=== PATIENT | female | born 1955 | race Caucasian/White ===

== ENCOUNTER 2017-01-23 14:35 | Emergency (ER) | payer OTHER, MEDICAID ==
[~2017-01-23] VITALS: Ht 170.2 cm; Wt 68.0 kg
[~2017-01-23 14:35] MED LIST: ALBU18 IN; CLON1TAB3 PO; INSUINJ37 SUBCUT; LURA80TA PO; METF500T PO; MOTRIN; QUET400T3 PO; SERT-160 PO; SIMV10TA84 PO; ZOLP10TA6 PO
[2017-01-23 14:41] VITALS: BP 139/80
[2017-01-23] MEDS ORDERED: SODIUM CHLORIDE 0.9% 1,000 ML IV ONE (14:55)
[2017-01-23] MEDS ORDERED: LORazepam 2MG/ML-1ML VIAL IV ONE (15:00)
[2017-01-23] MEDS ORDERED: MORPHINE SULFATE 4 MG/ML SYRG IV ONE (15:00)
[2017-01-23] MEDS ORDERED: ONDANSETRON HCL 4 MG/2 ML VIAL IV ONE (15:00)
[2017-01-23 15:52] LABS: Basophils # (auto) 0 uL; Basophils % (auto) 0.4 % (0.0-2.0); CONDITION Y; Eosinophils # (auto) 0 uL; Hemoglobin 14.5 g/dL (12.2-16.2); Lymphocytes # (auto) 1.1 uL; Lymphocytes % (auto) 11.7 % (10.0-50.0); Mean Corpuscular Hemoglobin 30.5 pg (28.0-32.0); Mean Corpuscular Hgb Conc. 34.5 g/dL (32.0-36.0); Mean Corpuscular Volume 88.6 fL (80.0-100.0); Mean Platelet Volume 7.6 fL (7.4-10.4); Monocytes # (auto) 0.4 uL; Monocytes % (auto) 4.7 % (0.0-12.0); Neutrophils # (auto) 7.6 uL; Neutrophils % (auto) 83.2 % (37.0-80.0); Platelet Count (auto) 338 10^3/uL (140-450); Red Cell Distribution Width 15.3 % (11.6-16.0); White Blood Cell 9.1 10^3/uL (4.4-10.8)
[2017-01-23 16:08] LABS: Albumin 4.2 g/dL (3.4-5.0); BUN/Creatinine Ratio 13.3; Calcium 8.9 mg/dL (8.5-10.1); Magnesium 1.8 mg/dL (1.6-2.6); Potassium 3.2 mmol/L (3.5-5.1)
[2017-01-23 16:11] LABS: Bilirubin, Total 0.4 mg/dL (0.2-1.0); Total Protein 8.4 g/dL (6.4-8.2)
== END 2017-01-23 22:46 | disposition left against medical advice (07) ==
LOC: EDBD 14:35 → ER 14:41
DX: R10.9 Unspecified abdominal pain (principal); G89.29 Other chronic pain; M54.5 Low back pain; M19.90 Unspecified osteoarthritis, unspecified site; J45.909 Unspecified asthma, uncomplicated; E11.22 Type 2 diabetes mellitus with diabetic chronic kidney disease; N18.9 Chronic kidney disease, unspecified; I25.2 Old myocardial infarction; E78.5 Hyperlipidemia, unspecified; E07.89 Other specified disorders of thyroid; Z90.49 Acquired absence of other specified parts of digestive tract; Z90.710 Acquired absence of both cervix and uterus; Z79.899 Other long term (current) drug therapy; Z88.1 Allergy status to other antibiotic agents; Z88.6 Allergy status to analgesic agent
CPT/HCPCS: 36415; 74176; 80053; 82010; 83735; 85025; 93005; 94761

== ENCOUNTER 2017-11-24 18:03 | Emergency (ER) | payer OTHER, MEDICAID ==
[~2017-11-24] VITALS: Ht 165.1 cm; Wt 76.2 kg
[2017-11-24 19:35] LABS: Basophils # (auto) 0 uL; Basophils % (auto) 0.5 % (0.0-2.0); Eosinophils # (auto) 0.2 uL; Eosinophils % (auto) 2.8 % (0.0-7.0); Hematocrit 34.4 % (36.0-46.0); Hemoglobin 11.7 g/dL (12.2-16.2); Lymphocytes # (auto) 1.4 uL; Lymphocytes % (auto) 25.9 % (10.0-50.0); Mean Corpuscular Hemoglobin 30.9 pg (28.0-32.0); Monocytes # (auto) 0.3 uL; Neutrophils # (auto) 3.6 uL; Neutrophils % (auto) 64.8 % (37.0-80.0); Nucleated Red Blood Cells % 0.1 %; Platelet Count (auto) 233 10^3/uL (140-450); Red Blood Cells 3.78 10^6/uL (4.0-5.20); Red Cell Distribution Width 14.3 % (11.8-14.3); White Blood Cell 5.5 10^3/uL (4.4-10.8)
[2017-11-24 20:19] LABS: Alanine Aminotransferase 17 U/L (13-56); Alkaline Phosphatase 137 U/L (45-117); Anion Gap 10 (5-15); Aspartate Aminotransferase 16 U/L (15-37); BUN/Creatinine Ratio 6.3; Bilirubin, Total 0.3 mg/dL (0.2-1.0); Blood Urea Nitrogen 4 mg/dL (7-18); Calcium 8.9 mg/dL (8.5-10.1); Carbon Dioxide 24 mmol/L (21-32); Chloride 106 mmol/L (98-107); GFR African American 123 mL/min; GFR Non-African American 102 mL/min; Glucose 124 mg/dL (74-106); Magnesium 2.4 mg/dL (1.6-2.6); Potassium 3.1 mmol/L (3.5-5.1); Sodium 140 mmol/L (136-145); Total Protein 7.9 g/dL (6.4-8.2)
[2017-11-24] MEDS ORDERED: HYDROcodone-ACET 10/325MG TAB PO ONE (20:45)
[2017-11-24 23:53] VITALS: BP 141/88
[2017-11-25] MEDS ORDERED: POTASSIUM CHL 20 Meq TABLET PO ONE ×2
== END 2017-11-25 00:17 | disposition home or self-care (01) ==
LOC: ER 18:05
DX: S20.219A Contusion of unspecified front wall of thorax, initial encounter (principal); E11.9 Type 2 diabetes mellitus without complications; J44.9 Chronic obstructive pulmonary disease, unspecified; M19.90 Unspecified osteoarthritis, unspecified site; E78.5 Hyperlipidemia, unspecified; Z90.49 Acquired absence of other specified parts of digestive tract; Z90.710 Acquired absence of both cervix and uterus; Z79.4 Long term (current) use of insulin; Z87.891 Personal history of nicotine dependence; Z88.1 Allergy status to other antibiotic agents; X58.XXXA Exposure to other specified factors, initial encounter; Y93.89 Activity, other specified; Y92.89 Other specified places as the place of occurrence of the external cause; Y99.8 Other external cause status
CPT/HCPCS: 36415; 71250; 80053; 83735; 84484; 85025; 93005; 94761

== ENCOUNTER 2021-09-25 23:34 | Inpatient (IN) | payer OTHER, MEDICAID ==
[~2021-09-25] VITALS: Ht 165.1 cm; Wt 66.0 kg
[~2021-09-25 23:34] MED LIST changes: +CLON-853 PO; -CLON1TAB3 PO; -QUET400T3 PO; +QUET400T4 PO
[2021-09-26] MEDS ORDERED: SODIUM CHLORIDE 0.9% 1,000 ML IV ONE
[2021-09-26] MEDS ORDERED: HYDROmorphone HCL 2 MG/ML VL IV ONE ×3 (00:45→08:30)
[2021-09-26] MEDS ORDERED: LORazepam 2MG/ML-1ML VIAL IV ONE (00:45)
[2021-09-26 01:22] LABS: Basophils # (auto) 0 10 ^3/uL (0-0.2); Basophils % (auto) 0.2 % (0.0-2.0); Eosinophils # (auto) 0 10 ^3/uL (0-0.8); Eosinophils % (auto) 0.3 % (0.0-7.0); Hemoglobin 11.5 g/dL (12.2-16.2); Lymphocytes # (auto) 0.6 10 ^3/uL (0.4-5.4); Lymphocytes % (auto) 13.8 % (10.0-50.0); Mean Corpuscular Hemoglobin 33.9 pg (28.0-32.0); Mean Corpuscular Hgb Conc. 34.9 g/dL (32.0-36.0); Mean Corpuscular Volume 97.1 fL (80.0-100.0); Monocytes # (auto) 0.2 10 ^3/uL (0-1.3); Monocytes % (auto) 4.1 % (0.0-12.0); Neutrophils # (auto) 3.8 10 ^3/uL (1.6-8.6); Neutrophils % (auto) 81.6 % (37.0-80.0); Nucleated Red Blood Cells % 0.1 %; Red Cell Distribution Width 14.3 % (11.8-14.3); White Blood Cell 4.6 10^3/uL (4.4-10.8)
[2021-09-26 01:31] LABS: Albumin 3.8 g/dL (3.4-5.0); BUN/Creatinine Ratio 14.1; Calcium 9.4 mg/dL (8.5-10.1); Potassium 3.5 mmol/L (3.5-5.1)
[2021-09-26 01:34] LABS: Bilirubin, Total 0.4 mg/dL (0.2-1.0); Total Protein 7.6 g/dL (6.4-8.2)
[2021-09-26 03:24] LABS: Urine Bacteria NONE SEEN /hpf (None Seen); Urine Blood Negative /uL (Negative); Urine Specific Gravity 1.005 (1.001-1.035); Urine WBC 1 /hpf (0 - 5)
[2021-09-26] MEDS ORDERED: IOHEXOL 300 MG/ML 100ML BOTTLE IJ ONE (04:23)
[2021-09-26] MEDS ORDERED: METOCLOPRAMIDE HCL 5MG/ml INJ 2ml VIAL IV ONE (08:30)
[2021-09-26 09:38] LABS: INR 1.07 (0.9-1.15); Partial Thromboplastin Time 29.3 sec (23.6-33.0)
[2021-09-26] MEDS ORDERED: NITROGLYCERIN 0.4 MG SL TAB SL PRN (10:15)
[2021-09-26] MEDS ORDERED: MORPHINE SULFATE 4 MG/ML SYR/VIAL IV PRN (10:15)
[2021-09-26] MEDS ORDERED: MORPHINE SULFATE INJECTION 2 MG/ML SYRG IV PRN (10:15)
[2021-09-26 12:00] VITALS: BP 113/61
[2021-09-26 14:00] VITALS: BP 113/61
[2021-09-26] MEDS: SODIUM CHLORIDE 0.9% 1,000 ML IV SCH ×2 (14:54→18:35)
[2021-09-26 16:00] VITALS: BP 121/64
[2021-09-26] MEDS ORDERED: HYDROmorphone HCL 2 MG/ML VL IV PRN (18:00)
[2021-09-26] MEDS: HYDROmorphone HCL 2 MG/ML VL IV PRN ×2 (19:16→23:26)
[2021-09-26] MEDS: FAMOTIDINE (10MG/ML) 2ML VL IV SCH (22:00)
[2021-09-26 22:03] VITALS: BP 136/66
[2021-09-27] MEDS: HYDROmorphone HCL 2 MG/ML VL IV PRN ×5 (04:27→20:34)
[2021-09-27 05:14] VITALS: BP 138/75
[2021-09-27 06:38] LABS: Basophils # (auto) 0 10 ^3/uL (0-0.2); Basophils % (auto) 0.6 % (0.0-2.0); Eosinophils # (auto) 0.1 10 ^3/uL (0-0.8); Eosinophils % (auto) 4.1 % (0.0-7.0); Hematocrit 29.5 % (36.0-46.0); Hemoglobin 10.3 g/dL (12.2-16.2); Lymphocytes # (auto) 1.4 10 ^3/uL (0.4-5.4); Lymphocytes % (auto) 40.3 % (10.0-50.0); Mean Corpuscular Hemoglobin 33.8 pg (28.0-32.0); Mean Corpuscular Hgb Conc. 34.9 g/dL (32.0-36.0); Monocytes # (auto) 0.3 10 ^3/uL (0-1.3); Monocytes % (auto) 9.2 % (0.0-12.0); Neutrophils # (auto) 1.5 10 ^3/uL (1.6-8.6); Neutrophils % (auto) 45.8 % (37.0-80.0); Nucleated Red Blood Cells % 0.1 %; Red Blood Cells 3.04 10^6/uL (4.0-5.20); Red Cell Distribution Width 14.6 % (11.8-14.3); White Blood Cell 3.4 10^3/uL (4.4-10.8)
[2021-09-27 06:55] LABS: Albumin 3.3 g/dL (3.4-5.0); BUN/Creatinine Ratio 14.3; Calcium 8.4 mg/dL (8.5-10.1); Potassium 3.4 mmol/L (3.5-5.1)
[2021-09-27 06:58] LABS: Bilirubin, Total 0.5 mg/dL (0.2-1.0); Total Protein 6.6 g/dL (6.4-8.2)
[2021-09-27] MEDS: ONDANSETRON HCL 4 MG/2 ML VIAL IV PRN ×3 (08:22→20:35)
[2021-09-27 09:00] VITALS: BP 141/76
[2021-09-27] MEDS: FAMOTIDINE (10MG/ML) 2ML VL IV SCH ×2 (10:06→21:26)
[2021-09-27] MEDS: ENOXAPARIN SOD 40 MG/0.4 ML SYRINGE SC SCH (10:06)
[2021-09-27] MEDS: SODIUM CHLORIDE 0.9% 1,000 ML IV SCH ×2 (11:22)
[2021-09-27 13:00] VITALS: BP 151/70
[2021-09-27] MEDS ORDERED: GASTROGRAFIN 120 ML SOL ONE (13:51)
[2021-09-27 17:00] VITALS: BP 120/68
[2021-09-27 20:00] VITALS: BP 142/72
[2021-09-27 22:55] VITALS: BP 145/22
[2021-09-28] MEDS: ONDANSETRON HCL 4 MG/2 ML VIAL IV PRN ×5 (00:35→21:51)
[2021-09-28] MEDS: HYDROmorphone HCL 2 MG/ML VL IV PRN ×6 (00:35→21:51)
[2021-09-28 05:00] VITALS: BP 105/66
[2021-09-28] MEDS: SODIUM CHLORIDE 0.9% 1,000 ML IV SCH ×2 (05:11→11:52)
[2021-09-28 09:00] VITALS: BP 126/66
[2021-09-28] MEDS: FAMOTIDINE (10MG/ML) 2ML VL IV SCH ×2 (10:45→21:50)
[2021-09-28] MEDS: ENOXAPARIN SOD 40 MG/0.4 ML SYRINGE SC SCH (10:46)
[2021-09-28 13:00] VITALS: BP 133/71
[2021-09-28 16:18] LABS: BUN/Creatinine Ratio 10.7; Calcium 9.2 mg/dL (8.5-10.1); Potassium 3.2 mmol/L (3.5-5.1)
[2021-09-28 17:00] VITALS: BP 117/75
[2021-09-28] MEDS ORDERED: POTASSIUM EFFERVESENT TAB 25 MEQ PO ONE (18:15)
[2021-09-28 22:00] VITALS: BP 130/76
[2021-09-29] MEDS: SODIUM CHLORIDE 0.9% 1,000 ML IV SCH ×2 (01:20→21:35)
[2021-09-29] MEDS: ONDANSETRON HCL 4 MG/2 ML VIAL IV PRN ×4 (01:36→20:17)
[2021-09-29] MEDS: HYDROmorphone HCL 2 MG/ML VL IV PRN ×6 (01:37→23:45)
[2021-09-29 05:00] VITALS: BP 132/63
[2021-09-29 09:00] VITALS: BP 127/62
[2021-09-29] MEDS: FAMOTIDINE (10MG/ML) 2ML VL IV SCH ×2 (11:52→22:35)
[2021-09-29] MEDS: ENOXAPARIN SOD 40 MG/0.4 ML SYRINGE SC SCH (11:52)
[2021-09-29 13:00] VITALS: BP 144/62
[2021-09-29] MEDS: POTASSIUM CHL 10MEQ/50ML 50 ML IV SCH ×4 (13:08→16:48)
[2021-09-29 17:00] VITALS: BP 110/71
[2021-09-29] MEDS ORDERED: QUET300T74 PO (21:16)
[2021-09-29] MEDS ORDERED: MID10T GT (21:16)
[2021-09-29] MEDS ORDERED: ROPI1TAB4 PO (21:16)
[2021-09-29] MEDS ORDERED: DULO60CA PO (21:16)
[2021-09-29] MEDS ORDERED: LEVO50CA3 PO (21:16)
[2021-09-29] MEDS ORDERED: FAMO40TA7 PO (21:16)
[2021-09-29] MEDS ORDERED: POTA-180 PO (21:16)
[2021-09-29] MEDS ORDERED: DOCU100T15 PO (21:16)
[2021-09-29] MEDS ORDERED: APIX5TAB PO (21:16)
[2021-09-29] MEDS ORDERED: MAGN250T8 PO (21:16)
[2021-09-29] MEDS ORDERED: FURO1TAB33 PO (21:16)
[2021-09-29 22:09] VITALS: BP 193/69
[2021-09-30] MEDS: SODIUM CHLORIDE 0.9% 1,000 ML IV SCH ×3 (01:03→22:22)
[2021-09-30] MEDS: ONDANSETRON HCL 4 MG/2 ML VIAL IV PRN ×3 (03:27→22:23)
[2021-09-30] MEDS: HYDROmorphone HCL 2 MG/ML VL IV PRN ×6 (03:32→22:23)
[2021-09-30 05:00] VITALS: BP 137/67
[2021-09-30 08:53] VITALS: BP 141/72
[2021-09-30 12:26] VITALS: BP 143/70
[2021-09-30] MEDS: ENOXAPARIN SOD 40 MG/0.4 ML SYRINGE SC SCH (12:31)
[2021-09-30] MEDS: FAMOTIDINE (10MG/ML) 2ML VL IV SCH ×2 (12:32→22:22)
[2021-09-30 16:42] VITALS: BP 147/66
[2021-09-30 22:00] VITALS: BP 141/72
[2021-09-30] MEDS ORDERED: QUEtiapine FUMARATE 100 MG TAB PO SCH (22:00)
[2021-10-01] MEDS: HYDROmorphone HCL 2 MG/ML VL IV PRN ×2 (04:42→10:16)
[2021-10-01] MEDS: ONDANSETRON HCL 4 MG/2 ML VIAL IV PRN ×2 (04:42→10:17)
[2021-10-01 05:00] VITALS: BP 121/65
[2021-10-01] MEDS: SODIUM CHLORIDE 0.9% 1,000 ML IV SCH (05:25)
[2021-10-01 09:00] VITALS: BP 123/67
[2021-10-01] MEDS: FAMOTIDINE (10MG/ML) 2ML VL IV SCH (10:05)
[2021-10-01] MEDS: ENOXAPARIN SOD 40 MG/0.4 ML SYRINGE SC SCH (10:06)
[2021-10-01 11:44] VITALS: BP 123/67
== END 2021-10-01 12:30 | disposition home health service (06) | DRG 389 ==
LOC: ER 23:34 → EDBD 23:34 → TELE 09-26 10:01 → TELE-WESTW 09-26 12:23
PROVIDERS: ADMIT Internal Medicine; ATTEND Internal Medicine
DX: K56.7 Ileus, unspecified (principal); M48.56XA Collapsed vertebra, not elsewhere classified, lumbar region, initial encounter for fracture; C50.911 Malignant neoplasm of unspecified site of right female breast; R91.1 Solitary pulmonary nodule; F20.9 Schizophrenia, unspecified; G89.4 Chronic pain syndrome; D64.9 Anemia, unspecified; E87.6 Hypokalemia; E11.22 Type 2 diabetes mellitus with diabetic chronic kidney disease; N18.9 Chronic kidney disease, unspecified; M19.90 Unspecified osteoarthritis, unspecified site; Z20.822 Contact with and (suspected) exposure to COVID-19; G89.3 Neoplasm related pain (acute) (chronic); Z80.0 Family history of malignant neoplasm of digestive organs; Z81.8 Family history of other mental and behavioral disorders; Z82.49 Family history of ischemic heart disease and other diseases of the circulatory system; Z90.12 Acquired absence of left breast and nipple; Z79.4 Long term (current) use of insulin; Z90.710 Acquired absence of both cervix and uterus; Z83.3 Family history of diabetes mellitus; Z85.038 Personal history of other malignant neoplasm of large intestine; Z85.3 Personal history of malignant neoplasm of breast; Z92.21 Personal history of antineoplastic chemotherapy; Z79.899 Other long term (current) drug therapy; I25.2 Old myocardial infarction; Z88.5 Allergy status to narcotic agent; Z90.49 Acquired absence of other specified parts of digestive tract; E11.9 Type 2 diabetes mellitus without complications; Z79.84 Long term (current) use of oral hypoglycemic drugs
CPT/HCPCS: 36415; 71045; 74176; 74250; 80048; 80053; 81001; 83690; 83735; 85025; 85610; 85730; 93005; 96361; 96374; 96375; 96376; G0378; J1642; J2405; J3490

== ENCOUNTER 2021-11-01 22:35 | Inpatient (IN) | payer OTHER, MEDICAID ==
[~2021-11-01] VITALS: Ht 165.1 cm; Wt 66.6 kg
[~2021-11-01 22:35] MED LIST changes: +APIX5TAB PO; +DOCU100T15 PO; +DULO60CA PO; +FAMO40TA7 PO; +FURO1TAB33 PO; +LEVO50CA3 PO; +MAGN250T8 PO; +MID10T GT; +POTA-180 PO; +QUET300T74 PO; +ROPI1TAB4 PO
[2021-11-01 23:53] LABS: Basophils # (auto) 0 10 ^3/uL (0-0.2); Basophils % (auto) 0.3 % (0.0-2.0); Eosinophils # (auto) 0 10 ^3/uL (0-0.8); Eosinophils % (auto) 0.8 % (0.0-7.0); Hematocrit 33.9 % (36.0-46.0); Hemoglobin 12.1 g/dL (12.2-16.2); Lymphocytes # (auto) 0.9 10 ^3/uL (0.4-5.4); Lymphocytes % (auto) 15.6 % (10.0-50.0); Mean Corpuscular Hemoglobin 33.3 pg (28.0-32.0); Mean Corpuscular Hgb Conc. 35.6 g/dL (32.0-36.0); Mean Corpuscular Volume 93.5 fL (80.0-100.0); Monocytes # (auto) 0.3 10 ^3/uL (0-1.3); Monocytes % (auto) 5.2 % (0.0-12.0); Neutrophils # (auto) 4.3 10 ^3/uL (1.6-8.6); Neutrophils % (auto) 78.1 % (37.0-80.0); Nucleated Red Blood Cells % 0.1 %; Red Blood Cells 3.62 10^6/uL (4.0-5.20); Red Cell Distribution Width 13.8 % (11.8-14.3); White Blood Cell 5.6 10^3/uL (4.4-10.8)
[2021-11-02 00:02] LABS: BUN/Creatinine Ratio 15.9; Calcium 9.3 mg/dL (8.5-10.1); Potassium 3.9 mmol/L (3.5-5.1)
[2021-11-02 00:05] LABS: Bilirubin, Total 0.4 mg/dL (0.2-1.0)
[2021-11-02] MEDS ORDERED: ONDANSETRON HCL 4 MG/2 ML VIAL IV ONE (00:15)
[2021-11-02] MEDS ORDERED: MORPHINE SULFATE 4 MG/ML SYR/VIAL IV ONE (00:15)
[2021-11-02] MEDS ORDERED: SODIUM CHLORIDE 0.9% 1,000 ML IV SCH (04:00)
[2021-11-02] MEDS ORDERED: DEXTROSE (50%) 50ML SYRG IV PRN (04:00)
[2021-11-02] MEDS: ONDANSETRON HCL 4 MG/2 ML VIAL IV PRN ×3 (04:43→21:52)
[2021-11-02] MEDS: MORPHINE SULFATE 4 MG/ML SYR/VIAL IV PRN ×3 (04:44→21:52)
[2021-11-02 04:49] LABS: INR 1.08 (0.9-1.15); Partial Thromboplastin Time 32.3 sec (23.6-33.0)
[2021-11-02] MEDS: ACCU-CHEK COMFORT CURVE STRIP VI SCH ×3 (05:30→17:23)
[2021-11-02] MEDS: InsuLIN REG 1unit/0.01ml Soln (100units/ml) SC SCH ×3 (05:31→17:23)
[2021-11-02] MEDS ORDERED: GASTROGRAFIN 120 ML SOL ONE (08:20)
[2021-11-02 08:24] LABS: Urine Bacteria NONE SEEN /hpf (None Seen); Urine Blood Negative /uL (Negative); Urine Specific Gravity 1.007 (1.001-1.035); Urine WBC <1 /hpf (0 - 5)
[2021-11-02] MEDS ORDERED: QUET300T14 PO (09:27)
[2021-11-02] MEDS ORDERED: MID10T PO (09:27)
[2021-11-02] MEDS: PANTOPRAZOLE 40 MG/10 ML VIAL INJ IV SCH (10:00)
[2021-11-02 12:00] VITALS: BP 84/47
[2021-11-02] MEDS: SODIUM CHLORIDE 0.9% 1,000 ML IV SCH (13:30)
[2021-11-02 16:00] VITALS: BP 122/67
[2021-11-02] MEDS ORDERED: HYDROmorphone HCL 2 MG/ML VL IM ONE (17:30)
[2021-11-02 20:00] VITALS: BP 113/67
[2021-11-02 22:00] VITALS: BP 113/67
[2021-11-02] MEDS ORDERED: QUEtiapine FUMARATE 100 MG TAB PO SCH (22:00)
[2021-11-02] MEDS ORDERED: QUEtiapine FUMARATE 25 MG TAB PO SCH (22:00)
[2021-11-03] VITALS (7 sets, daily range): BP systolic 115–130; BP diastolic 65–74
[2021-11-03] MEDS: SODIUM CHLORIDE 0.9% 1,000 ML IV SCH
[2021-11-03] MEDS: ACCU-CHEK COMFORT CURVE STRIP VI SCH ×3 (00:20→12:28)
[2021-11-03] MEDS: MORPHINE SULFATE 4 MG/ML SYR/VIAL IV PRN ×4 (04:53→18:23)
[2021-11-03] MEDS: ONDANSETRON HCL 4 MG/2 ML VIAL IV PRN ×4 (04:53→18:23)
[2021-11-03] MEDS: InsuLIN REG 1unit/0.01ml Soln (100units/ml) SC SCH ×3 (05:37→12:00)
[2021-11-03 06:11] LABS: Basophils # (auto) 0 10 ^3/uL (0-0.2); Basophils % (auto) 0.5 % (0.0-2.0); Eosinophils # (auto) 0.1 10 ^3/uL (0-0.8); Eosinophils % (auto) 3.9 % (0.0-7.0); Hematocrit 31.5 % (36.0-46.0); Hemoglobin 11.1 g/dL (12.2-16.2); Lymphocytes # (auto) 1.4 10 ^3/uL (0.4-5.4); Lymphocytes % (auto) 53.4 % (10.0-50.0); Mean Corpuscular Hemoglobin 33.7 pg (28.0-32.0); Mean Corpuscular Hgb Conc. 35.3 g/dL (32.0-36.0); Mean Corpuscular Volume 95.5 fL (80.0-100.0); Monocytes # (auto) 0.2 10 ^3/uL (0-1.3); Monocytes % (auto) 8.9 % (0.0-12.0); Neutrophils # (auto) 0.8 10 ^3/uL (1.6-8.6); Neutrophils % (auto) 33.3 % (37.0-80.0); Nucleated Red Blood Cells % 0.1 %; White Blood Cell 2.5 10^3/uL (4.4-10.8)
[2021-11-03 06:22] LABS: Potassium 3.7 mmol/L (3.5-5.1)
[2021-11-03 06:27] LABS: Albumin 3.4 g/dL (3.4-5.0); BUN/Creatinine Ratio 11.9; Bilirubin, Total 0.5 mg/dL (0.2-1.0); Calcium 8.7 mg/dL (8.5-10.1); Total Protein 6.7 g/dL (6.4-8.2)
[2021-11-03] MEDS ORDERED: HYDROcodone-ACET 7.5/325MG TAB PO PRN (09:15)
[2021-11-03] MEDS: PANTOPRAZOLE 40 MG/10 ML VIAL INJ IV SCH (09:20)
== END 2021-11-03 18:30 | disposition home or self-care (01) | DRG 389 ==
LOC: EDBD 22:35 → ER 22:40 → OVERFLOW 11-02 03:57 → CENTRAL 11-02 08:35
PROVIDERS: ADMIT Nurse Practitioner; ATTEND Family Medicine
DX: K56.50 Intestinal adhesions [bands], unspecified as to partial versus complete obstruction (principal); E87.1 Hypo-osmolality and hyponatremia; F20.9 Schizophrenia, unspecified; E03.9 Hypothyroidism, unspecified; E11.22 Type 2 diabetes mellitus with diabetic chronic kidney disease; J44.9 Chronic obstructive pulmonary disease, unspecified; N18.9 Chronic kidney disease, unspecified; M19.90 Unspecified osteoarthritis, unspecified site; E86.0 Dehydration; Z20.822 Contact with and (suspected) exposure to COVID-19; G89.4 Chronic pain syndrome; Z81.8 Family history of other mental and behavioral disorders; Z82.49 Family history of ischemic heart disease and other diseases of the circulatory system; Z83.3 Family history of diabetes mellitus; Z85.3 Personal history of malignant neoplasm of breast; Z90.12 Acquired absence of left breast and nipple; Z90.710 Acquired absence of both cervix and uterus; Z88.5 Allergy status to narcotic agent; Z90.49 Acquired absence of other specified parts of digestive tract; Z79.84 Long term (current) use of oral hypoglycemic drugs
CPT/HCPCS: 36415; 74176; 74250; 80053; 81001; 82270; 82962; 83690; 85025; 85610; 85730; 93005; 96361; 96374; 96375; C9113; G0378; J1815; J2405

== ENCOUNTER 2021-11-06 19:10 | Inpatient (IN) | payer OTHER, MEDICAID ==
[~2021-11-06] VITALS: Ht 165.1 cm; Wt 66.3 kg
[~2021-11-06 19:10] MED LIST changes: -ALBU18 IN; -CLON-853 PO; -INSUINJ37 SUBCUT; -LURA80TA PO; -METF500T PO; -MID10T GT; +MID10T PO; -MOTRIN; +QUET300T14 PO; -QUET300T74 PO; -QUET400T4 PO; -SERT-160 PO; -SIMV10TA84 PO; -ZOLP10TA6 PO
[2021-11-06] MEDS ORDERED: FAMOTIDINE (10MG/ML) 2ML VL IV ONE (19:45)
[2021-11-06] MEDS ORDERED: ALUM & MAG HYDROX-SIMETH LIQ(MAALOX) 30 ML PO ONE (19:45)
[2021-11-06] MEDS ORDERED: ONDANSETRON HCL 4 MG/2 ML VIAL IV ONE (19:45)
[2021-11-06] MEDS ORDERED: LIDOCAINE VISCOUS 2% 15ML UD PO ONE (19:45)
[2021-11-06 20:32] LABS: Basophils # (auto) 0 10 ^3/uL (0-0.2); Eosinophils # (auto) 0.1 10 ^3/uL (0-0.8); Eosinophils % (auto) 1.6 % (0.0-7.0); Hemoglobin 13.8 g/dL (12.2-16.2); Lymphocytes % (auto) 22.2 % (10.0-50.0); Mean Corpuscular Hemoglobin 33.3 pg (28.0-32.0); Mean Corpuscular Hgb Conc. 35.3 g/dL (32.0-36.0); Mean Corpuscular Volume 94.2 fL (80.0-100.0); Monocytes # (auto) 0.2 10 ^3/uL (0-1.3); Monocytes % (auto) 4.8 % (0.0-12.0); Neutrophils # (auto) 3.2 10 ^3/uL (1.6-8.6); Neutrophils % (auto) 70.4 % (37.0-80.0); Nucleated Red Blood Cells % 0.3 %; Red Blood Cells 4.14 10^6/uL (4.0-5.20); White Blood Cell 4.5 10^3/uL (4.4-10.8)
[2021-11-06 20:42] LABS: Lactic Acid w/Reflex 3.1 mmol/L (0.4-2.0)
[2021-11-06 21:08] LABS: Albumin 4.4 g/dL (3.4-5.0); BUN/Creatinine Ratio 5.1; Calcium 9.8 mg/dL (8.5-10.1); Magnesium 1.9 mg/dL (1.6-2.6)
[2021-11-06 21:11] LABS: Bilirubin, Total 0.6 mg/dL (0.2-1.0); Total Protein 8.3 g/dL (6.4-8.2)
[2021-11-06] MEDS ORDERED: HYDROmorphone HCL 2 MG/ML VL IV ONE (23:30)
[2021-11-07 02:28] LABS: Urine Bacteria FEW /hpf (None Seen); Urine Blood Negative /uL (Negative); Urine Specific Gravity 1.007 (1.001-1.035); Urine WBC 2 /hpf (0 - 5)
[2021-11-07 03:13] LABS: Lactic Acid w/Reflex 3.2 mmol/L (0.4-2.0)
[2021-11-07] MEDS ORDERED: LACTATED RINGER'S 1,000 ML IV ONE ×2 (04:30→05:45)
[2021-11-07] MEDS ORDERED: ALBUTEROL SULF 2.5 MG/0.5ML(0.5%) NEB SOLN NEB PRN (06:30)
[2021-11-07] MEDS ORDERED: IPRATROPIUM BROM 0.5 MG/2.5ML INH SOL NEB PRN (06:30)
[2021-11-07] MEDS ORDERED: NITROGLYCERIN 0.4 MG SL TAB SL PRN (06:30)
[2021-11-07] MEDS ORDERED: MORPHINE SULFATE INJECTION 2 MG/ML SYRG IV PRN (06:30)
[2021-11-07] MEDS: HYDROmorphone HCL 2 MG/ML VL IV PRN ×4 (07:47→23:15)
[2021-11-07] MEDS: ONDANSETRON HCL 4 MG/2 ML VIAL IV PRN ×4 (07:47→23:15)
[2021-11-07 09:09] VITALS: BP 132/74
[2021-11-07] MEDS: D5W/SOD CHLO 0.9% 1,000 ML IV SCH ×2 (10:04→16:30)
[2021-11-07] MEDS: PANTOPRAZOLE 40 MG/10 ML VIAL INJ IV SCH (10:04)
[2021-11-07] MEDS ORDERED: EXEM25TA4 PO (15:22)
[2021-11-07 17:00] VITALS: BP 141/103
[2021-11-07 22:00] VITALS: BP 158/83
[2021-11-07] MEDS ORDERED: QUEtiapine FUMARATE 100 MG TAB PO ONE (22:45)
[2021-11-08] MEDS: D5W/SOD CHLO 0.9% 1,000 ML IV SCH ×3 (00:44→23:06)
[2021-11-08 05:00] VITALS: BP 90/50
[2021-11-08 05:31] LABS: Basophils # (auto) 0 10 ^3/uL (0-0.2); Basophils % (auto) 0.6 % (0.0-2.0); Eosinophils # (auto) 0.2 10 ^3/uL (0-0.8); Eosinophils % (auto) 4.8 % (0.0-7.0); Hematocrit 29.7 % (36.0-46.0); Hemoglobin 10.7 g/dL (12.2-16.2); Lymphocytes # (auto) 1.4 10 ^3/uL (0.4-5.4); Lymphocytes % (auto) 39.6 % (10.0-50.0); Mean Corpuscular Volume 94.6 fL (80.0-100.0); Monocytes # (auto) 0.3 10 ^3/uL (0-1.3); Monocytes % (auto) 9.5 % (0.0-12.0); Neutrophils # (auto) 1.6 10 ^3/uL (1.6-8.6); Neutrophils % (auto) 45.5 % (37.0-80.0); Nucleated Red Blood Cells % 0.1 %; Red Blood Cells 3.14 10^6/uL (4.0-5.20); Red Cell Distribution Width 13.9 % (11.8-14.3); White Blood Cell 3.4 10^3/uL (4.4-10.8)
[2021-11-08 05:44] LABS: Albumin 3.3 g/dL (3.4-5.0); BUN/Creatinine Ratio 5.9; Calcium 8.4 mg/dL (8.5-10.1); Magnesium 1.8 mg/dL (1.6-2.6); Potassium 3.5 mmol/L (3.5-5.1)
[2021-11-08 05:45] LABS: INR 1.13 (0.9-1.15); Partial Thromboplastin Time 32.2 sec (23.6-33.0)
[2021-11-08 05:47] LABS: Bilirubin, Total 0.4 mg/dL (0.2-1.0); Total Protein 6.6 g/dL (6.4-8.2)
[2021-11-08 09:00] VITALS: BP 159/99
[2021-11-08] MEDS: ONDANSETRON HCL 4 MG/2 ML VIAL IV PRN ×3 (09:54→22:03)
[2021-11-08] MEDS: HYDROmorphone HCL 2 MG/ML VL IV PRN ×4 (09:55→23:05)
[2021-11-08] MEDS: PANTOPRAZOLE 40 MG/10 ML VIAL INJ IV SCH (09:55)
[2021-11-08 12:00] VITALS: BP 115/66
[2021-11-08 16:00] VITALS: BP 136/67
[2021-11-08 18:59] VITALS: BP 154/78
[2021-11-08] MEDS: QUEtiapine FUMARATE 100 MG TAB PO SCH (21:53)
[2021-11-08 22:00] VITALS: BP 141/81
[2021-11-09] MEDS: HYDROmorphone HCL 2 MG/ML VL IV PRN ×4 (04:40→20:27)
[2021-11-09] MEDS: ONDANSETRON HCL 4 MG/2 ML VIAL IV PRN ×3 (04:41→20:27)
[2021-11-09 04:59] LABS: Basophils # (auto) 0 10 ^3/uL (0-0.2); Basophils % (auto) 0.4 % (0.0-2.0); Eosinophils # (auto) 0.1 10 ^3/uL (0-0.8); Eosinophils % (auto) 4.4 % (0.0-7.0); Hematocrit 28.3 % (36.0-46.0); Hemoglobin 10.1 g/dL (12.2-16.2); Lymphocytes # (auto) 1.2 10 ^3/uL (0.4-5.4); Lymphocytes % (auto) 39.8 % (10.0-50.0); Mean Corpuscular Hgb Conc. 35.7 g/dL (32.0-36.0); Mean Corpuscular Volume 95.1 fL (80.0-100.0); Monocytes # (auto) 0.3 10 ^3/uL (0-1.3); Monocytes % (auto) 9.7 % (0.0-12.0); Neutrophils # (auto) 1.4 10 ^3/uL (1.6-8.6); Neutrophils % (auto) 45.7 % (37.0-80.0); Nucleated Red Blood Cells % 0.1 %; Red Blood Cells 2.98 10^6/uL (4.0-5.20); Red Cell Distribution Width 13.9 % (11.8-14.3); White Blood Cell 3.1 10^3/uL (4.4-10.8)
[2021-11-09 05:00] VITALS: BP 111/63
[2021-11-09 05:20] LABS: BUN/Creatinine Ratio 7.3; Calcium 8.5 mg/dL (8.5-10.1)
[2021-11-09] MEDS: D5W/SOD CHLO 0.9% 1,000 ML IV SCH (07:46)
[2021-11-09 09:00] VITALS: BP_SYST 109; BP_SYST 168; BP_DIAS 65; BP_DIAS 68
[2021-11-09] MEDS: PANTOPRAZOLE 40 MG/10 ML VIAL INJ IV SCH (10:18)
[2021-11-09] MEDS ORDERED: POTASSIUM CHL 20 Meq TABLET PO ONE (12:30)
[2021-11-09] MEDS ORDERED: POTASSIUM CHL 20MEQ/100ML 100 ML IV ONE (12:30)
[2021-11-09 13:00] VITALS: BP 124/70
[2021-11-09 17:00] VITALS: BP 127/99
[2021-11-09] MEDS: QUEtiapine FUMARATE 100 MG TAB PO SCH (21:42)
[2021-11-09 22:00] VITALS: BP 115/73
[2021-11-10] MEDS: HYDROmorphone HCL 2 MG/ML VL IV PRN ×5 (00:58→21:28)
[2021-11-10 05:00] VITALS: BP 117/68
[2021-11-10] MEDS: ONDANSETRON HCL 4 MG/2 ML VIAL IV PRN ×3 (05:42→19:24)
[2021-11-10 06:45] VITALS: BP 117/68
[2021-11-10 09:00] VITALS: BP 119/64
[2021-11-10 10:21] LABS: Basophils # (auto) 0 10 ^3/uL (0-0.2); Basophils % (auto) 0.4 % (0.0-2.0); Eosinophils # (auto) 0.1 10 ^3/uL (0-0.8); Eosinophils % (auto) 4.7 % (0.0-7.0); Hematocrit 27.6 % (36.0-46.0); Hemoglobin 9.8 g/dL (12.2-16.2); Lymphocytes # (auto) 1.3 10 ^3/uL (0.4-5.4); Lymphocytes % (auto) 49.9 % (10.0-50.0); Mean Corpuscular Hemoglobin 33.5 pg (28.0-32.0); Mean Corpuscular Hgb Conc. 35.5 g/dL (32.0-36.0); Mean Corpuscular Volume 94.4 fL (80.0-100.0); Monocytes # (auto) 0.2 10 ^3/uL (0-1.3); Monocytes % (auto) 9.2 % (0.0-12.0); Neutrophils # (auto) 0.9 10 ^3/uL (1.6-8.6); Neutrophils % (auto) 35.8 % (37.0-80.0); Red Blood Cells 2.92 10^6/uL (4.0-5.20); Red Cell Distribution Width 13.7 % (11.8-14.3); White Blood Cell 2.6 10^3/uL (4.4-10.8)
[2021-11-10 10:38] LABS: Calcium 8.6 mg/dL (8.5-10.1); Magnesium 1.9 mg/dL (1.6-2.6); Potassium 3.4 mmol/L (3.5-5.1)
[2021-11-10 10:40] LABS: BUN/Creatinine Ratio 3.2
[2021-11-10] MEDS: PANTOPRAZOLE 40 MG/10 ML VIAL INJ IV SCH (11:29)
[2021-11-10 13:00] VITALS: BP 115/67
[2021-11-10 17:00] VITALS: BP 127/83
[2021-11-10] MEDS ORDERED: POTASSIUM PHOSPHATE 22 MEQ in SODIUM CHL 0.9% 100 ML IV ONE (17:45)
[2021-11-10] MEDS: MAGNESIUM SULFATE 1GM/100ML 100 ML IV SCH ×2 (19:24→21:43)
[2021-11-10] MEDS: QUEtiapine FUMARATE 100 MG TAB PO SCH (21:29)
[2021-11-10 22:00] VITALS: BP 152/79
[2021-11-11] MEDS: HYDROmorphone HCL 2 MG/ML VL IV PRN ×5 (03:39→22:29)
[2021-11-11 05:00] VITALS: BP 114/63
[2021-11-11 06:28] LABS: Basophils # (auto) 0 10 ^3/uL (0-0.2); Basophils % (auto) 0.5 % (0.0-2.0); Eosinophils # (auto) 0.1 10 ^3/uL (0-0.8); Hemoglobin 9.9 g/dL (12.2-16.2); Lymphocytes # (auto) 1.4 10 ^3/uL (0.4-5.4); Monocytes # (auto) 0.3 10 ^3/uL (0-1.3); Neutrophils # (auto) 0.8 10 ^3/uL (1.6-8.6); Nucleated Red Blood Cells % 0.2 %; White Blood Cell 2.6 10^3/uL (4.4-10.8)
[2021-11-11 06:32] LABS: Eosinophils % (auto) 5.3 % (0.0-7.0); Lymphocytes % (auto) 52.5 % (10.0-50.0); Monocytes % (auto) 9.7 % (0.0-12.0); Red Cell Distribution Width 13.6 % (11.8-14.3)
[2021-11-11 06:35] LABS: Potassium 3.2 mmol/L (3.5-5.1)
[2021-11-11 06:44] LABS: BUN/Creatinine Ratio 5.8; Calcium 8.4 mg/dL (8.5-10.1); Magnesium 2.2 mg/dL (1.6-2.6); Phosphorus 5.3 mg/dL (2.5-4.90)
[2021-11-11 06:49] LABS: Red Blood Cells 2.89 10^6/uL (4.0-5.20)
[2021-11-11 06:50] LABS: Hematocrit 27.2 % (36.0-46.0); Mean Corpuscular Hemoglobin 34.1 pg (28.0-32.0); Mean Corpuscular Volume 94.3 fL (80.0-100.0)
[2021-11-11] MEDS: PANTOPRAZOLE 40 MG/10 ML VIAL INJ IV SCH (09:18)
[2021-11-11] MEDS: ONDANSETRON HCL 4 MG/2 ML VIAL IV PRN (09:37)
[2021-11-11] MEDS: POTASSIUM CHL 20MEQ/100ML 100 ML IV SCH ×3 (12:48→17:58)
[2021-11-11 12:55] VITALS: BP 112/74
[2021-11-11 17:00] VITALS: BP 139/70
[2021-11-11 22:06] VITALS: BP 144/76
[2021-11-11] MEDS: QUEtiapine FUMARATE 100 MG TAB PO SCH (22:30)
[2021-11-12] MEDS: ONDANSETRON HCL 4 MG/2 ML VIAL IV PRN (04:59)
[2021-11-12] MEDS: HYDROmorphone HCL 2 MG/ML VL IV PRN ×3 (05:00→14:38)
[2021-11-12 05:30] VITALS: BP 143/76
[2021-11-12 06:11] LABS: White Blood Cell 2.2 10^3/uL (4.4-10.8)
[2021-11-12 06:15] LABS: Hematocrit 28.6 % (36.0-46.0); Hemoglobin 10.2 g/dL (12.2-16.2); Mean Corpuscular Hemoglobin 34.4 pg (28.0-32.0); Mean Corpuscular Hgb Conc. 35.8 g/dL (32.0-36.0); Mean Corpuscular Volume 96.2 fL (80.0-100.0); Red Blood Cells 2.98 10^6/uL (4.0-5.20); Red Cell Distribution Width 13.5 % (11.8-14.3)
[2021-11-12 06:21] LABS: Potassium 3.5 mmol/L (3.5-5.1)
[2021-11-12 06:24] LABS: Band Neutrophils % (manual) 0; Basophils % (manual) 0 (0.0-2.0); Blast Cells 0; Metamyelocytes % 0; Myelocytes % 0; Promyelocytes % 0; Reactive Lymphocytes 0
[2021-11-12 06:35] LABS: BUN/Creatinine Ratio 4.8; Calcium 9.1 mg/dL (8.5-10.1)
[2021-11-12 07:23] LABS: Eosinophils % (manual) 3 (0-7); Lymphocytes % (manual) 66 (10.0-50.0); Monocytes % (manual) 3 (0-12)
[2021-11-12 09:00] VITALS: BP 102/59
[2021-11-12] MEDS: PANTOPRAZOLE 40 MG/10 ML VIAL INJ IV SCH (09:03)
[2021-11-12 13:00] VITALS: BP 116/80
[2021-11-12 15:16] VITALS: BP 123/65
[2021-11-12 17:00] VITALS: BP 121/69
== END 2021-11-12 17:57 | disposition home or self-care (01) | DRG 389 ==
LOC: EDBD 19:10 → ER 19:10 → OVERFLOW 11-07 06:29 → WEST WING 11-07 14:12
PROVIDERS: ADMIT Nurse Practitioner Acute Care; ATTEND Internal Medicine
PROC: 0D9670Z Drainage of Stomach with Drainage Device, Via Natural or Artificial Opening (ICD-10-PCS; principal; 2021-11-07)
DX: K56.600 Partial intestinal obstruction, unspecified as to cause (principal); E87.0 Hyperosmolality and hypernatremia; J44.9 Chronic obstructive pulmonary disease, unspecified; R91.1 Solitary pulmonary nodule; F20.9 Schizophrenia, unspecified; E86.0 Dehydration; Z20.822 Contact with and (suspected) exposure to COVID-19; E78.5 Hyperlipidemia, unspecified; D64.9 Anemia, unspecified; E11.9 Type 2 diabetes mellitus without complications; E03.9 Hypothyroidism, unspecified; Z79.01 Long term (current) use of anticoagulants; Z79.890 Hormone replacement therapy; Z92.21 Personal history of antineoplastic chemotherapy; Z79.899 Other long term (current) drug therapy; Z80.0 Family history of malignant neoplasm of digestive organs; Z81.8 Family history of other mental and behavioral disorders; Z82.49 Family history of ischemic heart disease and other diseases of the circulatory system; Z83.3 Family history of diabetes mellitus; Z85.3 Personal history of malignant neoplasm of breast; Z90.12 Acquired absence of left breast and nipple; Z90.710 Acquired absence of both cervix and uterus; Z88.8 Allergy status to other drugs, medicaments and biological substances; Z90.49 Acquired absence of other specified parts of digestive tract; I25.2 Old myocardial infarction; Z86.711 Personal history of pulmonary embolism
CPT/HCPCS: 36415; 71045; 74018; 74177; 74250; 80048; 80053; 81001; 83036; 83605; 83615; 83690; 83735; 84100; 84443; 84484; 85007; 85025; 85027; 85610; 85730; 93005; 96361; 96374; 96375; 96376; C9113; G0378; J1642; J2405; J3480; J3490; J7042

== ENCOUNTER 2022-01-09 02:50 | Inpatient (IN) | payer OTHER, MEDICAID ==
[~2022-01-09] VITALS: Ht 162.6 cm; Wt 59.4 kg
[~2022-01-09 02:50] MED LIST changes: +EXEM25TA4 PO
[2022-01-09] MEDS ORDERED: ONDANSETRON HCL 4 MG/2 ML VIAL IV ONE ×2 (04:30→17:15)
[2022-01-09] MEDS ORDERED: MORPHINE SULFATE 4 MG/ML SYR/VIAL IV ONE (04:30)
[2022-01-09 04:34] LABS: Basophils # (auto) 0 10 ^3/uL (0-0.2); Basophils % (auto) 0.2 % (0.0-2.0); Eosinophils # (auto) 0 10 ^3/uL (0-0.8); Eosinophils % (auto) 0.5 % (0.0-7.0); Hematocrit 34.8 % (36.0-46.0); Hemoglobin 12.4 g/dL (12.2-16.2); Lymphocytes # (auto) 0.6 10 ^3/uL (0.4-5.4); Mean Corpuscular Hemoglobin 33.2 pg (28.0-32.0); Mean Corpuscular Hgb Conc. 35.6 g/dL (32.0-36.0); Mean Corpuscular Volume 93.1 fL (80.0-100.0); Monocytes # (auto) 0.2 10 ^3/uL (0-1.3); Neutrophils # (auto) 3.9 10 ^3/uL (1.6-8.6); Neutrophils % (auto) 83.3 % (37.0-80.0); Red Blood Cells 3.74 10^6/uL (4.0-5.20); Red Cell Distribution Width 14.9 % (11.8-14.3); White Blood Cell 4.7 10^3/uL (4.4-10.8)
[2022-01-09 04:55] LABS: Calcium 9.2 mg/dL (8.5-10.1); Potassium 3.5 mmol/L (3.5-5.1)
[2022-01-09 04:58] LABS: Albumin 3.8 g/dL (3.4-5.0); BUN/Creatinine Ratio 8.1
[2022-01-09 05:01] LABS: Bilirubin, Total 0.6 mg/dL (0.2-1.0); Total Protein 7.3 g/dL (6.4-8.2)
[2022-01-09] MEDS ORDERED: HYDROmorphone HCL 2 MG/ML VL/or syr IV ONE ×2 (07:30→17:15)
[2022-01-09] MEDS ORDERED: PROCHLORPERAZINE EDISYLATE 5 MG/ML 2ML VIAL IV ONE (07:30)
[2022-01-09] MEDS ORDERED: cefTRIAXone 1GM/50ML D5W 50 ML IV ONE ×3 (08:30→21:30)
[2022-01-09] MEDS ORDERED: metroNIDAZOLE 500MG/100ML 100 ML IV ONE ×3 (08:30→21:30)
[2022-01-09 11:40] LABS: INR 1.06 (0.9-1.15)
[2022-01-09] MEDS ORDERED: HYDROmorphone HCL 2 MG/ML VL/or syr ONE ×2 (18:39→21:08)
[2022-01-09] MEDS ORDERED: MIDAZOLAM HCL 2MG/2ML 2ml VIAL (1mg/ml) ONE ×2 (18:39→21:11)
[2022-01-09] MEDS ORDERED: fentaNYL CITRATE 100 MCG/2 ML VL ONE ×2 (18:39→20:16)
[2022-01-09] MEDS ORDERED: PHENYLEPHRINE HCL 10 MG/ML VL IV ONE (18:40)
[2022-01-09] MEDS ORDERED: DexAMETHasone SOD PHOS 10MG/1ML VIAL INJ ONE (18:40)
[2022-01-09] MEDS ORDERED: PROPOFOL 10 MG/ML 20 ML IV ONE (18:40)
[2022-01-09] MEDS ORDERED: ROCURONIUM 10MG/ML 10ML VIAL IV ONE (18:41)
[2022-01-09] MEDS ORDERED: SUCCINYLCHOLINE CHLORIDE 20 MG/ML 10ML VIAL IV ONE (18:54)
[2022-01-09] MEDS ORDERED: POVIDONE IODINE 10 % TOPICAL OINT 30GM TOP ONE (21:09)
[2022-01-09] MEDS ORDERED: NITROGLYCERIN 0.4 MG SL TAB SL PRN (21:15)
[2022-01-09] MEDS ORDERED: MORPHINE SULFATE INJ 2 MG/ml SYRG IV PRN (21:15)
[2022-01-09] MEDS ORDERED: POTASSIUM CHLORIDE 20 MEQ in D5W/LACTATED RINGERS 1,000 ML IV SCH (21:30)
[2022-01-09] MEDS ORDERED: MORPHINE SULFATE INJ 2 MG/ml SYRG IV ONE (21:30)
[2022-01-09 21:34] VITALS: BP 129/69
[2022-01-09 21:51] VITALS: BP 129/69
[2022-01-09] MEDS: MIDAZOLAM DRIP 50 mg/50mL 50 ML IV SCH (22:13)
[2022-01-09] MEDS ORDERED: LABETALOL HCL 5 MG/ML 4ML SYRINGE IV PRN (22:15)
[2022-01-09] MEDS ORDERED: ePHEDrine SULFATE 50 MG/ML AMP IV PRN (22:15)
[2022-01-09] MEDS ORDERED: MIDAZOLAM HCL 2MG/2ML 2ml VIAL (1mg/ml) IV PRN (22:15)
[2022-01-09] MEDS ORDERED: ONDANSETRON HCL 4 MG/2 ML VIAL IV PRN (22:15)
[2022-01-09] MEDS ORDERED: HYDROmorphone HCL 2 MG/ML VL/or syr IV PRN (22:15)
[2022-01-09] MEDS ORDERED: MORPHINE SULFATE 4 MG/ML SYR/VIAL IV PRN (22:15)
[2022-01-09] MEDS: fentaNYL Drip 2500mCg/250mlNS 250 ML IV SCH (23:00)
[2022-01-09 23:34] VITALS: BP 143/92
[2022-01-09 23:45] VITALS: BP 115/75
[2022-01-09] MEDS ORDERED: D5W/ SOD CHL 0.9%/KCL 20MEQ 1,000 ML IV ONE (23:55)
[2022-01-10] VITALS (100 sets, daily range): BP systolic 82–143; BP diastolic 48–92
[2022-01-10] MEDS: MIDAZOLAM DRIP 50 mg/50mL 50 ML IV SCH ×7 (00:31→23:38)
[2022-01-10] MEDS ORDERED: PROPOFOL 100 ML IV ONE ×2 (02:11→11:48)
[2022-01-10] MEDS: NOREPINEPHRINE 8 MG/250ML KIT 250 ML IV SCH (03:38)
[2022-01-10 04:19] LABS: Basophils # (auto) 0 10 ^3/uL (0-0.2); Basophils % (auto) 0.1 % (0.0-2.0); Eosinophils # (auto) 0 10 ^3/uL (0-0.8); Hematocrit 31.4 % (36.0-46.0); Hemoglobin 10.8 g/dL (12.2-16.2); Lymphocytes # (auto) 0.4 10 ^3/uL (0.4-5.4); Lymphocytes % (auto) 5.3 % (10.0-50.0); Mean Corpuscular Hemoglobin 32.9 pg (28.0-32.0); Mean Corpuscular Hgb Conc. 34.6 g/dL (32.0-36.0); Mean Corpuscular Volume 95.3 fL (80.0-100.0); Monocytes # (auto) 0.4 10 ^3/uL (0-1.3); Monocytes % (auto) 5.4 % (0.0-12.0); Neutrophils # (auto) 6.2 10 ^3/uL (1.6-8.6); Neutrophils % (auto) 89.2 % (37.0-80.0); Red Blood Cells 3.29 10^6/uL (4.0-5.20); Red Cell Distribution Width 15.2 % (11.8-14.3)
[2022-01-10 04:27] LABS: Albumin 2.3 g/dL (3.4-5.0); Calcium 7.6 mg/dL (8.5-10.1); Potassium 3.8 mmol/L (3.5-5.1)
[2022-01-10 04:30] LABS: BUN/Creatinine Ratio 11.7; Bilirubin, Total 0.4 mg/dL (0.2-1.0)
[2022-01-10] MEDS: PIPERACILLIN-TAZOB 3.375GM 100 ML IV SCH ×5 (05:32→23:37)
[2022-01-10] MEDS ORDERED: ROCURONIUM 10MG/ML 10ML VIAL IV ONE (09:36)
[2022-01-10] MEDS ORDERED: D5W/SOD CHL 0.45%/KCL 20MEQ 1,000 ML IV ONE (10:00)
[2022-01-10] MEDS: ALBUTEROL SULF 2.5 MG/0.5ML(0.5%) NEB SOLN NEB SCH ×4 (10:37→22:20)
[2022-01-10] MEDS: BUDESONIDE (INHALATION) 0.5 MG/2 ML NEB NEB SCH ×2 (10:37→22:20)
[2022-01-10] MEDS: IPRATROPIUM BROM 0.5 MG/2.5ML INH SOL NEB SCH ×4 (10:38→22:20)
[2022-01-10] MEDS: PROPOFOL 100 ML IV SCH (12:24)
[2022-01-10] MEDS: fentaNYL Drip 2500mCg/250mlNS 250 ML IV SCH (14:30)
[2022-01-10] MEDS: D5W/SOD CHL 0.45%/KCL 20MEQ 1,000 ML IV SCH (19:41)
[2022-01-11] VITALS (97 sets, daily range): BP systolic 90–147; BP diastolic 43–69
[2022-01-11] MEDS: fentaNYL Drip 2500mCg/250mlNS 250 ML IV SCH ×2 (01:30→16:05)
[2022-01-11] MEDS: IPRATROPIUM BROM 0.5 MG/2.5ML INH SOL NEB SCH ×6 (02:00→21:36)
[2022-01-11] MEDS: ALBUTEROL SULF 2.5 MG/0.5ML(0.5%) NEB SOLN NEB SCH ×6 (02:00→21:36)
[2022-01-11] MEDS: PROPOFOL 100 ML IV SCH (03:01)
[2022-01-11 04:07] LABS: Basophils # (auto) 0 10 ^3/uL (0-0.2); Basophils % (auto) 0.1 % (0.0-2.0); Eosinophils # (auto) 0.2 10 ^3/uL (0-0.8); Eosinophils % (auto) 2.4 % (0.0-7.0); Hematocrit 25.5 % (36.0-46.0); Lymphocytes # (auto) 0.7 10 ^3/uL (0.4-5.4); Lymphocytes % (auto) 10.6 % (10.0-50.0); Mean Corpuscular Hemoglobin 33.9 pg (28.0-32.0); Mean Corpuscular Hgb Conc. 35.5 g/dL (32.0-36.0); Mean Corpuscular Volume 95.7 fL (80.0-100.0); Monocytes # (auto) 0.4 10 ^3/uL (0-1.3); Monocytes % (auto) 6.4 % (0.0-12.0); Neutrophils # (auto) 5.1 10 ^3/uL (1.6-8.6); Neutrophils % (auto) 80.5 % (37.0-80.0); Red Blood Cells 2.66 10^6/uL (4.0-5.20); Red Cell Distribution Width 15.6 % (11.8-14.3); White Blood Cell 6.3 10^3/uL (4.4-10.8)
[2022-01-11 04:22] LABS: Potassium 3.8 mmol/L (3.5-5.1)
[2022-01-11 04:28] LABS: BUN/Creatinine Ratio 14.9; Calcium 7.5 mg/dL (8.5-10.1); Magnesium 1.7 mg/dL (1.6-2.6); Phosphorus 2.3 mg/dL (2.5-4.90)
[2022-01-11] MEDS: PIPERACILLIN-TAZOB 3.375GM 100 ML IV SCH ×4 (05:35→23:57)
[2022-01-11] MEDS: D5W/SOD CHL 0.45%/KCL 20MEQ 1,000 ML IV SCH ×2 (05:41→16:00)
[2022-01-11] MEDS: MIDAZOLAM DRIP 50 mg/50mL 50 ML IV SCH ×2 (06:11→22:46)
[2022-01-11] MEDS: BUDESONIDE (INHALATION) 0.5 MG/2 ML NEB NEB SCH ×2 (11:07→18:04)
[2022-01-11] MEDS ORDERED: DEXTROSE (50%) 50ML SYRG IV PRN (12:30)
[2022-01-11] MEDS: NOREPINEPHRINE 8 MG/250ML KIT 250 ML IV SCH (12:49)
[2022-01-11] MEDS: HEPARIN SODIUM (PORCINE) 5000 UNITS/ML 1ML VIAL SC SCH ×2 (14:00→22:00)
[2022-01-11] MEDS: ACCU-CHEK COMFORT CURVE STRIP VI SCH ×2 (17:40→23:55)
[2022-01-11] MEDS: InsuLIN REG 1unit/0.01ml Soln (100units/ml) SC SCH ×2 (18:26→23:55)
[2022-01-12] VITALS (96 sets, daily range): BP systolic 86–154; BP diastolic 40–113
[2022-01-12] MEDS: ALBUTEROL SULF 2.5 MG/0.5ML(0.5%) NEB SOLN NEB SCH ×6 (01:49→22:19)
[2022-01-12] MEDS: IPRATROPIUM BROM 0.5 MG/2.5ML INH SOL NEB SCH ×6 (01:49→22:19)
[2022-01-12] MEDS: NOREPINEPHRINE 8 MG/250ML KIT 250 ML IV SCH (02:30)
[2022-01-12 04:07] LABS: Basophils # (auto) 0 10 ^3/uL (0-0.2); Basophils % (auto) 0.1 % (0.0-2.0); Eosinophils # (auto) 0.3 10 ^3/uL (0-0.8); Eosinophils % (auto) 4.2 % (0.0-7.0); Hematocrit 23.6 % (36.0-46.0); Hemoglobin 8.5 g/dL (12.2-16.2); Lymphocytes # (auto) 0.7 10 ^3/uL (0.4-5.4); Lymphocytes % (auto) 11.4 % (10.0-50.0); Mean Corpuscular Hemoglobin 33.8 pg (28.0-32.0); Mean Corpuscular Hgb Conc. 36.2 g/dL (32.0-36.0); Mean Corpuscular Volume 93.3 fL (80.0-100.0); Monocytes # (auto) 0.3 10 ^3/uL (0-1.3); Monocytes % (auto) 4.9 % (0.0-12.0); Neutrophils # (auto) 5.1 10 ^3/uL (1.6-8.6); Neutrophils % (auto) 79.4 % (37.0-80.0); Red Blood Cells 2.52 10^6/uL (4.0-5.20); Red Cell Distribution Width 15.1 % (11.8-14.3); White Blood Cell 6.4 10^3/uL (4.4-10.8)
[2022-01-12] MEDS: D5W/SOD CHL 0.45%/KCL 20MEQ 1,000 ML IV SCH ×3 (04:12→21:40)
[2022-01-12 04:26] LABS: Calcium 7.2 mg/dL (8.5-10.1); Potassium 3.3 mmol/L (3.5-5.1)
[2022-01-12] MEDS: HEPARIN SODIUM (PORCINE) 5000 UNITS/ML 1ML VIAL SC SCH ×3 (05:32→22:00)
[2022-01-12] MEDS: ACCU-CHEK COMFORT CURVE STRIP VI SCH ×3 (05:42→17:11)
[2022-01-12] MEDS: InsuLIN REG 1unit/0.01ml Soln (100units/ml) SC SCH ×3 (05:44→17:11)
[2022-01-12] MEDS: PIPERACILLIN-TAZOB 3.375GM 100 ML IV SCH ×3 (05:48→16:52)
[2022-01-12] MEDS: PROPOFOL 100 ML IV SCH (07:24)
[2022-01-12] MEDS: fentaNYL Drip 2500mCg/250mlNS 250 ML IV SCH (07:31)
[2022-01-12] MEDS: PANTOPRAZOLE 40 MG/10 ML VIAL INJ IV SCH (07:54)
[2022-01-12] MEDS: BUDESONIDE (INHALATION) 0.5 MG/2 ML NEB NEB SCH ×2 (10:59→22:19)
[2022-01-12] MEDS: MIDAZOLAM DRIP 50 mg/50mL 50 ML IV SCH (20:25)
[2022-01-13] VITALS (70 sets, daily range): BP systolic 85–266; BP diastolic 40–243
[2022-01-13] MEDS: ACCU-CHEK COMFORT CURVE STRIP VI SCH ×5 (00:06→23:47)
[2022-01-13] MEDS: PIPERACILLIN-TAZOB 3.375GM 100 ML IV SCH ×5 (00:06→23:30)
[2022-01-13] MEDS: InsuLIN REG 1unit/0.01ml Soln (100units/ml) SC SCH ×5 (00:14→23:47)
[2022-01-13] MEDS: fentaNYL Drip 2500mCg/250mlNS 250 ML IV SCH (00:18)
[2022-01-13] MEDS: NOREPINEPHRINE 8 MG/250ML KIT 250 ML IV SCH (02:30)
[2022-01-13 04:36] LABS: Potassium 3.2 mmol/L (3.5-5.1)
[2022-01-13 04:38] LABS: BUN/Creatinine Ratio 8.6; Calcium 7.4 mg/dL (8.5-10.1)
[2022-01-13 04:53] LABS: Basophils # (auto) 0 10 ^3/uL (0-0.2); Basophils % (auto) 0.4 % (0.0-2.0); Eosinophils # (auto) 0.3 10 ^3/uL (0-0.8); Hematocrit 23.1 % (36.0-46.0); Hemoglobin 8.2 g/dL (12.2-16.2); Lymphocytes # (auto) 0.6 10 ^3/uL (0.4-5.4); Monocytes # (auto) 0.4 10 ^3/uL (0-1.3); Neutrophils # (auto) 4.1 10 ^3/uL (1.6-8.6); Neutrophils % (auto) 75.3 % (37.0-80.0); Red Blood Cells 2.47 10^6/uL (4.0-5.20); Red Cell Distribution Width 14.6 % (11.8-14.3); White Blood Cell 5.5 10^3/uL (4.4-10.8)
[2022-01-13 04:55] LABS: Eosinophils % (auto) 4.9 % (0.0-7.0); Lymphocytes % (auto) 11.5 % (10.0-50.0); Mean Corpuscular Hemoglobin 33.2 pg (28.0-32.0); Mean Corpuscular Hgb Conc. 35.5 g/dL (32.0-36.0); Mean Corpuscular Volume 93.6 fL (80.0-100.0); Monocytes % (auto) 7.9 % (0.0-12.0)
[2022-01-13] MEDS: HEPARIN SODIUM (PORCINE) 5000 UNITS/ML 1ML VIAL SC SCH ×3 (05:34→22:06)
[2022-01-13] MEDS: IPRATROPIUM BROM 0.5 MG/2.5ML INH SOL NEB SCH ×6 (06:28→22:24)
[2022-01-13] MEDS: ALBUTEROL SULF 2.5 MG/0.5ML(0.5%) NEB SOLN NEB SCH ×6 (06:28→22:24)
[2022-01-13] MEDS: D5W/SOD CHL 0.45%/KCL 20MEQ 1,000 ML IV SCH ×2 (07:29→18:18)
[2022-01-13] MEDS: PANTOPRAZOLE 40 MG/10 ML VIAL INJ IV SCH (10:15)
[2022-01-13] MEDS: BUDESONIDE (INHALATION) 0.5 MG/2 ML NEB NEB SCH ×2 (10:20→22:24)
[2022-01-13] MEDS: PROPOFOL 100 ML IV SCH (11:30)
[2022-01-13] MEDS ORDERED: EPINEPHrine HCL 0.5 ML NEB NEB PRN (12:00)
[2022-01-13] MEDS ORDERED: TPN PER PHARMACY 0 ML IV SCH (12:30)
[2022-01-13 13:16] LABS: Albumin 1.4 g/dL (3.4-5.0); Bilirubin, Direct 0.1 mg/dL (0-0.2); Magnesium 1.6 mg/dL (1.6-2.6)
[2022-01-13 13:19] LABS: Bilirubin, Total 0.3 mg/dL (0.2-1.0); Phosphorus 2.6 mg/dL (2.5-4.90); Total Protein 4.2 g/dL (6.4-8.2)
[2022-01-13] MEDS ORDERED: MORPHINE SULFATE INJ 2 MG/ml SYRG IV PRN (14:15)
[2022-01-13] MEDS: POTASSIUM CHL 20MEQ/100ML 100 ML IV SCH ×2 (15:10→18:18)
[2022-01-13] MEDS ORDERED: MAGNESIUM SULFATE 1GM/100ML 100 ML IV ONE (15:15)
[2022-01-13] MEDS: HYDROmorphone HCL 2 MG/ML VL/or syr IV PRN ×3 (15:33→22:07)
[2022-01-13] MEDS: ONDANSETRON HCL 4 MG/2 ML VIAL IV PRN (16:29)
[2022-01-13] MEDS ORDERED: ACETAMINOPHEN 650 mg PER 20.3 mL UD PO PRN (17:15)
[2022-01-13] MEDS ORDERED: AMINO ACID INFUSION IN D10W 1,000 ML IV NR (20:00)
[2022-01-13] MEDS: MIDAZOLAM DRIP 50 mg/50mL 50 ML IV SCH (21:45)
[2022-01-14] VITALS (15 sets, daily range): BP systolic 86–135; BP diastolic 50–88
[2022-01-14] MEDS: ONDANSETRON HCL 4 MG/2 ML VIAL IV PRN ×4 (01:27→13:52)
[2022-01-14] MEDS: HYDROmorphone HCL 2 MG/ML VL/or syr IV PRN ×5 (01:28→23:28)
[2022-01-14] MEDS: ALBUTEROL SULF 2.5 MG/0.5ML(0.5%) NEB SOLN NEB SCH ×6 (02:18→22:00)
[2022-01-14] MEDS: IPRATROPIUM BROM 0.5 MG/2.5ML INH SOL NEB SCH ×6 (02:18→22:00)
[2022-01-14] MEDS: NOREPINEPHRINE 8 MG/250ML KIT 250 ML IV SCH (02:30)
[2022-01-14] MEDS: D5W/SOD CHL 0.45%/KCL 20MEQ 1,000 ML IV SCH ×2 (03:23→13:46)
[2022-01-14 04:58] LABS: Albumin 1.4 g/dL (3.4-5.0); BUN/Creatinine Ratio 6.8; Bilirubin, Total 0.5 mg/dL (0.2-1.0); Calcium 7.2 mg/dL (8.5-10.1); Magnesium 1.8 mg/dL (1.6-2.6); Phosphorus 2.6 mg/dL (2.5-4.90); Total Protein 4.2 g/dL (6.4-8.2)
[2022-01-14] MEDS: HEPARIN SODIUM (PORCINE) 5000 UNITS/ML 1ML VIAL SC SCH ×3 (05:27→21:24)
[2022-01-14] MEDS: PIPERACILLIN-TAZOB 3.375GM 100 ML IV SCH ×3 (05:27→19:43)
[2022-01-14] MEDS: InsuLIN REG 1unit/0.01ml Soln (100units/ml) SC SCH ×2 (05:44→12:00)
[2022-01-14] MEDS: ACCU-CHEK COMFORT CURVE STRIP VI SCH ×2 (05:44→13:45)
[2022-01-14] MEDS: BUDESONIDE (INHALATION) 0.5 MG/2 ML NEB NEB SCH ×2 (06:29→18:51)
[2022-01-14] MEDS: PROPOFOL 100 ML IV SCH (10:39)
[2022-01-14] MEDS: PANTOPRAZOLE 40 MG/10 ML VIAL INJ IV SCH (10:39)
[2022-01-14] MEDS: POTASSIUM CHL 20MEQ/100ML 100 ML IV SCH ×2 (10:41→13:45)
[2022-01-14] MEDS ORDERED: KETOROLAC TROMETH 30 MG/ML 1ML VIAL IV ONE (13:00)
[2022-01-14] MEDS ORDERED: POTASSIUM PHOSP 22MEQ(15MMOLE) in NS 100 ML IV ONE (13:30)
[2022-01-14] MEDS: PROMETHAZINE HCL 25 MG/ML 1ML IV PRN ×3 (14:13→23:29)
[2022-01-14] MEDS ORDERED: TPN PER PHARMACY IV NR ×9 (20:00)
[2022-01-15] MEDS: PIPERACILLIN-TAZOB 3.375GM 100 ML IV SCH ×4 (00:20→18:49)
[2022-01-15] MEDS: ACCU-CHEK COMFORT CURVE STRIP VI SCH ×4 (00:22→18:00)
[2022-01-15] MEDS: InsuLIN REG 1unit/0.01ml Soln (100units/ml) SC SCH ×5 (00:22→19:11)
[2022-01-15] MEDS: ALBUTEROL SULF 2.5 MG/0.5ML(0.5%) NEB SOLN NEB SCH ×6 (02:00→22:00)
[2022-01-15] MEDS: IPRATROPIUM BROM 0.5 MG/2.5ML INH SOL NEB SCH ×7 (02:00→22:00)
[2022-01-15] MEDS: D5W/SOD CHL 0.45%/KCL 20MEQ 1,000 ML IV SCH ×3 (03:07→20:42)
[2022-01-15] MEDS: HYDROmorphone HCL 2 MG/ML VL/or syr IV PRN ×5 (04:15→22:54)
[2022-01-15] MEDS: PROMETHAZINE HCL 25 MG/ML 1ML IV PRN ×5 (04:16→22:55)
[2022-01-15 05:00] VITALS: BP 131/72
[2022-01-15] MEDS: HEPARIN SODIUM (PORCINE) 5000 UNITS/ML 1ML VIAL SC SCH ×3 (06:00→22:00)
[2022-01-15 06:20] LABS: Albumin 2.1 g/dL (3.4-5.0); BUN/Creatinine Ratio 6.5; Calcium 7.7 mg/dL (8.5-10.1); Magnesium 1.7 mg/dL (1.6-2.6)
[2022-01-15 06:23] LABS: Bilirubin, Total 0.6 mg/dL (0.2-1.0); Phosphorus 2.8 mg/dL (2.5-4.90); Total Protein 5.7 g/dL (6.4-8.2)
[2022-01-15 06:25] LABS: Potassium 2.7 mmol/L (3.5-5.1)
[2022-01-15 08:21] VITALS: BP 139/73
[2022-01-15] MEDS: BUDESONIDE (INHALATION) 0.5 MG/2 ML NEB NEB SCH ×2 (09:33→19:14)
[2022-01-15] MEDS: POTASSIUM CHL 20MEQ/100ML 100 ML IV SCH ×5 (09:47→14:17)
[2022-01-15] MEDS: PANTOPRAZOLE 40 MG/10 ML VIAL INJ IV SCH (12:15)
[2022-01-15 13:00] VITALS: BP 140/57
[2022-01-15 17:16] VITALS: BP 145/74
[2022-01-15] MEDS ORDERED: POTASSIUM CHL 20MEQ/100ML 100 ML IV SCH (18:30)
[2022-01-15] MEDS ORDERED: POTASSIUM CHL 20MEQ/100ML 100 ML IV ONE (18:30)
[2022-01-15] MEDS ORDERED: TPN PER PHARMACY IV NR ×10 (20:00)
[2022-01-15 22:00] VITALS: BP 118/87
[2022-01-16] MEDS: InsuLIN REG 1unit/0.01ml Soln (100units/ml) SC SCH ×4 (01:31→18:00)
[2022-01-16] MEDS: PIPERACILLIN-TAZOB 3.375GM 100 ML IV SCH ×4 (01:31→18:00)
[2022-01-16] MEDS: IPRATROPIUM BROM 0.5 MG/2.5ML INH SOL NEB SCH ×6 (02:00→22:00)
[2022-01-16] MEDS: ALBUTEROL SULF 2.5 MG/0.5ML(0.5%) NEB SOLN NEB SCH ×6 (02:00→22:00)
[2022-01-16 05:00] VITALS: BP 126/73
[2022-01-16] MEDS: HYDROmorphone HCL 2 MG/ML VL/or syr IV PRN ×4 (05:17→22:43)
[2022-01-16] MEDS: PROMETHAZINE HCL 25 MG/ML 1ML IV PRN ×2 (05:18→22:44)
[2022-01-16] MEDS: HEPARIN SODIUM (PORCINE) 5000 UNITS/ML 1ML VIAL SC SCH ×3 (05:51→22:42)
[2022-01-16] MEDS: ACCU-CHEK COMFORT CURVE STRIP VI SCH ×4 (05:53→18:00)
[2022-01-16 06:09] LABS: BUN/Creatinine Ratio 10.8; Calcium 8.1 mg/dL (8.5-10.1); Magnesium 2.1 mg/dL (1.6-2.6); Potassium 3.5 mmol/L (3.5-5.1)
[2022-01-16 06:11] LABS: Bilirubin, Total 0.4 mg/dL (0.2-1.0); Phosphorus 3.1 mg/dL (2.5-4.90); Total Protein 5.9 g/dL (6.4-8.2)
[2022-01-16] MEDS: D5W/SOD CHL 0.45%/KCL 20MEQ 1,000 ML IV SCH ×2 (06:59→20:02)
[2022-01-16 09:00] VITALS: BP 147/77
[2022-01-16] MEDS: BUDESONIDE (INHALATION) 0.5 MG/2 ML NEB NEB SCH ×2 (09:31→22:00)
[2022-01-16] MEDS: PANTOPRAZOLE 40 MG/10 ML VIAL INJ IV SCH (10:43)
[2022-01-16 12:48] LABS: Basophils # (auto) 0 10 ^3/uL (0-0.2); Basophils % (auto) 0.5 % (0.0-2.0); Eosinophils # (auto) 0.3 10 ^3/uL (0-0.8); Eosinophils % (auto) 7.4 % (0.0-7.0); Hematocrit 25.1 % (36.0-46.0); Hemoglobin 8.6 g/dL (12.2-16.2); Lymphocytes # (auto) 0.2 10 ^3/uL (0.4-5.4); Lymphocytes % (auto) 5.3 % (10.0-50.0); Mean Corpuscular Hemoglobin 32.2 pg (28.0-32.0); Mean Corpuscular Hgb Conc. 34.3 g/dL (32.0-36.0); Mean Corpuscular Volume 93.9 fL (80.0-100.0); Monocytes # (auto) 0.1 10 ^3/uL (0-1.3); Monocytes % (auto) 2.8 % (0.0-12.0); Neutrophils # (auto) 3.9 10 ^3/uL (1.6-8.6); Nucleated Red Blood Cells % 0.1 %; Red Blood Cells 2.67 10^6/uL (4.0-5.20); Red Cell Distribution Width 14.5 % (11.8-14.3); White Blood Cell 4.6 10^3/uL (4.4-10.8)
[2022-01-16 13:00] VITALS: BP 107/60
[2022-01-16 17:00] VITALS: BP 115/69
[2022-01-16] MEDS ORDERED: TPN PER PHARMACY IV NR ×9 (20:00)
[2022-01-16 22:00] VITALS: BP 119/65
[2022-01-17] MEDS: PIPERACILLIN-TAZOB 3.375GM 100 ML IV SCH ×4 (00:13→17:46)
[2022-01-17] MEDS: InsuLIN REG 1unit/0.01ml Soln (100units/ml) SC SCH ×4 (00:13→18:20)
[2022-01-17] MEDS: ACCU-CHEK COMFORT CURVE STRIP VI SCH ×4 (00:14→17:48)
[2022-01-17] MEDS: IPRATROPIUM BROM 0.5 MG/2.5ML INH SOL NEB SCH ×4 (02:00→15:40)
[2022-01-17] MEDS: ALBUTEROL SULF 2.5 MG/0.5ML(0.5%) NEB SOLN NEB SCH ×4 (02:00→15:40)
[2022-01-17] MEDS: HYDROmorphone HCL 2 MG/ML VL/or syr IV PRN ×4 (03:19→20:02)
[2022-01-17] MEDS: PROMETHAZINE HCL 25 MG/ML 1ML IV PRN ×4 (03:19→20:03)
[2022-01-17 05:00] VITALS: BP 112/54
[2022-01-17 05:15] LABS: Basophils # (auto) 0 10 ^3/uL (0-0.2); Basophils % (auto) 0.4 % (0.0-2.0); Eosinophils # (auto) 0.6 10 ^3/uL (0-0.8); Eosinophils % (auto) 13.2 % (0.0-7.0); Hematocrit 24.2 % (36.0-46.0); Hemoglobin 8.3 g/dL (12.2-16.2); Lymphocytes # (auto) 1.1 10 ^3/uL (0.4-5.4); Lymphocytes % (auto) 24.1 % (10.0-50.0); Mean Corpuscular Hemoglobin 32.7 pg (28.0-32.0); Mean Corpuscular Hgb Conc. 34.1 g/dL (32.0-36.0); Mean Corpuscular Volume 95.9 fL (80.0-100.0); Monocytes # (auto) 0.5 10 ^3/uL (0-1.3); Monocytes % (auto) 10.5 % (0.0-12.0); Neutrophils # (auto) 2.4 10 ^3/uL (1.6-8.6); Neutrophils % (auto) 51.8 % (37.0-80.0); Nucleated Red Blood Cells % 0.1 %; Red Blood Cells 2.52 10^6/uL (4.0-5.20); Red Cell Distribution Width 14.3 % (11.8-14.3); White Blood Cell 4.7 10^3/uL (4.4-10.8)
[2022-01-17 05:21] LABS: Albumin 1.9 g/dL (3.4-5.0); Calcium 7.7 mg/dL (8.5-10.1); Magnesium 2.1 mg/dL (1.6-2.6); Potassium 3.9 mmol/L (3.5-5.1)
[2022-01-17 05:24] LABS: BUN/Creatinine Ratio 17.5; Bilirubin, Total 0.3 mg/dL (0.2-1.0); Phosphorus 3.3 mg/dL (2.5-4.90); Total Protein 5.8 g/dL (6.4-8.2)
[2022-01-17] MEDS: HEPARIN SODIUM (PORCINE) 5000 UNITS/ML 1ML VIAL SC SCH ×3 (06:07→22:05)
[2022-01-17] MEDS: D5W/SOD CHL 0.45%/KCL 20MEQ 1,000 ML IV SCH ×3 (06:09→20:01)
[2022-01-17 08:00] VITALS: BP 116/66
[2022-01-17] MEDS: PANTOPRAZOLE 40 MG/10 ML VIAL INJ IV SCH ×2 (10:31→22:01)
[2022-01-17] MEDS: BUDESONIDE (INHALATION) 0.5 MG/2 ML NEB NEB SCH ×2 (10:40→19:23)
[2022-01-17 12:00] VITALS: BP 103/63
[2022-01-17 17:04] VITALS: BP 113/65
[2022-01-17] MEDS ORDERED: TPN PER PHARMACY IV NR ×19 (20:00)
[2022-01-17 21:57] VITALS: BP 121/78
[2022-01-18] MEDS: PROMETHAZINE HCL 25 MG/ML 1ML IV PRN ×5 (01:05→20:42)
[2022-01-18] MEDS: PIPERACILLIN-TAZOB 3.375GM 100 ML IV SCH ×4 (01:05→17:03)
[2022-01-18] MEDS: HYDROmorphone HCL 2 MG/ML VL/or syr IV PRN ×5 (01:07→20:42)
[2022-01-18] MEDS: InsuLIN REG 1unit/0.01ml Soln (100units/ml) SC SCH ×4 (01:34→17:16)
[2022-01-18 01:36] VITALS: BP 129/64
[2022-01-18 04:54] VITALS: BP 115/67
[2022-01-18] MEDS: D5W/SOD CHL 0.45%/KCL 20MEQ 1,000 ML IV SCH ×3 (05:59→18:46)
[2022-01-18] MEDS: ACCU-CHEK COMFORT CURVE STRIP VI SCH ×4 (06:00→17:17)
[2022-01-18] MEDS: HEPARIN SODIUM (PORCINE) 5000 UNITS/ML 1ML VIAL SC SCH (06:01)
[2022-01-18 08:34] LABS: Basophils # (auto) 0 10 ^3/uL (0-0.2); Basophils % (auto) 0.6 % (0.0-2.0); Eosinophils # (auto) 0.5 10 ^3/uL (0-0.8); Eosinophils % (auto) 9.5 % (0.0-7.0); Hematocrit 26.5 % (36.0-46.0); Hemoglobin 9.2 g/dL (12.2-16.2); Lymphocytes # (auto) 1.3 10 ^3/uL (0.4-5.4); Lymphocytes % (auto) 24.7 % (10.0-50.0); Mean Corpuscular Hemoglobin 33.1 pg (28.0-32.0); Mean Corpuscular Hgb Conc. 34.8 g/dL (32.0-36.0); Monocytes # (auto) 0.5 10 ^3/uL (0-1.3); Monocytes % (auto) 9.2 % (0.0-12.0); Nucleated Red Blood Cells % 0.1 %; Red Blood Cells 2.79 10^6/uL (4.0-5.20); Red Cell Distribution Width 13.8 % (11.8-14.3); White Blood Cell 5.4 10^3/uL (4.4-10.8)
[2022-01-18 08:49] LABS: Albumin 2.1 g/dL (3.4-5.0); Calcium 8.2 mg/dL (8.5-10.1); Magnesium 2.2 mg/dL (1.6-2.6)
[2022-01-18 08:52] LABS: BUN/Creatinine Ratio 21.2; Bilirubin, Total 0.3 mg/dL (0.2-1.0); Phosphorus 3.2 mg/dL (2.5-4.90); Total Protein 6.3 g/dL (6.4-8.2)
[2022-01-18 09:00] VITALS: BP 110/64
[2022-01-18] MEDS: BUDESONIDE (INHALATION) 0.5 MG/2 ML NEB NEB SCH ×4 (10:00→19:01)
[2022-01-18] MEDS: PANTOPRAZOLE 40 MG/10 ML VIAL INJ IV SCH ×2 (10:34→22:48)
[2022-01-18] MEDS: IPRATROPIUM BROM 0.5 MG/2.5ML INH SOL NEB PRN ×2 (10:34→18:56)
[2022-01-18] MEDS: ALBUTEROL SULF 2.5 MG/0.5ML(0.5%) NEB SOLN NEB PRN ×2 (10:35→18:56)
[2022-01-18 13:00] VITALS: BP 105/70
[2022-01-18] MEDS: ROPINIROLE HCL 1 MG PO SCH ×2 (14:00→22:00)
[2022-01-18] MEDS: MIDODRINE HCL 10 MG TAB PO SCH ×2 (16:07→22:48)
[2022-01-18 17:00] VITALS: BP 91/55
[2022-01-18] MEDS ORDERED: TPN PER PHARMACY IV NR ×10 (20:00)
[2022-01-18 22:00] VITALS: BP 99/66
[2022-01-18] MEDS ORDERED: QUETIAPINE 300 MG PO SCH (22:00)
[2022-01-18] MEDS: APIXABAN 5 MG TAB PO SCH (22:48)
[2022-01-19] MEDS: PIPERACILLIN-TAZOB 3.375GM 100 ML IV SCH ×3 (00:26→11:45)
[2022-01-19] MEDS: ACCU-CHEK COMFORT CURVE STRIP VI SCH ×5 (00:26→23:13)
[2022-01-19] MEDS: InsuLIN REG 1unit/0.01ml Soln (100units/ml) SC SCH ×5 (00:27→23:49)
[2022-01-19] MEDS: PROMETHAZINE HCL 25 MG/ML 1ML IV PRN ×5 (00:42→21:30)
[2022-01-19] MEDS: HYDROmorphone HCL 2 MG/ML VL/or syr IV PRN ×3 (00:43→13:37)
[2022-01-19 05:00] VITALS: BP 92/52
[2022-01-19] MEDS: D5W/SOD CHL 0.45%/KCL 20MEQ 1,000 ML IV SCH ×2 (05:04→23:18)
[2022-01-19] MEDS: ACETAMINOPHEN/CODEINE#3 (300/30mg) TAB PO PRN ×4 (05:05→19:49)
[2022-01-19] MEDS: ROPINIROLE HCL 1 MG PO SCH (05:56)
[2022-01-19] MEDS: MIDODRINE HCL 10 MG TAB PO SCH ×3 (05:57→21:35)
[2022-01-19] MEDS: LEVOTHYROXINE SODIUM 50 MCG TAB PO SCH (05:58)
[2022-01-19 06:07] LABS: Albumin 2.1 g/dL (3.4-5.0); Calcium 8.2 mg/dL (8.5-10.1); Magnesium 2.1 mg/dL (1.6-2.6)
[2022-01-19 06:09] LABS: BUN/Creatinine Ratio 20.8; Bilirubin, Total 0.3 mg/dL (0.2-1.0); Phosphorus 3.3 mg/dL (2.5-4.90); Total Protein 6.1 g/dL (6.4-8.2)
[2022-01-19 09:00] VITALS: BP 115/61
[2022-01-19] MEDS: APIXABAN 5 MG TAB PO SCH ×2 (09:28→21:39)
[2022-01-19] MEDS: BUDESONIDE (INHALATION) 0.5 MG/2 ML NEB NEB SCH (09:51)
[2022-01-19] MEDS ORDERED: FAMOTIDINE 20 MG TAB PO SCH (10:00)
[2022-01-19] MEDS ORDERED: DOCUSATE SOD 100 MG CAP PO SCH (10:00)
[2022-01-19] MEDS: Exemestane 25 MG PO SCH (10:00)
[2022-01-19] MEDS: PANTOPRAZOLE 40 MG/10 ML VIAL INJ IV SCH ×2 (10:00→21:34)
[2022-01-19 13:00] VITALS: BP 110/34
[2022-01-19] MEDS: DULoxetine HCL 30 MG CAP PO SCH (15:00)
[2022-01-19 17:00] VITALS: BP 128/47
[2022-01-19] MEDS: KETOROLAC TROMETH 30 MG/ML 1ML VIAL IV PRN ×2 (17:02→23:09)
[2022-01-19] MEDS ORDERED: TPN PER PHARMACY IV NR ×10 (20:00)
[2022-01-19] MEDS: ROPINIROLE HYDROCHLORIDE 1 MG PO SCH (21:35)
[2022-01-19] MEDS: SEROQUEL 300 MG PO SCH (21:35)
[2022-01-19 22:00] VITALS: BP 113/69
[2022-01-19] MEDS ORDERED: QUETIAPINE FUMARATE 300 MG PO SCH (22:00)
[2022-01-19] MEDS: TEMAZEPAM 15 MG CAP PO PRN (23:09)
[2022-01-20] MEDS: ACETAMINOPHEN/CODEINE#3 (300/30mg) TAB PO PRN (00:01)
[2022-01-20] MEDS: PROMETHAZINE HCL 25 MG/ML 1ML IV PRN ×3 (00:21→10:28)
[2022-01-20 05:00] VITALS: BP 135/53
[2022-01-20] MEDS: KETOROLAC TROMETH 30 MG/ML 1ML VIAL IV PRN ×4 (05:05→23:27)
[2022-01-20] MEDS: ACCU-CHEK COMFORT CURVE STRIP VI SCH ×4 (05:40→23:38)
[2022-01-20] MEDS: MIDODRINE HCL 10 MG TAB PO SCH ×3 (05:41→22:31)
[2022-01-20] MEDS: InsuLIN REG 1unit/0.01ml Soln (100units/ml) SC SCH ×3 (05:42→18:13)
[2022-01-20] MEDS: LEVOTHYROXINE SODIUM 50 MCG TAB PO SCH ×2 (06:44→06:53)
[2022-01-20 07:09] LABS: Albumin 2.1 g/dL (3.4-5.0); Calcium 8.3 mg/dL (8.5-10.1); Magnesium 2.3 mg/dL (1.6-2.6); Potassium 4.2 mmol/L (3.5-5.1)
[2022-01-20 07:13] LABS: Bilirubin, Total 0.2 mg/dL (0.2-1.0); Phosphorus 3.7 mg/dL (2.5-4.90); Total Protein 6.3 g/dL (6.4-8.2)
[2022-01-20 08:00] VITALS: BP 114/54
[2022-01-20] MEDS: APIXABAN 5 MG TAB PO SCH ×2 (10:29→21:07)
[2022-01-20] MEDS: DULoxetine HCL 30 MG CAP PO SCH (10:29)
[2022-01-20] MEDS: PANTOPRAZOLE 40 MG/10 ML VIAL INJ IV SCH ×2 (10:30→21:07)
[2022-01-20] MEDS: Exemestane 25 MG PO SCH (10:30)
[2022-01-20] MEDS: D5W/SOD CHL 0.45% 1,000 ML IV SCH ×2 (11:59→22:36)
[2022-01-20 12:00] VITALS: BP 109/51
[2022-01-20 16:00] VITALS: BP 128/63
[2022-01-20] MEDS ORDERED: TPN PER PHARMACY IV NR ×10 (20:00)
[2022-01-20] MEDS: ROPINIROLE HYDROCHLORIDE 1 MG PO SCH (21:08)
[2022-01-20 22:00] VITALS: BP 118/63
[2022-01-20] MEDS: SEROQUEL 300 MG PO SCH (22:31)
[2022-01-20] MEDS: TEMAZEPAM 15 MG CAP PO PRN (22:36)
[2022-01-21] MEDS: InsuLIN REG 1unit/0.01ml Soln (100units/ml) SC SCH ×4 (00:27→18:00)
[2022-01-21 05:00] VITALS: BP 121/52
[2022-01-21] MEDS: MIDODRINE HCL 10 MG TAB PO SCH ×3 (05:40→21:09)
[2022-01-21] MEDS: LEVOTHYROXINE SODIUM 50 MCG TAB PO SCH (05:40)
[2022-01-21] MEDS: ACCU-CHEK COMFORT CURVE STRIP VI SCH ×3 (05:41→18:04)
[2022-01-21] MEDS: KETOROLAC TROMETH 30 MG/ML 1ML VIAL IV PRN ×4 (06:23→23:18)
[2022-01-21] MEDS: PROMETHAZINE HCL 25 MG/ML 1ML IV PRN ×4 (06:32→23:18)
[2022-01-21 07:11] LABS: Magnesium 1.9 mg/dL (1.6-2.6)
[2022-01-21 07:17] LABS: Albumin 2.1 g/dL (3.4-5.0); BUN/Creatinine Ratio 38.1; Bilirubin, Total 0.3 mg/dL (0.2-1.0); Calcium 8.1 mg/dL (8.5-10.1); Phosphorus 4.4 mg/dL (2.5-4.90)
[2022-01-21 08:42] VITALS: BP 122/56
[2022-01-21] MEDS: PANTOPRAZOLE 40 MG/10 ML VIAL INJ IV SCH ×2 (09:44→21:08)
[2022-01-21] MEDS: APIXABAN 5 MG TAB PO SCH ×2 (09:44→21:08)
[2022-01-21] MEDS: DULoxetine HCL 30 MG CAP PO SCH (09:44)
[2022-01-21] MEDS: Exemestane 25 MG PO SCH (09:45)
[2022-01-21] MEDS: PSYLLIUM PWD 5.8GM PKG PO SCH (09:57)
[2022-01-21] MEDS ORDERED: ENOXAPARIN SOD 40 MG/0.4 ML SYRINGE SC SCH (10:00)
[2022-01-21 12:52] VITALS: BP 130/50
[2022-01-21] MEDS: D5W/SOD CHL 0.45% 1,000 ML IV SCH (15:56)
[2022-01-21 16:57] VITALS: BP 101/59
[2022-01-21] MEDS ORDERED: TPN PER PHARMACY IV NR ×10 (20:00)
[2022-01-21] MEDS: SEROQUEL 300 MG PO SCH (21:10)
[2022-01-21] MEDS: ROPINIROLE HYDROCHLORIDE 1 MG PO SCH (21:10)
[2022-01-21 22:00] VITALS: BP 170/56
[2022-01-21] MEDS: TEMAZEPAM 15 MG CAP PO PRN (23:18)
[2022-01-22] MEDS: InsuLIN REG 1unit/0.01ml Soln (100units/ml) SC SCH ×5 (00:46→23:42)
[2022-01-22 05:00] VITALS: BP 114/59
[2022-01-22] MEDS: KETOROLAC TROMETH 30 MG/ML 1ML VIAL IV PRN ×3 (05:17→18:27)
[2022-01-22] MEDS: PROMETHAZINE HCL 25 MG/ML 1ML IV PRN ×4 (05:18→23:17)
[2022-01-22 06:11] LABS: Potassium 4.3 mmol/L (3.5-5.1)
[2022-01-22 06:21] LABS: Albumin 2.4 g/dL (3.4-5.0); Bilirubin, Total 0.3 mg/dL (0.2-1.0); Calcium 8.4 mg/dL (8.5-10.1); Magnesium 2.1 mg/dL (1.6-2.6); Phosphorus 4.2 mg/dL (2.5-4.90); Total Protein 6.5 g/dL (6.4-8.2)
[2022-01-22] MEDS: ACCU-CHEK COMFORT CURVE STRIP VI SCH ×5 (06:22→23:32)
[2022-01-22] MEDS: LEVOTHYROXINE SODIUM 50 MCG TAB PO SCH (06:34)
[2022-01-22] MEDS: MIDODRINE HCL 10 MG TAB PO SCH ×3 (06:34→22:00)
[2022-01-22 08:00] VITALS: BP 128/60
[2022-01-22] MEDS: PSYLLIUM PWD 5.8GM PKG PO SCH (10:00)
[2022-01-22] MEDS: APIXABAN 5 MG TAB PO SCH ×2 (10:29→21:58)
[2022-01-22] MEDS: PANTOPRAZOLE 40 MG/10 ML VIAL INJ IV SCH ×2 (10:30→21:46)
[2022-01-22] MEDS: DULoxetine HCL 30 MG CAP PO SCH (10:30)
[2022-01-22] MEDS: Exemestane 25 MG PO SCH (10:31)
[2022-01-22 11:57] VITALS: BP 134/59
[2022-01-22] MEDS: D5W/SOD CHL 0.45% 1,000 ML IV SCH (15:12)
[2022-01-22 16:00] VITALS: BP 116/62
[2022-01-22] MEDS ORDERED: TPN PER PHARMACY IV NR ×11 (20:00)
[2022-01-22] MEDS: ROPINIROLE HYDROCHLORIDE 1 MG PO SCH (21:58)
[2022-01-22] MEDS: TEMAZEPAM 15 MG CAP PO PRN (21:58)
[2022-01-22] MEDS: SEROQUEL 300 MG PO SCH (21:58)
[2022-01-22 22:00] VITALS: BP 138/66
[2022-01-23] MEDS: KETOROLAC TROMETH 30 MG/ML 1ML VIAL IV PRN ×5 (00:21→19:09)
[2022-01-23 05:00] VITALS: BP 124/57
[2022-01-23 05:27] LABS: Basophils # (auto) 0 10 ^3/uL (0-0.2); Basophils % (auto) 0.5 % (0.0-2.0); Lymphocytes # (auto) 1.6 10 ^3/uL (0.4-5.4); Monocytes # (auto) 0.4 10 ^3/uL (0-1.3)
[2022-01-23 05:35] LABS: Eosinophils # (auto) 0.3 10 ^3/uL (0-0.8); Eosinophils % (auto) 5.1 % (0.0-7.0); Hemoglobin 8.3 g/dL (12.2-16.2); Lymphocytes % (auto) 32.3 % (10.0-50.0); Mean Corpuscular Hgb Conc. 34.8 g/dL (32.0-36.0); Mean Corpuscular Volume 94.9 fL (80.0-100.0); Monocytes % (auto) 7.6 % (0.0-12.0); Neutrophils # (auto) 2.8 10 ^3/uL (1.6-8.6); Neutrophils % (auto) 54.5 % (37.0-80.0); Nucleated Red Blood Cells % 0.1 %; Red Blood Cells 2.53 10^6/uL (4.0-5.20); Red Cell Distribution Width 14.8 % (11.8-14.3)
[2022-01-23 05:45] LABS: Calcium 8.7 mg/dL (8.5-10.1)
[2022-01-23 05:49] LABS: Albumin 2.7 g/dL (3.4-5.0); BUN/Creatinine Ratio 52.6; Magnesium 2.1 mg/dL (1.6-2.6)
[2022-01-23] MEDS: MIDODRINE HCL 10 MG TAB PO SCH ×3 (06:00→21:31)
[2022-01-23 06:40] LABS: Bilirubin, Total 0.2 mg/dL (0.2-1.0); Phosphorus 4.1 mg/dL (2.5-4.90); Potassium 4.4 mmol/L (3.5-5.1)
[2022-01-23] MEDS: ACCU-CHEK COMFORT CURVE STRIP VI SCH ×3 (06:47→17:54)
[2022-01-23] MEDS: D5W/SOD CHL 0.45% 1,000 ML IV SCH ×2 (06:47→23:17)
[2022-01-23] MEDS: LEVOTHYROXINE SODIUM 50 MCG TAB PO SCH (06:47)
[2022-01-23] MEDS: InsuLIN REG 1unit/0.01ml Soln (100units/ml) SC SCH ×3 (07:10→17:54)
[2022-01-23] MEDS: PROMETHAZINE HCL 25 MG/ML 1ML IV PRN ×4 (07:10→23:48)
[2022-01-23 08:44] VITALS: BP 92/51
[2022-01-23] MEDS: PSYLLIUM PWD 5.8GM PKG PO SCH (10:00)
[2022-01-23] MEDS: Exemestane 25 MG PO SCH (10:27)
[2022-01-23] MEDS: PANTOPRAZOLE 40 MG/10 ML VIAL INJ IV SCH ×2 (10:27→21:32)
[2022-01-23] MEDS: APIXABAN 5 MG TAB PO SCH ×2 (10:28→21:31)
[2022-01-23] MEDS: DULoxetine HCL 30 MG CAP PO SCH (10:28)
[2022-01-23] MEDS: LOPERAMIDE HCL 2 MG CAP/TAB PO PRN ×2 (13:01→17:25)
[2022-01-23 13:04] VITALS: BP 118/48
[2022-01-23 17:34] VITALS: BP 110/38
[2022-01-23] MEDS ORDERED: TPN PER PHARMACY IV NR ×10 (20:00)
[2022-01-23] MEDS: SEROQUEL 300 MG PO SCH (21:33)
[2022-01-23] MEDS: ROPINIROLE HYDROCHLORIDE 1 MG PO SCH (21:35)
[2022-01-23 22:00] VITALS: BP 134/50
[2022-01-23] MEDS: TEMAZEPAM 15 MG CAP PO PRN (23:45)
[2022-01-24] MEDS: ACCU-CHEK COMFORT CURVE STRIP VI SCH ×5 (00:04→23:57)
[2022-01-24] MEDS: KETOROLAC TROMETH 30 MG/ML 1ML VIAL IV PRN ×2 (01:50→09:12)
[2022-01-24 05:00] VITALS: BP 101/73
[2022-01-24 05:41] LABS: Potassium 4.5 mmol/L (3.5-5.1)
[2022-01-24 05:51] LABS: Albumin 2.3 g/dL (3.4-5.0); BUN/Creatinine Ratio 57.7; Bilirubin, Total 0.2 mg/dL (0.2-1.0); Calcium 7.9 mg/dL (8.5-10.1); Magnesium 2.2 mg/dL (1.6-2.6); Phosphorus 4.5 mg/dL (2.5-4.90); Total Protein 6.2 g/dL (6.4-8.2)
[2022-01-24] MEDS: InsuLIN REG 1unit/0.01ml Soln (100units/ml) SC SCH ×5 (06:00→23:58)
[2022-01-24] MEDS: LEVOTHYROXINE SODIUM 50 MCG TAB PO SCH (06:27)
[2022-01-24] MEDS: LOPERAMIDE HCL 2 MG CAP/TAB PO PRN (06:27)
[2022-01-24] MEDS: MIDODRINE HCL 10 MG TAB PO SCH ×3 (06:31→21:53)
[2022-01-24 08:49] VITALS: BP 106/56
[2022-01-24] MEDS: APIXABAN 5 MG TAB PO SCH ×2 (09:10→21:53)
[2022-01-24] MEDS: DULoxetine HCL 30 MG CAP PO SCH (09:11)
[2022-01-24] MEDS: Exemestane 25 MG PO SCH (09:12)
[2022-01-24] MEDS: PROMETHAZINE HCL 25 MG/ML 1ML IV PRN ×3 (09:12→21:54)
[2022-01-24] MEDS: PANTOPRAZOLE 40 MG/10 ML VIAL INJ IV SCH ×2 (09:13→21:53)
[2022-01-24] MEDS: PSYLLIUM PWD 5.8GM PKG PO SCH (09:17)
[2022-01-24 12:36] VITALS: BP 110/60
[2022-01-24] MEDS ORDERED: HYDROcodone-ACET 5/325MG TAB PO PRN (15:15)
[2022-01-24 16:28] VITALS: BP 135/67
[2022-01-24] MEDS: D5W/SOD CHL 0.45% 1,000 ML IV SCH (16:53)
[2022-01-24] MEDS ORDERED: MORPHINE SULFATE INJ 2 MG/ml SYRG IV PRN (17:00)
[2022-01-24] MEDS: MORPHINE SULFATE INJ 2 MG/ml SYRG IV PRN ×2 (17:58→21:54)
[2022-01-24] MEDS ORDERED: TPN PER PHARMACY IV NR ×10 (20:00)
[2022-01-24 21:36] VITALS: BP 122/66
[2022-01-24] MEDS: ROPINIROLE HYDROCHLORIDE 1 MG PO SCH (21:53)
[2022-01-24] MEDS: SEROQUEL 300 MG PO SCH (21:53)
[2022-01-24] MEDS: TEMAZEPAM 15 MG CAP PO PRN (23:23)
[2022-01-25] MEDS: MORPHINE SULFATE INJ 2 MG/ml SYRG IV PRN ×5 (01:56→20:41)
[2022-01-25] MEDS: PROMETHAZINE HCL 25 MG/ML 1ML IV PRN ×5 (01:56→20:42)
[2022-01-25 04:38] VITALS: BP 109/54
[2022-01-25] MEDS: ACCU-CHEK COMFORT CURVE STRIP VI SCH ×4 (06:31→23:08)
[2022-01-25] MEDS: LEVOTHYROXINE SODIUM 50 MCG TAB PO SCH (06:38)
[2022-01-25] MEDS: InsuLIN REG 1unit/0.01ml Soln (100units/ml) SC SCH ×4 (06:38→23:08)
[2022-01-25] MEDS: MIDODRINE HCL 10 MG TAB PO SCH ×3 (06:39→21:58)
[2022-01-25 06:49] LABS: Basophils # (auto) 0 10 ^3/uL (0-0.2); Basophils % (auto) 0.5 % (0.0-2.0); Eosinophils # (auto) 0.2 10 ^3/uL (0-0.8); Lymphocytes # (auto) 1.2 10 ^3/uL (0.4-5.4); Monocytes # (auto) 0.4 10 ^3/uL (0-1.3); Neutrophils # (auto) 2.5 10 ^3/uL (1.6-8.6); Nucleated Red Blood Cells % 0.1 %; White Blood Cell 4.3 10^3/uL (4.4-10.8)
[2022-01-25 06:54] LABS: Eosinophils % (auto) 3.8 % (0.0-7.0); Hematocrit 21.9 % (36.0-46.0); Hemoglobin 7.8 g/dL (12.2-16.2); Lymphocytes % (auto) 27.6 % (10.0-50.0); Mean Corpuscular Hemoglobin 34.7 pg (28.0-32.0); Mean Corpuscular Hgb Conc. 35.8 g/dL (32.0-36.0); Mean Corpuscular Volume 96.9 fL (80.0-100.0); Monocytes % (auto) 10.4 % (0.0-12.0); Neutrophils % (auto) 57.7 % (37.0-80.0); Red Blood Cells 2.26 10^6/uL (4.0-5.20)
[2022-01-25 06:57] LABS: Potassium 3.7 mmol/L (3.5-5.1)
[2022-01-25 07:04] LABS: Albumin 2.5 g/dL (3.4-5.0); BUN/Creatinine Ratio 59.5; Bilirubin, Total 0.2 mg/dL (0.2-1.0); Calcium 8.5 mg/dL (8.5-10.1); Magnesium 2.1 mg/dL (1.6-2.6); Phosphorus 3.5 mg/dL (2.5-4.90); Total Protein 6.6 g/dL (6.4-8.2)
[2022-01-25 09:00] VITALS: BP 115/61
[2022-01-25] MEDS: D5W/SOD CHL 0.45% 1,000 ML IV SCH (09:07)
[2022-01-25] MEDS: Exemestane 25 MG PO SCH (09:08)
[2022-01-25] MEDS: DULoxetine HCL 30 MG CAP PO SCH (09:08)
[2022-01-25] MEDS: APIXABAN 5 MG TAB PO SCH ×2 (09:08→21:58)
[2022-01-25] MEDS: PANTOPRAZOLE 40 MG/10 ML VIAL INJ IV SCH ×2 (09:08→21:57)
[2022-01-25] MEDS: PSYLLIUM PWD 5.8GM PKG PO SCH (09:09)
[2022-01-25 13:06] VITALS: BP 116/95
[2022-01-25 17:00] VITALS: BP 106/42
[2022-01-25] MEDS ORDERED: TPN PER PHARMACY IV NR ×10 (20:00)
[2022-01-25] MEDS: ROPINIROLE HYDROCHLORIDE 1 MG PO SCH (21:57)
[2022-01-25] MEDS: SEROQUEL 300 MG PO SCH (21:58)
[2022-01-25] MEDS: TEMAZEPAM 15 MG CAP PO PRN (22:00)
[2022-01-25 22:02] VITALS: BP 110/71
[2022-01-26] MEDS: PROMETHAZINE HCL 25 MG/ML 1ML IV PRN ×3 (00:13→09:40)
[2022-01-26] MEDS: MORPHINE SULFATE INJ 2 MG/ml SYRG IV PRN ×3 (00:25→09:40)
[2022-01-26 05:03] VITALS: BP 128/61
[2022-01-26] MEDS: HYDROcodone-ACET 5/325MG TAB PO PRN ×2 (05:58→11:21)
[2022-01-26] MEDS: ACCU-CHEK COMFORT CURVE STRIP VI SCH (06:20)
[2022-01-26] MEDS: InsuLIN REG 1unit/0.01ml Soln (100units/ml) SC SCH (06:22)
[2022-01-26] MEDS: MIDODRINE HCL 10 MG TAB PO SCH (06:23)
[2022-01-26] MEDS: LEVOTHYROXINE SODIUM 50 MCG TAB PO SCH (06:26)
[2022-01-26 07:04] LABS: Albumin 2.2 g/dL (3.4-5.0); Calcium 8.3 mg/dL (8.5-10.1); Magnesium 2.2 mg/dL (1.6-2.6); Potassium 3.9 mmol/L (3.5-5.1)
[2022-01-26 07:07] LABS: BUN/Creatinine Ratio 39.1; Bilirubin, Total 0.2 mg/dL (0.2-1.0); Phosphorus 3.5 mg/dL (2.5-4.90); Total Protein 6.2 g/dL (6.4-8.2)
[2022-01-26 09:10] VITALS: BP 132/56
[2022-01-26] MEDS: Exemestane 25 MG PO SCH (09:39)
[2022-01-26] MEDS: DULoxetine HCL 30 MG CAP PO SCH (09:39)
[2022-01-26] MEDS: D5W/SOD CHL 0.45% 1,000 ML IV SCH (09:39)
[2022-01-26] MEDS: APIXABAN 5 MG TAB PO SCH (09:39)
[2022-01-26] MEDS: PANTOPRAZOLE 40 MG/10 ML VIAL INJ IV SCH (09:39)
[2022-01-26] MEDS: PSYLLIUM PWD 5.8GM PKG PO SCH (09:40)
[2022-01-26] MEDS: LOPERAMIDE HCL 2 MG CAP/TAB PO PRN (09:40)
[2022-01-26 13:00] VITALS: BP 144/64
[2022-01-26] MEDS ORDERED: TPN PER PHARMACY IV NR ×10 (20:00)
== END 2022-01-26 15:37 | disposition home health service (06) | DRG 329 ==
LOC: EDBD 02:50 → ER 02:56 → TELE 21:13 → ICU WEST 23:25 → TELE-CENTR 01-14 14:55 → CENTRAL 01-25 10:29
PROVIDERS: ADMIT Internal Medicine; ATTEND Internal Medicine
PROC: 0DTF0ZZ Resection of Right Large Intestine, Open Approach (ICD-10-PCS; 2022-01-09)
PROC: 0DN80ZZ Release Small Intestine, Open Approach (ICD-10-PCS; 2022-01-09)
PROC: 0DNL0ZZ Release Transverse Colon, Open Approach (ICD-10-PCS; 2022-01-09)
PROC: 5A1945Z Respiratory Ventilation, 24-96 Consecutive Hours (ICD-10-PCS; 2022-01-09)
PROC: 0BH17EZ Insertion of Endotracheal Airway into Trachea, Via Natural or Artificial Opening (ICD-10-PCS; 2022-01-09)
PROC: 0D1L0Z4 Bypass Transverse Colon to Cutaneous, Open Approach (ICD-10-PCS; principal; 2022-01-09 18:53)
PROC: 02HV33Z Insertion of Infusion Device into Superior Vena Cava, Percutaneous Approach (ICD-10-PCS; 2022-01-10)
PROC: B548ZZA Ultrasonography of Superior Vena Cava, Guidance (ICD-10-PCS; 2022-01-10)
DX: K63.1 Perforation of intestine (nontraumatic) (principal); J96.01 Acute respiratory failure with hypoxia; K65.9 Peritonitis, unspecified; K56.2 Volvulus; E87.3 Alkalosis; I95.9 Hypotension, unspecified; E88.09 Other disorders of plasma-protein metabolism, not elsewhere classified; I10 Essential (primary) hypertension; J44.9 Chronic obstructive pulmonary disease, unspecified; K66.0 Peritoneal adhesions (postprocedural) (postinfection); C50.912 Malignant neoplasm of unspecified site of left female breast; G25.81 Restless legs syndrome; E87.6 Hypokalemia; E11.65 Type 2 diabetes mellitus with hyperglycemia; G89.4 Chronic pain syndrome; Z88.8 Allergy status to other drugs, medicaments and biological substances; D64.9 Anemia, unspecified; F20.9 Schizophrenia, unspecified; R10.0 Acute abdomen; Z20.822 Contact with and (suspected) exposure to COVID-19; Z79.01 Long term (current) use of anticoagulants; Z80.0 Family history of malignant neoplasm of digestive organs; Z79.899 Other long term (current) drug therapy; Z81.8 Family history of other mental and behavioral disorders; Z82.49 Family history of ischemic heart disease and other diseases of the circulatory system; Z83.3 Family history of diabetes mellitus; Z85.3 Personal history of malignant neoplasm of breast; Z88.1 Allergy status to other antibiotic agents; Z88.6 Allergy status to analgesic agent; Z90.12 Acquired absence of left breast and nipple; Z90.710 Acquired absence of both cervix and uterus; Z90.49 Acquired absence of other specified parts of digestive tract
CPT/HCPCS: 36415; 36600; 71045; 74176; 80048; 80053; 80076; 82805; 82962; 83690; 83735; 84100; 84478; 85025; 85610; 85730; 86850; 86900; 86901; 87070; 87081; 87205; 87493; 93005; 94003; 94640; 96365; 96367; 96375; 96376; 97110; 97116; 97163; 97530; 99291; C9113; G0378; J0330; J0696; J1100; J1815; J1885; J2250; J2405; J2543; J2704; J3480; J3490; J7060; J7131

== ENCOUNTER 2022-02-01 11:09 | Inpatient (IN) | payer OTHER, MEDICAID ==
[~2022-02-01] VITALS: Ht 165.1 cm; Wt 56.0 kg
[2022-02-01] MEDS ORDERED: MORPHINE SULFATE 4 MG/ML SYR/VIAL IV ONE (11:30)
[2022-02-01] MEDS ORDERED: SODIUM CHLORIDE 0.9% 500 ML IVB ONE (11:30)
[2022-02-01] MEDS ORDERED: ONDANSETRON HCL 4 MG/2 ML VIAL IV ONE (11:30)
[2022-02-01 12:31] LABS: Hemoglobin 10.1 g/dL (12.2-16.2); White Blood Cell 8.4 10^3/uL (4.4-10.8)
[2022-02-01 12:32] LABS: Mean Corpuscular Hemoglobin 31.6 pg (28.0-32.0); Mean Corpuscular Hgb Conc. 34.8 g/dL (32.0-36.0); Mean Corpuscular Volume 90.8 fL (80.0-100.0); Red Cell Distribution Width 14.7 % (11.8-14.3)
[2022-02-01 12:39] LABS: Band Neutrophils % (manual) 0; Basophils % (manual) 0 (0.0-2.0); Blast Cells 0; Myelocytes % 0; Promyelocytes % 0; Reactive Lymphocytes 0
[2022-02-01 12:58] LABS: Albumin 3.2 g/dL (3.4-5.0); Calcium 9.5 mg/dL (8.5-10.1); Potassium 3.6 mmol/L (3.5-5.1)
[2022-02-01 13:01] LABS: BUN/Creatinine Ratio 21.2; Bilirubin, Total 0.6 mg/dL (0.2-1.0); Total Protein 8.1 g/dL (6.4-8.2)
[2022-02-01 13:04] LABS: Eosinophils % (manual) 2 (0-7); Lymphocytes % (manual) 25 (10.0-50.0); Metamyelocytes % 2; Monocytes % (manual) 19 (0-12)
[2022-02-01] MEDS ORDERED: LORazepam 2MG/ML-1ML VIAL IV ONE (15:15)
[2022-02-01] MEDS: SODIUM CHLORIDE 0.9% 1,000 ML IV SCH (15:36)
[2022-02-01] MEDS ORDERED: GASTROGRAFIN 120 ML SOL ONE (17:10)
[2022-02-01] MEDS ORDERED: ALPRAZolam 0.5 MG TAB PO ONE (19:00)
[2022-02-01] MEDS ORDERED: LEVO112T4 PO (20:01)
[2022-02-01] MEDS: ONDANSETRON HCL 4 MG/2 ML VIAL IV PRN (20:48)
[2022-02-01] MEDS: MORPHINE SULFATE INJ 2 MG/ml SYRG IV PRN (20:48)
[2022-02-01 22:00] VITALS: BP 135/76
[2022-02-02] MEDS: MORPHINE SULFATE INJ 2 MG/ml SYRG IV PRN ×5 (01:10→23:04)
[2022-02-02] MEDS: ONDANSETRON HCL 4 MG/2 ML VIAL IV PRN ×4 (01:11→20:21)
[2022-02-02] MEDS: SODIUM CHLORIDE 0.9% 1,000 ML IV SCH ×3 (01:59→22:55)
[2022-02-02] MEDS: ALPRAZolam 0.5 MG TAB PO PRN ×2 (02:51→14:19)
[2022-02-02 05:00] VITALS: BP 114/65
[2022-02-02 06:35] LABS: Hematocrit 25.2 % (36.0-46.0); Hemoglobin 8.6 g/dL (12.2-16.2); Mean Corpuscular Hemoglobin 31.5 pg (28.0-32.0); Mean Corpuscular Hgb Conc. 34.4 g/dL (32.0-36.0); Mean Corpuscular Volume 91.7 fL (80.0-100.0); Red Blood Cells 2.74 10^6/uL (4.0-5.20); Red Cell Distribution Width 14.7 % (11.8-14.3); White Blood Cell 5.5 10^3/uL (4.4-10.8)
[2022-02-02 06:44] LABS: Basophils % (manual) 0 (0.0-2.0); Blast Cells 0; Eosinophils % (manual) 0 (0-7); Promyelocytes % 0; Reactive Lymphocytes 0
[2022-02-02 06:52] LABS: Albumin 2.8 g/dL (3.4-5.0); Calcium 8.7 mg/dL (8.5-10.1); Potassium 3.3 mmol/L (3.5-5.1)
[2022-02-02 06:55] LABS: BUN/Creatinine Ratio 31.7
[2022-02-02 06:58] LABS: Bilirubin, Total 0.2 mg/dL (0.2-1.0); Total Protein 6.8 g/dL (6.4-8.2)
[2022-02-02 08:05] LABS: Band Neutrophils % (manual) 4; Lymphocytes % (manual) 28 (10.0-50.0); Metamyelocytes % 2; Monocytes % (manual) 9 (0-12); Myelocytes % 2
[2022-02-02 09:00] VITALS: BP 151/79
[2022-02-02 13:00] VITALS: BP 132/69
[2022-02-02 17:00] VITALS: BP 138/73
[2022-02-02 23:55] VITALS: BP 128/80
[2022-02-03] MEDS: ALPRAZolam 0.5 MG TAB PO PRN ×2 (02:28→21:53)
[2022-02-03] MEDS: MORPHINE SULFATE INJ 2 MG/ml SYRG IV PRN ×5 (03:26→19:09)
[2022-02-03 05:14] VITALS: BP 119/62
[2022-02-03 08:00] VITALS: BP 140/80
[2022-02-03 09:00] VITALS: BP 122/71
[2022-02-03] MEDS: SODIUM CHLORIDE 0.9% 1,000 ML IV SCH ×3 (10:40→19:59)
[2022-02-03] MEDS: ONDANSETRON HCL 4 MG/2 ML VIAL IV PRN ×2 (11:13→21:54)
[2022-02-03 13:00] VITALS: BP 139/81
[2022-02-03 16:49] VITALS: BP 167/86
[2022-02-03 22:00] VITALS: BP 122/67
[2022-02-04] MEDS: MORPHINE SULFATE INJ 2 MG/ml SYRG IV PRN ×4 (00:57→20:41)
[2022-02-04 05:00] VITALS: BP 131/77
[2022-02-04 07:24] LABS: Hematocrit 23.2 % (36.0-46.0); Mean Corpuscular Hemoglobin 31.7 pg (28.0-32.0); Mean Corpuscular Hgb Conc. 34.7 g/dL (32.0-36.0); Mean Corpuscular Volume 91.5 fL (80.0-100.0); Red Blood Cells 2.54 10^6/uL (4.0-5.20); Red Cell Distribution Width 14.4 % (11.8-14.3); White Blood Cell 4.7 10^3/uL (4.4-10.8)
[2022-02-04 07:38] LABS: Basophils % (manual) 0 (0.0-2.0); Blast Cells 0; Promyelocytes % 0; Reactive Lymphocytes 0
[2022-02-04 08:00] LABS: Band Neutrophils % (manual) 3; Eosinophils % (manual) 2 (0-7); Lymphocytes % (manual) 20 (10.0-50.0); Metamyelocytes % 4; Monocytes % (manual) 2 (0-12); Myelocytes % 3
[2022-02-04 09:00] VITALS: BP 133/71
[2022-02-04] MEDS ORDERED: LIDOCAINE VISCOUS 2% 15ML UD ONE (09:23)
[2022-02-04] MEDS ORDERED: SODIUM CHLORIDE LOCK 10 ML ONE (09:23)
[2022-02-04] MEDS: ONDANSETRON HCL 4 MG/2 ML VIAL IV PRN ×2 (10:39→20:41)
[2022-02-04 12:51] VITALS: BP 125/73
[2022-02-04 13:19] VITALS: BP 133/71
[2022-02-04] MEDS: SODIUM CHLORIDE 0.9% 1,000 ML IV SCH ×2 (13:30→23:37)
[2022-02-04 17:00] VITALS: BP 134/75
[2022-02-04] MEDS: fentaNYL CITRATE 100 MCG/2 ML VL ONE ×3 (17:21→17:28)
[2022-02-04] MEDS: MIDAZOLAM HCL 5 MG/ML-1ML VIAL ONE ×4 (17:21→17:33)
[2022-02-04] MEDS: diphenhdrAMINE HCL 50 MG/1 ML VL ONE ×2 (17:23→17:25)
[2022-02-04 19:04] LABS: INR 1.03 (0.9-1.15)
[2022-02-04 22:00] VITALS: BP 139/74
[2022-02-04] MEDS: SUCRALFATE 1 GM/10 ML ORAL SUSP PO SCH (22:00)
[2022-02-05] VITALS (7 sets, daily range): BP systolic 95–124; BP diastolic 61–72
[2022-02-05] MEDS: MORPHINE SULFATE INJ 2 MG/ml SYRG IV PRN ×5 (00:28→21:10)
[2022-02-05] MEDS: ONDANSETRON HCL 4 MG/2 ML VIAL IV PRN ×4 (00:29→16:23)
[2022-02-05] MEDS: ALPRAZolam 0.5 MG TAB PO PRN ×2 (00:29→10:10)
[2022-02-05] MEDS: SODIUM CHLORIDE 0.9% 1,000 ML IV SCH (09:59)
[2022-02-05] MEDS: SUCRALFATE 1 GM/10 ML ORAL SUSP PO SCH (10:07)
[2022-02-05] MEDS: QUEtiapine FUMARATE 100 MG TAB PO SCH (10:08)
[2022-02-05] MEDS: POTASSIUM CHL 10 Meq TABLET PO SCH (10:08)
[2022-02-05] MEDS: DULoxetine HCL 30 MG CAP PO SCH (10:09)
[2022-02-05] MEDS: FUROSEMIDE 20 MG TAB PO SCH (10:09)
[2022-02-05] MEDS: MAGNESIUM OXIDE 400 MG TAB PO SCH (10:10)
[2022-02-05] MEDS: APIXABAN 5 MG TAB PO SCH (10:10)
[2022-02-05] MEDS: PANTOPRAZOLE 40 MG TAB PO SCH (10:10)
[2022-02-06] MEDS: SODIUM CHLORIDE 0.9% 1,000 ML IV SCH ×3 (00:05→18:52)
[2022-02-06] MEDS: PANTOPRAZOLE 40 MG TAB PO SCH ×3 (00:21→21:40)
[2022-02-06] MEDS: MORPHINE SULFATE INJ 2 MG/ml SYRG IV PRN ×6 (00:21→21:42)
[2022-02-06] MEDS: SUCRALFATE 1 GM/10 ML ORAL SUSP PO SCH ×3 (00:21→21:40)
[2022-02-06] MEDS: APIXABAN 5 MG TAB PO SCH ×3 (00:21→21:40)
[2022-02-06] MEDS: QUEtiapine FUMARATE 100 MG TAB PO SCH ×3 (00:22→21:41)
[2022-02-06 05:00] VITALS: BP 124/64
[2022-02-06] MEDS: LEVOTHYROXINE SODIUM 25 MCG TAB PO SCH (06:37)
[2022-02-06 08:01] VITALS: BP 95/39
[2022-02-06] MEDS: POTASSIUM CHL 10 Meq TABLET PO SCH (10:09)
[2022-02-06] MEDS: DULoxetine HCL 30 MG CAP PO SCH (10:10)
[2022-02-06] MEDS: FUROSEMIDE 20 MG TAB PO SCH (10:10)
[2022-02-06] MEDS: MAGNESIUM OXIDE 400 MG TAB PO SCH (10:11)
[2022-02-06 12:42] VITALS: BP 96/48
[2022-02-06] MEDS: ONDANSETRON HCL 4 MG/2 ML VIAL IV PRN ×3 (14:43→21:41)
[2022-02-06 16:20] VITALS: BP 93/51
[2022-02-06] MEDS: ALPRAZolam 0.5 MG TAB PO PRN (19:05)
[2022-02-06 22:00] VITALS: BP 113/65
[2022-02-07] MEDS: MORPHINE SULFATE INJ 2 MG/ml SYRG IV PRN ×4 (02:39→20:05)
[2022-02-07] MEDS: ONDANSETRON HCL 4 MG/2 ML VIAL IV PRN ×4 (02:39→20:04)
[2022-02-07] MEDS: SODIUM CHLORIDE 0.9% 1,000 ML IV SCH ×3 (05:01→22:17)
[2022-02-07 06:11] LABS: Basophils # (auto) 0 10 ^3/uL (0-0.2); Basophils % (auto) 0.3 % (0.0-2.0); Eosinophils # (auto) 0 10 ^3/uL (0-0.8); Eosinophils % (auto) 0.6 % (0.0-7.0); Hematocrit 26.6 % (36.0-46.0); Hemoglobin 9.3 g/dL (12.2-16.2); Lymphocytes # (auto) 0.6 10 ^3/uL (0.4-5.4); Lymphocytes % (auto) 15.3 % (10.0-50.0); Mean Corpuscular Hemoglobin 31.4 pg (28.0-32.0); Mean Corpuscular Volume 89.8 fL (80.0-100.0); Monocytes # (auto) 0.4 10 ^3/uL (0-1.3); Monocytes % (auto) 9.6 % (0.0-12.0); Neutrophils # (auto) 2.9 10 ^3/uL (1.6-8.6); Neutrophils % (auto) 74.2 % (37.0-80.0); Nucleated Red Blood Cells % 0.2 %; Red Blood Cells 2.96 10^6/uL (4.0-5.20); Red Cell Distribution Width 15.1 % (11.8-14.3); White Blood Cell 3.9 10^3/uL (4.4-10.8)
[2022-02-07 06:40] LABS: Albumin 2.6 g/dL (3.4-5.0); BUN/Creatinine Ratio 10.6; Bilirubin, Total 0.4 mg/dL (0.2-1.0); Magnesium 1.2 mg/dL (1.6-2.6); Pre Albumin 8.4 mg/dL (20.0-40.0); Total Protein 6.2 g/dL (6.4-8.2)
[2022-02-07 06:47] LABS: Potassium 2.4 mmol/L (3.5-5.1)
[2022-02-07 06:50] LABS: % Iron Saturation 5.5 % (15-50)
[2022-02-07] MEDS: LEVOTHYROXINE SODIUM 25 MCG TAB PO SCH (06:54)
[2022-02-07 07:03] LABS: Thyroid Stimulating Hormone 0.41 uIU/mL (0.358-3.74)
[2022-02-07 09:00] VITALS: BP 97/61
[2022-02-07] MEDS: SUCRALFATE 1 GM/10 ML ORAL SUSP PO SCH ×2 (10:30→22:18)
[2022-02-07] MEDS: DULoxetine HCL 30 MG CAP PO SCH (10:31)
[2022-02-07] MEDS: MAGNESIUM OXIDE 400 MG TAB PO SCH (10:32)
[2022-02-07] MEDS: APIXABAN 5 MG TAB PO SCH ×2 (10:32→22:18)
[2022-02-07] MEDS: QUEtiapine FUMARATE 100 MG TAB PO SCH ×2 (10:32→22:18)
[2022-02-07] MEDS: PANTOPRAZOLE 40 MG TAB PO SCH ×2 (10:32→22:18)
[2022-02-07] MEDS: POTASSIUM CHL 10 Meq TABLET PO SCH (10:32)
[2022-02-07] MEDS ORDERED: POTASSIUM CHL 20 Meq TABLET PO ONE (12:00)
[2022-02-07] MEDS: FUROSEMIDE 20 MG TAB PO SCH (12:59)
[2022-02-07 13:00] VITALS: BP 105/70
[2022-02-07 17:01] VITALS: BP 165/94
[2022-02-07 22:00] VITALS: BP 103/64
[2022-02-07] MEDS: ALPRAZolam 0.5 MG TAB PO PRN (22:34)
[2022-02-08] MEDS: ONDANSETRON HCL 4 MG/2 ML VIAL IV PRN ×4 (02:36→23:23)
[2022-02-08] MEDS: MORPHINE SULFATE INJ 2 MG/ml SYRG IV PRN ×5 (02:36→23:23)
[2022-02-08 05:00] VITALS: BP 131/78
[2022-02-08] MEDS: LEVOTHYROXINE SODIUM 25 MCG TAB PO SCH (07:00)
[2022-02-08] MEDS: SODIUM CHLORIDE 0.9% 1,000 ML IV SCH ×2 (07:58→17:30)
[2022-02-08 09:00] VITALS: BP 101/63
[2022-02-08] MEDS: SUCRALFATE 1 GM/10 ML ORAL SUSP PO SCH ×2 (10:19→21:42)
[2022-02-08] MEDS: QUEtiapine FUMARATE 100 MG TAB PO SCH ×2 (10:20→21:43)
[2022-02-08] MEDS: FUROSEMIDE 20 MG TAB PO SCH (10:20)
[2022-02-08] MEDS: DULoxetine HCL 30 MG CAP PO SCH (10:20)
[2022-02-08] MEDS: PANTOPRAZOLE 40 MG TAB PO SCH ×2 (10:20→21:43)
[2022-02-08] MEDS: APIXABAN 5 MG TAB PO SCH ×2 (10:21→21:43)
[2022-02-08] MEDS: MAGNESIUM OXIDE 400 MG TAB PO SCH (10:23)
[2022-02-08] MEDS ORDERED: HYDROcodone-ACET 10/325MG TAB PO PRN (11:45)
[2022-02-08] MEDS: MIDODRINE HCL 10 MG TAB PO SCH ×2 (11:58→18:53)
[2022-02-08 12:46] LABS: Ferritin 245.9 ng/mL (10-322)
[2022-02-08 12:47] LABS: Free T4 (Free Thyroxine) 1.11 ng/dL (0.89-1.76)
[2022-02-08 12:48] LABS: Folate (Folic Acid) 20.22 ng/mL (5.38-24)
[2022-02-08 13:00] VITALS: BP 102/54
[2022-02-08 15:24] LABS: Hepatitis A Ab IgM Negative
[2022-02-08 15:52] LABS: Hepatitis C Antibody Negative (Negative)
[2022-02-08 15:53] LABS: Hepatitis B Core IgM Negative
[2022-02-08 17:04] VITALS: BP 101/71
[2022-02-08 20:59] VITALS: BP 115/60
[2022-02-08] MEDS: ALPRAZolam 0.5 MG TAB PO PRN (23:23)
[2022-02-09] MEDS: MORPHINE SULFATE INJ 2 MG/ml SYRG IV PRN ×4 (03:41→16:15)
[2022-02-09] MEDS: ONDANSETRON HCL 4 MG/2 ML VIAL IV PRN ×3 (03:41→16:14)
[2022-02-09 04:43] VITALS: BP 104/68
[2022-02-09] MEDS: LEVOTHYROXINE SODIUM 25 MCG TAB PO SCH (06:09)
[2022-02-09] MEDS: MIDODRINE HCL 10 MG TAB PO SCH ×3 (06:09→18:34)
[2022-02-09 09:00] VITALS: BP 101/52
[2022-02-09] MEDS: DULoxetine HCL 30 MG CAP PO SCH (09:21)
[2022-02-09] MEDS: SUCRALFATE 1 GM/10 ML ORAL SUSP PO SCH (09:21)
[2022-02-09] MEDS: APIXABAN 5 MG TAB PO SCH (09:21)
[2022-02-09] MEDS: QUEtiapine FUMARATE 100 MG TAB PO SCH (09:21)
[2022-02-09] MEDS: MAGNESIUM OXIDE 400 MG TAB PO SCH (09:21)
[2022-02-09] MEDS: FUROSEMIDE 20 MG TAB PO SCH (09:21)
[2022-02-09] MEDS ORDERED: CHOLECALCIFEROL (VITD3) 2,000 UNIT CAP/TAB PO SCH (10:00)
[2022-02-09] MEDS ORDERED: ASCORBIC ACID 500 MG TAB PO SCH (10:00)
[2022-02-09] MEDS ORDERED: MULTIPLE VITAMIN TAB PO SCH (10:00)
[2022-02-09] MEDS ORDERED: ZINC SULFATE 220mg CAP or TAB PO SCH (10:00)
[2022-02-09] MEDS ORDERED: PANTOPRAZOLE 40 MG/10 ML VIAL INJ IV SCH (10:00)
[2022-02-09 13:00] VITALS: BP 99/55
[2022-02-09 16:49] VITALS: BP 113/61
[2022-02-09 17:00] VITALS: BP 113/61
== END 2022-02-09 20:40 | DRG 380 ==
LOC: ER 11:09 → EDBD 11:09 → WEST WING 15:24
PROVIDERS: ADMIT Internal Medicine; ATTEND Family Medicine
PROC: 0DB68ZX Excision of Stomach, Via Natural or Artificial Opening Endoscopic, Diagnostic (ICD-10-PCS; 2022-02-04)
PROC: 0DB98ZX Excision of Duodenum, Via Natural or Artificial Opening Endoscopic, Diagnostic (ICD-10-PCS; principal; 2022-02-04 17:16)
DX: K22.10 Ulcer of esophagus without bleeding (principal); E43 Unspecified severe protein-calorie malnutrition; K56.7 Ileus, unspecified; K56.50 Intestinal adhesions [bands], unspecified as to partial versus complete obstruction; G89.4 Chronic pain syndrome; K29.70 Gastritis, unspecified, without bleeding; K29.80 Duodenitis without bleeding; Z20.822 Contact with and (suspected) exposure to COVID-19; G25.81 Restless legs syndrome; D64.9 Anemia, unspecified; J44.9 Chronic obstructive pulmonary disease, unspecified; E03.9 Hypothyroidism, unspecified; E78.5 Hyperlipidemia, unspecified; E88.09 Other disorders of plasma-protein metabolism, not elsewhere classified; F31.9 Bipolar disorder, unspecified; I50.9 Heart failure, unspecified; K21.9 Gastro-esophageal reflux disease without esophagitis; K44.9 Diaphragmatic hernia without obstruction or gangrene; Z79.899 Other long term (current) drug therapy; Z88.8 Allergy status to other drugs, medicaments and biological substances; Z68.21 Body mass index [BMI] 21.0-21.9, adult; Z80.0 Family history of malignant neoplasm of digestive organs; Z81.8 Family history of other mental and behavioral disorders; Z83.3 Family history of diabetes mellitus; Z85.038 Personal history of other malignant neoplasm of large intestine; Z85.3 Personal history of malignant neoplasm of breast; Z86.711 Personal history of pulmonary embolism; Z87.11 Personal history of peptic ulcer disease; Z87.19 Personal history of other diseases of the digestive system; Z90.10 Acquired absence of unspecified breast and nipple; Z90.49 Acquired absence of other specified parts of digestive tract; Z90.710 Acquired absence of both cervix and uterus; Z93.3 Colostomy status; Z82.49 Family history of ischemic heart disease and other diseases of the circulatory system; Z79.01 Long term (current) use of anticoagulants
CPT/HCPCS: 36415; 43239; 74176; 74250; 80053; 80074; 82040; 82150; 82378; 82607; 82668; 82728; 82746; 83010; 83540; 83550; 83615; 83690; 83735; 84439; 84443; 85007; 85025; 85027; 85045; 85610; 85652; 86880; 86885; 87081; 93005; 96361; 96374; 96375; 97110; 97116; 97530; C9113; G0378; J1642; J2250; J2405

== ENCOUNTER 2022-02-14 19:13 | Inpatient (IN) | payer OTHER, MEDICAID ==
[~2022-02-14] VITALS: Ht 165.1 cm; Wt 61.5 kg
[~2022-02-14 19:13] MED LIST changes: +LEVO112T4 PO
[2022-02-14] MEDS ORDERED: MORPHINE SULFATE 4 MG/ML SYR/VIAL IV ONE (19:30)
[2022-02-14] MEDS ORDERED: ONDANSETRON HCL 4 MG/2 ML VIAL IV ONE (19:30)
[2022-02-14] MEDS ORDERED: SODIUM CHLORIDE 0.9% 500 ML IVB ONE (19:30)
[2022-02-14 19:59] LABS: Basophils # (auto) 0 10 ^3/uL (0-0.2); Basophils % (auto) 0.4 % (0.0-2.0); Eosinophils # (auto) 0 10 ^3/uL (0-0.8); Eosinophils % (auto) 0.3 % (0.0-7.0); Hematocrit 32.2 % (36.0-46.0); Hemoglobin 10.8 g/dL (12.2-16.2); Lymphocytes # (auto) 0.7 10 ^3/uL (0.4-5.4); Lymphocytes % (auto) 24.3 % (10.0-50.0); Mean Corpuscular Hgb Conc. 33.5 g/dL (32.0-36.0); Mean Corpuscular Volume 86.6 fL (80.0-100.0); Monocytes # (auto) 0.5 10 ^3/uL (0-1.3); Monocytes % (auto) 17.7 % (0.0-12.0); Neutrophils # (auto) 1.6 10 ^3/uL (1.6-8.6); Neutrophils % (auto) 57.3 % (37.0-80.0); Nucleated Red Blood Cells % 0.1 %; Red Blood Cells 3.72 10^6/uL (4.0-5.20); Red Cell Distribution Width 15.2 % (11.8-14.3); White Blood Cell 2.8 10^3/uL (4.4-10.8)
[2022-02-14 20:16] LABS: Albumin 3.2 g/dL (3.4-5.0); BUN/Creatinine Ratio 35.7; Calcium 8.4 mg/dL (8.5-10.1); Potassium 3.3 mmol/L (3.5-5.1)
[2022-02-14 20:19] LABS: Bilirubin, Total 0.7 mg/dL (0.2-1.0); Total Protein 7.6 g/dL (6.4-8.2)
[2022-02-14] MEDS ORDERED: POTASSIUM CHL 20MEQ/100ML 100 ML IV ONE (21:00)
[2022-02-14] MEDS ORDERED: NITROGLYCERIN 0.4 MG SL TAB SL PRN (22:00)
[2022-02-14] MEDS ORDERED: PANTOPRAZOLE 40 MG/10 ML VIAL INJ IV ONE (22:00)
[2022-02-14] MEDS ORDERED: MORPHINE SULFATE INJ 2 MG/ml SYRG IV PRN (22:00)
[2022-02-14 22:30] LABS: INR 1.05 (0.9-1.15); Partial Thromboplastin Time 33.1 sec (24.6-33.4)
[2022-02-14] MEDS: SODIUM CHLORIDE 0.9% 1,000 ML IV SCH (23:10)
[2022-02-15] MEDS: ONDANSETRON HCL 4 MG/2 ML VIAL IV PRN ×4 (04:20→18:10)
[2022-02-15] MEDS: MORPHINE SULFATE INJ 2 MG/ml SYRG IV PRN ×3 (04:20→14:19)
[2022-02-15 04:42] LABS: Hematocrit 26.6 % (36.0-46.0); Hemoglobin 9.2 g/dL (12.2-16.2); Mean Corpuscular Hgb Conc. 34.5 g/dL (32.0-36.0); Red Blood Cells 3.06 10^6/uL (4.0-5.20); Red Cell Distribution Width 15.4 % (11.8-14.3); White Blood Cell 2.6 10^3/uL (4.4-10.8)
[2022-02-15 04:45] LABS: Basophils % (manual) 0 (0.0-2.0); Blast Cells 0; Metamyelocytes % 0; Promyelocytes % 0; Reactive Lymphocytes 0
[2022-02-15 04:55] LABS: Urine Bacteria NONE SEEN /hpf (None Seen); Urine Blood Negative /uL (Negative); Urine Hyaline Cast MOD /lpf (0 - 2); Urine Mucus FEW (None Seen); Urine Specific Gravity 1.013 (1.001-1.035); Urine WBC 1 /hpf (0 - 5)
[2022-02-15 05:07] LABS: Albumin 2.8 g/dL (3.4-5.0); BUN/Creatinine Ratio 37.5; Calcium 8.1 mg/dL (8.5-10.1); Potassium 3.4 mmol/L (3.5-5.1)
[2022-02-15 05:10] LABS: Bilirubin, Total 0.6 mg/dL (0.2-1.0); Total Protein 6.5 g/dL (6.4-8.2)
[2022-02-15] MEDS ORDERED: GASTROGRAFIN 120 ML SOL ONE (08:46)
[2022-02-15] MEDS: SODIUM CHLORIDE 0.9% 1,000 ML IV SCH ×2 (09:46→23:05)
[2022-02-15] MEDS ORDERED: AZITHROMYCIN 500MG/ 250ML 250 ML IV SCH (10:00)
[2022-02-15] MEDS ORDERED: PANTOPRAZOLE 40 MG/10 ML VIAL INJ IV SCH (10:00)
[2022-02-15 14:51] LABS: Band Neutrophils % (manual) 1; Lymphocytes % (manual) 45 (10.0-50.0)
[2022-02-15 14:52] LABS: Eosinophils % (manual) 1 (0-7); Monocytes % (manual) 15 (0-12); Myelocytes % 2
[2022-02-15] MEDS: HYDROmorphone HCL 2 MG/ML VL/or syr IV PRN (18:10)
[2022-02-15 21:43] VITALS: BP 100/47
[2022-02-15 22:00] VITALS: BP 106/67
[2022-02-15] MEDS: PANTOPRAZOLE 40 MG/10 ML VIAL INJ IV SCH (23:05)
[2022-02-16] MEDS: ONDANSETRON HCL 4 MG/2 ML VIAL IV PRN ×4 (00:52→20:25)
[2022-02-16] MEDS: HYDROmorphone HCL 2 MG/ML VL/or syr IV PRN ×4 (00:52→20:25)
[2022-02-16] MEDS ORDERED: LORazepam 2MG/ML-1ML VIAL IV PRN (01:00)
[2022-02-16 05:00] VITALS: BP 128/73
[2022-02-16 06:46] LABS: Basophils # (auto) 0 10 ^3/uL (0-0.2); Basophils % (auto) 0.6 % (0.0-2.0); Eosinophils # (auto) 0.1 10 ^3/uL (0-0.8); Eosinophils % (auto) 2.1 % (0.0-7.0); Hematocrit 25.7 % (36.0-46.0); Hemoglobin 8.8 g/dL (12.2-16.2); Lymphocytes # (auto) 1.1 10 ^3/uL (0.4-5.4); Mean Corpuscular Hemoglobin 30.2 pg (28.0-32.0); Mean Corpuscular Hgb Conc. 34.1 g/dL (32.0-36.0); Mean Corpuscular Volume 88.6 fL (80.0-100.0); Monocytes # (auto) 0.5 10 ^3/uL (0-1.3); Monocytes % (auto) 16.2 % (0.0-12.0); Neutrophils # (auto) 1.2 10 ^3/uL (1.6-8.6); Neutrophils % (auto) 42.1 % (37.0-80.0); Nucleated Red Blood Cells % 0.1 %; Red Blood Cells 2.91 10^6/uL (4.0-5.20); Red Cell Distribution Width 14.9 % (11.8-14.3); White Blood Cell 2.9 10^3/uL (4.4-10.8)
[2022-02-16 07:03] LABS: Albumin 2.5 g/dL (3.4-5.0); Calcium 8.1 mg/dL (8.5-10.1)
[2022-02-16 07:07] LABS: BUN/Creatinine Ratio 27.3; Bilirubin, Total 0.6 mg/dL (0.2-1.0); Total Protein 6.3 g/dL (6.4-8.2)
[2022-02-16 07:09] LABS: Potassium 2.8 mmol/L (3.5-5.1)
[2022-02-16] MEDS ORDERED: POTASSIUM CHLORIDE 60 MEQ, LIDOCAINE 1% (LOCAL ANESTH.) 6 ML in SODIUM CHL 0.9% 500 ML IV ONE (07:30)
[2022-02-16] MEDS: SOD CHL 0.9%/ KCL 40MEQ 1,000 ML IV SCH ×2 (08:31→17:30)
[2022-02-16] MEDS: PANTOPRAZOLE 40 MG/10 ML VIAL INJ IV SCH ×2 (08:32→23:42)
[2022-02-16] MEDS: MAGNESIUM SULFATE 1GM/100ML 100 ML IV SCH ×2 (08:32→09:41)
[2022-02-16 09:00] VITALS: BP 103/59
[2022-02-16 13:00] VITALS: BP 134/68
[2022-02-16 16:48] VITALS: BP 115/64
[2022-02-16 22:00] VITALS: BP 97/57
[2022-02-17] MEDS: HYDROmorphone HCL 2 MG/ML VL/or syr IV PRN ×4 (03:41→23:47)
[2022-02-17] MEDS: ONDANSETRON HCL 4 MG/2 ML VIAL IV PRN ×4 (03:41→23:47)
[2022-02-17 05:00] VITALS: BP 109/62
[2022-02-17] MEDS: SOD CHL 0.9%/ KCL 40MEQ 1,000 ML IV SCH ×3 (05:46→23:48)
[2022-02-17 09:00] VITALS: BP 115/70
[2022-02-17] MEDS ORDERED: LORazepam 0.5 MG TAB PO ONE (09:15)
[2022-02-17] MEDS: PANTOPRAZOLE 40 MG/10 ML VIAL INJ IV SCH ×2 (09:55→23:45)
[2022-02-17 12:02] LABS: BUN/Creatinine Ratio 9.1; Calcium 8.1 mg/dL (8.5-10.1); Magnesium 1.5 mg/dL (1.6-2.6); Potassium 4.3 mmol/L (3.5-5.1)
[2022-02-17 13:00] VITALS: BP 97/56
[2022-02-17 17:00] VITALS: BP 120/56
[2022-02-17 22:00] VITALS: BP 119/62
[2022-02-17] MEDS: MAGNESIUM SULFATE 1GM/100ML 100 ML IV SCH (23:46)
[2022-02-18] VITALS (7 sets, daily range): BP systolic 85–136; BP diastolic 50–80
[2022-02-18] MEDS: MAGNESIUM SULFATE 1GM/100ML 100 ML IV SCH ×2 (01:03→02:17)
[2022-02-18] MEDS: ONDANSETRON HCL 4 MG/2 ML VIAL IV PRN (06:17)
[2022-02-18] MEDS: HYDROmorphone HCL 2 MG/ML VL/or syr IV PRN ×2 (06:18→12:23)
[2022-02-18 07:07] LABS: Potassium 3.2 mmol/L (3.5-5.1)
[2022-02-18 07:11] LABS: BUN/Creatinine Ratio 10.7; Calcium 7.5 mg/dL (8.5-10.1); Magnesium 1.8 mg/dL (1.6-2.6); Phosphorus 1.8 mg/dL (2.5-4.90)
[2022-02-18] MEDS: PANTOPRAZOLE 40 MG/10 ML VIAL INJ IV SCH ×2 (09:30→21:39)
[2022-02-18] MEDS: SOD CHL 0.9%/ KCL 40MEQ 1,000 ML IV SCH (09:30)
[2022-02-18] MEDS ORDERED: ACETAMINOPHEN 650 mg PER 20.3 mL UD PO PRN (11:15)
[2022-02-18] MEDS: ACETAMINOPHEN 650 mg PER 20.3 mL UD PO PRN (12:23)
[2022-02-18] MEDS: LORazepam 0.5 MG TAB PO PRN ×2 (12:23→21:39)
[2022-02-18] MEDS ORDERED: POTASSIUM PHOSPHATE 44 MEQ in D5W 5% 250 ML IV ONE (13:15)
[2022-02-18] MEDS ORDERED: VANCOMYCIN PER PHARMACY 0 MG IV SCH (13:15)
[2022-02-18] MEDS ORDERED: VANCOMYCIN 1GM/250ML 250 ML IV ONE (13:30)
[2022-02-18] MEDS ORDERED: PIPERACILLIN-TAZOB 3.375GM 100 ML IV SCH (14:00)
[2022-02-18] MEDS ORDERED: PIPERACILLIN-TAZOB 3.375GM 100 ML IV ONE (14:30)
[2022-02-18 16:48] LABS: Hematocrit 15.4 % (36.0-46.0); Mean Corpuscular Hemoglobin 30.1 pg (28.0-32.0); Mean Corpuscular Hgb Conc. 34.3 g/dL (32.0-36.0); Mean Corpuscular Volume 87.9 fL (80.0-100.0); Red Blood Cells 1.75 10^6/uL (4.0-5.20); White Blood Cell 5.9 10^3/uL (4.4-10.8)
[2022-02-18 16:52] LABS: Hemoglobin 5.3 g/dL (12.2-16.2)
[2022-02-18 16:54] LABS: Basophils % (manual) 0 (0.0-2.0); Blast Cells 0; Eosinophils % (manual) 0 (0-7); Metamyelocytes % 0; Myelocytes % 0; Promyelocytes % 0; Reactive Lymphocytes 0
[2022-02-18 17:05] LABS: Band Neutrophils % (manual) 2; Lymphocytes % (manual) 16 (10.0-50.0); Monocytes % (manual) 4 (0-12)
[2022-02-18] MEDS: PIPERACILLIN-TAZOB 3.375GM 100 ML IV SCH (21:39)
[2022-02-18 22:46] LABS: BUN/Creatinine Ratio 8.3; Calcium 7.6 mg/dL (8.5-10.1); Potassium 3.4 mmol/L (3.5-5.1)
[2022-02-19] VITALS (11 sets, daily range): BP systolic 81–145; BP diastolic 45–61
[2022-02-19] MEDS: LORazepam 0.5 MG TAB PO PRN ×3 (03:38→18:43)
[2022-02-19] MEDS: HYDROmorphone HCL 2 MG/ML VL/or syr IV PRN ×3 (04:07→18:43)
[2022-02-19 05:13] LABS: Basophils # (auto) 0 10 ^3/uL (0-0.2); Basophils % (auto) 0.4 % (0.0-2.0); Eosinophils # (auto) 0 10 ^3/uL (0-0.8); Hematocrit 27.8 % (36.0-46.0); Lymphocytes # (auto) 0.5 10 ^3/uL (0.4-5.4); Lymphocytes % (auto) 11.1 % (10.0-50.0); Mean Corpuscular Hemoglobin 29.5 pg (28.0-32.0); Mean Corpuscular Hgb Conc. 34.3 g/dL (32.0-36.0); Mean Corpuscular Volume 86.1 fL (80.0-100.0); Monocytes # (auto) 0.3 10 ^3/uL (0-1.3); Monocytes % (auto) 7.9 % (0.0-12.0); Neutrophils # (auto) 3.3 10 ^3/uL (1.6-8.6); Neutrophils % (auto) 79.6 % (37.0-80.0); Red Blood Cells 3.23 10^6/uL (4.0-5.20); Red Cell Distribution Width 15.1 % (11.8-14.3); White Blood Cell 4.1 10^3/uL (4.4-10.8)
[2022-02-19] MEDS: VANCOMYCIN 1GM/250ML 250 ML IV SCH (05:16)
[2022-02-19 05:24] LABS: Hemoglobin 9.5 g/dL (12.2-16.2)
[2022-02-19 05:33] LABS: Albumin 2.1 g/dL (3.4-5.0); BUN/Creatinine Ratio 10.3; Calcium 7.5 mg/dL (8.5-10.1); Magnesium 1.5 mg/dL (1.6-2.6); Potassium 3.2 mmol/L (3.5-5.1)
[2022-02-19 05:42] LABS: Bilirubin, Total 0.7 mg/dL (0.2-1.0); Phosphorus 2.8 mg/dL (2.5-4.90); Total Protein 5.1 g/dL (6.4-8.2)
[2022-02-19] MEDS: PIPERACILLIN-TAZOB 3.375GM 100 ML IV SCH ×3 (06:45→22:20)
[2022-02-19 09:03] LABS: Urine Bacteria FEW /hpf (None Seen); Urine Blood Negative /uL (Negative); Urine Mucus FEW (None Seen); Urine Specific Gravity 1.011 (1.001-1.035); Urine WBC 6 /hpf (0 - 5)
[2022-02-19] MEDS: PANTOPRAZOLE 40 MG/10 ML VIAL INJ IV SCH ×2 (09:27→22:46)
[2022-02-19] MEDS: ACETAMINOPHEN 650 mg PER 20.3 mL UD PO PRN (09:28)
[2022-02-19] MEDS: ONDANSETRON HCL 4 MG/2 ML VIAL IV PRN ×2 (11:22→18:42)
[2022-02-19 12:29] LABS: Hematocrit 27.3 % (36.0-46.0); Hemoglobin 9.2 g/dL (12.2-16.2)
[2022-02-19] MEDS ORDERED: MAGNESIUM OXIDE 400 MG TAB PO ONE (14:15)
[2022-02-19] MEDS ORDERED: SOD CHL 0.9%/ KCL 40MEQ 1,000 ML IV ONE (14:15)
[2022-02-19] MEDS ORDERED: POTASSIUM CHL 20 Meq TABLET PO ONE (14:15)
[2022-02-19 18:08] LABS: Hematocrit 26.8 % (36.0-46.0); Hemoglobin 9.1 g/dL (12.2-16.2)
[2022-02-19] MEDS ORDERED: MAGNESIUM SULFATE 1GM/100ML 100 ML IV ONE (20:16)
[2022-02-19] MEDS: MAGNESIUM SULFATE 1GM/100ML 100 ML IV SCH (20:35)
[2022-02-19] MEDS: MAGNESIUM OXIDE 400 MG TAB PO SCH (22:46)
[2022-02-20] VITALS (7 sets, daily range): BP systolic 81–122; BP diastolic 53–73
[2022-02-20] MEDS: VANCOMYCIN 1GM/250ML 250 ML IV SCH ×2 (00:34→20:30)
[2022-02-20] MEDS: ONDANSETRON HCL 4 MG/2 ML VIAL IV PRN ×4 (02:27→20:46)
[2022-02-20] MEDS: LORazepam 0.5 MG TAB PO PRN ×3 (02:27→16:03)
[2022-02-20] MEDS: PIPERACILLIN-TAZOB 3.375GM 100 ML IV SCH ×3 (05:57→22:00)
[2022-02-20 06:52] LABS: Hematocrit 24.6 % (36.0-46.0); Hemoglobin 8.7 g/dL (12.2-16.2); Mean Corpuscular Hgb Conc. 35.4 g/dL (32.0-36.0); Mean Corpuscular Volume 90.3 fL (80.0-100.0); Red Blood Cells 2.72 10^6/uL (4.0-5.20); Red Cell Distribution Width 15.2 % (11.8-14.3); White Blood Cell 3.1 10^3/uL (4.4-10.8)
[2022-02-20 07:02] LABS: Calcium 7.5 mg/dL (8.5-10.1); Magnesium 1.7 mg/dL (1.6-2.6); Potassium 4.1 mmol/L (3.5-5.1)
[2022-02-20 07:04] LABS: BUN/Creatinine Ratio 10.7
[2022-02-20 07:07] LABS: Basophils % (manual) 0 (0.0-2.0); Blast Cells 0; Metamyelocytes % 0; Myelocytes % 0; Promyelocytes % 0; Reactive Lymphocytes 0
[2022-02-20 07:17] LABS: Bilirubin, Total 0.5 mg/dL (0.2-1.0); Phosphorus 2.5 mg/dL (2.5-4.90); Total Protein 4.7 g/dL (6.4-8.2)
[2022-02-20 08:48] LABS: Band Neutrophils % (manual) 1; Eosinophils % (manual) 2 (0-7); Lymphocytes % (manual) 22 (10.0-50.0); Monocytes % (manual) 8 (0-12)
[2022-02-20] MEDS ORDERED: MAGNESIUM SULFATE 1GM/100ML 100 ML IV ONE (09:09)
[2022-02-20] MEDS: MAGNESIUM SULFATE 1GM/100ML 100 ML IV SCH (09:27)
[2022-02-20] MEDS: PANTOPRAZOLE 40 MG/10 ML VIAL INJ IV SCH ×2 (09:29→22:00)
[2022-02-20] MEDS: MAGNESIUM OXIDE 400 MG TAB PO SCH ×2 (09:29→22:00)
[2022-02-20] MEDS: HYDROmorphone HCL 2 MG/ML VL/or syr IV PRN ×2 (09:35→20:47)
[2022-02-21] MEDS: LORazepam 0.5 MG TAB PO PRN ×3 (01:06→22:05)
[2022-02-21] MEDS: ONDANSETRON HCL 4 MG/2 ML VIAL IV PRN ×2 (03:37→22:05)
[2022-02-21] MEDS: HYDROmorphone HCL 2 MG/ML VL/or syr IV PRN ×4 (03:39→21:48)
[2022-02-21 05:00] VITALS: BP 94/51
[2022-02-21] MEDS: VANCOMYCIN 1GM/250ML 250 ML IV SCH ×2 (05:20→17:14)
[2022-02-21 07:53] LABS: BUN/Creatinine Ratio 3.7; Calcium 7.8 mg/dL (8.5-10.1); Magnesium 1.6 mg/dL (1.6-2.6); Phosphorus 3.4 mg/dL (2.5-4.90); Potassium 4.4 mmol/L (3.5-5.1)
[2022-02-21 08:00] VITALS: BP 100/51
[2022-02-21 09:08] VITALS: BP 114/53
[2022-02-21 09:47] LABS: Basophils # (auto) 0 10 ^3/uL (0-0.2); Basophils % (auto) 0.5 % (0.0-2.0); Eosinophils # (auto) 0.1 10 ^3/uL (0-0.8); Eosinophils % (auto) 2.8 % (0.0-7.0); Hematocrit 27.1 % (36.0-46.0); Lymphocytes % (auto) 35.8 % (10.0-50.0); Mean Corpuscular Hemoglobin 28.8 pg (28.0-32.0); Mean Corpuscular Hgb Conc. 33.4 g/dL (32.0-36.0); Mean Corpuscular Volume 86.4 fL (80.0-100.0); Monocytes # (auto) 0.3 10 ^3/uL (0-1.3); Monocytes % (auto) 11.6 % (0.0-12.0); Neutrophils # (auto) 1.4 10 ^3/uL (1.6-8.6); Neutrophils % (auto) 49.3 % (37.0-80.0); Nucleated Red Blood Cells % 0.4 %; Red Blood Cells 3.13 10^6/uL (4.0-5.20); Red Cell Distribution Width 15.7 % (11.8-14.3); White Blood Cell 2.9 10^3/uL (4.4-10.8)
[2022-02-21] MEDS: PANTOPRAZOLE 40 MG/10 ML VIAL INJ IV SCH ×2 (10:27→21:46)
[2022-02-21] MEDS: MAGNESIUM OXIDE 400 MG TAB PO SCH ×2 (10:27→21:47)
[2022-02-21 12:52] VITALS: BP 101/58
[2022-02-21] MEDS: PIPERACILLIN-TAZOB 3.375GM 100 ML IV SCH ×3 (13:06→21:46)
[2022-02-21 16:58] VITALS: BP 100/48
[2022-02-21] MEDS: QUEtiapine FUMARATE 100 MG TAB PO SCH (21:47)
[2022-02-21 22:00] VITALS: BP 114/87
[2022-02-22] MEDS: VANCOMYCIN 1GM/250ML 250 ML IV SCH ×2 (01:54→11:59)
[2022-02-22 05:00] VITALS: BP 115/47
[2022-02-22] MEDS: ONDANSETRON HCL 4 MG/2 ML VIAL IV PRN ×3 (05:01→18:29)
[2022-02-22] MEDS: HYDROmorphone HCL 2 MG/ML VL/or syr IV PRN ×3 (05:02→18:33)
[2022-02-22] MEDS: PIPERACILLIN-TAZOB 3.375GM 100 ML IV SCH ×3 (05:21→22:53)
[2022-02-22 06:51] LABS: BUN/Creatinine Ratio 5.1; Calcium 7.9 mg/dL (8.5-10.1)
[2022-02-22 08:30] VITALS: BP 84/56
[2022-02-22 08:46] VITALS: BP 90/57
[2022-02-22] MEDS: PANTOPRAZOLE 40 MG/10 ML VIAL INJ IV SCH ×2 (11:57→22:53)
[2022-02-22] MEDS: DULoxetine HCL 30 MG CAP PO SCH (11:58)
[2022-02-22] MEDS: MAGNESIUM OXIDE 400 MG TAB PO SCH (11:59)
[2022-02-22 12:55] VITALS: BP 100/50
[2022-02-22] MEDS ORDERED: VANCOMYCIN 1GM/250ML 250 ML IV SCH (16:00)
[2022-02-22] MEDS ORDERED: VANCOMYCIN 750mg/250ml 250 ML IV SCH (16:15)
[2022-02-22 17:00] VITALS: BP 121/47
[2022-02-22] MEDS: LORazepam 0.5 MG TAB PO PRN ×2 (17:33→23:33)
[2022-02-22] MEDS: VANCOMYCIN 750mg/250ml 250 ML IV SCH ×2 (17:56→18:30)
[2022-02-22 22:00] VITALS: BP 94/57
[2022-02-22] MEDS: QUEtiapine FUMARATE 100 MG TAB PO SCH (22:53)
[2022-02-23] VITALS (7 sets, daily range): BP systolic 91–122; BP diastolic 59–65
[2022-02-23] MEDS: HYDROmorphone HCL 2 MG/ML VL/or syr IV PRN ×3 (02:55→16:38)
[2022-02-23] MEDS: ONDANSETRON HCL 4 MG/2 ML VIAL IV PRN ×3 (02:56→16:24)
[2022-02-23] MEDS: VANCOMYCIN 750mg/250ml 250 ML IV SCH ×2 (04:46→17:00)
[2022-02-23] MEDS ORDERED: VANCOMYCIN 750mg/250ml 250 ML IV SCH (06:00)
[2022-02-23] MEDS: PIPERACILLIN-TAZOB 3.375GM 100 ML IV SCH ×2 (06:00→14:30)
[2022-02-23 09:42] LABS: Calcium 7.9 mg/dL (8.5-10.1); Potassium 3.6 mmol/L (3.5-5.1)
[2022-02-23 09:44] LABS: BUN/Creatinine Ratio 4.7; Phosphorus 4.2 mg/dL (2.5-4.90)
[2022-02-23] MEDS: PANTOPRAZOLE 40 MG/10 ML VIAL INJ IV SCH (09:57)
[2022-02-23] MEDS: DULoxetine HCL 30 MG CAP PO SCH (09:57)
== END 2022-02-23 18:00 | DRG 388 ==
LOC: ER 19:13 → EDUNIT# 19:13 → EDBD 19:13 → TELE 21:54 → TELE-CENTR 02-15 21:00
PROVIDERS: ADMIT Nurse Practitioner; ATTEND Internal Medicine
PROC: 30233N1 Transfusion of Nonautologous Red Blood Cells into Peripheral Vein, Percutaneous Approach (ICD-10-PCS; principal; 2022-02-19)
DX: K56.699 Other intestinal obstruction unspecified as to partial versus complete obstruction (principal); E43 Unspecified severe protein-calorie malnutrition; U07.1 COVID-19; E87.1 Hypo-osmolality and hyponatremia; K22.10 Ulcer of esophagus without bleeding; R78.81 Bacteremia; R65.10 Systemic inflammatory response syndrome (SIRS) of non-infectious origin without acute organ dysfunction; K92.2 Gastrointestinal hemorrhage, unspecified; D64.9 Anemia, unspecified; E87.6 Hypokalemia; F20.9 Schizophrenia, unspecified; G25.81 Restless legs syndrome; G89.4 Chronic pain syndrome; F31.9 Bipolar disorder, unspecified; I10 Essential (primary) hypertension; J44.9 Chronic obstructive pulmonary disease, unspecified; F41.9 Anxiety disorder, unspecified; Z80.0 Family history of malignant neoplasm of digestive organs; Z81.8 Family history of other mental and behavioral disorders; Z82.49 Family history of ischemic heart disease and other diseases of the circulatory system; Z83.3 Family history of diabetes mellitus; Z85.3 Personal history of malignant neoplasm of breast; Z90.10 Acquired absence of unspecified breast and nipple; Z90.49 Acquired absence of other specified parts of digestive tract; Z90.710 Acquired absence of both cervix and uterus; Z93.3 Colostomy status; Z68.20 Body mass index [BMI] 20.0-20.9, adult
CPT/HCPCS: 36415; 71045; 74018; 74176; 80048; 80053; 80069; 80202; 81001; 82150; 82565; 82570; 82784; 83516; 83605; 83690; 83735; 83930; 83935; 84100; 84156; 85007; 85014; 85018; 85025; 85027; 85610; 85730; 86255; 86850; 86900; 86901; 86920; 87040; 87077; 87186; 87493; 93005; 96365; 96366; 96367; 96375; 96376; 97163; C9113; G0378; J2001; J2405; J2543; J3480; J7060

== ENCOUNTER 2022-05-09 11:10 | Inpatient (IN) | payer OTHER, MEDICAID ==
[~2022-05-09] VITALS: Ht 165.1 cm; Wt 58.8 kg
[2022-05-09] VITALS (7 sets, daily range): BP systolic 107–119; BP diastolic 72–86
[2022-05-09 12:18] LABS: Hemoglobin 11.8 g/dL (12.2-16.2)
[2022-05-09 12:21] LABS: Hematocrit 35.2 % (36.0-46.0); Mean Corpuscular Hemoglobin 33.2 pg (28.0-32.0); Mean Corpuscular Hgb Conc. 33.6 g/dL (32.0-36.0); Mean Corpuscular Volume 98.8 fL (80.0-100.0); Red Blood Cells 3.56 10^6/uL (4.0-5.20); Red Cell Distribution Width 15.8 % (11.8-14.3); White Blood Cell 3.5 10^3/uL (4.4-10.8)
[2022-05-09 12:29] LABS: Band Neutrophils % (manual) 0; Basophils % (manual) 0 (0.0-2.0); Blast Cells 0; Eosinophils % (manual) 0 (0-7); Metamyelocytes % 0; Myelocytes % 0; Promyelocytes % 0; Reactive Lymphocytes 0
[2022-05-09] MEDS ORDERED: OMNIPAQUE ORAL SOLN 500ml 12mg/ml PO ONE (13:14)
[2022-05-09] MEDS ORDERED: SODIUM CHLORIDE 0.9% 1,000 ML IV ONE (13:15)
[2022-05-09] MEDS ORDERED: LACTATED RINGER'S 1,000 ML IV ONE (13:15)
[2022-05-09 13:18] LABS: Albumin 2.1 g/dL (3.4-5.0); Calcium 7.6 mg/dL (8.5-10.1)
[2022-05-09 13:21] LABS: BUN/Creatinine Ratio 9.5; Bilirubin, Total 0.9 mg/dL (0.2-1.0); Total Protein 5.6 g/dL (6.4-8.2)
[2022-05-09 13:29] LABS: Lactic Acid w/Reflex 3.2 mmol/L (0.4-2.0)
[2022-05-09 14:38] LABS: Magnesium 1.5 mg/dL (1.6-2.6); Phosphorus 3.5 mg/dL (2.5-4.90)
[2022-05-09] MEDS ORDERED: ONDANSETRON HCL 4 MG/2 ML VIAL IV ONE (14:45)
[2022-05-09 15:13] LABS: Urine Bacteria NONE SEEN /hpf (None Seen); Urine Blood Negative /uL (Negative); Urine Specific Gravity 1.007 (1.001-1.035); Urine WBC 1 /hpf (0 - 5)
[2022-05-09] MEDS ORDERED: IOHEXOL 300 MG/ML 100ML BOTTLE IJ ONE (15:15)
[2022-05-09] MEDS ORDERED: MAGNESIUM SULFATE 1GM/100ML 100 ML IV ONE ×2 (15:45→18:15)
[2022-05-09] MEDS ORDERED: POTASSIUM EFFERVESENT TAB 25 MEQ PO ONE (15:45)
[2022-05-09] MEDS ORDERED: METOCLOPRAMIDE HCL 5MG/ml INJ 2ml VIAL IV ONE (15:45)
[2022-05-09 18:10] LABS: Lymphocytes % (manual) 62 (10.0-50.0); Monocytes % (manual) 11 (0-12)
[2022-05-09] MEDS ORDERED: MORPHINE SULFATE INJ 2 MG/ml SYRG IV PRN (18:15)
[2022-05-09] MEDS ORDERED: HYDROcodone-ACET 5/325MG TAB PO PRN (18:15)
[2022-05-09] MEDS ORDERED: NITROGLYCERIN 0.4 MG SL TAB SL PRN (18:15)
[2022-05-09] MEDS: SODIUM CHLORIDE 0.9% 1,000 ML IV SCH (18:15)
[2022-05-09] MEDS ORDERED: NOREPINEPHRINE 8 MG/250ML KIT 250 ML IV SCH (18:45)
[2022-05-09] MEDS ORDERED: NOREPINEPHRINE 8 MG/250ML KIT 250 ML IV ONE (18:45)
[2022-05-09] MEDS: HYDROmorphone HCL 2 MG/ML VL/or syr IV PRN (20:23)
[2022-05-09 21:37] LABS: Albumin 1.8 g/dL (3.4-5.0); Calcium 6.8 mg/dL (8.5-10.1); Potassium 3.6 mmol/L (3.5-5.1)
[2022-05-09 21:41] LABS: BUN/Creatinine Ratio 13.3; Bilirubin, Total 1.1 mg/dL (0.2-1.0); Total Protein 4.8 g/dL (6.4-8.2)
[2022-05-09] MEDS ORDERED: HYDR-4072 PO (23:49)
[2022-05-10] VITALS (45 sets, daily range): BP systolic 91–126; BP diastolic 60–85
[2022-05-10] MEDS: HYDROmorphone HCL 2 MG/ML VL/or syr IV PRN ×5 (00:40→21:13)
[2022-05-10] MEDS: SODIUM CHLORIDE 0.9% 1,000 ML IV SCH ×3 (01:45→15:06)
[2022-05-10] MEDS ORDERED: PANTOPRAZOLE 40 MG/10 ML VIAL INJ IV SCH (10:00)
[2022-05-10] MEDS ORDERED: cefTRIAXone 1GM/50ML D5W 50 ML IV ONE (14:45)
[2022-05-10] MEDS: ONDANSETRON HCL 4 MG/2 ML VIAL IV PRN (17:37)
[2022-05-10] MEDS: metroNIDAZOLE 500MG/100ML 100 ML IV SCH (21:14)
[2022-05-11] VITALS: BP 113/75
[2022-05-11] MEDS: SODIUM CHLORIDE 0.9% 1,000 ML IV SCH ×3 (03:06→20:45)
[2022-05-11] MEDS: HYDROmorphone HCL 2 MG/ML VL/or syr IV PRN ×5 (03:07→20:54)
[2022-05-11 04:00] VITALS: BP 103/69
[2022-05-11 04:29] LABS: Basophils # (auto) 0 10 ^3/uL (0-0.2); Basophils % (auto) 0.2 % (0.0-2.0); Eosinophils # (auto) 0 10 ^3/uL (0-0.8); Eosinophils % (auto) 0.2 % (0.0-7.0); Hemoglobin 10.3 g/dL (12.2-16.2); Lymphocytes # (auto) 1.3 10 ^3/uL (0.4-5.4); Monocytes # (auto) 0.4 10 ^3/uL (0-1.3); Neutrophils # (auto) 5.1 10 ^3/uL (1.6-8.6)
[2022-05-11 04:35] LABS: Hematocrit 30.5 % (36.0-46.0); Lymphocytes % (auto) 18.6 % (10.0-50.0); Mean Corpuscular Hemoglobin 33.8 pg (28.0-32.0); Mean Corpuscular Hgb Conc. 33.7 g/dL (32.0-36.0); Mean Corpuscular Volume 100.3 fL (80.0-100.0); Monocytes % (auto) 5.6 % (0.0-12.0); Neutrophils % (auto) 75.4 % (37.0-80.0); Red Blood Cells 3.04 10^6/uL (4.0-5.20); Red Cell Distribution Width 15.7 % (11.8-14.3); White Blood Cell 6.7 10^3/uL (4.4-10.8)
[2022-05-11 04:43] LABS: Albumin 1.8 g/dL (3.4-5.0); Calcium 7.1 mg/dL (8.5-10.1)
[2022-05-11 04:47] LABS: BUN/Creatinine Ratio 10.8; Bilirubin, Total 1.3 mg/dL (0.2-1.0); INR 1.11 (0.9-1.15); Partial Thromboplastin Time 29.4 sec (24.6-33.4); Total Protein 4.5 g/dL (6.4-8.2)
[2022-05-11] MEDS: metroNIDAZOLE 500MG/100ML 100 ML IV SCH ×3 (05:58→22:14)
[2022-05-11] MEDS: ONDANSETRON HCL 4 MG/2 ML VIAL IV PRN ×3 (07:34→20:47)
[2022-05-11 08:00] VITALS: BP 122/80
[2022-05-11] MEDS: POTASSIUM CHL 20MEQ/100ML 100 ML IV SCH ×2 (08:47→10:45)
[2022-05-11] MEDS: cefTRIAXone 1GM/50ML D5W 50 ML IV SCH (08:50)
[2022-05-11] MEDS ORDERED: GASTROGRAFIN 120 ML SOL ONE (09:03)
[2022-05-11 12:00] VITALS: BP 106/73
[2022-05-11 16:00] VITALS: BP 113/79
[2022-05-11 20:00] VITALS: BP 126/87
[2022-05-12] VITALS (22 sets, daily range): BP systolic 70–113; BP diastolic 39–74
[2022-05-12] MEDS ORDERED: QUEtiapine FUMARATE 100 MG TAB PO ONE
[2022-05-12] MEDS: SODIUM CHLORIDE 0.9% 1,000 ML IV SCH ×2 (01:00→13:00)
[2022-05-12] MEDS: ONDANSETRON HCL 4 MG/2 ML VIAL IV PRN ×4 (01:05→20:00)
[2022-05-12] MEDS: HYDROmorphone HCL 2 MG/ML VL/or syr IV PRN ×4 (01:06→20:00)
[2022-05-12 04:15] LABS: Basophils # (auto) 0 10 ^3/uL (0-0.2); Hematocrit 24.4 % (36.0-46.0); Nucleated Red Blood Cells % 0.1 %; Red Blood Cells 2.32 10^6/uL (4.0-5.20); White Blood Cell 3.1 10^3/uL (4.4-10.8)
[2022-05-12 04:19] LABS: Basophils % (auto) 0.4 % (0.0-2.0); Eosinophils # (auto) 0.1 10 ^3/uL (0-0.8); Eosinophils % (auto) 1.9 % (0.0-7.0); Hemoglobin 8.1 g/dL (12.2-16.2); Lymphocytes # (auto) 1.3 10 ^3/uL (0.4-5.4); Lymphocytes % (auto) 41.5 % (10.0-50.0); Mean Corpuscular Hemoglobin 34.9 pg (28.0-32.0); Mean Corpuscular Hgb Conc. 33.2 g/dL (32.0-36.0); Mean Corpuscular Volume 105.2 fL (80.0-100.0); Monocytes # (auto) 0.3 10 ^3/uL (0-1.3); Monocytes % (auto) 8.9 % (0.0-12.0); Neutrophils # (auto) 1.5 10 ^3/uL (1.6-8.6); Neutrophils % (auto) 47.3 % (37.0-80.0); Red Cell Distribution Width 15.9 % (11.8-14.3)
[2022-05-12 04:21] LABS: BUN/Creatinine Ratio 12.1; Calcium 6.6 mg/dL (8.5-10.1)
[2022-05-12 04:40] LABS: Potassium 2.6 mmol/L (3.5-5.1)
[2022-05-12] MEDS: metroNIDAZOLE 500MG/100ML 100 ML IV SCH ×3 (06:04→21:17)
[2022-05-12] MEDS ORDERED: POTASSIUM EFFERVESENT TAB 25 MEQ PO ONE (09:30)
[2022-05-12] MEDS: cefTRIAXone 1GM/50ML D5W 50 ML IV SCH (09:38)
[2022-05-12] MEDS: POTASSIUM CHL 20MEQ/100ML 100 ML IV SCH ×2 (10:41→12:24)
[2022-05-12] MEDS ORDERED: HYDROcodone-ACET 5/325MG TAB PO PRN (12:30)
[2022-05-12] MEDS ORDERED: KETOROLAC TROMETH 30 MG/ML 1ML VIAL IV ONE (12:30)
[2022-05-12] MEDS ORDERED: DOCUSATE SOD 100 MG CAP PO ONE (12:30)
[2022-05-12] MEDS ORDERED: GASTROGRAFIN 120 ML SOL ONE (16:46)
[2022-05-12] MEDS ORDERED: QUEtiapine FUMARATE 100 MG TAB PO SCH (22:00)
[2022-05-12] MEDS: DOCUSATE SOD 100 MG CAP PO SCH (22:00)
[2022-05-13] MEDS ORDERED: MIDODRINE HCL 10 MG TAB PO ONE
[2022-05-13] MEDS: HYDROmorphone HCL 2 MG/ML VL/or syr IV PRN ×5 (00:47→22:33)
[2022-05-13 04:35] VITALS: BP 80/50
[2022-05-13 04:56] VITALS: BP 90/54
[2022-05-13] MEDS ORDERED: MIDODRINE HCL 10 MG TAB PO SCH (06:00)
[2022-05-13] MEDS: metroNIDAZOLE 500MG/100ML 100 ML IV SCH ×3 (06:21→22:33)
[2022-05-13] MEDS: SODIUM CHLORIDE 0.9% 1,000 ML IV SCH (06:24)
[2022-05-13 06:41] LABS: Basophils # (auto) 0 10 ^3/uL (0-0.2); Eosinophils # (auto) 0.1 10 ^3/uL (0-0.8); Hematocrit 31.1 % (36.0-46.0); Hemoglobin 10.7 g/dL (12.2-16.2); Mean Corpuscular Hgb Conc. 34.4 g/dL (32.0-36.0); Monocytes # (auto) 0.3 10 ^3/uL (0-1.3); Red Blood Cells 3.03 10^6/uL (4.0-5.20); White Blood Cell 3.3 10^3/uL (4.4-10.8)
[2022-05-13 06:45] LABS: Basophils % (auto) 0.5 % (0.0-2.0); Eosinophils % (auto) 2.2 % (0.0-7.0); Lymphocytes # (auto) 1.3 10 ^3/uL (0.4-5.4); Lymphocytes % (auto) 37.6 % (10.0-50.0); Mean Corpuscular Hemoglobin 35.4 pg (28.0-32.0); Mean Corpuscular Volume 102.9 fL (80.0-100.0); Neutrophils # (auto) 1.7 10 ^3/uL (1.6-8.6); Neutrophils % (auto) 51.7 % (37.0-80.0); Nucleated Red Blood Cells % 0.1 %
[2022-05-13 06:52] LABS: BUN/Creatinine Ratio 7.3; Calcium 7.2 mg/dL (8.5-10.1); Potassium 3.4 mmol/L (3.5-5.1)
[2022-05-13] MEDS: DOCUSATE SOD 100 MG CAP PO SCH (08:15)
[2022-05-13] MEDS: cefTRIAXone 1GM/50ML D5W 50 ML IV SCH (08:15)
[2022-05-13 08:56] VITALS: BP 119/72
[2022-05-13] MEDS ORDERED: PANTOPRAZOLE 40 MG/10 ML VIAL INJ IV ONE (10:15)
[2022-05-13] MEDS: D5W/ SOD CHL 0.9%/KCL 20MEQ 1,000 ML IV SCH (12:05)
[2022-05-13 12:48] VITALS: BP_SYST 129; BP_SYST 97; BP_DIAS 71; BP_DIAS 79
[2022-05-13 16:39] VITALS: BP 108/66
[2022-05-13] MEDS: ONDANSETRON HCL 4 MG/2 ML VIAL IV PRN (18:01)
[2022-05-13 22:00] VITALS: BP 122/77
[2022-05-14] MEDS: HYDROmorphone HCL 2 MG/ML VL/or syr IV PRN ×5 (04:09→23:45)
[2022-05-14 04:12] LABS: Basophils # (auto) 0 10 ^3/uL (0-0.2); Eosinophils # (auto) 0.1 10 ^3/uL (0-0.8); Hemoglobin 8.7 g/dL (12.2-16.2); Lymphocytes # (auto) 1.7 10 ^3/uL (0.4-5.4); Monocytes # (auto) 0.3 10 ^3/uL (0-1.3); Neutrophils # (auto) 1.2 10 ^3/uL (1.6-8.6); Nucleated Red Blood Cells % 0.1 %; White Blood Cell 3.3 10^3/uL (4.4-10.8)
[2022-05-14 04:14] LABS: Basophils % (auto) 0.6 % (0.0-2.0); Eosinophils % (auto) 2.9 % (0.0-7.0); Hematocrit 25.5 % (36.0-46.0); Lymphocytes % (auto) 51.9 % (10.0-50.0); Mean Corpuscular Hgb Conc. 34.2 g/dL (32.0-36.0); Mean Corpuscular Volume 102.3 fL (80.0-100.0); Monocytes % (auto) 8.3 % (0.0-12.0); Neutrophils % (auto) 36.3 % (37.0-80.0); Red Cell Distribution Width 16.8 % (11.8-14.3)
[2022-05-14] MEDS: ONDANSETRON HCL 4 MG/2 ML VIAL IV PRN (04:15)
[2022-05-14 04:38] LABS: Potassium 3.2 mmol/L (3.5-5.1)
[2022-05-14 04:45] LABS: Albumin 1.4 g/dL (3.4-5.0); BUN/Creatinine Ratio 8.1; Bilirubin, Total 0.7 mg/dL (0.2-1.0); Calcium 6.6 mg/dL (8.5-10.1); Total Protein 3.7 g/dL (6.4-8.2)
[2022-05-14] MEDS: D5W/ SOD CHL 0.9%/KCL 20MEQ 1,000 ML IV SCH ×3 (05:28→16:15)
[2022-05-14 05:30] VITALS: BP 123/89
[2022-05-14] MEDS: metroNIDAZOLE 500MG/100ML 100 ML IV SCH ×3 (06:00→22:29)
[2022-05-14 08:00] VITALS: BP 95/68
[2022-05-14] MEDS: PANTOPRAZOLE 40 MG/10 ML VIAL INJ IV SCH (08:56)
[2022-05-14] MEDS: cefTRIAXone 1GM/50ML D5W 50 ML IV SCH (08:56)
[2022-05-14 12:04] VITALS: BP 105/69
[2022-05-14] MEDS ORDERED: TPN PER PHARMACY 0 ML IV SCH (12:30)
[2022-05-14 12:51] LABS: Magnesium 1.3 mg/dL (1.6-2.6); Phosphorus 2.3 mg/dL (2.5-4.90)
[2022-05-14 13:47] LABS: INR 1.19 (0.9-1.15); Partial Thromboplastin Time 27.3 sec (24.6-33.4)
[2022-05-14] MEDS ORDERED: POTASSIUM PHOSPHATE 44 MEQ in D5W 5% 250 ML IV ONE (14:30)
[2022-05-14] MEDS: MAGNESIUM SULFATE 1GM/100ML 100 ML IV SCH ×3 (14:45→19:10)
[2022-05-14 16:28] VITALS: BP 115/76
[2022-05-14] MEDS ORDERED: AMINO ACID INFUSION IN D10W 1,000 ML IV NR (20:00)
[2022-05-14 22:00] VITALS: BP 136/96
[2022-05-14] MEDS: InsuLIN REG 1unit/0.01ml Soln (100units/ml) SC SCH (22:15)
[2022-05-14] MEDS: ACCU-CHEK COMFORT CURVE STRIP VI SCH (22:16)
[2022-05-15] MEDS ORDERED: DEXTROSE (50%) 50ML SYRG IV SCH
[2022-05-15] MEDS: D5W/ SOD CHL 0.9%/KCL 20MEQ 1,000 ML IV SCH ×3 (02:15→23:52)
[2022-05-15] MEDS: HYDROmorphone HCL 2 MG/ML VL/or syr IV PRN ×5 (04:09→23:54)
[2022-05-15 05:00] VITALS: BP 164/86
[2022-05-15 05:45] LABS: Albumin 1.5 g/dL (3.4-5.0); Calcium 6.7 mg/dL (8.5-10.1); Magnesium 1.6 mg/dL (1.6-2.6)
[2022-05-15 05:49] LABS: BUN/Creatinine Ratio 3.4; Bilirubin, Total 0.8 mg/dL (0.2-1.0); Phosphorus 2.4 mg/dL (2.5-4.90); Total Protein 4.2 g/dL (6.4-8.2)
[2022-05-15] MEDS: ACCU-CHEK COMFORT CURVE STRIP VI SCH ×4 (06:00→23:52)
[2022-05-15] MEDS: InsuLIN REG 1unit/0.01ml Soln (100units/ml) SC SCH ×4 (06:00→23:53)
[2022-05-15 06:16] LABS: Potassium 2.6 mmol/L (3.5-5.1)
[2022-05-15] MEDS: metroNIDAZOLE 500MG/100ML 100 ML IV SCH ×3 (06:40→22:10)
[2022-05-15] MEDS ORDERED: POTASSIUM CHL 20MEQ/100ML 100 ML IV SCH (06:45)
[2022-05-15 08:37] VITALS: BP 136/73
[2022-05-15] MEDS: cefTRIAXone 1GM/50ML D5W 50 ML IV SCH (08:46)
[2022-05-15] MEDS: ONDANSETRON HCL 4 MG/2 ML VIAL IV PRN ×2 (08:47→23:19)
[2022-05-15] MEDS: PANTOPRAZOLE 40 MG/10 ML VIAL INJ IV SCH (09:47)
[2022-05-15] MEDS: POTASSIUM CHL 20MEQ/100ML 100 ML IV SCH ×2 (09:47→13:20)
[2022-05-15] MEDS ORDERED: MAGNESIUM SULFATE 1GM/100ML 100 ML IV ONE (12:45)
[2022-05-15 13:20] VITALS: BP 132/82
[2022-05-15] MEDS ORDERED: POTASSIUM PHOSPHATE 22 MEQ in SODIUM CHL 0.9% 100 ML IV ONE (14:00)
[2022-05-15 16:46] VITALS: BP 133/79
[2022-05-15 22:00] VITALS: BP 143/81
[2022-05-15] MEDS: TPN PER PHARMACY IV NR ×7 (22:10)
[2022-05-16] MEDS: HYDROmorphone HCL 2 MG/ML VL/or syr IV PRN ×5 (04:05→23:26)
[2022-05-16] MEDS: ONDANSETRON HCL 4 MG/2 ML VIAL IV PRN ×3 (04:42→23:26)
[2022-05-16 05:00] VITALS: BP 147/107
[2022-05-16] MEDS: ACCU-CHEK COMFORT CURVE STRIP VI SCH ×4 (05:31→23:52)
[2022-05-16] MEDS: InsuLIN REG 1unit/0.01ml Soln (100units/ml) SC SCH ×4 (05:32→23:53)
[2022-05-16] MEDS: metroNIDAZOLE 500MG/100ML 100 ML IV SCH ×3 (05:54→21:23)
[2022-05-16 07:49] LABS: Albumin 1.3 g/dL (3.4-5.0); Calcium 6.5 mg/dL (8.5-10.1); Magnesium 1.6 mg/dL (1.6-2.6); Potassium 3.2 mmol/L (3.5-5.1)
[2022-05-16 07:53] LABS: BUN/Creatinine Ratio 2.9; Bilirubin, Total 0.6 mg/dL (0.2-1.0); Phosphorus 3.1 mg/dL (2.5-4.90); Total Protein 3.7 g/dL (6.4-8.2)
[2022-05-16 09:00] VITALS: BP 120/60
[2022-05-16] MEDS: cefTRIAXone 1GM/50ML D5W 50 ML IV SCH (10:32)
[2022-05-16] MEDS: PANTOPRAZOLE 40 MG/10 ML VIAL INJ IV SCH (10:33)
[2022-05-16] MEDS: D5W/ SOD CHL 0.9%/KCL 20MEQ 1,000 ML IV SCH (10:33)
[2022-05-16] MEDS: POTASSIUM CHL 20MEQ/100ML 100 ML IV SCH ×2 (10:40→13:00)
[2022-05-16] MEDS: MAGNESIUM SULFATE 1GM/100ML 100 ML IV SCH ×2 (11:02→13:00)
[2022-05-16 13:00] VITALS: BP 121/73
[2022-05-16 17:00] VITALS: BP 117/70
[2022-05-16] MEDS: TPN PER PHARMACY IV NR ×7 (19:41)
[2022-05-16] MEDS ORDERED: TPN PER PHARMACY IV NR ×16 (20:00)
[2022-05-16] MEDS: QUEtiapine FUMARATE 100 MG TAB PO SCH (21:22)
[2022-05-16 22:00] VITALS: BP 117/70
[2022-05-17] MEDS: HYDROmorphone HCL 2 MG/ML VL/or syr IV PRN ×4 (04:23→21:32)
[2022-05-17] MEDS: ONDANSETRON HCL 4 MG/2 ML VIAL IV PRN ×3 (04:24→17:14)
[2022-05-17 05:00] VITALS: BP 135/69
[2022-05-17] MEDS: ACCU-CHEK COMFORT CURVE STRIP VI SCH ×3 (05:41→18:11)
[2022-05-17] MEDS: InsuLIN REG 1unit/0.01ml Soln (100units/ml) SC SCH ×3 (05:42→18:00)
[2022-05-17] MEDS: metroNIDAZOLE 500MG/100ML 100 ML IV SCH ×3 (05:48→22:14)
[2022-05-17] MEDS: D5W/ SOD CHL 0.9%/KCL 20MEQ 1,000 ML IV SCH (05:48)
[2022-05-17 06:19] LABS: BUN/Creatinine Ratio 7.4; Potassium 3.2 mmol/L (3.5-5.1)
[2022-05-17 06:20] LABS: Albumin 1.3 g/dL (3.4-5.0); Bilirubin, Total 0.4 mg/dL (0.2-1.0); Calcium 6.6 mg/dL (8.5-10.1); Magnesium 2.1 mg/dL (1.6-2.6); Phosphorus 2.9 mg/dL (2.5-4.90); Total Protein 3.8 g/dL (6.4-8.2)
[2022-05-17 07:37] LABS: Hematocrit 22.1 % (36.0-46.0); Hemoglobin 7.7 g/dL (12.2-16.2); Mean Corpuscular Hemoglobin 35.7 pg (28.0-32.0); Mean Corpuscular Hgb Conc. 34.6 g/dL (32.0-36.0); Red Blood Cells 2.15 10^6/uL (4.0-5.20); Red Cell Distribution Width 17.3 % (11.8-14.3)
[2022-05-17 07:51] LABS: White Blood Cell 1.9 10^3/uL (4.4-10.8)
[2022-05-17 07:54] LABS: Basophils % (manual) 0 (0.0-2.0); Blast Cells 0; Myelocytes % 0; Promyelocytes % 0
[2022-05-17 09:18] VITALS: BP 103/62
[2022-05-17 09:36] LABS: Band Neutrophils % (manual) 2; Eosinophils % (manual) 3 (0-7); Lymphocytes % (manual) 53 (10.0-50.0); Metamyelocytes % 1; Monocytes % (manual) 5 (0-12); Reactive Lymphocytes 8
[2022-05-17] MEDS: cefTRIAXone 1GM/50ML D5W 50 ML IV SCH (10:02)
[2022-05-17] MEDS: POTASSIUM CHL 20MEQ/100ML 100 ML IV SCH ×2 (10:03→13:10)
[2022-05-17] MEDS: PANTOPRAZOLE 40 MG/10 ML VIAL INJ IV SCH (10:03)
[2022-05-17] MEDS: DULoxetine HCL 30 MG CAP PO SCH (10:03)
[2022-05-17] MEDS ORDERED: LEVOTHYROXINE SODIUM 100 MCG/5 ML INJ IV ONE (10:15)
[2022-05-17 12:48] VITALS: BP 105/65
[2022-05-17 16:35] VITALS: BP 127/70
[2022-05-17] MEDS ORDERED: TPN PER PHARMACY IV NR ×9 (20:00)
[2022-05-17 22:00] VITALS: BP 104/66
[2022-05-17] MEDS: QUEtiapine FUMARATE 100 MG TAB PO SCH (22:00)
[2022-05-18] MEDS: ACCU-CHEK COMFORT CURVE STRIP VI SCH ×4 (00:29→18:21)
[2022-05-18] MEDS: HYDROmorphone HCL 2 MG/ML VL/or syr IV PRN ×2 (02:09→06:26)
[2022-05-18] MEDS: ONDANSETRON HCL 4 MG/2 ML VIAL IV PRN ×3 (02:10→18:21)
[2022-05-18 05:00] VITALS: BP 93/55
[2022-05-18 05:34] LABS: Hematocrit 23.5 % (36.0-46.0); Hemoglobin 7.9 g/dL (12.2-16.2); Mean Corpuscular Hemoglobin 35.2 pg (28.0-32.0); Mean Corpuscular Hgb Conc. 33.5 g/dL (32.0-36.0); Mean Corpuscular Volume 104.9 fL (80.0-100.0); Red Blood Cells 2.24 10^6/uL (4.0-5.20); Red Cell Distribution Width 17.3 % (11.8-14.3); White Blood Cell 2.6 10^3/uL (4.4-10.8)
[2022-05-18 05:36] LABS: Band Neutrophils % (manual) 0; Basophils % (manual) 0 (0.0-2.0); Blast Cells 0; Metamyelocytes % 0; Myelocytes % 0; Promyelocytes % 0; Reactive Lymphocytes 0
[2022-05-18 05:49] LABS: Albumin 1.5 g/dL (3.4-5.0); Calcium 6.8 mg/dL (8.5-10.1); Magnesium 1.9 mg/dL (1.6-2.6); Potassium 4.1 mmol/L (3.5-5.1)
[2022-05-18 05:53] LABS: Bilirubin, Total 0.4 mg/dL (0.2-1.0); Phosphorus 3.3 mg/dL (2.5-4.90); Total Protein 3.8 g/dL (6.4-8.2)
[2022-05-18] MEDS: InsuLIN REG 1unit/0.01ml Soln (100units/ml) SC SCH ×4 (05:56→18:38)
[2022-05-18] MEDS: metroNIDAZOLE 500MG/100ML 100 ML IV SCH ×3 (06:26→21:09)
[2022-05-18 07:41] LABS: Eosinophils % (manual) 4 (0-7); Lymphocytes % (manual) 59 (10.0-50.0); Monocytes % (manual) 8 (0-12)
[2022-05-18 09:00] VITALS: BP 109/64
[2022-05-18] MEDS: LEVOTHYROXINE SODIUM 100 MCG/5 ML INJ IV SCH (10:26)
[2022-05-18] MEDS: PANTOPRAZOLE 40 MG/10 ML VIAL INJ IV SCH (10:26)
[2022-05-18] MEDS: cefTRIAXone 1GM/50ML D5W 50 ML IV SCH (10:26)
[2022-05-18] MEDS: MORPHINE SULFATE INJ 2 MG/ml SYRG IV PRN ×2 (11:03→17:26)
[2022-05-18] MEDS: D5W/ SOD CHL 0.9%/KCL 20MEQ 1,000 ML IV SCH (11:56)
[2022-05-18] MEDS: LACTULOSE 20Gm/30ML SOLN PO SCH ×2 (11:56→18:00)
[2022-05-18] MEDS: DULoxetine HCL 30 MG CAP PO SCH (11:58)
[2022-05-18 13:00] VITALS: BP 117/75
[2022-05-18 16:51] VITALS: BP 105/74
[2022-05-18] MEDS ORDERED: TPN PER PHARMACY IV NR ×9 (20:00)
[2022-05-18] MEDS: QUEtiapine FUMARATE 100 MG TAB PO SCH (21:07)
[2022-05-19] MEDS: MORPHINE SULFATE INJ 2 MG/ml SYRG IV PRN ×4 (00:33→18:13)
[2022-05-19] MEDS: ONDANSETRON HCL 4 MG/2 ML VIAL IV PRN ×2 (00:34→06:29)
[2022-05-19 05:00] VITALS: BP 111/61
[2022-05-19 05:14] LABS: Potassium 3.7 mmol/L (3.5-5.1)
[2022-05-19 05:23] LABS: Albumin 1.6 g/dL (3.4-5.0); BUN/Creatinine Ratio 15.4; Calcium 7.1 mg/dL (8.5-10.1); Magnesium 2.2 mg/dL (1.6-2.6); Phosphorus 2.8 mg/dL (2.5-4.90)
[2022-05-19 05:32] LABS: Bilirubin, Total 0.4 mg/dL (0.2-1.0); Total Protein 4.6 g/dL (6.4-8.2)
[2022-05-19] MEDS: ACCU-CHEK COMFORT CURVE STRIP VI SCH ×4 (05:44→17:56)
[2022-05-19] MEDS: InsuLIN REG 1unit/0.01ml Soln (100units/ml) SC SCH ×4 (05:44→18:22)
[2022-05-19] MEDS: LACTULOSE 20Gm/30ML SOLN PO SCH ×2 (05:45)
[2022-05-19] MEDS: metroNIDAZOLE 500MG/100ML 100 ML IV SCH ×3 (06:27→21:39)
[2022-05-19 08:00] VITALS: BP 184/85
[2022-05-19 08:37] VITALS: BP 184/85
[2022-05-19] MEDS: cefTRIAXone 1GM/50ML D5W 50 ML IV SCH (09:20)
[2022-05-19] MEDS ORDERED: HYOSCYAMINE SULF 0.125 MG ODT TAB PO PRN (10:00)
[2022-05-19] MEDS: DULoxetine HCL 30 MG CAP PO SCH (10:28)
[2022-05-19] MEDS: LEVOTHYROXINE SODIUM 100 MCG/5 ML INJ IV SCH (10:28)
[2022-05-19] MEDS: PANTOPRAZOLE 40 MG/10 ML VIAL INJ IV SCH (10:28)
[2022-05-19 12:58] VITALS: BP 128/75
[2022-05-19] MEDS: D5W/ SOD CHL 0.9%/KCL 20MEQ 1,000 ML IV SCH (14:09)
[2022-05-19 16:51] VITALS: BP 139/82
[2022-05-19] MEDS ORDERED: SODIUM PHOSPHATES IV NR ×20 (20:00)
[2022-05-19] MEDS ORDERED: POTASSIUM ACETATE IV NR ×20 (20:00)
[2022-05-19] MEDS ORDERED: [UNRECOGNIZED DRUG - OTHER] IV NR ×20 (20:00)
[2022-05-19] MEDS ORDERED: FAT EMULSION IV NR ×20 (20:00)
[2022-05-19] MEDS: QUEtiapine FUMARATE 100 MG TAB PO SCH (21:39)
[2022-05-20] MEDS: ACCU-CHEK COMFORT CURVE STRIP VI SCH ×5 (00:12→23:23)
[2022-05-20] MEDS: ONDANSETRON HCL 4 MG/2 ML VIAL IV PRN ×2 (00:13→06:14)
[2022-05-20] MEDS: MORPHINE SULFATE INJ 2 MG/ml SYRG IV PRN ×3 (00:29→16:30)
[2022-05-20 05:33] LABS: Potassium 3.5 mmol/L (3.5-5.1)
[2022-05-20 05:39] LABS: Albumin 1.7 g/dL (3.4-5.0); BUN/Creatinine Ratio 19.2; Bilirubin, Total 0.5 mg/dL (0.2-1.0); Total Protein 4.8 g/dL (6.4-8.2)
[2022-05-20] MEDS: InsuLIN REG 1unit/0.01ml Soln (100units/ml) SC SCH ×5 (06:00→23:25)
[2022-05-20] MEDS: metroNIDAZOLE 500MG/100ML 100 ML IV SCH ×3 (06:06→21:52)
[2022-05-20 08:30] VITALS: BP 126/67
[2022-05-20] MEDS ORDERED: SUMAtriptan SUCCINATE 6 MG/0.5 ML VL SC ONE (10:00)
[2022-05-20] MEDS: DULoxetine HCL 30 MG CAP PO SCH (10:05)
[2022-05-20] MEDS: PANTOPRAZOLE 40 MG/10 ML VIAL INJ IV SCH (10:06)
[2022-05-20] MEDS: LEVOTHYROXINE SODIUM 100 MCG/5 ML INJ IV SCH (10:07)
[2022-05-20] MEDS: cefTRIAXone 1GM/50ML D5W 50 ML IV SCH (10:07)
[2022-05-20] MEDS: D5W/ SOD CHL 0.9%/KCL 20MEQ 1,000 ML IV SCH (10:09)
[2022-05-20] MEDS ORDERED: POTASSIUM CHL 20MEQ/100ML 100 ML IV ONE (10:30)
[2022-05-20 13:30] VITALS: BP 121/70
[2022-05-20 16:23] VITALS: BP 129/72
[2022-05-20] MEDS ORDERED: TPN PER PHARMACY IV NR ×10 (20:00)
[2022-05-20] MEDS: HYDROcodone-ACET 5/325MG TAB PO PRN (21:17)
[2022-05-20] MEDS: QUEtiapine FUMARATE 100 MG TAB PO SCH (21:52)
[2022-05-20 22:00] VITALS: BP 139/77
[2022-05-21 05:00] VITALS: BP 158/77
[2022-05-21] MEDS: metroNIDAZOLE 500MG/100ML 100 ML IV SCH ×3 (06:15→22:23)
[2022-05-21] MEDS: HYDROcodone-ACET 5/325MG TAB PO PRN ×3 (06:15→20:10)
[2022-05-21] MEDS: ACCU-CHEK COMFORT CURVE STRIP VI SCH ×4 (06:15→23:41)
[2022-05-21] MEDS: InsuLIN REG 1unit/0.01ml Soln (100units/ml) SC SCH ×4 (06:34→23:57)
[2022-05-21 07:07] LABS: Albumin 1.9 g/dL (3.4-5.0); Magnesium 1.9 mg/dL (1.6-2.6); Potassium 3.3 mmol/L (3.5-5.1)
[2022-05-21 07:09] LABS: Bilirubin, Total 0.5 mg/dL (0.2-1.0); Phosphorus 3.3 mg/dL (2.5-4.90); Total Protein 4.7 g/dL (6.4-8.2)
[2022-05-21] MEDS ORDERED: ACETAMINOPHEN 325 MG TAB PO ONE ×2 (08:30→19:30)
[2022-05-21] MEDS: DULoxetine HCL 30 MG CAP PO SCH (08:30)
[2022-05-21] MEDS: cefTRIAXone 1GM/50ML D5W 50 ML IV SCH (08:31)
[2022-05-21] MEDS: D5W/ SOD CHL 0.9%/KCL 20MEQ 1,000 ML IV SCH (08:31)
[2022-05-21] MEDS: PANTOPRAZOLE 40 MG/10 ML VIAL INJ IV SCH (08:31)
[2022-05-21] MEDS: LEVOTHYROXINE SODIUM 100 MCG/5 ML INJ IV SCH (08:32)
[2022-05-21] MEDS ORDERED: POTASSIUM EFFERVESENT TAB 25 MEQ PO ONE (10:00)
[2022-05-21] MEDS ORDERED: POTASSIUM CHL 20MEQ/100ML 100 ML IV ONE (10:00)
[2022-05-21 13:00] VITALS: BP 108/63
[2022-05-21 17:00] VITALS: BP 115/62
[2022-05-21] MEDS ORDERED: TPN PER PHARMACY IV NR ×10 (20:00)
[2022-05-21 22:00] VITALS: BP 104/59
[2022-05-21] MEDS: QUEtiapine FUMARATE 100 MG TAB PO SCH (22:23)
[2022-05-22 05:00] VITALS: BP 108/58
[2022-05-22] MEDS: ACCU-CHEK COMFORT CURVE STRIP VI SCH ×4 (05:26→23:09)
[2022-05-22] MEDS: InsuLIN REG 1unit/0.01ml Soln (100units/ml) SC SCH ×4 (05:27→23:10)
[2022-05-22 06:13] LABS: Potassium 3.6 mmol/L (3.5-5.1)
[2022-05-22] MEDS: metroNIDAZOLE 500MG/100ML 100 ML IV SCH ×3 (06:13→21:51)
[2022-05-22] MEDS: HYDROcodone-ACET 5/325MG TAB PO PRN ×2 (06:14→12:26)
[2022-05-22 06:22] LABS: Albumin 1.6 g/dL (3.4-5.0); BUN/Creatinine Ratio 29.2; Bilirubin, Total 0.5 mg/dL (0.2-1.0); Calcium 7.5 mg/dL (8.5-10.1); Magnesium 1.9 mg/dL (1.6-2.6); Phosphorus 2.7 mg/dL (2.5-4.90); Total Protein 4.9 g/dL (6.4-8.2)
[2022-05-22] MEDS: DULoxetine HCL 30 MG CAP PO SCH (08:45)
[2022-05-22] MEDS: cefTRIAXone 1GM/50ML D5W 50 ML IV SCH (08:48)
[2022-05-22] MEDS: PANTOPRAZOLE 40 MG/10 ML VIAL INJ IV SCH (08:53)
[2022-05-22] MEDS: LEVOTHYROXINE SODIUM 100 MCG/5 ML INJ IV SCH (08:55)
[2022-05-22] MEDS: D5W/ SOD CHL 0.9%/KCL 20MEQ 1,000 ML IV SCH (08:57)
[2022-05-22 10:19] VITALS: BP 89/53
[2022-05-22] MEDS ORDERED: VANCOMYCIN PER PHARMACY 1,000 MG IV SCH (11:00)
[2022-05-22] MEDS: VANCOMYCIN 1GM/250ML 250 ML IV SCH ×2 (11:30→23:01)
[2022-05-22 13:00] VITALS: BP 99/54
[2022-05-22] MEDS: MORPHINE SULFATE INJ 2 MG/ml SYRG IV PRN ×3 (15:43→23:26)
[2022-05-22 17:00] VITALS: BP 106/66
[2022-05-22] MEDS ORDERED: TPN PER PHARMACY IV NR ×11 (20:00)
[2022-05-22] MEDS: QUEtiapine FUMARATE 100 MG TAB PO SCH (21:50)
[2022-05-22 22:00] VITALS: BP 100/80
[2022-05-23] MEDS: MORPHINE SULFATE INJ 2 MG/ml SYRG IV PRN ×2 (03:50→09:07)
[2022-05-23 05:00] VITALS: BP 107/65
[2022-05-23] MEDS: InsuLIN REG 1unit/0.01ml Soln (100units/ml) SC SCH ×3 (05:33→18:00)
[2022-05-23] MEDS: metroNIDAZOLE 500MG/100ML 100 ML IV SCH ×4 (05:33→22:51)
[2022-05-23] MEDS: ACCU-CHEK COMFORT CURVE STRIP VI SCH ×4 (05:34→23:55)
[2022-05-23 09:00] VITALS: BP 110/44
[2022-05-23] MEDS: PANTOPRAZOLE 40 MG/10 ML VIAL INJ IV SCH (09:10)
[2022-05-23] MEDS: DULoxetine HCL 30 MG CAP PO SCH (09:10)
[2022-05-23] MEDS: cefTRIAXone 1GM/50ML D5W 50 ML IV SCH (09:10)
[2022-05-23] MEDS: LEVOTHYROXINE SODIUM 100 MCG/5 ML INJ IV SCH (09:10)
[2022-05-23] MEDS: D5W/ SOD CHL 0.9%/KCL 20MEQ 1,000 ML IV SCH (09:10)
[2022-05-23] MEDS: ONDANSETRON HCL 4 MG/2 ML VIAL IV PRN ×2 (09:15→23:11)
[2022-05-23 10:06] LABS: Albumin 1.5 g/dL (3.4-5.0); Calcium 6.8 mg/dL (8.5-10.1); Magnesium 2.1 mg/dL (1.6-2.6); Potassium 3.8 mmol/L (3.5-5.1)
[2022-05-23 10:09] LABS: BUN/Creatinine Ratio 33.3; Bilirubin, Total 0.3 mg/dL (0.2-1.0); Phosphorus 3.7 mg/dL (2.5-4.90)
[2022-05-23] MEDS: VANCOMYCIN 1GM/250ML 250 ML IV SCH ×2 (12:12→23:52)
[2022-05-23 13:00] VITALS: BP 114/69
[2022-05-23] MEDS: HYDROcodone-ACET 5/325MG TAB PO PRN ×2 (13:21→19:14)
[2022-05-23 17:00] VITALS: BP 120/71
[2022-05-23] MEDS ORDERED: TPN PER PHARMACY IV NR ×21 (20:00)
[2022-05-23] MEDS: QUEtiapine FUMARATE 100 MG TAB PO SCH (21:48)
[2022-05-23 22:00] VITALS: BP 113/63
[2022-05-23] MEDS: ACETAMINOPHEN 325 MG TAB PO PRN (22:50)
[2022-05-24 05:00] VITALS: BP 116/65
[2022-05-24] MEDS: HYDROcodone-ACET 5/325MG TAB PO PRN (05:03)
[2022-05-24] MEDS: InsuLIN REG 1unit/0.01ml Soln (100units/ml) SC SCH ×4 (06:00→17:49)
[2022-05-24] MEDS: metroNIDAZOLE 500MG/100ML 100 ML IV SCH ×3 (06:12→21:47)
[2022-05-24] MEDS: ACCU-CHEK COMFORT CURVE STRIP VI SCH ×3 (06:12→17:50)
[2022-05-24 07:13] LABS: Albumin 1.6 g/dL (3.4-5.0); Calcium 7.5 mg/dL (8.5-10.1); Magnesium 2.1 mg/dL (1.6-2.6); Potassium 3.7 mmol/L (3.5-5.1)
[2022-05-24 07:15] LABS: BUN/Creatinine Ratio 22.2
[2022-05-24 07:18] LABS: Bilirubin, Total 0.4 mg/dL (0.2-1.0); Phosphorus 3.2 mg/dL (2.5-4.90); Total Protein 5.1 g/dL (6.4-8.2)
[2022-05-24] MEDS: PANTOPRAZOLE 40 MG/10 ML VIAL INJ IV SCH (08:41)
[2022-05-24] MEDS: cefTRIAXone 1GM/50ML D5W 50 ML IV SCH (08:41)
[2022-05-24] MEDS: LEVOTHYROXINE SODIUM 100 MCG/5 ML INJ IV SCH (08:42)
[2022-05-24] MEDS: DULoxetine HCL 30 MG CAP PO SCH (08:46)
[2022-05-24 09:00] VITALS: BP 123/77
[2022-05-24] MEDS ORDERED: SUMAtriptan SUCCINATE 25 MG TAB PO ONE (09:30)
[2022-05-24] MEDS: D5W/ SOD CHL 0.9%/KCL 20MEQ 1,000 ML IV SCH (10:54)
[2022-05-24] MEDS: VANCOMYCIN 1GM/250ML 250 ML IV SCH ×2 (11:08→23:51)
[2022-05-24] MEDS: ONDANSETRON HCL 4 MG/2 ML VIAL IV PRN ×2 (12:35→21:54)
[2022-05-24 13:00] VITALS: BP 109/62
[2022-05-24 17:00] VITALS: BP 134/77
[2022-05-24 17:46] VITALS: BP 134/77
[2022-05-24] MEDS: ACETAMINOPHEN 325 MG TAB PO PRN (17:57)
[2022-05-24] MEDS ORDERED: TPN PER PHARMACY IV NR ×11 (20:00)
[2022-05-24] MEDS: QUEtiapine FUMARATE 100 MG TAB PO SCH (21:55)
[2022-05-24 22:00] VITALS: BP 117/74
[2022-05-25 05:00] VITALS: BP 126/73
[2022-05-25] MEDS: metroNIDAZOLE 500MG/100ML 100 ML IV SCH ×3 (05:50→21:18)
[2022-05-25] MEDS: InsuLIN REG 1unit/0.01ml Soln (100units/ml) SC SCH ×4 (05:51→17:40)
[2022-05-25] MEDS: ACCU-CHEK COMFORT CURVE STRIP VI SCH ×4 (05:52→17:41)
[2022-05-25] MEDS: ACETAMINOPHEN 325 MG TAB PO PRN ×2 (06:29→16:54)
[2022-05-25] MEDS: ONDANSETRON HCL 4 MG/2 ML VIAL IV PRN ×2 (06:30→15:12)
[2022-05-25 06:59] LABS: Albumin 1.6 g/dL (3.4-5.0); Calcium 7.2 mg/dL (8.5-10.1); Magnesium 1.9 mg/dL (1.6-2.6); Potassium 3.9 mmol/L (3.5-5.1)
[2022-05-25 07:05] LABS: BUN/Creatinine Ratio 33.3; Bilirubin, Total 0.4 mg/dL (0.2-1.0); Phosphorus 2.9 mg/dL (2.5-4.90); Total Protein 4.9 g/dL (6.4-8.2)
[2022-05-25 09:27] VITALS: BP 106/62
[2022-05-25 09:58] LABS: Basophils # (auto) 0 10 ^3/uL (0-0.2); Eosinophils # (auto) 0 10 ^3/uL (0-0.8); Hematocrit 19.6 % (36.0-46.0); Hemoglobin 7.1 g/dL (12.2-16.2); Lymphocytes # (auto) 0.6 10 ^3/uL (0.4-5.4); Mean Corpuscular Hgb Conc. 36.2 g/dL (32.0-36.0); Monocytes # (auto) 0.2 10 ^3/uL (0-1.3); Neutrophils # (auto) 0.9 10 ^3/uL (1.6-8.6)
[2022-05-25 10:01] LABS: Eosinophils % (auto) 2.3 % (0.0-7.0); Mean Corpuscular Hemoglobin 37.1 pg (28.0-32.0); Mean Corpuscular Volume 102.6 fL (80.0-100.0); Monocytes % (auto) 11.6 % (0.0-12.0); Neutrophils % (auto) 52.1 % (37.0-80.0); Nucleated Red Blood Cells % 0.6 %; Red Blood Cells 1.91 10^6/uL (4.0-5.20); Red Cell Distribution Width 17.6 % (11.8-14.3)
[2022-05-25 10:21] LABS: White Blood Cell 1.8 10^3/uL (4.4-10.8)
[2022-05-25] MEDS: PANTOPRAZOLE 40 MG/10 ML VIAL INJ IV SCH (10:35)
[2022-05-25] MEDS: SUMAtriptan SUCCINATE 25 MG TAB PO SCH (10:35)
[2022-05-25] MEDS: LEVOTHYROXINE SODIUM 100 MCG/5 ML INJ IV SCH (10:35)
[2022-05-25] MEDS: D5W/ SOD CHL 0.9%/KCL 20MEQ 1,000 ML IV SCH (10:35)
[2022-05-25] MEDS: DULoxetine HCL 30 MG CAP PO SCH (10:35)
[2022-05-25] MEDS: cefTRIAXone 1GM/50ML D5W 50 ML IV SCH (10:35)
[2022-05-25 13:00] VITALS: BP 101/67
[2022-05-25 17:07] VITALS: BP 116/75
[2022-05-25] MEDS ORDERED: TPN PER PHARMACY IV NR ×11 (20:00)
[2022-05-25] MEDS: QUEtiapine FUMARATE 100 MG TAB PO SCH (21:18)
[2022-05-25 21:30] VITALS: BP 103/62
[2022-05-26] MEDS: ACCU-CHEK COMFORT CURVE STRIP VI SCH ×2 (00:05→05:59)
[2022-05-26] MEDS: ACETAMINOPHEN 325 MG TAB PO PRN ×3 (03:53→21:17)
[2022-05-26 05:00] VITALS: BP 102/60
[2022-05-26] MEDS: metroNIDAZOLE 500MG/100ML 100 ML IV SCH ×3 (05:59→21:12)
[2022-05-26] MEDS: InsuLIN REG 1unit/0.01ml Soln (100units/ml) SC SCH ×2 (06:01)
[2022-05-26 06:55] LABS: Albumin 1.6 g/dL (3.4-5.0); Calcium 7.4 mg/dL (8.5-10.1); Magnesium 2.1 mg/dL (1.6-2.6); Potassium 3.7 mmol/L (3.5-5.1)
[2022-05-26 06:59] LABS: Bilirubin, Total 0.4 mg/dL (0.2-1.0); Phosphorus 3.8 mg/dL (2.5-4.90)
[2022-05-26] MEDS: cefTRIAXone 1GM/50ML D5W 50 ML IV SCH (08:33)
[2022-05-26 09:00] VITALS: BP 101/55
[2022-05-26] MEDS ORDERED: FILGRASTIM (TBO) 300 MCG/0.5 ML SYRG SC ONE (09:00)
[2022-05-26] MEDS: DULoxetine HCL 30 MG CAP PO SCH (09:54)
[2022-05-26] MEDS: LEVOTHYROXINE SODIUM 100 MCG/5 ML INJ IV SCH (09:54)
[2022-05-26] MEDS: SUMAtriptan SUCCINATE 25 MG TAB PO SCH (09:54)
[2022-05-26] MEDS: D5W/ SOD CHL 0.9%/KCL 20MEQ 1,000 ML IV SCH (09:54)
[2022-05-26] MEDS: PANTOPRAZOLE 40 MG/10 ML VIAL INJ IV SCH (09:54)
[2022-05-26 12:26] VITALS: BP 110/53
[2022-05-26] MEDS: ONDANSETRON HCL 4 MG/2 ML VIAL IV PRN (16:54)
[2022-05-26 17:34] VITALS: BP 115/64
[2022-05-26] MEDS ORDERED: TPN PER PHARMACY IV NR ×12 (20:00)
[2022-05-26] MEDS: QUEtiapine FUMARATE 100 MG TAB PO SCH (21:12)
[2022-05-26 21:24] VITALS: BP 99/61
[2022-05-27 04:57] VITALS: BP 104/75
[2022-05-27 05:57] LABS: Albumin 1.6 g/dL (3.4-5.0); Calcium 7.7 mg/dL (8.5-10.1); Magnesium 1.6 mg/dL (1.6-2.6); Potassium 3.6 mmol/L (3.5-5.1)
[2022-05-27 06:01] LABS: BUN/Creatinine Ratio 19.2; Bilirubin, Total 0.3 mg/dL (0.2-1.0); Phosphorus 3.5 mg/dL (2.5-4.90); Total Protein 4.7 g/dL (6.4-8.2)
[2022-05-27] MEDS: metroNIDAZOLE 500MG/100ML 100 ML IV SCH ×3 (06:14→22:10)
[2022-05-27] MEDS: LEVOTHYROXINE SODIUM 100 MCG/5 ML INJ IV SCH (08:27)
[2022-05-27] MEDS: SUMAtriptan SUCCINATE 25 MG TAB PO SCH (08:27)
[2022-05-27] MEDS: PANTOPRAZOLE 40 MG/10 ML VIAL INJ IV SCH (08:27)
[2022-05-27] MEDS: cefTRIAXone 1GM/50ML D5W 50 ML IV SCH (08:27)
[2022-05-27] MEDS: DULoxetine HCL 30 MG CAP PO SCH (08:28)
[2022-05-27] MEDS: ACETAMINOPHEN 325 MG TAB PO PRN ×2 (08:35→22:11)
[2022-05-27 09:00] VITALS: BP 114/61
[2022-05-27] MEDS: D5W/ SOD CHL 0.9%/KCL 20MEQ 1,000 ML IV SCH (09:46)
[2022-05-27] MEDS ORDERED: MAXALT PO SCH (10:00)
[2022-05-27 13:00] VITALS: BP 104/55
[2022-05-27] MEDS: ONDANSETRON HCL 4 MG/2 ML VIAL IV PRN (13:51)
[2022-05-27 17:00] VITALS: BP 114/68
[2022-05-27 22:00] VITALS: BP 123/69
[2022-05-27] MEDS: QUEtiapine FUMARATE 100 MG TAB PO SCH (22:10)
[2022-05-28 05:00] VITALS: BP 108/63
[2022-05-28] MEDS: metroNIDAZOLE 500MG/100ML 100 ML IV SCH ×3 (06:45→21:06)
[2022-05-28 08:42] VITALS: BP 137/68
[2022-05-28] MEDS: ACETAMINOPHEN 325 MG TAB PO PRN ×2 (08:45→18:02)
[2022-05-28] MEDS: DULoxetine HCL 30 MG CAP PO SCH (08:45)
[2022-05-28] MEDS: SUMAtriptan SUCCINATE 25 MG TAB PO PRN (08:46)
[2022-05-28] MEDS: ONDANSETRON HCL 4 MG/2 ML VIAL IV PRN ×2 (08:47→18:02)
[2022-05-28] MEDS: LEVOTHYROXINE SODIUM 100 MCG/5 ML INJ IV SCH (08:47)
[2022-05-28] MEDS: cefTRIAXone 1GM/50ML D5W 50 ML IV SCH (08:47)
[2022-05-28] MEDS: D5W/ SOD CHL 0.9%/KCL 20MEQ 1,000 ML IV SCH (08:48)
[2022-05-28] MEDS: PANTOPRAZOLE 40 MG/10 ML VIAL INJ IV SCH (08:48)
[2022-05-28 13:00] VITALS: BP 101/63
[2022-05-28 17:29] VITALS: BP 117/62
[2022-05-28] MEDS: QUEtiapine FUMARATE 100 MG TAB PO SCH (21:06)
[2022-05-28 22:00] VITALS: BP 123/63
[2022-05-29 05:00] VITALS: BP 106/53
[2022-05-29] MEDS: LEVOTHYROXINE SODIUM 100 MCG/5 ML INJ IV SCH (08:02)
[2022-05-29] MEDS: SUMAtriptan SUCCINATE 25 MG TAB PO PRN (08:02)
[2022-05-29] MEDS: ACETAMINOPHEN 325 MG TAB PO PRN (08:02)
[2022-05-29] MEDS: DULoxetine HCL 30 MG CAP PO SCH (08:02)
[2022-05-29] MEDS: D5W/ SOD CHL 0.9%/KCL 20MEQ 1,000 ML IV SCH (08:03)
[2022-05-29] MEDS: cefTRIAXone 1GM/50ML D5W 50 ML IV SCH (08:03)
[2022-05-29] MEDS: PANTOPRAZOLE 40 MG/10 ML VIAL INJ IV SCH (08:03)
[2022-05-29] MEDS: ONDANSETRON HCL 4 MG/2 ML VIAL IV PRN ×2 (08:03→15:36)
[2022-05-29 09:00] VITALS: BP 115/63
[2022-05-29 09:40] VITALS: BP 115/63
[2022-05-29 13:00] VITALS: BP 136/79
== END 2022-05-29 16:30 | DRG 871 ==
LOC: ER 11:10 → TELE 18:09 → ICU WEST 22:25 → TELE-CENTR 05-12 23:13
PROVIDERS: ADMIT Nurse Practitioner Family; ATTEND Family Medicine
PROC: 0D9670Z Drainage of Stomach with Drainage Device, Via Natural or Artificial Opening (ICD-10-PCS; principal; 2022-05-09)
PROC: 05HB33Z Insertion of Infusion Device into Right Basilic Vein, Percutaneous Approach (ICD-10-PCS; 2022-05-14)
PROC: B54MZZA Ultrasonography of Right Upper Extremity Veins, Guidance (ICD-10-PCS; 2022-05-14)
PROC: 05HB33Z Insertion of Infusion Device into Right Basilic Vein, Percutaneous Approach (ICD-10-PCS; 2022-05-26)
PROC: B54MZZA Ultrasonography of Right Upper Extremity Veins, Guidance (ICD-10-PCS; 2022-05-26)
DX: A41.9 Sepsis, unspecified organism (principal); E43 Unspecified severe protein-calorie malnutrition; R65.21 Severe sepsis with septic shock; K56.600 Partial intestinal obstruction, unspecified as to cause; E87.1 Hypo-osmolality and hyponatremia; Z68.1 Body mass index [BMI] 19.9 or less, adult; E83.42 Hypomagnesemia; E83.51 Hypocalcemia; E86.1 Hypovolemia; E87.6 Hypokalemia; E88.09 Other disorders of plasma-protein metabolism, not elsewhere classified; J44.9 Chronic obstructive pulmonary disease, unspecified; E03.9 Hypothyroidism, unspecified; D64.9 Anemia, unspecified; D72.819 Decreased white blood cell count, unspecified; E86.0 Dehydration; F31.9 Bipolar disorder, unspecified; F41.9 Anxiety disorder, unspecified; G43.909 Migraine, unspecified, not intractable, without status migrainosus; G89.4 Chronic pain syndrome; I11.0 Hypertensive heart disease with heart failure; K76.0 Fatty (change of) liver, not elsewhere classified; I50.9 Heart failure, unspecified; Z85.3 Personal history of malignant neoplasm of breast; Z79.899 Other long term (current) drug therapy; Z79.890 Hormone replacement therapy; Z81.8 Family history of other mental and behavioral disorders; Z82.49 Family history of ischemic heart disease and other diseases of the circulatory system; Z83.3 Family history of diabetes mellitus; Z85.038 Personal history of other malignant neoplasm of large intestine; Z79.01 Long term (current) use of anticoagulants; Z86.718 Personal history of other venous thrombosis and embolism; Z80.0 Family history of malignant neoplasm of digestive organs; Z90.49 Acquired absence of other specified parts of digestive tract; Z90.710 Acquired absence of both cervix and uterus; Z93.3 Colostomy status; Z88.8 Allergy status to other drugs, medicaments and biological substances; Z90.10 Acquired absence of unspecified breast and nipple
CPT/HCPCS: 36415; 71045; 74018; 74177; 74250; 80048; 80053; 80202; 81001; 82140; 82962; 83605; 83690; 83735; 84100; 84443; 84478; 84484; 85007; 85025; 85027; 85610; 85730; 86850; 86900; 86901; 87040; 87077; 87081; 87186; 87426; 93005; 96361; 96374; 97116; 97163; 97530; C9113; G0378; J0696; J1642; J1815; J2405; J3480; J3490; J7060

== ENCOUNTER 2022-09-10 11:51 | Inpatient (IN) | payer OTHER, MEDICAID ==
[~2022-09-10] VITALS: Ht 165.1 cm; Wt 75.6 kg
[~2022-09-10 11:51] MED LIST changes: -DOCU100T15 PO; +HYDR-4072 PO; -LEVO50CA3 PO
[2022-09-10 13:14] LABS: Basophils # (auto) 0 10 ^3/uL (0-0.2); Basophils % (auto) 0.3 % (0.0-2.0); Eosinophils # (auto) 0 10 ^3/uL (0-0.8); Hematocrit 35.9 % (36.0-46.0); Hemoglobin 12.3 g/dL (12.2-16.2); Lymphocytes # (auto) 1.2 10 ^3/uL (0.4-5.4); Lymphocytes % (auto) 27.3 % (10.0-50.0); Mean Corpuscular Hemoglobin 30.9 pg (28.0-32.0); Mean Corpuscular Hgb Conc. 34.2 g/dL (32.0-36.0); Mean Corpuscular Volume 90.2 fL (80.0-100.0); Monocytes # (auto) 0.4 10 ^3/uL (0-1.3); Monocytes % (auto) 8.8 % (0.0-12.0); Neutrophils # (auto) 2.9 10 ^3/uL (1.6-8.6); Neutrophils % (auto) 62.6 % (37.0-80.0); Red Blood Cells 3.98 10^6/uL (4.0-5.20); Red Cell Distribution Width 16.2 % (11.8-14.3); White Blood Cell 4.6 10^3/uL (4.4-10.8)
[2022-09-10 13:31] LABS: Calcium 8.6 mg/dL (8.5-10.1); Potassium 3.9 mmol/L (3.5-5.1)
[2022-09-10 13:34] LABS: Bilirubin, Total 0.3 mg/dL (0.2-1.0); Total Protein 7.6 g/dL (6.4-8.2)
[2022-09-10 14:22] LABS: Urine Bacteria NONE SEEN /hpf (None Seen); Urine Blood Negative /uL (Negative); Urine Mucus FEW (None Seen); Urine Specific Gravity 1.006 (1.001-1.035); Urine WBC 2 /hpf (0 - 5)
[2022-09-10] MEDS ORDERED: IPRATROPIUM BROM 0.5 MG/2.5ML INH SOL NEB PRN (15:45)
[2022-09-10] MEDS ORDERED: ALBUTEROL SULF 2.5 MG/0.5ML(0.5%) NEB SOLN NEB PRN (15:45)
[2022-09-10 15:59] VITALS: BP 131/71
[2022-09-10] MEDS: SODIUM CHLORIDE 0.9% 1,000 ML IV SCH (16:08)
[2022-09-10] MEDS: MORPHINE SULFATE INJ 2 MG/ml SYRG IV PRN (16:12)
[2022-09-10] MEDS: ONDANSETRON HCL 4 MG/2 ML VIAL IV PRN (16:12)
[2022-09-10] MEDS ORDERED: fentaNYL CITRATE 100 MCG/2 ML VL IV ONE (16:15)
[2022-09-10 17:45] LABS: INR 0.97 (0.9-1.15); Partial Thromboplastin Time 30.7 sec (24.6-33.4)
[2022-09-10] MEDS ORDERED: MID10T PO (18:20)
[2022-09-10] MEDS ORDERED: LEVO100T8 PO (18:20)
[2022-09-10] MEDS: HYDROcodone-ACET 10/325MG TAB PO PRN (18:59)
[2022-09-10 22:00] VITALS: BP 115/70
[2022-09-10] MEDS: MIDODRINE HCL 10 MG TAB PO SCH (22:45)
[2022-09-10] MEDS: FUROSEMIDE 20 MG TAB PO SCH (22:45)
[2022-09-11] MEDS: MORPHINE SULFATE INJ 2 MG/ml SYRG IV PRN ×4 (00:21→17:14)
[2022-09-11] MEDS: ONDANSETRON HCL 4 MG/2 ML VIAL IV PRN ×4 (00:33→17:13)
[2022-09-11] MEDS ORDERED: QUEtiapine FUMARATE 100 MG TAB PO ONE (01:30)
[2022-09-11 05:00] VITALS: BP 106/63
[2022-09-11 06:20] LABS: Basophils # (auto) 0 10 ^3/uL (0-0.2); Basophils % (auto) 0.2 % (0.0-2.0); Eosinophils # (auto) 0.1 10 ^3/uL (0-0.8); Eosinophils % (auto) 1.3 % (0.0-7.0); Hemoglobin 11.9 g/dL (12.2-16.2); Lymphocytes # (auto) 1.5 10 ^3/uL (0.4-5.4); Lymphocytes % (auto) 31.4 % (10.0-50.0); Mean Corpuscular Hemoglobin 30.6 pg (28.0-32.0); Mean Corpuscular Volume 90.1 fL (80.0-100.0); Monocytes # (auto) 0.4 10 ^3/uL (0-1.3); Monocytes % (auto) 8.3 % (0.0-12.0); Neutrophils # (auto) 2.8 10 ^3/uL (1.6-8.6); Neutrophils % (auto) 58.8 % (37.0-80.0); Red Blood Cells 3.89 10^6/uL (4.0-5.20); Red Cell Distribution Width 15.8 % (11.8-14.3); White Blood Cell 4.8 10^3/uL (4.4-10.8)
[2022-09-11] MEDS: LEVOTHYROXINE SODIUM 100 MCG TAB PO SCH (06:22)
[2022-09-11 06:59] LABS: Potassium 3.6 mmol/L (3.5-5.1)
[2022-09-11 07:11] LABS: Albumin 3.7 g/dL (3.4-5.0); BUN/Creatinine Ratio 18.5; Bilirubin, Total 0.5 mg/dL (0.2-1.0); Calcium 8.6 mg/dL (8.5-10.1); Total Protein 6.9 g/dL (6.4-8.2)
[2022-09-11 09:20] VITALS: BP 120/60
[2022-09-11] MEDS: PANTOPRAZOLE 40 MG/10 ML VIAL INJ IV SCH (09:48)
[2022-09-11] MEDS: FUROSEMIDE 20 MG TAB PO SCH ×2 (09:49→21:45)
[2022-09-11] MEDS: DULoxetine HCL 30 MG CAP PO SCH (09:49)
[2022-09-11] MEDS: PATIENTS OWN MEDICATION (Magnesium Oxide (Magnesium) 250 MG) PO SCH (09:55)
[2022-09-11 13:22] VITALS: BP 115/60
[2022-09-11] MEDS: ROPINIROLE HYDROCHLORIDE 1 MG PO SCH ×2 (14:00→21:45)
[2022-09-11] MEDS: SODIUM CHLORIDE 0.9% 1,000 ML IV SCH (15:44)
[2022-09-11 17:02] VITALS: BP 143/62
[2022-09-11] MEDS ORDERED: QUEtiapine FUMARATE 100 MG TAB PO SCH ×2 (18:00→22:00)
[2022-09-11] MEDS ORDERED: ALBUTEROL MEDNEB 2.5 mg/3ml NEB ONE (18:36)
[2022-09-11] MEDS: HYDROcodone-ACET 10/325MG TAB PO PRN (18:51)
[2022-09-11] MEDS: MIDODRINE HCL 10 MG TAB PO SCH (21:44)
[2022-09-11] MEDS: QUEtiapine FUMARATE 100 MG TAB PO SCH (21:44)
[2022-09-11 22:00] VITALS: BP 108/81
[2022-09-12] MEDS: ONDANSETRON HCL 4 MG/2 ML VIAL IV PRN ×4 (00:32→21:08)
[2022-09-12] MEDS: MORPHINE SULFATE INJ 2 MG/ml SYRG IV PRN ×5 (00:33→21:07)
[2022-09-12] MEDS: SODIUM CHLORIDE 0.9% 1,000 ML IV SCH ×3 (01:05→23:37)
[2022-09-12] MEDS: HYDROcodone-ACET 10/325MG TAB PO PRN ×2 (03:04→09:25)
[2022-09-12] MEDS: ROPINIROLE HYDROCHLORIDE 1 MG PO SCH ×3 (06:00→22:00)
[2022-09-12] MEDS: LEVOTHYROXINE SODIUM 100 MCG TAB PO SCH (06:06)
[2022-09-12 09:00] VITALS: BP_SYST 102; BP_SYST 99; BP_DIAS 54
[2022-09-12] MEDS: PANTOPRAZOLE 40 MG/10 ML VIAL INJ IV SCH (09:25)
[2022-09-12] MEDS: FUROSEMIDE 20 MG TAB PO SCH ×2 (09:26→21:16)
[2022-09-12] MEDS: DULoxetine HCL 30 MG CAP PO SCH (09:26)
[2022-09-12] MEDS: PATIENTS OWN MEDICATION (Magnesium Oxide (Magnesium) 250 MG) PO SCH (09:27)
[2022-09-12 13:00] VITALS: BP_SYST 111; BP_SYST 120; BP_DIAS 66; BP_DIAS 75
[2022-09-12 17:00] VITALS: BP 112/68
[2022-09-12] MEDS: MIDODRINE HCL 10 MG TAB PO SCH (21:17)
[2022-09-12] MEDS: QUEtiapine FUMARATE 100 MG TAB PO SCH (21:17)
[2022-09-12 22:00] VITALS: BP 125/72
[2022-09-12] MEDS ORDERED: TEMAZEPAM 15 MG CAP PO ONE (23:00)
[2022-09-13 05:00] VITALS: BP 113/71
[2022-09-13 05:32] VITALS: BP 121/75
[2022-09-13] MEDS: ONDANSETRON HCL 4 MG/2 ML VIAL IV PRN ×3 (05:44→21:41)
[2022-09-13] MEDS: MORPHINE SULFATE INJ 2 MG/ml SYRG IV PRN ×3 (05:48→21:42)
[2022-09-13] MEDS: ROPINIROLE HYDROCHLORIDE 1 MG PO SCH ×3 (06:00→21:41)
[2022-09-13] MEDS: LEVOTHYROXINE SODIUM 100 MCG TAB PO SCH (06:38)
[2022-09-13] MEDS: HYDROcodone-ACET 10/325MG TAB PO PRN (06:52)
[2022-09-13 08:38] VITALS: BP 99/48
[2022-09-13] MEDS: PANTOPRAZOLE 40 MG/10 ML VIAL INJ IV SCH (09:26)
[2022-09-13] MEDS: FUROSEMIDE 20 MG TAB PO SCH ×2 (09:27→21:41)
[2022-09-13] MEDS: DULoxetine HCL 30 MG CAP PO SCH (09:27)
[2022-09-13] MEDS: PATIENTS OWN MEDICATION (Magnesium Oxide (Magnesium) 250 MG) PO SCH (09:27)
[2022-09-13] MEDS ORDERED: guaiFENesin-DM 100/10mg/5ml SYR PO ONE (10:45)
[2022-09-13] MEDS ORDERED: predniSONE 20 MG TAB PO ONE (10:45)
[2022-09-13] MEDS ORDERED: AZITHROMYCIN 500MG/ 250ML 250 ML IV ONE (10:45)
[2022-09-13] MEDS ORDERED: guaiFENesin-DM 100/10mg/5ml SYR PO PRN (10:45)
[2022-09-13 13:00] VITALS: BP 108/59
[2022-09-13 17:13] VITALS: BP 111/71
[2022-09-13] MEDS: QUEtiapine FUMARATE 100 MG TAB PO SCH (21:41)
[2022-09-13] MEDS: MIDODRINE HCL 10 MG TAB PO SCH (21:42)
[2022-09-13 22:00] VITALS: BP 131/66
[2022-09-14] MEDS ORDERED: TEMAZEPAM 15 MG CAP PO ONE (00:45)
[2022-09-14] MEDS: ONDANSETRON HCL 4 MG/2 ML VIAL IV PRN ×5 (02:54→22:11)
[2022-09-14] MEDS: MORPHINE SULFATE INJ 2 MG/ml SYRG IV PRN ×5 (02:55→21:57)
[2022-09-14 05:00] VITALS: BP_SYST 114; BP_DIAS 54; BP_DIAS 55
[2022-09-14] MEDS: SODIUM CHLORIDE 0.9% 1,000 ML IV SCH ×2 (05:24→22:28)
[2022-09-14] MEDS: HYDROcodone-ACET 10/325MG TAB PO PRN ×2 (05:26→13:27)
[2022-09-14] MEDS: ROPINIROLE HYDROCHLORIDE 1 MG PO SCH ×3 (05:52→21:56)
[2022-09-14] MEDS: LEVOTHYROXINE SODIUM 100 MCG TAB PO SCH (06:49)
[2022-09-14 08:00] VITALS: BP 95/59
[2022-09-14] MEDS ORDERED: predniSONE 20 MG TAB PO SCH (10:00)
[2022-09-14] MEDS: PANTOPRAZOLE 40 MG/10 ML VIAL INJ IV SCH (10:35)
[2022-09-14] MEDS: FUROSEMIDE 20 MG TAB PO SCH ×2 (10:35→21:55)
[2022-09-14] MEDS: AZITHROMYCIN 500MG/ 250ML 250 ML IV SCH (10:35)
[2022-09-14] MEDS: PATIENTS OWN MEDICATION (Magnesium Oxide (Magnesium) 250 MG) PO SCH (10:36)
[2022-09-14] MEDS: DULoxetine HCL 30 MG CAP PO SCH (10:36)
[2022-09-14 12:00] VITALS: BP 112/59
[2022-09-14 16:00] VITALS: BP 141/66
[2022-09-14] MEDS: MIDODRINE HCL 10 MG TAB PO SCH (21:54)
[2022-09-14] MEDS: QUEtiapine FUMARATE 100 MG TAB PO SCH (21:55)
[2022-09-15] MEDS ORDERED: LORazepam 2MG/ML-1ML VIAL IM ONE (03:05)
[2022-09-15] MEDS: LORazepam 2MG/ML-1ML VIAL IV PRN ×2 (04:24→11:38)
[2022-09-15] MEDS: ONDANSETRON HCL 4 MG/2 ML VIAL IV PRN ×3 (04:24→21:15)
[2022-09-15] MEDS: MORPHINE SULFATE INJ 2 MG/ml SYRG IV PRN ×4 (04:24→21:16)
[2022-09-15] MEDS: PANTOPRAZOLE 40 MG/10 ML VIAL INJ IV SCH (04:26)
[2022-09-15] MEDS: ROPINIROLE HYDROCHLORIDE 1 MG PO SCH ×3 (04:27→22:00)
[2022-09-15 05:00] VITALS: BP 120/67
[2022-09-15] MEDS: LEVOTHYROXINE SODIUM 100 MCG TAB PO SCH (06:08)
[2022-09-15 06:19] LABS: Basophils # (auto) 0 10 ^3/uL (0-0.2); Basophils % (auto) 0.2 % (0.0-2.0); Eosinophils # (auto) 0.1 10 ^3/uL (0-0.8); Eosinophils % (auto) 1.2 % (0.0-7.0); Hematocrit 31.1 % (36.0-46.0); Hemoglobin 11.1 g/dL (12.2-16.2); Lymphocytes # (auto) 1.5 10 ^3/uL (0.4-5.4); Lymphocytes % (auto) 28.4 % (10.0-50.0); Mean Corpuscular Hemoglobin 31.4 pg (28.0-32.0); Mean Corpuscular Hgb Conc. 35.5 g/dL (32.0-36.0); Mean Corpuscular Volume 88.4 fL (80.0-100.0); Monocytes # (auto) 0.5 10 ^3/uL (0-1.3); Monocytes % (auto) 9.5 % (0.0-12.0); Neutrophils # (auto) 3.3 10 ^3/uL (1.6-8.6); Neutrophils % (auto) 60.7 % (37.0-80.0); Nucleated Red Blood Cells % 0.1 %; Red Blood Cells 3.52 10^6/uL (4.0-5.20); Red Cell Distribution Width 15.7 % (11.8-14.3); White Blood Cell 5.4 10^3/uL (4.4-10.8)
[2022-09-15 06:33] LABS: BUN/Creatinine Ratio 18.4; Calcium 8.9 mg/dL (8.5-10.1); Potassium 3.1 mmol/L (3.5-5.1)
[2022-09-15 08:00] VITALS: BP 158/80
[2022-09-15] MEDS: FUROSEMIDE 20 MG TAB PO SCH ×2 (10:00→22:08)
[2022-09-15] MEDS: DULoxetine HCL 30 MG CAP PO SCH (10:00)
[2022-09-15] MEDS: PATIENTS OWN MEDICATION (Magnesium Oxide (Magnesium) 250 MG) PO SCH (10:00)
[2022-09-15] MEDS: AZITHROMYCIN 500MG/ 250ML 250 ML IV SCH (11:33)
[2022-09-15] MEDS: SODIUM CHLORIDE 0.9% 1,000 ML IV SCH (11:35)
[2022-09-15 12:00] VITALS: BP 135/71
[2022-09-15] MEDS ORDERED: MIDAZOLAM HCL 2MG/2ML 2ml VIAL (1mg/ml) ONE (15:39)
[2022-09-15] MEDS ORDERED: fentaNYL CITRATE 5 ML ONE (15:40)
[2022-09-15] MEDS ORDERED: PROPOFOL 10 MG/ML 20 ML IV ONE (15:45)
[2022-09-15] MEDS ORDERED: ROCURONIUM 10MG/ML 10ML VIAL IV ONE (15:45)
[2022-09-15] MEDS ORDERED: ONDANSETRON HCL 4 MG/2 ML VIAL ONE (15:45)
[2022-09-15] MEDS ORDERED: LIDOCAINE 2% (LOCAL ANESTH.) PF 5ml SDV ONE (15:45)
[2022-09-15] MEDS ORDERED: BUPIVACAINE 0.25% INJ 50ML VIAL ONE (16:24)
[2022-09-15] MEDS ORDERED: ONDANSETRON HCL 4 MG/2 ML VIAL IV PRN (18:00)
[2022-09-15] MEDS ORDERED: HYDROmorphone HCL 2 MG/ML VL/or syr IV PRN ×2 (18:00)
[2022-09-15] MEDS: HYDROcodone-ACET 10/325MG TAB PO PRN (18:11)
[2022-09-15 22:00] VITALS: BP 114/55
[2022-09-15] MEDS: MIDODRINE HCL 10 MG TAB PO SCH (22:00)
[2022-09-15] MEDS: QUEtiapine FUMARATE 100 MG TAB PO SCH (22:08)
[2022-09-16] MEDS: MORPHINE SULFATE INJ 2 MG/ml SYRG IV PRN ×6 (01:11→23:05)
[2022-09-16] MEDS: ONDANSETRON HCL 4 MG/2 ML VIAL IV PRN ×6 (01:11→22:58)
[2022-09-16 05:00] VITALS: BP 118/59
[2022-09-16] MEDS: SODIUM CHLORIDE 0.9% 1,000 ML IV SCH ×2 (05:04→21:45)
[2022-09-16] MEDS: ROPINIROLE HYDROCHLORIDE 1 MG PO SCH ×3 (05:16→22:00)
[2022-09-16] MEDS: LEVOTHYROXINE SODIUM 100 MCG TAB PO SCH (06:17)
[2022-09-16 08:45] VITALS: BP 118/64
[2022-09-16] MEDS: AZITHROMYCIN 500MG/ 250ML 250 ML IV SCH (09:25)
[2022-09-16] MEDS: DULoxetine HCL 30 MG CAP PO SCH (09:25)
[2022-09-16] MEDS: PANTOPRAZOLE 40 MG/10 ML VIAL INJ IV SCH (09:25)
[2022-09-16] MEDS: PATIENTS OWN MEDICATION (Magnesium Oxide (Magnesium) 250 MG) PO SCH (09:26)
[2022-09-16] MEDS: FUROSEMIDE 20 MG TAB PO SCH ×2 (09:26→21:24)
[2022-09-16 12:24] VITALS: BP 126/62
[2022-09-16] MEDS: PIPERACILLIN-TAZOB 3.375GM 100 ML IV SCH ×2 (13:38→21:26)
[2022-09-16 17:14] VITALS: BP 123/60
[2022-09-16] MEDS: QUEtiapine FUMARATE 100 MG TAB PO SCH (21:24)
[2022-09-16] MEDS: HYDROcodone-ACET 10/325MG TAB PO PRN (21:34)
[2022-09-16] MEDS: MIDODRINE HCL 10 MG TAB PO SCH (22:00)
[2022-09-16 22:22] VITALS: BP 139/72
[2022-09-17] VITALS (7 sets, daily range): BP systolic 105–140; BP diastolic 64–75
[2022-09-17] MEDS: ONDANSETRON HCL 4 MG/2 ML VIAL IV PRN ×4 (04:13→18:04)
[2022-09-17] MEDS: MORPHINE SULFATE INJ 2 MG/ml SYRG IV PRN ×5 (04:20→22:29)
[2022-09-17] MEDS: ROPINIROLE HYDROCHLORIDE 1 MG PO SCH ×3 (06:00→22:28)
[2022-09-17] MEDS: PIPERACILLIN-TAZOB 3.375GM 100 ML IV SCH ×3 (06:21→22:06)
[2022-09-17] MEDS: LEVOTHYROXINE SODIUM 100 MCG TAB PO SCH (06:21)
[2022-09-17 08:23] LABS: Calcium 8.1 mg/dL (8.5-10.1)
[2022-09-17 08:27] LABS: BUN/Creatinine Ratio 12.1; Bilirubin, Total 0.6 mg/dL (0.2-1.0); Total Protein 6.8 g/dL (6.4-8.2)
[2022-09-17 08:47] LABS: Potassium 2.8 mmol/L (3.5-5.1)
[2022-09-17] MEDS: AZITHROMYCIN 500MG/ 250ML 250 ML IV SCH (09:04)
[2022-09-17] MEDS: PANTOPRAZOLE 40 MG/10 ML VIAL INJ IV SCH (09:04)
[2022-09-17] MEDS: PATIENTS OWN MEDICATION (Magnesium Oxide (Magnesium) 250 MG) PO SCH (09:04)
[2022-09-17] MEDS: FUROSEMIDE 20 MG TAB PO SCH ×2 (09:05→18:01)
[2022-09-17] MEDS: DULoxetine HCL 30 MG CAP PO SCH (09:05)
[2022-09-17] MEDS ORDERED: POTASSIUM CHL 20 Meq TABLET PO ONE (10:15)
[2022-09-17] MEDS ORDERED: LOPERAMIDE HCL 2 MG CAP/TAB PO PRN (11:30)
[2022-09-17] MEDS ORDERED: LOPERAMIDE HCL 2 MG CAP/TAB PO ONE (11:30)
[2022-09-17] MEDS: HYDROcodone-ACET 10/325MG TAB PO PRN (12:17)
[2022-09-17] MEDS: SODIUM CHLORIDE 0.9% 1,000 ML IV SCH (14:20)
[2022-09-17] MEDS: MIDODRINE HCL 10 MG TAB PO SCH (22:06)
[2022-09-17] MEDS: QUEtiapine FUMARATE 100 MG TAB PO SCH (22:27)
[2022-09-17] MEDS: LORazepam 2MG/ML-1ML VIAL IV PRN (22:29)
[2022-09-18] MEDS: MORPHINE SULFATE INJ 2 MG/ml SYRG IV PRN ×2 (03:49→09:03)
[2022-09-18 05:00] VITALS: BP 128/64
[2022-09-18] MEDS: PIPERACILLIN-TAZOB 3.375GM 100 ML IV SCH ×3 (06:00→21:54)
[2022-09-18] MEDS: ROPINIROLE HYDROCHLORIDE 1 MG PO SCH ×3 (06:00→21:55)
[2022-09-18 06:16] LABS: Basophils # (auto) 0 10 ^3/uL (0-0.2); Basophils % (auto) 0.4 % (0.0-2.0); Eosinophils # (auto) 0.2 10 ^3/uL (0-0.8); Eosinophils % (auto) 3.6 % (0.0-7.0); Hematocrit 32.3 % (36.0-46.0); Hemoglobin 11.6 g/dL (12.2-16.2); Lymphocytes # (auto) 1.1 10 ^3/uL (0.4-5.4); Lymphocytes % (auto) 26.4 % (10.0-50.0); Mean Corpuscular Hemoglobin 31.7 pg (28.0-32.0); Mean Corpuscular Hgb Conc. 35.9 g/dL (32.0-36.0); Mean Corpuscular Volume 88.4 fL (80.0-100.0); Monocytes # (auto) 0.4 10 ^3/uL (0-1.3); Monocytes % (auto) 9.3 % (0.0-12.0); Neutrophils # (auto) 2.6 10 ^3/uL (1.6-8.6); Neutrophils % (auto) 60.3 % (37.0-80.0); Nucleated Red Blood Cells % 0.1 %; Red Blood Cells 3.65 10^6/uL (4.0-5.20); Red Cell Distribution Width 15.3 % (11.8-14.3); White Blood Cell 4.3 10^3/uL (4.4-10.8)
[2022-09-18 06:35] LABS: Potassium 3.5 mmol/L (3.5-5.1)
[2022-09-18] MEDS: LEVOTHYROXINE SODIUM 100 MCG TAB PO SCH (06:44)
[2022-09-18] MEDS: FUROSEMIDE 20 MG TAB PO SCH ×2 (06:44→18:16)
[2022-09-18] MEDS: SODIUM CHLORIDE 0.9% 1,000 ML IV SCH ×3 (06:47→15:31)
[2022-09-18 06:48] LABS: Albumin 3.1 g/dL (3.4-5.0); BUN/Creatinine Ratio 11.3; Bilirubin, Total 0.6 mg/dL (0.2-1.0); Calcium 8.3 mg/dL (8.5-10.1); Total Protein 6.4 g/dL (6.4-8.2)
[2022-09-18 08:30] VITALS: BP 106/64
[2022-09-18] MEDS: ONDANSETRON HCL 4 MG/2 ML VIAL IV PRN (09:10)
[2022-09-18] MEDS: POTASSIUM CHL 10 Meq TABLET PO SCH (09:10)
[2022-09-18] MEDS: DULoxetine HCL 30 MG CAP PO SCH (09:10)
[2022-09-18] MEDS: PANTOPRAZOLE 40 MG/10 ML VIAL INJ IV SCH (09:10)
[2022-09-18] MEDS: PATIENTS OWN MEDICATION (Magnesium Oxide (Magnesium) 250 MG) PO SCH (10:00)
[2022-09-18] MEDS: LORazepam 2MG/ML-1ML VIAL IV PRN ×2 (10:06→22:12)
[2022-09-18] MEDS: AZITHROMYCIN 500MG/ 250ML 250 ML IV SCH (10:13)
[2022-09-18] MEDS: HYDROcodone-ACET 10/325MG TAB PO PRN ×3 (12:28→22:12)
[2022-09-18 13:00] VITALS: BP 121/60
[2022-09-18 17:00] VITALS: BP 114/73
[2022-09-18 20:00] VITALS: BP 124/52
[2022-09-18] MEDS: MIDODRINE HCL 10 MG TAB PO SCH (21:55)
[2022-09-18 22:00] VITALS: BP 124/50
[2022-09-18] MEDS ORDERED: QUEtiapine FUMARATE 100 MG TAB ONE ×2 (22:11→22:14)
[2022-09-18] MEDS: QUEtiapine FUMARATE 100 MG TAB PO SCH (22:15)
[2022-09-19] VITALS (7 sets, daily range): BP systolic 85–147; BP diastolic 46–66
[2022-09-19] MEDS: PIPERACILLIN-TAZOB 3.375GM 100 ML IV SCH ×3 (04:48→22:13)
[2022-09-19] MEDS: ROPINIROLE HYDROCHLORIDE 1 MG PO SCH ×3 (04:48→22:00)
[2022-09-19] MEDS: FUROSEMIDE 20 MG TAB PO SCH ×3 (04:49→18:13)
[2022-09-19] MEDS: LEVOTHYROXINE SODIUM 100 MCG TAB PO SCH (04:49)
[2022-09-19] MEDS: HYDROcodone-ACET 10/325MG TAB PO PRN ×3 (04:50→23:33)
[2022-09-19] MEDS: PATIENTS OWN MEDICATION (Magnesium Oxide (Magnesium) 250 MG) PO SCH (10:00)
[2022-09-19] MEDS: DULoxetine HCL 30 MG CAP PO SCH (11:23)
[2022-09-19] MEDS: POTASSIUM CHL 10 Meq TABLET PO SCH (11:23)
[2022-09-19] MEDS: PANTOPRAZOLE 40 MG/10 ML VIAL INJ IV SCH (11:23)
[2022-09-19] MEDS: AZITHROMYCIN 500MG/ 250ML 250 ML IV SCH (11:24)
[2022-09-19] MEDS: SODIUM CHLORIDE 0.9% 1,000 ML IV SCH (16:25)
[2022-09-19] MEDS: MIDODRINE HCL 10 MG TAB PO SCH (22:12)
[2022-09-19] MEDS: QUEtiapine FUMARATE 100 MG TAB PO SCH (22:39)
[2022-09-20] MEDS: LORazepam 2MG/ML-1ML VIAL IV PRN ×2 (00:34→08:11)
[2022-09-20 05:00] VITALS: BP 113/55
[2022-09-20] MEDS: PIPERACILLIN-TAZOB 3.375GM 100 ML IV SCH ×2 (05:19→15:53)
[2022-09-20] MEDS: FUROSEMIDE 20 MG TAB PO SCH ×2 (05:20→18:00)
[2022-09-20] MEDS: ROPINIROLE HYDROCHLORIDE 1 MG PO SCH ×2 (05:27→14:00)
[2022-09-20] MEDS: HYDROcodone-ACET 10/325MG TAB PO PRN ×2 (05:34→16:00)
[2022-09-20] MEDS: LEVOTHYROXINE SODIUM 100 MCG TAB PO SCH (06:41)
[2022-09-20] MEDS: SODIUM CHLORIDE 0.9% 1,000 ML IV SCH (09:05)
[2022-09-20] MEDS: PATIENTS OWN MEDICATION (Magnesium Oxide (Magnesium) 250 MG) PO SCH (10:00)
[2022-09-20] MEDS: PANTOPRAZOLE 40 MG/10 ML VIAL INJ IV SCH (10:08)
[2022-09-20] MEDS: POTASSIUM CHL 10 Meq TABLET PO SCH (10:08)
[2022-09-20] MEDS: AZITHROMYCIN 500MG/ 250ML 250 ML IV SCH (10:08)
[2022-09-20] MEDS: DULoxetine HCL 30 MG CAP PO SCH (10:09)
[2022-09-20 12:49] VITALS: BP 130/67
[2022-09-20] MEDS ORDERED: metroNIDAZOLE 500MG/100ML 100 ML IV SCH (14:00)
[2022-09-20] MEDS: VANCOMYCIN HCL 125MG/5ML ORAL SOL PO SCH ×2 (16:02→18:00)
[2022-09-20 17:00] VITALS: BP 123/48
== END 2022-09-20 19:59 | DRG 353 ==
LOC: ER 11:51 → OVERFLOW 15:32 → EAST 21:58
PROVIDERS: ADMIT Nurse Practitioner Family; ATTEND Family Medicine
PROC: 0WUF0JZ Supplement Abdominal Wall with Synthetic Substitute, Open Approach (ICD-10-PCS; principal; 2022-09-15 15:50)
DX: K43.0 Incisional hernia with obstruction, without gangrene (principal); I50.33 Acute on chronic diastolic (congestive) heart failure; A04.72 Enterocolitis due to Clostridium difficile, not specified as recurrent; J44.1 Chronic obstructive pulmonary disease with (acute) exacerbation; J98.11 Atelectasis; E03.9 Hypothyroidism, unspecified; F31.9 Bipolar disorder, unspecified; I95.9 Hypotension, unspecified; F41.9 Anxiety disorder, unspecified; M62.08 Separation of muscle (nontraumatic), other site; R91.1 Solitary pulmonary nodule; Z20.822 Contact with and (suspected) exposure to COVID-19; Z80.0 Family history of malignant neoplasm of digestive organs; Z81.8 Family history of other mental and behavioral disorders; Z75.1 Person awaiting admission to adequate facility elsewhere; Z82.49 Family history of ischemic heart disease and other diseases of the circulatory system; Z83.3 Family history of diabetes mellitus; Z85.3 Personal history of malignant neoplasm of breast; Z86.19 Personal history of other infectious and parasitic diseases; Z90.12 Acquired absence of left breast and nipple; Z90.710 Acquired absence of both cervix and uterus
CPT/HCPCS: 36415; 71045; 74176; 80048; 80053; 81001; 83605; 83690; 84443; 84484; 85025; 85379; 85610; 85730; 86850; 86900; 86901; 87081; 87426; 87493; 88302; 93005; 93306; 94640; 97110; 97116; 97163; 97530; C9113; G0378; J2001; J2250; J2405; J2543; J2704; J3490

== ENCOUNTER 2022-09-21 01:37 | Inpatient (IN) | payer OTHER, MEDICAID ==
[~2022-09-21] VITALS: Ht 167.6 cm; Wt 68.0 kg
[~2022-09-21 01:37] MED LIST changes: -APIX5TAB PO; +LEVO100T8 PO; -LEVO112T4 PO
[2022-09-21 02:16] LABS: Basophils # (auto) 0 10 ^3/uL (0-0.2); Basophils % (auto) 0.4 % (0.0-2.0); Eosinophils # (auto) 0.1 10 ^3/uL (0-0.8); Hemoglobin 11.6 g/dL (12.2-16.2); Lymphocytes # (auto) 1.5 10 ^3/uL (0.4-5.4); Lymphocytes % (auto) 33.2 % (10.0-50.0); Mean Corpuscular Hemoglobin 31.2 pg (28.0-32.0); Mean Corpuscular Hgb Conc. 35.2 g/dL (32.0-36.0); Mean Corpuscular Volume 88.5 fL (80.0-100.0); Monocytes # (auto) 0.4 10 ^3/uL (0-1.3); Monocytes % (auto) 9.6 % (0.0-12.0); Neutrophils # (auto) 2.5 10 ^3/uL (1.6-8.6); Neutrophils % (auto) 53.8 % (37.0-80.0); Red Blood Cells 3.73 10^6/uL (4.0-5.20); Red Cell Distribution Width 15.6 % (11.8-14.3); White Blood Cell 4.6 10^3/uL (4.4-10.8)
[2022-09-21 02:33] LABS: Albumin 3.5 g/dL (3.4-5.0); Calcium 9.2 mg/dL (8.5-10.1); Potassium 3.1 mmol/L (3.5-5.1)
[2022-09-21 02:35] LABS: BUN/Creatinine Ratio 17.8
[2022-09-21 02:38] LABS: Bilirubin, Total 0.3 mg/dL (0.2-1.0); Total Protein 7.7 g/dL (6.4-8.2)
[2022-09-21] MEDS ORDERED: MORPHINE SULFATE INJ 2 MG/ml SYRG IV PRN (06:00)
[2022-09-21] MEDS ORDERED: ALBUTEROL SULF 2.5 MG/0.5ML(0.5%) NEB SOLN NEB PRN (06:00)
[2022-09-21] MEDS ORDERED: HYDROmorphone HCL 2 MG/ML VL/or syr IV ONE (06:00)
[2022-09-21] MEDS: ONDANSETRON HCL 4 MG/2 ML VIAL IV PRN ×3 (06:03→16:25)
[2022-09-21] MEDS: SODIUM CHLORIDE 0.9% 1,000 ML IV SCH ×2 (06:07→17:39)
[2022-09-21 07:14] LABS: Urine WBC None Seen /hpf (0 - 5)
[2022-09-21] MEDS ORDERED: POTASSIUM CHLORIDE 40 MEQ, LIDOCAINE 1% (LOCAL ANESTH.) 4 ML in SODIUM CHL 0.9% 250 ML IV ONE (07:45)
[2022-09-21 07:50] LABS: Urine Bacteria NONE SEEN /hpf (None Seen); Urine Blood Negative /uL (Negative); Urine Specific Gravity 1.004 (1.001-1.035)
[2022-09-21] MEDS: PANTOPRAZOLE 40 MG/10 ML VIAL INJ IV SCH (08:40)
[2022-09-21] MEDS ORDERED: GASTROGRAFIN 120 ML SOL ONE (09:49)
[2022-09-21] MEDS: MAGNESIUM SULFATE 1GM/100ML 100 ML IV SCH ×4 (10:09→13:06)
[2022-09-21] MEDS: MORPHINE SULFATE INJ 2 MG/ml SYRG IV PRN ×3 (11:57→22:40)
[2022-09-21] MEDS: VANCOMYCIN HCL 125MG/5ML ORAL SOL PO SCH ×3 (12:55→23:44)
[2022-09-21] MEDS: metroNIDAZOLE 500MG/100ML 100 ML IV SCH ×2 (13:07→22:13)
[2022-09-21 15:55] VITALS: BP 161/72
[2022-09-21] MEDS ORDERED: MORPHINE SULFATE INJ 2 MG/ml SYRG IV ONE (16:25)
[2022-09-21 19:16] LABS: Albumin 3.6 g/dL (3.4-5.0); Calcium 8.8 mg/dL (8.5-10.1); Magnesium 2.4 mg/dL (1.6-2.6)
[2022-09-21 19:21] LABS: Bilirubin, Total 0.4 mg/dL (0.2-1.0)
[2022-09-21 21:35] VITALS: BP 148/85
[2022-09-21 22:00] VITALS: BP 148/85
[2022-09-21 22:23] VITALS: BP 148/85
[2022-09-22 05:00] VITALS: BP 143/77
[2022-09-22] MEDS: MORPHINE SULFATE INJ 2 MG/ml SYRG IV PRN ×3 (05:05→18:36)
[2022-09-22] MEDS: ONDANSETRON HCL 4 MG/2 ML VIAL IV PRN ×3 (05:06→18:50)
[2022-09-22 05:53] LABS: Basophils # (auto) 0 10 ^3/uL (0-0.2); Basophils % (auto) 0.6 % (0.0-2.0); Eosinophils # (auto) 0.2 10 ^3/uL (0-0.8); Eosinophils % (auto) 4.2 % (0.0-7.0); Hematocrit 34.2 % (36.0-46.0); Hemoglobin 11.8 g/dL (12.2-16.2); Lymphocytes % (auto) 23.8 % (10.0-50.0); Mean Corpuscular Hemoglobin 31.3 pg (28.0-32.0); Mean Corpuscular Hgb Conc. 34.6 g/dL (32.0-36.0); Mean Corpuscular Volume 90.7 fL (80.0-100.0); Monocytes # (auto) 0.5 10 ^3/uL (0-1.3); Neutrophils # (auto) 2.7 10 ^3/uL (1.6-8.6); Neutrophils % (auto) 60.4 % (37.0-80.0); Nucleated Red Blood Cells % 0.1 %; Red Blood Cells 3.77 10^6/uL (4.0-5.20); Red Cell Distribution Width 15.8 % (11.8-14.3); White Blood Cell 4.4 10^3/uL (4.4-10.8)
[2022-09-22] MEDS: VANCOMYCIN HCL 125MG/5ML ORAL SOL PO SCH ×3 (06:02→17:40)
[2022-09-22] MEDS: metroNIDAZOLE 500MG/100ML 100 ML IV SCH ×3 (06:02→21:58)
[2022-09-22 06:27] LABS: Albumin 3.4 g/dL (3.4-5.0); BUN/Creatinine Ratio 11.9; Calcium 9.1 mg/dL (8.5-10.1); Magnesium 1.9 mg/dL (1.6-2.6); Potassium 3.7 mmol/L (3.5-5.1)
[2022-09-22 06:30] LABS: Bilirubin, Total 0.5 mg/dL (0.2-1.0); Total Protein 7.4 g/dL (6.4-8.2)
[2022-09-22] MEDS: SODIUM CHLORIDE 0.9% 1,000 ML IV SCH ×2 (08:40→16:36)
[2022-09-22 09:00] VITALS: BP 120/71
[2022-09-22] MEDS: PANTOPRAZOLE 40 MG/10 ML VIAL INJ IV SCH (09:57)
[2022-09-22 13:00] VITALS: BP 131/58
[2022-09-22 17:00] VITALS: BP 160/95
[2022-09-22] MEDS: QUETIAPINE 300 MG PO SCH (17:42)
[2022-09-22 22:00] VITALS: BP 137/80
[2022-09-23] MEDS: VANCOMYCIN HCL 125MG/5ML ORAL SOL PO SCH ×5 (00:13→23:05)
[2022-09-23] MEDS: ZOLPIDEM TARTRATE 5 MG TAB PO PRN ×2 (00:39→23:05)
[2022-09-23 05:00] VITALS: BP 133/74
[2022-09-23] MEDS: metroNIDAZOLE 500MG/100ML 100 ML IV SCH ×3 (05:54→21:15)
[2022-09-23] MEDS: ONDANSETRON HCL 4 MG/2 ML VIAL IV PRN ×2 (08:53→15:36)
[2022-09-23] MEDS: FLORASTOR (S. BOULARDII) 250 MG CAP PO SCH (08:54)
[2022-09-23] MEDS: DULoxetine HCL 30 MG CAP PO SCH (08:54)
[2022-09-23] MEDS: PANTOPRAZOLE 40 MG TAB PO SCH (08:55)
[2022-09-23] MEDS: MORPHINE SULFATE INJ 2 MG/ml SYRG IV PRN ×3 (08:56→22:22)
[2022-09-23 09:21] VITALS: BP 144/75
[2022-09-23] MEDS: SODIUM CHLORIDE 0.9% 1,000 ML IV SCH (12:28)
[2022-09-23 13:00] VITALS: BP 131/70
[2022-09-23] MEDS ORDERED: CHOLESTYRAMINE 4 GM POWDER PO ONE (14:00)
[2022-09-23 16:39] VITALS: BP 151/97
[2022-09-23] MEDS: QUETIAPINE 300 MG PO SCH (18:00)
[2022-09-23] MEDS: LORazepam 0.5 MG TAB PO PRN (21:15)
[2022-09-23 22:00] VITALS: BP 141/78
[2022-09-23] MEDS ORDERED: MELATONIN 5 MG TAB PO ONE (22:00)
[2022-09-24] MEDS: SODIUM CHLORIDE 0.9% 1,000 ML IV SCH ×2 (00:40→05:22)
[2022-09-24 05:00] VITALS: BP 141/82
[2022-09-24] MEDS: MORPHINE SULFATE INJ 2 MG/ml SYRG IV PRN ×3 (05:21→20:20)
[2022-09-24] MEDS: metroNIDAZOLE 500MG/100ML 100 ML IV SCH ×3 (05:22→21:25)
[2022-09-24] MEDS: VANCOMYCIN HCL 125MG/5ML ORAL SOL PO SCH ×4 (05:22→23:35)
[2022-09-24 08:40] VITALS: BP 133/73
[2022-09-24] MEDS: CHOLESTYRAMINE 4 GM POWDER PO SCH (10:31)
[2022-09-24] MEDS: DULoxetine HCL 30 MG CAP PO SCH (10:31)
[2022-09-24] MEDS: FLORASTOR (S. BOULARDII) 250 MG CAP PO SCH (10:31)
[2022-09-24] MEDS: PANTOPRAZOLE 40 MG TAB PO SCH (10:32)
[2022-09-24] MEDS: ONDANSETRON HCL 4 MG/2 ML VIAL IV PRN (12:33)
[2022-09-24 12:49] VITALS: BP 141/75
[2022-09-24 16:00] VITALS: BP 131/72
[2022-09-24] MEDS: QUETIAPINE 300 MG PO SCH (17:12)
[2022-09-24] MEDS ORDERED: ACETAMINOPHEN 325 MG TAB PO PRN (18:00)
[2022-09-24] MEDS: LORazepam 0.5 MG TAB PO PRN (21:25)
[2022-09-24 22:00] VITALS: BP 154/74
[2022-09-25] MEDS: SODIUM CHLORIDE 0.9% 1,000 ML IV SCH (02:07)
[2022-09-25] MEDS: ZOLPIDEM TARTRATE 5 MG TAB PO PRN (02:10)
[2022-09-25] MEDS: MORPHINE SULFATE INJ 2 MG/ml SYRG IV PRN ×2 (04:23→10:22)
[2022-09-25 05:00] VITALS: BP 138/68
[2022-09-25] MEDS: VANCOMYCIN HCL 125MG/5ML ORAL SOL PO SCH ×2 (06:09→12:00)
[2022-09-25] MEDS: metroNIDAZOLE 500MG/100ML 100 ML IV SCH ×2 (06:09→14:00)
[2022-09-25] MEDS: DULoxetine HCL 30 MG CAP PO SCH (08:50)
[2022-09-25] MEDS: FLORASTOR (S. BOULARDII) 250 MG CAP PO SCH (08:51)
[2022-09-25] MEDS: PANTOPRAZOLE 40 MG TAB PO SCH (08:51)
[2022-09-25 09:01] VITALS: BP 111/66
[2022-09-25] MEDS: LORazepam 0.5 MG TAB PO PRN (09:26)
[2022-09-25] MEDS: CHOLESTYRAMINE 4 GM POWDER PO SCH (11:00)
[2022-09-25 13:02] VITALS: BP 130/80
== END 2022-09-25 14:00 | DRG 371 ==
LOC: EDBD 01:37 → ER 01:37 → OVERFLOW 05:49 → WEST WING 21:35
PROVIDERS: ADMIT Nurse Practitioner; ATTEND Nurse Practitioner Acute Care
DX: A04.72 Enterocolitis due to Clostridium difficile, not specified as recurrent (principal); I50.33 Acute on chronic diastolic (congestive) heart failure; I47.1 Supraventricular tachycardia; K56.7 Ileus, unspecified; J44.1 Chronic obstructive pulmonary disease with (acute) exacerbation; Z20.822 Contact with and (suspected) exposure to COVID-19; E86.0 Dehydration; F31.9 Bipolar disorder, unspecified; Z90.710 Acquired absence of both cervix and uterus; E87.6 Hypokalemia; E83.42 Hypomagnesemia; Z80.0 Family history of malignant neoplasm of digestive organs; F41.9 Anxiety disorder, unspecified; Z79.899 Other long term (current) drug therapy; Z81.8 Family history of other mental and behavioral disorders; Z82.49 Family history of ischemic heart disease and other diseases of the circulatory system; Z83.3 Family history of diabetes mellitus; Z85.3 Personal history of malignant neoplasm of breast; Z88.1 Allergy status to other antibiotic agents; Z90.10 Acquired absence of unspecified breast and nipple
CPT/HCPCS: 36415; 71045; 71250; 74176; 74250; 78582; 80053; 81001; 83735; 83880; 84484; 85025; 87426; 93005; 96361; 96374; 96375; C9113; G0378; J1642; J2001; J2405; J3490

== ENCOUNTER 2022-12-09 11:30 | Emergency (ER) | payer OTHER, MEDICAID ==
[~2022-12-09] VITALS: Ht 165.1 cm; Wt 80.0 kg
[2022-12-09] MEDS ORDERED: AUG875T PO (13:09)
[2022-12-09] MEDS ORDERED: IBUP800T27 PO (13:09)
[2022-12-09 13:10] VITALS: BP 156/87
== END 2022-12-09 13:24 | disposition home or self-care (01) ==
LOC: ER 11:30
DX: H66.92 Otitis media, unspecified, left ear (principal); I50.9 Heart failure, unspecified; J44.9 Chronic obstructive pulmonary disease, unspecified; E03.9 Hypothyroidism, unspecified; Z90.710 Acquired absence of both cervix and uterus; Z79.899 Other long term (current) drug therapy; Z79.2 Long term (current) use of antibiotics; Z88.1 Allergy status to other antibiotic agents; Z91.018 Allergy to other foods

== ENCOUNTER 2023-02-03 15:10 | Inpatient (IN) | payer OTHER, MEDICAID ==
[~2023-02-03] VITALS: Ht 165.1 cm; Wt 66.0 kg
[~2023-02-03 15:10] MED LIST changes: +AUG875T PO; -DULO60CA PO; +DULO60CA41 PO; +IBUP-1456 PO
[2023-02-03 15:55] LABS: Basophils # (auto) 0 10 ^3/uL (0-0.2); Basophils % (auto) 0.4 % (0.0-2.0); Eosinophils # (auto) 0.2 10 ^3/uL (0-0.8); Eosinophils % (auto) 4.3 % (0.0-7.0); Hematocrit 37.9 % (36.0-46.0); Hemoglobin 13.1 g/dL (12.2-16.2); Lymphocytes # (auto) 1.4 10 ^3/uL (0.4-5.4); Lymphocytes % (auto) 23.5 % (10.0-50.0); Mean Corpuscular Hemoglobin 31.5 pg (28.0-32.0); Mean Corpuscular Hgb Conc. 34.5 g/dL (32.0-36.0); Mean Corpuscular Volume 91.3 fL (80.0-100.0); Monocytes # (auto) 0.3 10 ^3/uL (0-1.3); Monocytes % (auto) 5.4 % (0.0-12.0); Neutrophils # (auto) 3.8 10 ^3/uL (1.6-8.6); Neutrophils % (auto) 66.4 % (37.0-80.0); Nucleated Red Blood Cells % 0.1 %; Red Blood Cells 4.15 10^6/uL (4.0-5.20); Red Cell Distribution Width 14.1 % (11.8-14.3); White Blood Cell 5.8 10^3/uL (4.4-10.8)
[2023-02-03 16:10] LABS: Calcium 9.2 mg/dL (8.5-10.1); Potassium 4.3 mmol/L (3.5-5.1)
[2023-02-03 16:12] LABS: Bilirubin, Total 0.3 mg/dL (0.2-1.0); Total Protein 7.8 g/dL (6.4-8.2)
[2023-02-03] MEDS ORDERED: ONDANSETRON HCL 4 MG/2 ML VIAL IV ONE (20:00)
[2023-02-03] MEDS ORDERED: MORPHINE SULFATE 4 MG/ML SYR/VIAL IV ONE (20:00)
[2023-02-03] MEDS ORDERED: DOCUSATE SOD 100 MG CAP PO PRN (23:00)
[2023-02-03] MEDS ORDERED: ACETAMINOPHEN 325 MG TAB PO PRN (23:00)
[2023-02-03] MEDS ORDERED: NITROGLYCERIN 0.4 MG SL TAB SL PRN (23:15)
[2023-02-04] MEDS: SODIUM CHLORIDE 0.9% 1,000 ML IV SCH ×2 (00:48→15:40)
[2023-02-04] MEDS: ONDANSETRON HCL 4 MG/2 ML VIAL IV PRN ×2 (00:59→22:50)
[2023-02-04] MEDS: MORPHINE SULFATE INJ 2 MG/ml SYRG IV PRN ×2 (01:00→22:45)
[2023-02-04] MEDS: HYDROcodone-ACET 5/325MG TAB PO PRN ×2 (03:42→19:57)
[2023-02-04 05:05] LABS: Basophils # (auto) 0 10 ^3/uL (0-0.2); Basophils % (auto) 0.5 % (0.0-2.0); Eosinophils # (auto) 0.3 10 ^3/uL (0-0.8); Eosinophils % (auto) 4.8 % (0.0-7.0); Hemoglobin 13.5 g/dL (12.2-16.2); Lymphocytes # (auto) 1.3 10 ^3/uL (0.4-5.4); Lymphocytes % (auto) 18.9 % (10.0-50.0); Mean Corpuscular Hemoglobin 31.7 pg (28.0-32.0); Mean Corpuscular Hgb Conc. 34.7 g/dL (32.0-36.0); Mean Corpuscular Volume 91.4 fL (80.0-100.0); Monocytes # (auto) 0.4 10 ^3/uL (0-1.3); Monocytes % (auto) 5.8 % (0.0-12.0); Neutrophils # (auto) 4.7 10 ^3/uL (1.6-8.6); Nucleated Red Blood Cells % 0.1 %; Red Blood Cells 4.27 10^6/uL (4.0-5.20); Red Cell Distribution Width 14.1 % (11.8-14.3); White Blood Cell 6.7 10^3/uL (4.4-10.8)
[2023-02-04 05:21] LABS: Albumin 4.1 g/dL (3.4-5.0); BUN/Creatinine Ratio 18.5 (10.0-20.0); Bilirubin, Total 0.6 mg/dL (0.2-1.0); Calcium 8.9 mg/dL (8.5-10.1); Total Protein 8.2 g/dL (6.4-8.2)
[2023-02-04] MEDS: LEVOTHYROXINE SODIUM 100 MCG TAB PO SCH (07:04)
[2023-02-04 15:50] LABS: Urine Bacteria NONE SEEN /hpf (None Seen); Urine Blood Negative /uL (Negative); Urine WBC 4 /hpf (0 - 5)
[2023-02-04] MEDS ORDERED: DICY10CA PO (16:19)
[2023-02-04] MEDS ORDERED: OMEP1CAP70 PO (16:19)
[2023-02-04] MEDS ORDERED: ZOLP10TA6 PO (16:19)
[2023-02-04] MEDS ORDERED: ARIP5TAB36 PO (16:19)
[2023-02-04] MEDS ORDERED: BECL80AE11 INH (16:19)
[2023-02-04] MEDS ORDERED: BENZ0.5T19 PO (16:19)
[2023-02-04] MEDS ORDERED: BUSP10TA31 PO (16:19)
[2023-02-04] MEDS ORDERED: RIZA10TA22 PO (16:19)
[2023-02-04 19:48] VITALS: RESP 16; O2SAT 98
[2023-02-04 22:00] VITALS: BP 157/89; PULSE 66; RESP 16; TEMP 98.3; O2SAT 95
[2023-02-05] VITALS (7 sets, daily range): BP systolic 16–166; BP diastolic 81–95; PULSE 92–103; RESP 16–18; TEMP 97.2–98.4; O2SAT 91–97
[2023-02-05] MEDS: ONDANSETRON HCL 4 MG/2 ML VIAL IV PRN ×3 (02:53→18:52)
[2023-02-05] MEDS: LEVOTHYROXINE SODIUM 100 MCG TAB PO SCH (06:07)
[2023-02-05] MEDS: MORPHINE SULFATE INJ 2 MG/ml SYRG IV PRN ×2 (06:28→18:53)
[2023-02-05] MEDS: hydrALAZINE HCL 20 MG/ML VL IV PRN ×2 (07:06→18:53)
[2023-02-05] MEDS: SODIUM CHLORIDE 0.9% 1,000 ML IV SCH (08:20)
[2023-02-05] MEDS ORDERED: DEXTROSE (50%) 50ML SYRG IV PRN (11:15)
[2023-02-05] MEDS: ACCU-CHEK COMFORT CURVE STRIP VI SCH ×2 (12:00→18:12)
[2023-02-05] MEDS: InsuLIN REG 1unit/0.01ml Soln (100units/ml) SC SCH ×2 (12:00→18:00)
[2023-02-05] MEDS: LORazepam 2MG/ML-1ML VIAL IV SCH ×3 (12:52→22:22)
[2023-02-05] MEDS: PIPERACILLIN-TAZOB 3.375GM 100 ML IV SCH ×2 (12:54→22:23)
[2023-02-06] MEDS: ACCU-CHEK COMFORT CURVE STRIP VI SCH ×4 (00:41→17:20)
[2023-02-06] MEDS: SODIUM CHLORIDE 0.9% 1,000 ML IV SCH ×2 (00:42→17:10)
[2023-02-06] MEDS: ONDANSETRON HCL 4 MG/2 ML VIAL IV PRN ×3 (02:58→22:09)
[2023-02-06] MEDS: hydrALAZINE HCL 20 MG/ML VL IV PRN ×2 (02:58→09:23)
[2023-02-06] MEDS: MORPHINE SULFATE INJ 2 MG/ml SYRG IV PRN ×3 (02:59→21:58)
[2023-02-06 05:00] VITALS: BP 128/81; PULSE 108; RESP 16; TEMP 98; O2SAT 96
[2023-02-06] MEDS: PIPERACILLIN-TAZOB 3.375GM 100 ML IV SCH ×3 (05:47→21:57)
[2023-02-06] MEDS: LORazepam 2MG/ML-1ML VIAL IV SCH ×3 (05:49→21:58)
[2023-02-06] MEDS: InsuLIN REG 1unit/0.01ml Soln (100units/ml) SC SCH ×4 (05:54→17:21)
[2023-02-06] MEDS: LEVOTHYROXINE SODIUM 100 MCG TAB PO SCH (06:40)
[2023-02-06 09:00] VITALS: BP 165/88; PULSE 76; RESP 16; TEMP 98; O2SAT 92
[2023-02-06] MEDS ORDERED: GASTROGRAFIN 120 ML SOL ONE (10:48)
[2023-02-06 13:00] VITALS: BP 114/67; PULSE 112; RESP 17; TEMP 97.1; O2SAT 91
[2023-02-06 17:00] VITALS: BP 135/73; PULSE 100; RESP 17; TEMP 98; O2SAT 94
[2023-02-06 20:10] VITALS: PULSE 68; RESP 16; O2SAT 99
[2023-02-06 22:00] VITALS: BP 156/89; PULSE 68; RESP 16; TEMP 98; O2SAT 99
[2023-02-07] MEDS: ACCU-CHEK COMFORT CURVE STRIP VI SCH ×4 (00:14→17:56)
[2023-02-07] MEDS: MORPHINE SULFATE INJ 2 MG/ml SYRG IV PRN ×3 (04:11→21:04)
[2023-02-07] MEDS: ONDANSETRON HCL 4 MG/2 ML VIAL IV PRN ×3 (04:12→21:03)
[2023-02-07 05:00] VITALS: BP 142/85; PULSE 70; RESP 16; TEMP 98.3; O2SAT 91
[2023-02-07] MEDS: InsuLIN REG 1unit/0.01ml Soln (100units/ml) SC SCH ×4 (06:00→17:58)
[2023-02-07] MEDS: LEVOTHYROXINE SODIUM 100 MCG TAB PO SCH (06:04)
[2023-02-07] MEDS: LORazepam 2MG/ML-1ML VIAL IV SCH ×3 (06:09→23:13)
[2023-02-07] MEDS: PIPERACILLIN-TAZOB 3.375GM 100 ML IV SCH ×3 (06:10→23:13)
[2023-02-07] MEDS: SODIUM CHLORIDE 0.9% 1,000 ML IV SCH (06:11)
[2023-02-07 09:00] VITALS: BP 144/74; PULSE 84; RESP 15; TEMP 98.1; O2SAT 91
[2023-02-07 13:00] VITALS: BP 133/78; PULSE 84; RESP 16; TEMP 98.3; O2SAT 91
[2023-02-07 17:00] VITALS: BP 136/64; PULSE 80; RESP 18; TEMP 98.5; O2SAT 99
[2023-02-07] MEDS ORDERED: SUMAtriptan SUCCINATE 25 MG TAB PO PRN (18:30)
[2023-02-07 20:00] VITALS: PULSE 80; RESP 18; O2SAT 96
[2023-02-07 22:00] VITALS: BP 124/79; PULSE 80; RESP 18; TEMP 98.4; O2SAT 96
[2023-02-08] MEDS: ACCU-CHEK COMFORT CURVE STRIP VI SCH ×5 (00:04→23:09)
[2023-02-08] MEDS: SODIUM CHLORIDE 0.9% 1,000 ML IV SCH ×2 (03:00→20:09)
[2023-02-08] MEDS: ONDANSETRON HCL 4 MG/2 ML VIAL IV PRN ×2 (04:04→20:06)
[2023-02-08] MEDS: MORPHINE SULFATE INJ 2 MG/ml SYRG IV PRN ×2 (04:08→20:08)
[2023-02-08 05:00] VITALS: BP 127/58; PULSE 79; RESP 16; TEMP 98.1; O2SAT 93
[2023-02-08] MEDS: LORazepam 2MG/ML-1ML VIAL IV SCH ×3 (05:30→23:27)
[2023-02-08] MEDS: PIPERACILLIN-TAZOB 3.375GM 100 ML IV SCH ×3 (05:30→23:29)
[2023-02-08] MEDS: InsuLIN REG 1unit/0.01ml Soln (100units/ml) SC SCH ×5 (05:36→23:09)
[2023-02-08] MEDS: LEVOTHYROXINE SODIUM 100 MCG TAB PO SCH (06:15)
[2023-02-08 09:00] VITALS: BP 136/68; PULSE 74; RESP 19; TEMP 98.2; O2SAT 94
[2023-02-08 13:00] VITALS: BP 130/78; PULSE 84; RESP 19; TEMP 98; O2SAT 91
[2023-02-08 17:00] VITALS: BP 145/73; PULSE 90; RESP 19; TEMP 98; O2SAT 90
[2023-02-08] MEDS: hydrALAZINE HCL 20 MG/ML VL IV PRN (20:06)
[2023-02-08 20:10] VITALS: PULSE 66; RESP 18; O2SAT 95
[2023-02-08 22:40] VITALS: BP 131/67; PULSE 93; RESP 18; TEMP 98; O2SAT 96
[2023-02-09] MEDS: ONDANSETRON HCL 4 MG/2 ML VIAL IV PRN (04:13)
[2023-02-09] MEDS: MORPHINE SULFATE INJ 2 MG/ml SYRG IV PRN ×2 (04:14→10:08)
[2023-02-09 05:04] VITALS: BP 132/78; PULSE 76; RESP 18; TEMP 98.3; O2SAT 95
[2023-02-09] MEDS: InsuLIN REG 1unit/0.01ml Soln (100units/ml) SC SCH ×2 (05:37→12:00)
[2023-02-09] MEDS: ACCU-CHEK COMFORT CURVE STRIP VI SCH ×2 (05:37→12:00)
[2023-02-09] MEDS: PIPERACILLIN-TAZOB 3.375GM 100 ML IV SCH ×2 (06:08→14:00)
[2023-02-09] MEDS: LORazepam 2MG/ML-1ML VIAL IV SCH ×2 (06:09→14:00)
[2023-02-09 08:00] VITALS: RESP 18; O2SAT 95
[2023-02-09] MEDS: LEVOTHYROXINE SODIUM 100 MCG TAB PO SCH (08:01)
[2023-02-09 09:00] VITALS: BP 142/63; PULSE 84; RESP 20; TEMP 98.7; O2SAT 92
[2023-02-09] MEDS ORDERED: LEVO500T91 PO (10:08)
[2023-02-09] MEDS ORDERED: MET500T PO (10:08)
[2023-02-09] MEDS ORDERED: HYDR-4902 PO (10:08)
[2023-02-09] MEDS: SODIUM CHLORIDE 0.9% 1,000 ML IV SCH (12:20)
[2023-02-09 12:45] VITALS: BP 135/75; PULSE 65; RESP 18; TEMP 97; O2SAT 93
[2023-02-09 13:00] VITALS: BP 117/55; PULSE 78; RESP 18; TEMP 97.8; O2SAT 97
[2023-02-09] MEDS: HYDROcodone-ACET 5/325MG TAB PO PRN (15:05)
== END 2023-02-09 15:30 | disposition home or self-care (01) | DRG 394 ==
LOC: ER 15:10 → OVERFLOW 23:15 → EAST 02-04 16:19
PROVIDERS: ADMIT Family Medicine; ATTEND Family Medicine
DX: K43.6 Other and unspecified ventral hernia with obstruction, without gangrene (principal); E87.1 Hypo-osmolality and hyponatremia; K56.609 Unspecified intestinal obstruction, unspecified as to partial versus complete obstruction; F32.A Depression, unspecified; F41.9 Anxiety disorder, unspecified; E03.9 Hypothyroidism, unspecified; J44.9 Chronic obstructive pulmonary disease, unspecified; I11.0 Hypertensive heart disease with heart failure; I50.9 Heart failure, unspecified; Z91.018 Allergy to other foods; Z79.899 Other long term (current) drug therapy; Z88.8 Allergy status to other drugs, medicaments and biological substances; Z80.0 Family history of malignant neoplasm of digestive organs; Z81.8 Family history of other mental and behavioral disorders; Z82.49 Family history of ischemic heart disease and other diseases of the circulatory system; Z83.3 Family history of diabetes mellitus; Z85.3 Personal history of malignant neoplasm of breast; Z86.19 Personal history of other infectious and parasitic diseases; Z88.1 Allergy status to other antibiotic agents; Z90.710 Acquired absence of both cervix and uterus
CPT/HCPCS: 36415; 71045; 74176; 74250; 80053; 81001; 82962; 84484; 85025; 87081; 96374; 96375; 96376; G0378; J1815; J2405; J2543

== ENCOUNTER 2023-03-15 12:36 | Day surgery (SDC) | payer OTHER, MEDICAID ==
[2023-03-13 14:10] LABS: Basophils # (auto) 0 10 ^3/uL (0-0.2); Basophils % (auto) 0.1 % (0.0-2.0); Eosinophils # (auto) 0.1 10 ^3/uL (0-0.8); Eosinophils % (auto) 1.8 % (0.0-7.0); Hematocrit 39.3 % (36.0-46.0); Hemoglobin 13.3 g/dL (12.2-16.2); Lymphocytes # (auto) 1.3 10 ^3/uL (0.4-5.4); Lymphocytes % (auto) 24.6 % (10.0-50.0); Mean Corpuscular Hemoglobin 30.9 pg (28.0-32.0); Mean Corpuscular Hgb Conc. 33.7 g/dL (32.0-36.0); Mean Corpuscular Volume 91.7 fL (80.0-100.0); Monocytes # (auto) 0.4 10 ^3/uL (0-1.3); Monocytes % (auto) 7.9 % (0.0-12.0); Neutrophils # (auto) 3.6 10 ^3/uL (1.6-8.6); Neutrophils % (auto) 65.6 % (37.0-80.0); Nucleated Red Blood Cells % 0.1 %; Red Blood Cells 4.29 10^6/uL (4.0-5.20); Red Cell Distribution Width 14.6 % (11.8-14.3); White Blood Cell 5.4 10^3/uL (4.4-10.8)
[2023-03-13 14:27] LABS: INR 0.98 (0.9-1.15); Partial Thromboplastin Time 31.3 SEC (24.5-34.5); Prothrombin Time 10.3 sec (9.3-11.8)
[2023-03-13 14:49] LABS: Albumin 3.9 g/dL (3.4-5.0); BUN/Creatinine Ratio 16.7 (10.0-20.0); Calcium 9.3 mg/dL (8.5-10.1); Potassium 3.6 mmol/L (3.5-5.1)
[2023-03-13 14:52] LABS: Bilirubin, Total 0.4 mg/dL (0.2-1.0); Total Protein 8.2 g/dL (6.4-8.2)
[~2023-03-15] VITALS: Ht 165.1 cm; Wt 81.6 kg
[~2023-03-15 12:36] MED LIST changes: +ARIP5TAB36 PO; -AUG875T PO; +BECL80AE11 INH; +BENZ0.5T19 PO; +BUSP10TA31 PO; +HYDR-4902 PO; +MET500T PO; -MID10T PO; +ZOLP10TA6 PO
[2023-03-15] MEDS ORDERED: SODIUM CHLORIDE LOCK 10 ML ONE (16:29)
[2023-03-15 16:32] VITALS: O2SAT 92
[2023-03-15] MEDS: diphenhdrAMINE HCL 50 MG/1 ML VL ONE ×2 (16:36→16:37)
[2023-03-15] MEDS: MIDAZOLAM HCL 5 MG/ML-1ML VIAL ONE ×3 (16:36→16:41)
[2023-03-15] MEDS: fentaNYL CITRATE 100 MCG/2 ML VL ONE ×2 (16:36→16:39)
[2023-03-15] MEDS ORDERED: fentaNYL CITRATE 100 MCG/2 ML VL ONE (16:42)
[2023-03-15 16:54] VITALS: TEMP 97.2; O2SAT 94
[2023-03-15 18:00] VITALS: BP 154/94; PULSE 86; RESP 20; O2SAT 93
== END 2023-03-15 16:54 | disposition home or self-care (01) ==
LOC: GI 12:36
PROVIDERS: ATTEND Internal Medicine Gastroenterology
DX: R19.4 Change in bowel habit (principal); K57.30 Diverticulosis of large intestine without perforation or abscess without bleeding; Q43.8 Other specified congenital malformations of intestine; K64.0 First degree hemorrhoids
CPT/HCPCS: 36415; 45378; 80053; 85025; 85610; 85730; J1200; J2250; J3010; J7030

== ENCOUNTER 2023-06-14 06:42 | Inpatient (IN) | payer OTHER, MEDICAID ==
[2023-06-09 10:32] LABS: Basophils # (auto) 0 10 ^3/uL (0-0.2); Basophils % (auto) 0.9 % (0.0-2.0); Eosinophils # (auto) 0.1 10 ^3/uL (0-0.8); Eosinophils % (auto) 2.5 % (0.0-7.0); Hemoglobin 13.1 g/dL (12.2-16.2); Lymphocytes # (auto) 1.1 10 ^3/uL (0.4-5.4); Lymphocytes % (auto) 21.8 % (10.0-50.0); Mean Corpuscular Hemoglobin 30.5 pg (28.0-32.0); Mean Corpuscular Hgb Conc. 33.5 g/dL (32.0-36.0); Monocytes # (auto) 0.4 10 ^3/uL (0-1.3); Monocytes % (auto) 6.9 % (0.0-12.0); Neutrophils # (auto) 3.5 10 ^3/uL (1.6-8.6); Neutrophils % (auto) 67.9 % (37.0-80.0); Red Blood Cells 4.29 10^6/uL (4.0-5.20); Red Cell Distribution Width 14.9 % (11.8-14.3); White Blood Cell 5.2 10^3/uL (4.4-10.8)
[2023-06-09 11:29] LABS: Alanine Aminotransferase 24 U/L (7-40); Albumin 4.9 g/dL (3.2-4.8); Alkaline Phosphatase 137 U/L (46-116); Anion Gap 7 (5-15); Aspartate Aminotransferase 22 U/L (13-40); BUN/Creatinine Ratio 12.3 (10.0-20.0); Blood Urea Nitrogen 10 mg/dL (9-23); Calcium 9.9 mg/dL (8.5-10.1); Carbon Dioxide 26 mmol/L (20-30); Chloride 98 mmol/L (98-107); Glucose 141 mg/dL (74-106); Potassium 4.1 mmol/L (3.5-5.1); Sodium 131 mmol/L (136-145)
[2023-06-09 11:30] LABS: Bilirubin, Total 0.4 mg/dL (0.2-1.0); Total Protein 7.7 g/dL (5.7-8.2)
[2023-06-09 11:42] LABS: INR 0.97 (0.9-1.15); Partial Thromboplastin Time 27.3 SEC (24.5-34.5); Prothrombin Time 10.2 sec (9.3-11.8)
[2023-06-14] VITALS (36 sets, daily range): BP systolic 105–175; BP diastolic 31–92; PULSE 78–117; RESP 10–25; TEMP 36.4; O2SAT 92–99
[~2023-06-14] VITALS: Ht 165.1 cm; Wt 92.5 kg
[~2023-06-14 06:42] MED LIST changes: +ceFAZolin 2 GM/D5W100ml 100 ML IV ONE
[2023-06-14 06:52] LABS: Urine Bacteria FEW /hpf (None Seen); Urine Blood Negative /uL (Negative); Urine Clarity Clear (Clear); Urine Protein, UAD Negative (Negative); Urine Specific Gravity 1.006 (1.001-1.035); Urine Urobilinogen Normal (Negative); Urine WBC 1 /hpf (0 - 5); Urine pH 6.5 (5.0-8.0)
[2023-06-14 06:56] LABS: Urine Color Straw (Yellow)
[2023-06-14] MEDS ORDERED: BUPIVACAINE HCL 0.25% P/F 10 ML VIAL ONE ×2 (07:17→07:18)
[2023-06-14] MEDS ORDERED: LIDOCAINE W/ EPINEPHRINE 1% 20ML VIAL ONE (07:17)
[2023-06-14] MEDS ORDERED: SUCCINYLCHOLINE CHLORIDE 20 MG/ML 10ML VIAL IV ONE (07:18)
[2023-06-14] MEDS ORDERED: ROCURONIUM 10MG/ML 10ML VIAL IV ONE (07:18)
[2023-06-14] MEDS ORDERED: PROPOFOL 10 MG/ML 20 ML IV ONE (07:20)
[2023-06-14] MEDS ORDERED: MIDAZOLAM HCL 2MG/2ML 2ml VIAL (1mg/ml) ONE ×2 (07:20→12:48)
[2023-06-14] MEDS ORDERED: ePHEDrine SULFATE 50 MG/ML AMP ONE (07:20)
[2023-06-14] MEDS ORDERED: DexAMETHasone SOD PHOS 10MG/1ML VIAL INJ ONE (07:20)
[2023-06-14] MEDS ORDERED: fentaNYL CITRATE 100 MCG/2 ML VL ONE ×2 (07:20→12:25)
[2023-06-14] MEDS ORDERED: KETOROLAC TROMETH 30 MG/ML 1ML VIAL ONE (07:20)
[2023-06-14] MEDS ORDERED: ONDANSETRON HCL 4 MG/2 ML VIAL ONE (07:20)
[2023-06-14] MEDS ORDERED: HYDROmorphone HCL 2 MG/ML VL/or syr ONE (07:20)
[2023-06-14] MEDS ORDERED: GLYCOPYRROLATE 0.2 MG/ML 1ML VIAL ONE (07:20)
[2023-06-14] MEDS ORDERED: LIDOCAINE HCL 100 MG/5ML (2%) SYRG INJ IV ONE (07:21)
[2023-06-14] MEDS ORDERED: SUGAMMADEX 200mg/2ml Vial (100MG/ML) IV ONE (08:03)
[2023-06-14] MEDS ORDERED: ceFAZolin 1GM/50ML 50 ML IV ONE ×2 (08:12→08:25)
[2023-06-14] MEDS ORDERED: POVIDONE IODINE 10 % TOPICAL OINT 30GM TOP ONE (08:56)
[2023-06-14] MEDS ORDERED: MEPERIDINE HCL (25 MG/ML) 1ML VIAL ONE (09:11)
[2023-06-14] MEDS ORDERED: ONDANSETRON HCL 4 MG/2 ML VIAL IV PRN (09:30)
[2023-06-14] MEDS ORDERED: HYDROmorphone HCL 2 MG/ML VL/or syr IV PRN (09:30)
[2023-06-14] MEDS ORDERED: D5W/SOD CHL 0.45%/KCL 40MEQ 1,000 ML IV SCH (09:45)
[2023-06-14] MEDS ORDERED: MORPHINE SULFATE INJ 2 MG/ml SYRG IV PRN ×2 (10:00→11:15)
[2023-06-14] MEDS ORDERED: METOPROLOL TARTRATE 1MG/1ML-5ML VIAL IV ONE (10:00)
[2023-06-14] MEDS ORDERED: HYDROCORTISONE SOD SUCC 100 MG/2ML INJ VIAL IV ONE (10:03)
[2023-06-14] MEDS ORDERED: MIDAZOLAM HCL 2MG/2ML 2ml VIAL (1mg/ml) IV PRN (10:15)
[2023-06-14] MEDS ORDERED: AMIODARONE BOLUS KIT 100 ML IV ONE (11:00)
[2023-06-14] MEDS ORDERED: NOREPINEPHRINE 8 MG/250ML KIT 250 ML IV ONE (11:08)
[2023-06-14] MEDS ORDERED: DOCUSATE SOD 100 MG CAP PO PRN (11:15)
[2023-06-14 11:50] LABS: Basophils # (auto) 0 10 ^3/uL (0-0.2); Basophils % (auto) 0.3 % (0.0-2.0); Eosinophils # (auto) 0 10 ^3/uL (0-0.8); Eosinophils % (auto) 0.3 % (0.0-7.0); Hematocrit 31.8 % (36.0-46.0); Hemoglobin 10.6 g/dL (12.2-16.2); Lymphocytes # (auto) 0.8 10 ^3/uL (0.4-5.4); Mean Corpuscular Hemoglobin 30.9 pg (28.0-32.0); Mean Corpuscular Hgb Conc. 33.4 g/dL (32.0-36.0); Mean Corpuscular Volume 92.5 fL (80.0-100.0); Monocytes # (auto) 0.2 10 ^3/uL (0-1.3); Monocytes % (auto) 1.3 % (0.0-12.0); Neutrophils # (auto) 12.4 10 ^3/uL (1.6-8.6); Neutrophils % (auto) 92.1 % (37.0-80.0); Nucleated Red Blood Cells % 0.1 %; Red Blood Cells 3.44 10^6/uL (4.0-5.20); White Blood Cell 13.5 10^3/uL (4.4-10.8)
[2023-06-14 11:57] LABS: Alanine Aminotransferase 135 U/L (7-40); Albumin 3.5 g/dL (3.2-4.8); Alkaline Phosphatase 111 U/L (46-116); Anion Gap 9 (5-15); Aspartate Aminotransferase 56 U/L (13-40); BUN/Creatinine Ratio 10.6 (10.0-20.0); Blood Urea Nitrogen 11 mg/dL (9-23); Carbon Dioxide 22 mmol/L (20-30); Chloride 104 mmol/L (98-107); Glucose 316 mg/dL (74-106); Potassium 4.1 mmol/L (3.5-5.1); Sodium 135 mmol/L (136-145)
[2023-06-14 11:58] LABS: Total Protein 5.4 g/dL (5.7-8.2)
[2023-06-14 12:04] LABS: Bilirubin, Total 0.4 mg/dL (0.2-1.0)
[2023-06-14] MEDS ORDERED: AMIODARONE 450mg/250ml AE 250 ML IV SCH ×2 (12:15→18:15)
[2023-06-14 12:38] LABS: Magnesium 1.5 mg/dL (1.6-2.6)
[2023-06-14] MEDS: NOREPINEPHRINE 8 MG/250ML KIT 250 ML IV SCH (12:46)
[2023-06-14] MEDS ORDERED: FLUMAZENIL 0.1 MG/ML INJ 10ML MDV IV ONE (12:49)
[2023-06-14] MEDS ORDERED: NALOXONE HCL 0.4 MG/ML VIAL ONE (12:49)
[2023-06-14] MEDS: PHENYLEPHRINE INJ 80 MG in SODIUM CHL 0.9% 242 ML IV SCH (13:00)
[2023-06-14] MEDS ORDERED: PHENYLEPHRINE HCL 10 MG/ML VL ONE (13:04)
[2023-06-14] MEDS: ACCU-CHEK COMFORT CURVE STRIP VI SCH ×2 (13:07→22:01)
[2023-06-14] MEDS ORDERED: MAGNESIUM SULFATE 1GM/100ML 100 ML IV ONE ×4 (13:10→13:15)
[2023-06-14] MEDS: MAGNESIUM SULFATE 1GM/100ML 100 ML IV SCH ×2 (13:12→15:00)
[2023-06-14] MEDS ORDERED: FUROSEMIDE 20 MG/2 ML VIAL IV ONE ×2 (13:15→16:45)
[2023-06-14] MEDS ORDERED: DEXTROSE (50%) 50ML SYRG IV PRN (13:15)
[2023-06-14] MEDS ORDERED: INSULIN LANTUS (GLARGINE) 1 /0.01ml (100units/ml) SC ONE (13:30)
[2023-06-14] MEDS ORDERED: InsuLIN REG 1unit/0.01ml Soln (100units/ml) IV ONE (13:30)
[2023-06-14] MEDS: ceFAZolin 1GM/50ML 50 ML IV SCH ×2 (14:00→22:00)
[2023-06-14 14:02] LABS: Phosphorus 3.9 mg/dL (2.4-5.1)
[2023-06-14 15:28] LABS: Hematocrit 29.3 % (36.0-46.0); Hemoglobin 9.3 g/dL (12.2-16.2)
[2023-06-14] MEDS: HYDROmorphone HCL 2 MG/ML VL/or syr IV PRN ×2 (16:41→20:30)
[2023-06-14] MEDS: SOD CHL 0.9%/ KCL 20MEQ 1,000 ML IV SCH (16:41)
[2023-06-14] MEDS ORDERED: InsuLIN REG 1unit/0.01ml Soln (100units/ml) SC SCH ×2 (18:00)
[2023-06-14] MEDS ORDERED: ACCU-CHEK COMFORT CURVE STRIP VI SCH (18:00)
[2023-06-14] MEDS: ONDANSETRON HCL 4 MG/2 ML VIAL IV PRN (20:29)
[2023-06-14] MEDS: InsuLIN REG 1unit/0.01ml Soln (100units/ml) SC SCH (22:13)
[2023-06-14 22:23] LABS: Hemoglobin 8.2 g/dL (12.2-16.2)
[2023-06-15] VITALS (108 sets, daily range): BP systolic 98–183; BP diastolic 44–110; PULSE 82–115; RESP 9–35; TEMP 97.3–100.2; O2SAT 81–100
[2023-06-15] MEDS: HYDROmorphone HCL 2 MG/ML VL/or syr IV PRN ×7 (00:56→23:33)
[2023-06-15] MEDS: ONDANSETRON HCL 4 MG/2 ML VIAL IV PRN ×6 (01:02→23:32)
[2023-06-15] MEDS: SOD CHL 0.9%/ KCL 20MEQ 1,000 ML IV SCH (02:06)
[2023-06-15] MEDS: ACCU-CHEK COMFORT CURVE STRIP VI SCH ×3 (02:06→09:04)
[2023-06-15] MEDS: InsuLIN REG 1unit/0.01ml Soln (100units/ml) SC SCH ×5 (02:20→23:48)
[2023-06-15 02:28] LABS: Eosinophils # (auto) 0 10 ^3/uL (0-0.8); Lymphocytes # (auto) 0.9 10 ^3/uL (0.4-5.4); Lymphocytes % (auto) 6.9 % (10.0-50.0); Red Cell Distribution Width 14.9 % (11.8-14.3)
[2023-06-15 02:29] LABS: Basophils # (auto) 0 10 ^3/uL (0-0.2); Basophils % (auto) 0.4 % (0.0-2.0); Hematocrit 23.2 % (36.0-46.0); Hemoglobin 7.7 g/dL (12.2-16.2); Mean Corpuscular Hemoglobin 30.4 pg (28.0-32.0); Mean Corpuscular Hgb Conc. 33.1 g/dL (32.0-36.0); Monocytes # (auto) 0.9 10 ^3/uL (0-1.3); Monocytes % (auto) 6.8 % (0.0-12.0); Neutrophils # (auto) 10.8 10 ^3/uL (1.6-8.6); Neutrophils % (auto) 85.9 % (37.0-80.0); Red Blood Cells 2.53 10^6/uL (4.0-5.20); White Blood Cell 12.6 10^3/uL (4.4-10.8)
[2023-06-15 02:50] LABS: Alanine Aminotransferase 494 U/L (7-40); Albumin 3.9 g/dL (3.2-4.8); Alkaline Phosphatase 109 U/L (46-116); Anion Gap 5 (5-15); Aspartate Aminotransferase 523 U/L (13-40); BUN/Creatinine Ratio 10.8 (10.0-20.0); Blood Urea Nitrogen 14 mg/dL (9-23); Calcium 7.7 mg/dL (8.7-10.4); Carbon Dioxide 24 mmol/L (20-30); Chloride 105 mmol/L (98-107); Glucose 301 mg/dL (74-106); Magnesium 2.1 mg/dL (1.6-2.6); Potassium 4.9 mmol/L (3.5-5.1); Sodium 134 mmol/L (136-145)
[2023-06-15 02:51] LABS: Bilirubin, Total 0.3 mg/dL (0.2-1.0); Total Protein 6.1 g/dL (5.7-8.2)
[2023-06-15 04:33] LABS: INR 1.04 (0.9-1.15); Partial Thromboplastin Time 25.1 SEC (24.5-34.5); Prothrombin Time 10.9 sec (9.3-11.8)
[2023-06-15] MEDS ORDERED: FAMOTIDINE (10MG/ML) 2ML VL IV ONE (05:15)
[2023-06-15] MEDS: ceFAZolin 1GM/50ML 50 ML IV SCH (05:26)
[2023-06-15] MEDS: PHENYLEPHRINE INJ 80 MG in SODIUM CHL 0.9% 242 ML IV SCH (06:53)
[2023-06-15] MEDS: NOREPINEPHRINE 8 MG/250ML KIT 250 ML IV SCH (06:53)
[2023-06-15] MEDS: LEVOTHYROXINE SODIUM 100 MCG/5 ML INJ IV SCH (07:28)
[2023-06-15] MEDS: FAMOTIDINE (10MG/ML) 2ML VL IV SCH (07:29)
[2023-06-15] MEDS: PANTOPRAZOLE 40 MG/10 ML VIAL INJ IV SCH (07:29)
[2023-06-15 10:01] LABS: Hematocrit 25.9 % (36.0-46.0); Hemoglobin 8.9 g/dL (12.2-16.2)
[2023-06-15] MEDS: SODIUM CHLORIDE 0.9% 1,000 ML IV SCH ×2 (10:45→20:45)
[2023-06-15] MEDS: PIPERACILLIN-TAZOB 3.375GM 100 ML IV SCH ×2 (14:03→21:44)
[2023-06-15 18:16] LABS: Hemoglobin 7.8 g/dL (12.2-16.2)
[2023-06-15 18:19] LABS: Hematocrit 23.1 % (36.0-46.0)
[2023-06-15] MEDS: LORazepam 2MG/ML-1ML VIAL IV PRN (21:44)
[2023-06-16] VITALS (85 sets, daily range): BP systolic 90–161; BP diastolic 50–76; PULSE 87–116; RESP 10–33; TEMP 98.5–99.8; O2SAT 90–100
[2023-06-16] MEDS: ONDANSETRON HCL 4 MG/2 ML VIAL IV PRN ×4 (03:23→23:27)
[2023-06-16] MEDS: HYDROmorphone HCL 2 MG/ML VL/or syr IV PRN ×6 (03:24→23:27)
[2023-06-16] MEDS: SODIUM CHLORIDE 0.9% 1,000 ML IV SCH ×2 (03:47→20:03)
[2023-06-16 04:23] LABS: Basophils # (auto) 0 10 ^3/uL (0-0.2); Basophils % (auto) 0.3 % (0.0-2.0); Eosinophils # (auto) 0.2 10 ^3/uL (0-0.8); Hematocrit 21.8 % (36.0-46.0); Nucleated Red Blood Cells % 0.1 %
[2023-06-16 04:25] LABS: Eosinophils % (auto) 2.8 % (0.0-7.0); Hemoglobin 7.5 g/dL (12.2-16.2); Lymphocytes % (auto) 15.1 % (10.0-50.0); Mean Corpuscular Hgb Conc. 34.2 g/dL (32.0-36.0); Mean Corpuscular Volume 90.7 fL (80.0-100.0); Monocytes # (auto) 0.5 10 ^3/uL (0-1.3); Monocytes % (auto) 8.2 % (0.0-12.0); Neutrophils # (auto) 4.9 10 ^3/uL (1.6-8.6); Neutrophils % (auto) 73.6 % (37.0-80.0); Red Cell Distribution Width 14.6 % (11.8-14.3); White Blood Cell 6.7 10^3/uL (4.4-10.8)
[2023-06-16 04:44] LABS: Alanine Aminotransferase 368 U/L (7-40); Albumin 3.8 g/dL (3.2-4.8); Alkaline Phosphatase 101 U/L (46-116); Anion Gap 5 (5-15); Aspartate Aminotransferase 258 U/L (13-40); BUN/Creatinine Ratio 8.2 (10.0-20.0); Bilirubin, Total 0.6 mg/dL (0.2-1.0); Blood Urea Nitrogen 7 mg/dL (9-23); Calcium 7.4 mg/dL (8.7-10.4); Carbon Dioxide 28 mmol/L (20-30); Chloride 104 mmol/L (98-107); Glucose 148 mg/dL (74-106); Potassium 4.1 mmol/L (3.5-5.1); Sodium 137 mmol/L (136-145); Total Protein 5.9 g/dL (5.7-8.2)
[2023-06-16] MEDS: PIPERACILLIN-TAZOB 3.375GM 100 ML IV SCH ×3 (05:37→22:15)
[2023-06-16] MEDS: InsuLIN REG 1unit/0.01ml Soln (100units/ml) SC SCH ×3 (05:46→18:00)
[2023-06-16] MEDS: PANTOPRAZOLE 40 MG/10 ML VIAL INJ IV SCH (10:13)
[2023-06-16] MEDS: LEVOTHYROXINE SODIUM 100 MCG/5 ML INJ IV SCH (10:15)
[2023-06-16] MEDS: FAMOTIDINE (10MG/ML) 2ML VL IV SCH (10:15)
[2023-06-16] MEDS: NOREPINEPHRINE 8 MG/250ML KIT 250 ML IV SCH (11:15)
[2023-06-16] MEDS: PHENYLEPHRINE INJ 80 MG in SODIUM CHL 0.9% 242 ML IV SCH (13:00)
[2023-06-16] MEDS: METOCLOPRAMIDE HCL 5MG/ml INJ 2ml VIAL IV SCH ×2 (14:30→22:15)
[2023-06-16 18:58] LABS: Hematocrit 20.8 % (36.0-46.0)
[2023-06-16 19:01] LABS: Hemoglobin 6.9 g/dL (12.2-16.2)
[2023-06-16] MEDS: LORazepam 2MG/ML-1ML VIAL IV PRN (22:27)
[2023-06-17] VITALS (27 sets, daily range): BP systolic 111–153; BP diastolic 49–85; PULSE 77–96; RESP 9–29; TEMP 98.2–100; O2SAT 93–99
[2023-06-17] MEDS: SODIUM CHLORIDE 0.9% 1,000 ML IV SCH ×3 (02:45→22:46)
[2023-06-17 04:35] LABS: Basophils # (auto) 0 10 ^3/uL (0-0.2); Basophils % (auto) 0.3 % (0.0-2.0); Eosinophils # (auto) 0.2 10 ^3/uL (0-0.8); Eosinophils % (auto) 2.8 % (0.0-7.0); Hematocrit 26.9 % (36.0-46.0); Hemoglobin 9.3 g/dL (12.2-16.2); Lymphocytes % (auto) 19.2 % (10.0-50.0); Mean Corpuscular Hemoglobin 30.9 pg (28.0-32.0); Mean Corpuscular Hgb Conc. 34.5 g/dL (32.0-36.0); Mean Corpuscular Volume 89.5 fL (80.0-100.0); Monocytes # (auto) 0.5 10 ^3/uL (0-1.3); Monocytes % (auto) 8.8 % (0.0-12.0); Neutrophils # (auto) 3.7 10 ^3/uL (1.6-8.6); Neutrophils % (auto) 68.9 % (37.0-80.0); Nucleated Red Blood Cells % 0.1 %; Red Cell Distribution Width 14.8 % (11.8-14.3); White Blood Cell 5.4 10^3/uL (4.4-10.8)
[2023-06-17 05:03] LABS: Alanine Aminotransferase 270 U/L (7-40); Albumin 3.5 g/dL (3.2-4.8); Alkaline Phosphatase 90 U/L (46-116); Anion Gap 7 (5-15); Aspartate Aminotransferase 127 U/L (13-40); Calcium 7.2 mg/dL (8.7-10.4); Carbon Dioxide 27 mmol/L (20-30); Chloride 104 mmol/L (98-107); Glucose 118 mg/dL (74-106); Potassium 3.6 mmol/L (3.5-5.1); Sodium 138 mmol/L (136-145)
[2023-06-17 05:04] LABS: Bilirubin, Total 0.8 mg/dL (0.2-1.0); Total Protein 5.7 g/dL (5.7-8.2)
[2023-06-17 05:20] LABS: BUN/Creatinine Ratio 7.2 (10.0-20.0); Blood Urea Nitrogen < 5 mg/dL (9-23)
[2023-06-17] MEDS: InsuLIN REG 1unit/0.01ml Soln (100units/ml) SC SCH ×5 (06:00→23:55)
[2023-06-17] MEDS: METOCLOPRAMIDE HCL 5MG/ml INJ 2ml VIAL IV SCH ×3 (06:25→22:21)
[2023-06-17] MEDS: PIPERACILLIN-TAZOB 3.375GM 100 ML IV SCH ×3 (06:25→22:22)
[2023-06-17] MEDS: ONDANSETRON HCL 4 MG/2 ML VIAL IV PRN ×4 (06:40→23:24)
[2023-06-17] MEDS: HYDROmorphone HCL 2 MG/ML VL/or syr IV PRN ×5 (06:41→23:25)
[2023-06-17] MEDS ORDERED: POTASSIUM CHLORIDE 40 MEQ, LIDOCAINE 1% (LOCAL ANESTH.) 4 ML in SODIUM CHL 0.9% 250 ML IV ONE (08:45)
[2023-06-17] MEDS: FAMOTIDINE (10MG/ML) 2ML VL IV SCH (09:47)
[2023-06-17] MEDS: PANTOPRAZOLE 40 MG/10 ML VIAL INJ IV SCH (09:48)
[2023-06-17] MEDS: LEVOTHYROXINE SODIUM 100 MCG/5 ML INJ IV SCH (09:48)
[2023-06-17] MEDS: FUROSEMIDE 20 MG/2 ML VIAL IV SCH (09:49)
[2023-06-17] MEDS: NOREPINEPHRINE 8 MG/250ML KIT 250 ML IV SCH (11:15)
[2023-06-17] MEDS: PHENYLEPHRINE INJ 80 MG in SODIUM CHL 0.9% 242 ML IV SCH (13:00)
[2023-06-17] MEDS: ACCU-CHEK COMFORT CURVE STRIP VI SCH ×2 (17:52→23:25)
[2023-06-17] MEDS ORDERED: ACCU-CHEK COMFORT CURVE STRIP VI SCH (18:00)
[2023-06-18] VITALS (20 sets, daily range): BP systolic 103–145; BP diastolic 59–78; PULSE 73–89; RESP 13–20; TEMP 98.3–99.3; O2SAT 94–99
[2023-06-18 04:13] LABS: Hematocrit 29.5 % (36.0-46.0)
[2023-06-18] MEDS: ONDANSETRON HCL 4 MG/2 ML VIAL IV PRN ×2 (05:23→10:36)
[2023-06-18] MEDS: HYDROmorphone HCL 2 MG/ML VL/or syr IV PRN ×3 (05:24→21:34)
[2023-06-18] MEDS: PIPERACILLIN-TAZOB 3.375GM 100 ML IV SCH ×3 (05:35→21:33)
[2023-06-18] MEDS: ACCU-CHEK COMFORT CURVE STRIP VI SCH ×3 (05:36→18:00)
[2023-06-18] MEDS: InsuLIN REG 1unit/0.01ml Soln (100units/ml) SC SCH ×3 (05:45→18:00)
[2023-06-18] MEDS: METOCLOPRAMIDE HCL 5MG/ml INJ 2ml VIAL IV SCH ×3 (06:05→21:33)
[2023-06-18] MEDS: LEVOTHYROXINE SODIUM 100 MCG/5 ML INJ IV SCH (09:44)
[2023-06-18] MEDS: FUROSEMIDE 20 MG/2 ML VIAL IV SCH (09:44)
[2023-06-18] MEDS: FAMOTIDINE (10MG/ML) 2ML VL IV SCH (09:44)
[2023-06-18] MEDS: NOREPINEPHRINE 8 MG/250ML KIT 250 ML IV SCH (11:15)
[2023-06-18] MEDS: PHENYLEPHRINE INJ 80 MG in SODIUM CHL 0.9% 242 ML IV SCH (13:00)
[2023-06-18] MEDS ORDERED: HYDROcodone-ACET 5/325MG TAB PO PRN (13:30)
[2023-06-18] MEDS: SODIUM CHLORIDE 0.9% 1,000 ML IV SCH (18:45)
[2023-06-19] MEDS: ACCU-CHEK COMFORT CURVE STRIP VI SCH ×4 (00:27→17:36)
[2023-06-19] MEDS: LORazepam 2MG/ML-1ML VIAL IV PRN ×2 (00:28→20:07)
[2023-06-19] MEDS: HYDROmorphone HCL 2 MG/ML VL/or syr IV PRN ×5 (02:28→23:17)
[2023-06-19] MEDS: ONDANSETRON HCL 4 MG/2 ML VIAL IV PRN ×4 (02:36→23:16)
[2023-06-19 05:00] VITALS: BP 148/71; PULSE 91; RESP 20; TEMP 98.8; O2SAT 93
[2023-06-19] MEDS: METOCLOPRAMIDE HCL 5MG/ml INJ 2ml VIAL IV SCH ×2 (05:44→14:23)
[2023-06-19] MEDS: PIPERACILLIN-TAZOB 3.375GM 100 ML IV SCH ×3 (05:44→23:17)
[2023-06-19] MEDS: InsuLIN REG 1unit/0.01ml Soln (100units/ml) SC SCH ×4 (05:45→17:41)
[2023-06-19] MEDS: SODIUM CHLORIDE 0.9% 1,000 ML IV SCH ×2 (05:46→14:25)
[2023-06-19 08:00] VITALS: PULSE 90; RESP 18; O2SAT 95
[2023-06-19 08:16] LABS: Basophils # (auto) 0 10 ^3/uL (0-0.2); Basophils % (auto) 0.3 % (0.0-2.0); Eosinophils # (auto) 0.2 10 ^3/uL (0-0.8); Eosinophils % (auto) 2.8 % (0.0-7.0); Hematocrit 32.8 % (36.0-46.0); Hemoglobin 11.1 g/dL (12.2-16.2); Lymphocytes # (auto) 0.7 10 ^3/uL (0.4-5.4); Lymphocytes % (auto) 13.4 % (10.0-50.0); Mean Corpuscular Hemoglobin 30.1 pg (28.0-32.0); Mean Corpuscular Hgb Conc. 33.8 g/dL (32.0-36.0); Mean Corpuscular Volume 89.1 fL (80.0-100.0); Monocytes # (auto) 0.5 10 ^3/uL (0-1.3); Monocytes % (auto) 9.6 % (0.0-12.0); Neutrophils # (auto) 4.1 10 ^3/uL (1.6-8.6); Neutrophils % (auto) 73.9 % (37.0-80.0); Red Blood Cells 3.68 10^6/uL (4.0-5.20); Red Cell Distribution Width 14.2 % (11.8-14.3); White Blood Cell 5.5 10^3/uL (4.4-10.8)
[2023-06-19 08:36] LABS: Chloride 99 mmol/L (98-107); Potassium 3.3 mmol/L (3.5-5.1); Sodium 134 mmol/L (136-145)
[2023-06-19 08:37] LABS: Anion Gap 9 (5-15); Calcium 8.1 mg/dL (8.5-10.1); Carbon Dioxide 26 mmol/L (20-30)
[2023-06-19 08:42] LABS: BUN/Creatinine Ratio 10.3 (10.0-20.0); Blood Urea Nitrogen 6 mg/dL (9-23); Glucose 113 mg/dL (74-106)
[2023-06-19 09:00] VITALS: BP 138/70; PULSE 98; RESP 20; TEMP 98.4; O2SAT 95
[2023-06-19] MEDS: LEVOTHYROXINE SODIUM 100 MCG/5 ML INJ IV SCH (09:51)
[2023-06-19] MEDS: FUROSEMIDE 20 MG/2 ML VIAL IV SCH (09:52)
[2023-06-19] MEDS: FAMOTIDINE (10MG/ML) 2ML VL IV SCH (09:52)
[2023-06-19 13:00] VITALS: BP 142/77; PULSE 89; RESP 18; TEMP 98.1; O2SAT 95
[2023-06-19] MEDS ORDERED: GASTROGRAFIN 120 ML SOL ONE (14:45)
[2023-06-19] MEDS ORDERED: D5W/SOD CHL 0.9%/KCL 40MEQ 1,000 ML IV ONE (14:45)
[2023-06-19 20:00] VITALS: BP 135/68; PULSE 100; PULSE 110; PULSE 90; RESP 18; TEMP 36.7; O2SAT 95
[2023-06-19 22:00] VITALS: BP 131/75; PULSE 109; RESP 20; TEMP 97.6; O2SAT 90
[2023-06-19] MEDS: METOPROLOL TARTRATE 25 MG TAB PO SCH (23:18)
[2023-06-20] MEDS: ONDANSETRON HCL 4 MG/2 ML VIAL IV PRN ×4 (04:42→23:35)
[2023-06-20 05:00] VITALS: BP 127/71; PULSE 111; RESP 20; TEMP 98; O2SAT 94
[2023-06-20 05:50] LABS: Chloride 94 mmol/L (98-107); Potassium 2.8 mmol/L (3.5-5.1); Sodium 133 mmol/L (136-145)
[2023-06-20 05:51] LABS: Anion Gap 13 (5-15); Carbon Dioxide 26 mmol/L (20-30)
[2023-06-20 05:52] LABS: Calcium 8.7 mg/dL (8.7-10.4)
[2023-06-20 05:57] LABS: BUN/Creatinine Ratio 14.9 (10.0-20.0); Blood Urea Nitrogen 14 mg/dL (9-23); Glucose 142 mg/dL (74-106)
[2023-06-20] MEDS: InsuLIN REG 1unit/0.01ml Soln (100units/ml) SC SCH ×5 (06:00→23:49)
[2023-06-20] MEDS: ACCU-CHEK COMFORT CURVE STRIP VI SCH ×5 (06:00→23:48)
[2023-06-20] MEDS: PIPERACILLIN-TAZOB 3.375GM 100 ML IV SCH ×3 (06:58→22:12)
[2023-06-20 08:00] VITALS: PULSE 88; PULSE 93; RESP 16; O2SAT 95
[2023-06-20 09:00] VITALS: BP 134/88; PULSE 109; RESP 20; TEMP 98.7; O2SAT 97
[2023-06-20] MEDS: POTASSIUM CHL 20MEQ/100ML 100 ML IV SCH ×3 (10:15→17:09)
[2023-06-20] MEDS ORDERED: PPN PER PHARMACY 0 ML IV SCH (10:15)
[2023-06-20] MEDS: LEVOTHYROXINE SODIUM 100 MCG/5 ML INJ IV SCH (10:21)
[2023-06-20] MEDS: FAMOTIDINE (10MG/ML) 2ML VL IV SCH (10:21)
[2023-06-20] MEDS: FUROSEMIDE 20 MG/2 ML VIAL IV SCH (10:22)
[2023-06-20] MEDS: HYDROmorphone HCL 2 MG/ML VL/or syr IV PRN (10:24)
[2023-06-20] MEDS: METOPROLOL TARTRATE 25 MG TAB PO SCH ×2 (10:26→21:23)
[2023-06-20 11:06] LABS: Phosphorus 2.2 mg/dL (2.4-5.1)
[2023-06-20] MEDS ORDERED: TPN PER PHARMACY 0 ML IV SCH (11:45)
[2023-06-20] MEDS ORDERED: NEOSTIGMINE 1 MG/ML INJ (10mg/10ML VIAL) IV ONE (11:45)
[2023-06-20] MEDS ORDERED: METOCLOPRAMIDE HCL 5MG/ml INJ 2ml VIAL IV ONE (11:45)
[2023-06-20 13:20] LABS: Magnesium 1.9 mg/dL (1.6-2.6)
[2023-06-20 17:00] VITALS: BP 150/82; PULSE 103; RESP 18; TEMP 98.9; O2SAT 96
[2023-06-20 20:00] VITALS: PULSE 103; PULSE 93; RESP 16; O2SAT 96
[2023-06-20] MEDS ORDERED: [UNRECOGNIZED DRUG - OTHER] IV NR ×10 (20:00)
[2023-06-20] MEDS ORDERED: FAT EMULSION IV NR ×10 (20:00)
[2023-06-20] MEDS ORDERED: SODIUM CHLORIDE IV NR ×10 (20:00)
[2023-06-20] MEDS ORDERED: POTASSIUM CHLORIDE IV NR ×10 (20:00)
[2023-06-20 22:00] VITALS: BP 134/67; PULSE 99; RESP 20; TEMP 98.7; O2SAT 97
[2023-06-21 05:00] VITALS: BP 146/7; PULSE 83; RESP 20; TEMP 98.5; O2SAT 97
[2023-06-21] MEDS: LORazepam 2MG/ML-1ML VIAL IV PRN ×3 (05:28→19:58)
[2023-06-21] MEDS: ACCU-CHEK COMFORT CURVE STRIP VI SCH ×4 (05:28→23:28)
[2023-06-21] MEDS: InsuLIN REG 1unit/0.01ml Soln (100units/ml) SC SCH ×4 (05:32→23:31)
[2023-06-21] MEDS: PIPERACILLIN-TAZOB 3.375GM 100 ML IV SCH ×3 (05:33→21:28)
[2023-06-21 06:37] LABS: Alanine Aminotransferase 81 U/L (7-40); Albumin 4.2 g/dL (3.2-4.8); Alkaline Phosphatase 98 U/L (46-116); Anion Gap 8 (5-15); BUN/Creatinine Ratio 21.9 (10.0-20.0); Blood Urea Nitrogen 16 mg/dL (9-23); Calcium 8.7 mg/dL (8.5-10.1); Carbon Dioxide 27 mmol/L (20-30); Chloride 99 mmol/L (98-107); Glucose 201 mg/dL (74-106); Potassium 2.8 mmol/L (3.5-5.1); Sodium 134 mmol/L (136-145)
[2023-06-21 06:38] LABS: Aspartate Aminotransferase 31 U/L (13-40); Bilirubin, Total 1.4 mg/dL (0.2-1.0); Phosphorus 1.4 mg/dL (2.4-5.1); Total Protein 6.9 g/dL (5.7-8.2)
[2023-06-21 06:56] LABS: Magnesium 1.8 mg/dL (1.6-2.6)
[2023-06-21 08:00] VITALS: PULSE 85; RESP 18; O2SAT 98
[2023-06-21 09:00] VITALS: BP 134/57; PULSE 88; RESP 19; TEMP 99.1; O2SAT 95
[2023-06-21] MEDS: FAMOTIDINE (10MG/ML) 2ML VL IV SCH (10:56)
[2023-06-21] MEDS: FUROSEMIDE 20 MG/2 ML VIAL IV SCH (10:56)
[2023-06-21] MEDS: LEVOTHYROXINE SODIUM 100 MCG/5 ML INJ IV SCH (10:56)
[2023-06-21] MEDS: METOPROLOL TARTRATE 25 MG TAB PO SCH ×2 (10:57→21:58)
[2023-06-21] MEDS ORDERED: POTASSIUM PHOSPHATE 44 MEQ in D5W 5% 250 ML IV ONE (12:00)
[2023-06-21 12:14] VITALS: BP 178/72; PULSE 86; RESP 19; TEMP 98.3; O2SAT 95
[2023-06-21 16:47] VITALS: BP 114/61; PULSE 86; RESP 19; TEMP 99; O2SAT 99
[2023-06-21 20:00] VITALS: PULSE 87; PULSE 93; RESP 18; O2SAT 99
[2023-06-21] MEDS ORDERED: TPN PER PHARMACY IV NR ×10 (20:00)
[2023-06-21] MEDS ORDERED: diphenhdrAMINE HCL 50 MG/1 ML VL IV ONE (23:15)
[2023-06-22] MEDS: LORazepam 2MG/ML-1ML VIAL IV PRN ×4 (02:02→23:05)
[2023-06-22] MEDS: PIPERACILLIN-TAZOB 3.375GM 100 ML IV SCH ×3 (05:41→21:50)
[2023-06-22] MEDS: ACCU-CHEK COMFORT CURVE STRIP VI SCH ×4 (05:41→23:20)
[2023-06-22] MEDS: ONDANSETRON HCL 4 MG/2 ML VIAL IV PRN ×2 (05:42→11:59)
[2023-06-22] MEDS: InsuLIN REG 1unit/0.01ml Soln (100units/ml) SC SCH ×4 (05:48→23:28)
[2023-06-22 06:46] LABS: Alanine Aminotransferase 66 U/L (7-40); Albumin 4.3 g/dL (3.2-4.8); Alkaline Phosphatase 97 U/L (46-116); Anion Gap 10 (5-15); Aspartate Aminotransferase 29 U/L (13-40); BUN/Creatinine Ratio 20.3 (10.0-20.0); Bilirubin, Total 1.3 mg/dL (0.2-1.0); Blood Urea Nitrogen 15 mg/dL (9-23); Calcium 8.7 mg/dL (8.7-10.4); Carbon Dioxide 30 mmol/L (20-30); Chloride 97 mmol/L (98-107); Glucose 201 mg/dL (74-106); Magnesium 1.8 mg/dL (1.6-2.6); Phosphorus 2.7 mg/dL (2.4-5.1); Potassium 2.8 mmol/L (3.5-5.1); Sodium 137 mmol/L (136-145); Total Protein 7.2 g/dL (5.7-8.2)
[2023-06-22 08:00] VITALS: PULSE 99
[2023-06-22 09:00] VITALS: BP 149/84; PULSE 105; RESP 18; TEMP 97.8; O2SAT 94
[2023-06-22] MEDS ORDERED: POTASSIUM PHOSPHATE 44 MEQ in D5W 5% 250 ML IV ONE (09:00)
[2023-06-22] MEDS: LEVOTHYROXINE SODIUM 100 MCG/5 ML INJ IV SCH (09:17)
[2023-06-22] MEDS: FAMOTIDINE (10MG/ML) 2ML VL IV SCH (09:17)
[2023-06-22] MEDS: FUROSEMIDE 20 MG/2 ML VIAL IV SCH (09:17)
[2023-06-22] MEDS: POTASSIUM CHL 20MEQ/100ML 100 ML IV SCH ×2 (09:18→10:51)
[2023-06-22 13:00] VITALS: BP 138/78; PULSE 98; RESP 17; TEMP 98; O2SAT 94
[2023-06-22] MEDS ORDERED: HALOPERIDOL LACTATE 5 MG/ML INJ VIAL IM PRN (16:00)
[2023-06-22 17:00] VITALS: BP 141/74; PULSE 87; RESP 18; TEMP 98.8; O2SAT 100
[2023-06-22 20:00] VITALS: PULSE 77; PULSE 82; RESP 18; O2SAT 97
[2023-06-22] MEDS ORDERED: TPN PER PHARMACY IV NR ×11 (20:00)
[2023-06-22] MEDS: QUEtiapine FUMARATE 100 MG TAB PO SCH (21:50)
[2023-06-22 22:00] VITALS: BP 142/77; PULSE 77; RESP 18; TEMP 98.4; O2SAT 97
[2023-06-22 22:08] LABS: Hematocrit 36.1 % (36.0-46.0)
[2023-06-23] VITALS (7 sets, daily range): BP systolic 103–148; BP diastolic 51–77; PULSE 82–97; RESP 17–19; TEMP 97.6–98.5; O2SAT 94–97
[2023-06-23] MEDS: ACCU-CHEK COMFORT CURVE STRIP VI SCH ×3 (06:02→18:14)
[2023-06-23] MEDS: PIPERACILLIN-TAZOB 3.375GM 100 ML IV SCH (06:07)
[2023-06-23] MEDS: InsuLIN REG 1unit/0.01ml Soln (100units/ml) SC SCH ×3 (06:07→18:37)
[2023-06-23 08:21] LABS: Basophils # (auto) 0 10 ^3/uL (0-0.2); Basophils % (auto) 0.5 % (0.0-2.0); Eosinophils # (auto) 0.2 10 ^3/uL (0-0.8); Eosinophils % (auto) 2.8 % (0.0-7.0); Hematocrit 36.8 % (36.0-46.0); Hemoglobin 12.6 g/dL (12.2-16.2); Lymphocytes % (auto) 11.7 % (10.0-50.0); Mean Corpuscular Hemoglobin 30.3 pg (28.0-32.0); Mean Corpuscular Hgb Conc. 34.2 g/dL (32.0-36.0); Mean Corpuscular Volume 88.7 fL (80.0-100.0); Monocytes # (auto) 0.8 10 ^3/uL (0-1.3); Neutrophils # (auto) 6.6 10 ^3/uL (1.6-8.6); Red Blood Cells 4.15 10^6/uL (4.0-5.20); Red Cell Distribution Width 14.9 % (11.8-14.3); White Blood Cell 8.7 10^3/uL (4.4-10.8)
[2023-06-23 08:39] LABS: INR 1.04 (0.9-1.15); Partial Thromboplastin Time 26.8 SEC (24.5-34.5); Prothrombin Time 10.9 sec (9.3-11.8)
[2023-06-23 08:40] LABS: Alanine Aminotransferase 50 U/L (7-40); Albumin 4.3 g/dL (3.2-4.8); Alkaline Phosphatase 100 U/L (46-116); Anion Gap 10 (5-15); Aspartate Aminotransferase 26 U/L (13-40); BUN/Creatinine Ratio 18.7 (10.0-20.0); Bilirubin, Total 1.2 mg/dL (0.2-1.0); Blood Urea Nitrogen 14 mg/dL (9-23); Calcium 8.5 mg/dL (8.7-10.4); Carbon Dioxide 29 mmol/L (20-30); Chloride 94 mmol/L (98-107); Glucose 200 mg/dL (74-106); Magnesium 2.2 mg/dL (1.6-2.6); Phosphorus 3.8 mg/dL (2.4-5.1); Potassium 3.2 mmol/L (3.5-5.1); Sodium 133 mmol/L (136-145)
[2023-06-23 08:41] LABS: Total Protein 7.3 g/dL (5.7-8.2)
[2023-06-23] MEDS: FUROSEMIDE 20 MG/2 ML VIAL IV SCH (10:37)
[2023-06-23] MEDS: FAMOTIDINE (10MG/ML) 2ML VL IV SCH (10:37)
[2023-06-23] MEDS: LORazepam 2MG/ML-1ML VIAL IV PRN ×2 (10:37→21:34)
[2023-06-23] MEDS: LEVOTHYROXINE SODIUM 100 MCG/5 ML INJ IV SCH (10:37)
[2023-06-23] MEDS: POTASSIUM CHL 20MEQ/100ML 100 ML IV SCH ×4 (12:09→18:14)
[2023-06-23] MEDS: ONDANSETRON HCL 4 MG/2 ML VIAL IV PRN (12:51)
[2023-06-23] MEDS: HYDROmorphone HCL 2 MG/ML VL/or syr IV PRN (13:41)
[2023-06-23] MEDS ORDERED: SODIUM CHLORIDE IV NR ×11 (20:00)
[2023-06-23] MEDS ORDERED: [UNRECOGNIZED DRUG - OTHER] IV NR ×11 (20:00)
[2023-06-23] MEDS ORDERED: FAT EMULSION IV NR ×11 (20:00)
[2023-06-23] MEDS ORDERED: POTASSIUM CHLORIDE IV NR ×11 (20:00)
[2023-06-23] MEDS: PANTOPRAZOLE 40 MG/10 ML VIAL INJ IV SCH (21:32)
[2023-06-23] MEDS: QUEtiapine FUMARATE 100 MG TAB PO SCH (21:33)
[2023-06-24] MEDS: ACCU-CHEK COMFORT CURVE STRIP VI SCH ×5 (00:31→23:31)
[2023-06-24] MEDS: InsuLIN REG 1unit/0.01ml Soln (100units/ml) SC SCH ×5 (00:35→23:32)
[2023-06-24] MEDS: HYDROmorphone HCL 2 MG/ML VL/or syr IV PRN ×3 (00:39→19:08)
[2023-06-24 08:00] VITALS: PULSE 87; RESP 18; O2SAT 98
[2023-06-24 09:00] VITALS: BP 112/78; PULSE 66; RESP 20; TEMP 97.3; O2SAT 98
[2023-06-24] MEDS: LEVOTHYROXINE SODIUM 100 MCG/5 ML INJ IV SCH (09:26)
[2023-06-24] MEDS: FUROSEMIDE 20 MG/2 ML VIAL IV SCH (09:26)
[2023-06-24] MEDS: DULoxetine HCL 30 MG CAP PO SCH (09:27)
[2023-06-24] MEDS: FAMOTIDINE (10MG/ML) 2ML VL IV SCH (09:27)
[2023-06-24] MEDS: PANTOPRAZOLE 40 MG/10 ML VIAL INJ IV SCH ×2 (09:27→23:30)
[2023-06-24] MEDS: levoFLOXacin 500MG 100 ML IV SCH (09:28)
[2023-06-24] MEDS: ONDANSETRON HCL 4 MG/2 ML VIAL IV PRN (12:11)
[2023-06-24 12:23] LABS: Alanine Aminotransferase 40 U/L (7-40); Alkaline Phosphatase 104 U/L (46-116); Anion Gap 7 (5-15); Aspartate Aminotransferase 33 U/L (13-40); BUN/Creatinine Ratio 23.6 (10.0-20.0); Bilirubin, Total 1.4 mg/dL (0.2-1.0); Blood Urea Nitrogen 17 mg/dL (9-23); Calcium 8.5 mg/dL (8.7-10.4); Carbon Dioxide 26 mmol/L (20-30); Chloride 97 mmol/L (98-107); Glucose 224 mg/dL (74-106); Phosphorus 2.5 mg/dL (2.4-5.1); Sodium 130 mmol/L (136-145); Total Protein 7.1 g/dL (5.7-8.2)
[2023-06-24 13:10] VITALS: BP 142/69; PULSE 104; RESP 18; TEMP 98.7; O2SAT 96
[2023-06-24] MEDS: LORazepam 2MG/ML-1ML VIAL IV PRN ×2 (15:50→23:33)
[2023-06-24 16:00] VITALS: BP 111/57; PULSE 83; RESP 18; TEMP 97.8; O2SAT 97
[2023-06-24 20:00] VITALS: PULSE 86; RESP 18; O2SAT 95
[2023-06-24] MEDS ORDERED: TPN PER PHARMACY IV NR ×11 (20:00)
[2023-06-24 22:00] VITALS: BP 129/78; PULSE 85; RESP 18; TEMP 98.3; O2SAT 95
[2023-06-24] MEDS: QUEtiapine FUMARATE 100 MG TAB PO SCH (23:31)
[2023-06-25] MEDS: HYDROmorphone HCL 2 MG/ML VL/or syr IV PRN ×4 (02:57→21:55)
[2023-06-25 05:00] VITALS: BP 127/67; PULSE 101; RESP 17; TEMP 99.8; O2SAT 95
[2023-06-25] MEDS: ACCU-CHEK COMFORT CURVE STRIP VI SCH ×4 (06:00→23:45)
[2023-06-25] MEDS: InsuLIN REG 1unit/0.01ml Soln (100units/ml) SC SCH ×4 (06:11→23:46)
[2023-06-25 06:28] LABS: Alanine Aminotransferase 40 U/L (7-40); Albumin 3.9 g/dL (3.2-4.8); Alkaline Phosphatase 107 U/L (46-116); Anion Gap 7 (5-15); Aspartate Aminotransferase 31 U/L (13-40); BUN/Creatinine Ratio 24.3 (10.0-20.0); Blood Urea Nitrogen 17 mg/dL (9-23); Calcium 8.8 mg/dL (8.7-10.4); Carbon Dioxide 26 mmol/L (20-30); Chloride 101 mmol/L (98-107); Glucose 193 mg/dL (74-106); Magnesium 2.3 mg/dL (1.6-2.6); Potassium 4.5 mmol/L (3.5-5.1); Sodium 134 mmol/L (136-145)
[2023-06-25 06:29] LABS: Phosphorus 3.5 mg/dL (2.4-5.1)
[2023-06-25 08:00] VITALS: BP 145/70; PULSE 87; PULSE 94; RESP 18; TEMP 99; O2SAT 94; O2SAT 95
[2023-06-25] MEDS: PANTOPRAZOLE 40 MG/10 ML VIAL INJ IV SCH ×2 (09:52→21:46)
[2023-06-25] MEDS: levoFLOXacin 500MG 100 ML IV SCH (09:52)
[2023-06-25] MEDS: FAMOTIDINE (10MG/ML) 2ML VL IV SCH (09:52)
[2023-06-25] MEDS: LEVOTHYROXINE SODIUM 100 MCG/5 ML INJ IV SCH (09:53)
[2023-06-25] MEDS: FUROSEMIDE 20 MG/2 ML VIAL IV SCH (09:53)
[2023-06-25] MEDS: DULoxetine HCL 30 MG CAP PO SCH (09:53)
[2023-06-25] MEDS: ONDANSETRON HCL 4 MG/2 ML VIAL IV PRN ×3 (10:23→21:55)
[2023-06-25 12:00] VITALS: BP 126/70; PULSE 94; RESP 18; TEMP 97.6; O2SAT 95
[2023-06-25 16:00] VITALS: BP 132/67; PULSE 83; RESP 16; TEMP 97.4; O2SAT 94
[2023-06-25 20:00] VITALS: PULSE 82
[2023-06-25] MEDS ORDERED: TPN PER PHARMACY IV NR ×11 (20:00)
[2023-06-25] MEDS: QUEtiapine FUMARATE 100 MG TAB PO SCH (21:56)
[2023-06-25 21:57] VITALS: BP 128/69; PULSE 82; RESP 16; TEMP 97.5; O2SAT 97
[2023-06-25] MEDS: LORazepam 2MG/ML-1ML VIAL IV PRN (23:43)
[2023-06-26] MEDS: ONDANSETRON HCL 4 MG/2 ML VIAL IV PRN ×6 (03:42→19:12)
[2023-06-26] MEDS: HYDROmorphone HCL 2 MG/ML VL/or syr IV PRN ×4 (03:43→18:03)
[2023-06-26 05:00] VITALS: BP 126/67; PULSE 89; RESP 16; TEMP 98.1; O2SAT 95
[2023-06-26] MEDS: ACCU-CHEK COMFORT CURVE STRIP VI SCH ×3 (05:39→18:04)
[2023-06-26] MEDS: InsuLIN REG 1unit/0.01ml Soln (100units/ml) SC SCH ×3 (05:40→18:06)
[2023-06-26 06:04] LABS: Alanine Aminotransferase 44 U/L (7-40); Albumin 3.8 g/dL (3.2-4.8); Alkaline Phosphatase 113 U/L (46-116); Anion Gap 6 (5-15); Aspartate Aminotransferase 35 U/L (13-40); BUN/Creatinine Ratio 26.9 (10.0-20.0); Bilirubin, Total 1.1 mg/dL (0.2-1.0); Blood Urea Nitrogen 18 mg/dL (9-23); Calcium 8.7 mg/dL (8.7-10.4); Carbon Dioxide 26 mmol/L (20-30); Chloride 103 mmol/L (98-107); Glucose 162 mg/dL (74-106); Magnesium 2.1 mg/dL (1.6-2.6); Phosphorus 3.8 mg/dL (2.4-5.1); Potassium 4.1 mmol/L (3.5-5.1); Sodium 135 mmol/L (136-145); Total Protein 6.9 g/dL (5.7-8.2)
[2023-06-26 09:00] VITALS: BP 128/61; PULSE 88; RESP 22; TEMP 98.8; O2SAT 94
[2023-06-26] MEDS: DULoxetine HCL 30 MG CAP PO SCH (10:27)
[2023-06-26] MEDS: LEVOTHYROXINE SODIUM 100 MCG/5 ML INJ IV SCH (10:30)
[2023-06-26] MEDS: PANTOPRAZOLE 40 MG/10 ML VIAL INJ IV SCH ×2 (10:30→21:22)
[2023-06-26] MEDS: FAMOTIDINE (10MG/ML) 2ML VL IV SCH (10:30)
[2023-06-26] MEDS: FUROSEMIDE 20 MG/2 ML VIAL IV SCH (10:31)
[2023-06-26] MEDS: levoFLOXacin 500MG 100 ML IV SCH (10:31)
[2023-06-26 13:11] VITALS: BP 136/79; PULSE 85; RESP 18; TEMP 98; O2SAT 97
[2023-06-26 17:14] VITALS: BP 145/71; PULSE 84; RESP 20; TEMP 97.9; O2SAT 96
[2023-06-26 20:00] VITALS: PULSE 79; PULSE 82; RESP 17; O2SAT 98
[2023-06-26] MEDS ORDERED: TPN PER PHARMACY IV NR ×11 (20:00)
[2023-06-26] MEDS: LORazepam 2MG/ML-1ML VIAL IV PRN (21:22)
[2023-06-26] MEDS: ZOLPIDEM TARTRATE 5 MG TAB PO PRN (21:24)
[2023-06-26] MEDS: QUEtiapine FUMARATE 100 MG TAB PO SCH (21:24)
[2023-06-26 23:00] VITALS: BP 138/39; PULSE 82; RESP 17; TEMP 98.3; O2SAT 98
[2023-06-27] VITALS (7 sets, daily range): BP systolic 119–132; BP diastolic 55–85; PULSE 76–90; RESP 16–20; TEMP 97.1–98.7; O2SAT 92–98
[2023-06-27] MEDS: ACCU-CHEK COMFORT CURVE STRIP VI SCH ×4 (00:14→17:59)
[2023-06-27] MEDS: InsuLIN REG 1unit/0.01ml Soln (100units/ml) SC SCH ×4 (00:16→18:00)
[2023-06-27] MEDS: ONDANSETRON HCL 4 MG/2 ML VIAL IV PRN ×4 (00:47→15:56)
[2023-06-27] MEDS: HYDROmorphone HCL 2 MG/ML VL/or syr IV PRN ×5 (00:53→19:01)
[2023-06-27 06:03] LABS: Alanine Aminotransferase 41 U/L (7-40); Albumin 3.6 g/dL (3.2-4.8); Alkaline Phosphatase 117 U/L (46-116); Anion Gap 6 (5-15); Aspartate Aminotransferase 34 U/L (13-40); BUN/Creatinine Ratio 25.4 (10.0-20.0); Bilirubin, Total 1.4 mg/dL (0.2-1.0); Blood Urea Nitrogen 17 mg/dL (9-23); Calcium 8.4 mg/dL (8.7-10.4); Carbon Dioxide 26 mmol/L (20-30); Chloride 99 mmol/L (98-107); Glucose 162 mg/dL (74-106); Magnesium 1.8 mg/dL (1.6-2.6); Phosphorus 3.8 mg/dL (2.4-5.1); Potassium 3.6 mmol/L (3.5-5.1); Sodium 131 mmol/L (136-145); Total Protein 6.7 g/dL (5.7-8.2)
[2023-06-27] MEDS: levoFLOXacin 500MG 100 ML IV SCH (10:00)
[2023-06-27] MEDS: PANTOPRAZOLE 40 MG/10 ML VIAL INJ IV SCH ×2 (10:12→21:23)
[2023-06-27] MEDS: FUROSEMIDE 20 MG/2 ML VIAL IV SCH (10:12)
[2023-06-27] MEDS: LEVOTHYROXINE SODIUM 100 MCG/5 ML INJ IV SCH (10:12)
[2023-06-27] MEDS: FAMOTIDINE (10MG/ML) 2ML VL IV SCH (10:13)
[2023-06-27] MEDS: DULoxetine HCL 30 MG CAP PO SCH (10:13)
[2023-06-27] MEDS ORDERED: TPN PER PHARMACY IV NR ×11 (20:00)
[2023-06-27] MEDS: QUEtiapine FUMARATE 100 MG TAB PO SCH (21:23)
[2023-06-27] MEDS: ZOLPIDEM TARTRATE 5 MG TAB PO PRN (21:24)
[2023-06-28] VITALS (7 sets, daily range): BP systolic 128–165; BP diastolic 63–102; PULSE 85–115; RESP 17–22; TEMP 96.4–99.3; O2SAT 92–98
[2023-06-28] MEDS: ONDANSETRON HCL 4 MG/2 ML VIAL IV PRN ×4 (00:25→18:36)
[2023-06-28] MEDS: HYDROmorphone HCL 2 MG/ML VL/or syr IV PRN ×2 (00:25→06:11)
[2023-06-28] MEDS: InsuLIN REG 1unit/0.01ml Soln (100units/ml) SC SCH ×5 (00:33→23:28)
[2023-06-28] MEDS: ACCU-CHEK COMFORT CURVE STRIP VI SCH ×5 (00:33→23:14)
[2023-06-28 06:21] LABS: Alanine Aminotransferase 63 U/L (7-40); Albumin 3.8 g/dL (3.2-4.8); Alkaline Phosphatase 139 U/L (46-116); Anion Gap 7 (5-15); Aspartate Aminotransferase 50 U/L (13-40); BUN/Creatinine Ratio 22.5 (10.0-20.0); Bilirubin, Total 1.1 mg/dL (0.2-1.0); Blood Urea Nitrogen 16 mg/dL (9-23); Calcium 9.4 mg/dL (8.5-10.1); Carbon Dioxide 25 mmol/L (20-30); Chloride 99 mmol/L (98-107); Glucose 230 mg/dL (74-106); Phosphorus 3.5 mg/dL (2.4-5.1); Potassium 4.1 mmol/L (3.5-5.1); Sodium 131 mmol/L (136-145); Triglycerides 105 mg/dL (< 150)
[2023-06-28 06:22] LABS: Total Protein 7.3 g/dL (5.7-8.2)
[2023-06-28 06:45] LABS: Magnesium 2.1 mg/dL (1.6-2.6)
[2023-06-28] MEDS: DULoxetine HCL 30 MG CAP PO SCH (10:00)
[2023-06-28] MEDS: LEVOTHYROXINE SODIUM 100 MCG/5 ML INJ IV SCH (10:18)
[2023-06-28] MEDS: PANTOPRAZOLE 40 MG/10 ML VIAL INJ IV SCH ×2 (10:18→21:42)
[2023-06-28] MEDS: FUROSEMIDE 20 MG/2 ML VIAL IV SCH (10:19)
[2023-06-28] MEDS: FAMOTIDINE (10MG/ML) 2ML VL IV SCH (10:19)
[2023-06-28] MEDS: LORazepam 2MG/ML-1ML VIAL IV PRN ×2 (10:39→20:29)
[2023-06-28] MEDS ORDERED: TPN PER PHARMACY IV NR ×10 (20:00)
[2023-06-28] MEDS: QUEtiapine FUMARATE 100 MG TAB PO SCH (21:43)
[2023-06-28] MEDS: ZOLPIDEM TARTRATE 5 MG TAB PO PRN (21:43)
[2023-06-28] MEDS ORDERED: dilTIAZem HCL 50 MG/10 ML VIAL IV ONE (22:15)
[2023-06-29] VITALS (7 sets, daily range): BP systolic 116–157; BP diastolic 71–90; PULSE 82–110; RESP 16–19; TEMP 97.6–98.9; O2SAT 91–97
[2023-06-29] MEDS: ONDANSETRON HCL 4 MG/2 ML VIAL IV PRN ×4 (03:43→17:14)
[2023-06-29] MEDS: ACETAMINOPHEN 500 MG TAB PO PRN ×2 (04:31→21:26)
[2023-06-29 05:58] LABS: Alanine Aminotransferase 63 U/L (7-40); Alkaline Phosphatase 147 U/L (46-116); Anion Gap 10 (5-15); BUN/Creatinine Ratio 26.4 (10.0-20.0); Blood Urea Nitrogen 19 mg/dL (9-23); Calcium 9.5 mg/dL (8.5-10.1); Carbon Dioxide 24 mmol/L (20-30); Chloride 99 mmol/L (98-107); Glucose 297 mg/dL (74-106); Potassium 3.5 mmol/L (3.5-5.1); Sodium 133 mmol/L (136-145)
[2023-06-29 05:59] LABS: Albumin 4.1 g/dL (3.2-4.8); Aspartate Aminotransferase 36 U/L (13-40); Bilirubin, Total 0.8 mg/dL (0.2-1.0); Phosphorus 2.8 mg/dL (2.4-5.1)
[2023-06-29] MEDS: ACCU-CHEK COMFORT CURVE STRIP VI SCH ×4 (06:26→23:05)
[2023-06-29] MEDS: METOCLOPRAMIDE HCL 5MG/ml INJ 2ml VIAL IV SCH ×3 (06:26→21:26)
[2023-06-29] MEDS: InsuLIN REG 1unit/0.01ml Soln (100units/ml) SC SCH ×4 (06:33→23:22)
[2023-06-29] MEDS: LORazepam 2MG/ML-1ML VIAL IV PRN ×2 (06:59→17:15)
[2023-06-29] MEDS: PANTOPRAZOLE 40 MG/10 ML VIAL INJ IV SCH ×2 (09:44→21:26)
[2023-06-29] MEDS: FAMOTIDINE (10MG/ML) 2ML VL IV SCH (09:45)
[2023-06-29] MEDS: FUROSEMIDE 20 MG/2 ML VIAL IV SCH (09:45)
[2023-06-29] MEDS: LEVOTHYROXINE SODIUM 100 MCG/5 ML INJ IV SCH (09:45)
[2023-06-29] MEDS: DULoxetine HCL 30 MG CAP PO SCH (09:46)
[2023-06-29] MEDS ORDERED: TPN PER PHARMACY IV NR ×13 (20:00)
[2023-06-29] MEDS: QUEtiapine FUMARATE 100 MG TAB PO SCH (21:26)
[2023-06-29] MEDS: ZOLPIDEM TARTRATE 5 MG TAB PO PRN (21:35)
[2023-06-30] VITALS (9 sets, daily range): BP systolic 113–180; BP diastolic 66–107; PULSE 83–114; RESP 16–22; TEMP 97.7–99; O2SAT 92–96
[2023-06-30] MEDS: LORazepam 2MG/ML-1ML VIAL IV PRN ×3 (02:29→16:47)
[2023-06-30] MEDS: ACCU-CHEK COMFORT CURVE STRIP VI SCH ×4 (05:25→23:30)
[2023-06-30] MEDS: METOCLOPRAMIDE HCL 5MG/ml INJ 2ml VIAL IV SCH ×3 (06:08→21:00)
[2023-06-30] MEDS: SUCRALFATE 1 GM/10 ML ORAL SUSP PO SCH ×4 (06:09→21:00)
[2023-06-30] MEDS: InsuLIN REG 1unit/0.01ml Soln (100units/ml) SC SCH ×4 (06:09→23:32)
[2023-06-30 08:00] LABS: Alanine Aminotransferase 57 U/L (7-40); Albumin 3.6 g/dL (3.2-4.8); Alkaline Phosphatase 134 U/L (46-116); Anion Gap 7 (5-15); Aspartate Aminotransferase 39 U/L (13-40); BUN/Creatinine Ratio 28.8 (10.0-20.0); Bilirubin, Total 0.7 mg/dL (0.2-1.0); Blood Urea Nitrogen 19 mg/dL (9-23); Calcium 8.6 mg/dL (8.7-10.4); Carbon Dioxide 26 mmol/L (20-30); Chloride 100 mmol/L (98-107); Glucose 159 mg/dL (74-106); Magnesium 2.1 mg/dL (1.6-2.6); Phosphorus 3.9 mg/dL (2.4-5.1); Potassium 3.6 mmol/L (3.5-5.1); Sodium 133 mmol/L (136-145); Total Protein 7.1 g/dL (5.7-8.2)
[2023-06-30] MEDS: ONDANSETRON HCL 4 MG/2 ML VIAL IV PRN ×2 (09:56→14:07)
[2023-06-30] MEDS: LEVOTHYROXINE SODIUM 100 MCG/5 ML INJ IV SCH (09:57)
[2023-06-30] MEDS: DULoxetine HCL 30 MG CAP PO SCH (10:00)
[2023-06-30] MEDS: PANTOPRAZOLE 40 MG/10 ML VIAL INJ IV SCH ×2 (10:00→21:00)
[2023-06-30] MEDS: FUROSEMIDE 20 MG/2 ML VIAL IV SCH (10:10)
[2023-06-30] MEDS: KETOROLAC TROMETH 30 MG/ML 1ML VIAL IV PRN (16:31)
[2023-06-30] MEDS: METOCLOPRAMIDE HCL 5MG/ml INJ 2ml VIAL IV PRN (19:27)
[2023-06-30] MEDS ORDERED: TPN PER PHARMACY IV NR ×12 (20:00)
[2023-06-30] MEDS: ZOLPIDEM TARTRATE 5 MG TAB PO PRN (21:00)
[2023-06-30] MEDS: QUEtiapine FUMARATE 100 MG TAB PO SCH (21:00)
[2023-07-01] MEDS: LORazepam 2MG/ML-1ML VIAL IV PRN ×2 (00:11→09:21)
[2023-07-01] MEDS: KETOROLAC TROMETH 30 MG/ML 1ML VIAL IV PRN ×3 (00:56→22:04)
[2023-07-01] MEDS: ACETAMINOPHEN 500 MG TAB PO PRN (03:57)
[2023-07-01] MEDS: METOCLOPRAMIDE HCL 5MG/ml INJ 2ml VIAL IV PRN ×2 (04:54→12:26)
[2023-07-01 05:00] VITALS: BP 123/64; PULSE 86; RESP 16; TEMP 98.1; O2SAT 95
[2023-07-01] MEDS: METOCLOPRAMIDE HCL 5MG/ml INJ 2ml VIAL IV SCH ×4 (05:47→21:32)
[2023-07-01] MEDS: ACCU-CHEK COMFORT CURVE STRIP VI SCH ×3 (05:47→18:05)
[2023-07-01] MEDS: SUCRALFATE 1 GM/10 ML ORAL SUSP PO SCH ×4 (05:47→21:30)
[2023-07-01] MEDS: InsuLIN REG 1unit/0.01ml Soln (100units/ml) SC SCH ×3 (06:02→18:01)
[2023-07-01 07:29] LABS: Alanine Aminotransferase 53 U/L (7-40); Albumin 3.6 g/dL (3.2-4.8); Alkaline Phosphatase 135 U/L (46-116); Anion Gap 9 (5-15); Aspartate Aminotransferase 39 U/L (13-40); BUN/Creatinine Ratio 23.6 (10.0-20.0); Basophils # (auto) 0 10 ^3/uL (0-0.2); Basophils % (auto) 0.1 % (0.0-2.0); Blood Urea Nitrogen 17 mg/dL (9-23); Calcium 8.4 mg/dL (8.7-10.4); Carbon Dioxide 21 mmol/L (20-30); Chloride 99 mmol/L (98-107); Eosinophils # (auto) 0 10 ^3/uL (0-0.8); Eosinophils % (auto) 0.2 % (0.0-7.0); Glucose 180 mg/dL (74-106); Hematocrit 34.4 % (36.0-46.0); Hemoglobin 11.4 g/dL (12.2-16.2); Lymphocytes # (auto) 0.3 10 ^3/uL (0.4-5.4); Lymphocytes % (auto) 3.2 % (10.0-50.0); Magnesium 1.7 mg/dL (1.6-2.6); Mean Corpuscular Hemoglobin 29.6 pg (28.0-32.0); Mean Corpuscular Hgb Conc. 33.2 g/dL (32.0-36.0); Mean Corpuscular Volume 88.9 fL (80.0-100.0); Monocytes # (auto) 0.4 10 ^3/uL (0-1.3); Monocytes % (auto) 4.3 % (0.0-12.0); Neutrophils # (auto) 8.2 10 ^3/uL (1.6-8.6); Neutrophils % (auto) 92.2 % (37.0-80.0); Phosphorus 1.6 mg/dL (2.4-5.1); Potassium 3.7 mmol/L (3.5-5.1); Red Blood Cells 3.87 10^6/uL (4.0-5.20); Red Cell Distribution Width 14.3 % (11.8-14.3); Sodium 129 mmol/L (136-145); White Blood Cell 8.9 10^3/uL (4.4-10.8)
[2023-07-01 07:30] LABS: Bilirubin, Total 0.8 mg/dL (0.2-1.0); Total Protein 7.1 g/dL (5.7-8.2)
[2023-07-01 08:00] VITALS: BP 103/53; PULSE 112; RESP 16; TEMP 98.1; O2SAT 98
[2023-07-01 08:15] VITALS: BP 103/53; PULSE 109; PULSE 112; RESP 16; TEMP 98.1
[2023-07-01] MEDS: PANTOPRAZOLE 40 MG/10 ML VIAL INJ IV SCH ×2 (09:08→21:32)
[2023-07-01] MEDS: FUROSEMIDE 20 MG/2 ML VIAL IV SCH (09:08)
[2023-07-01] MEDS: DULoxetine HCL 30 MG CAP PO SCH (09:08)
[2023-07-01] MEDS: LEVOTHYROXINE SODIUM 100 MCG/5 ML INJ IV SCH (09:08)
[2023-07-01] MEDS ORDERED: OMNIPAQUE 12mg/ml 500ml ORAL SOLUTION PO ONE (10:05)
[2023-07-01] MEDS ORDERED: SODIUM PHOSPHATES 40 MEQ in D5W 5% 250 ML IV ONE (10:15)
[2023-07-01 12:58] VITALS: BP 150/71; PULSE 112; RESP 18; TEMP 99.9; O2SAT 94
[2023-07-01 20:00] VITALS: PULSE 97
[2023-07-01] MEDS ORDERED: FAT EMULSION IV NR ×13 (20:00)
[2023-07-01] MEDS ORDERED: [UNRECOGNIZED DRUG - OTHER] IV NR ×13 (20:00)
[2023-07-01] MEDS ORDERED: SODIUM CHLORIDE IV NR ×13 (20:00)
[2023-07-01] MEDS ORDERED: SODIUM ACETATE IV NR ×13 (20:00)
[2023-07-01] MEDS: QUEtiapine FUMARATE 100 MG TAB PO SCH (21:31)
[2023-07-01] MEDS: ZOLPIDEM TARTRATE 5 MG TAB PO PRN (21:43)
[2023-07-01 22:00] VITALS: BP 109/64; PULSE 94; RESP 19; TEMP 98.2; O2SAT 97
[2023-07-02] MEDS: ACCU-CHEK COMFORT CURVE STRIP VI SCH ×4 (00:02→18:00)
[2023-07-02] MEDS: InsuLIN REG 1unit/0.01ml Soln (100units/ml) SC SCH ×4 (00:10→18:08)
[2023-07-02] MEDS: ACETAMINOPHEN 500 MG TAB PO PRN (04:23)
[2023-07-02 05:00] VITALS: BP 118/64; PULSE 104; RESP 19; TEMP 99; O2SAT 95
[2023-07-02] MEDS: SUCRALFATE 1 GM/10 ML ORAL SUSP PO SCH ×4 (06:01→21:09)
[2023-07-02 07:57] LABS: Alanine Aminotransferase 52 U/L (7-40); Alkaline Phosphatase 127 U/L (46-116); Anion Gap 10 (5-15); BUN/Creatinine Ratio 26.4 (10.0-20.0); Blood Urea Nitrogen 19 mg/dL (9-23); Calcium 8.7 mg/dL (8.5-10.1); Carbon Dioxide 21 mmol/L (20-30); Chloride 98 mmol/L (98-107); Glucose 169 mg/dL (74-106); Potassium 3.4 mmol/L (3.5-5.1); Sodium 129 mmol/L (136-145)
[2023-07-02 07:58] LABS: Albumin 3.5 g/dL (3.2-4.8); Aspartate Aminotransferase 35 U/L (13-40)
[2023-07-02 07:59] LABS: Bilirubin, Total 0.7 mg/dL (0.2-1.0); Phosphorus 3.5 mg/dL (2.4-5.1); Total Protein 6.8 g/dL (5.7-8.2)
[2023-07-02 08:00] VITALS: BP 120/70; PULSE 80; RESP 19; TEMP 98.4
[2023-07-02] MEDS ORDERED: POTASSIUM CHL 20MEQ/100ML 100 ML IV ONE (08:30)
[2023-07-02] MEDS: LEVOTHYROXINE SODIUM 100 MCG/5 ML INJ IV SCH (08:44)
[2023-07-02] MEDS: PANTOPRAZOLE 40 MG/10 ML VIAL INJ IV SCH ×2 (08:44→21:08)
[2023-07-02] MEDS: FUROSEMIDE 20 MG/2 ML VIAL IV SCH (08:44)
[2023-07-02] MEDS: DULoxetine HCL 30 MG CAP PO SCH (08:45)
[2023-07-02 09:13] VITALS: BP 120/70; PULSE 80; RESP 19; TEMP 98.4; O2SAT 96
[2023-07-02 13:41] VITALS: BP 111/69; PULSE 96; RESP 20; TEMP 98.2; O2SAT 98
[2023-07-02] MEDS: METOCLOPRAMIDE HCL 5MG/ml INJ 2ml VIAL IV SCH ×2 (13:55→21:09)
[2023-07-02 17:46] VITALS: BP 126/76; PULSE 101; RESP 21; TEMP 97.5; O2SAT 96
[2023-07-02 20:00] VITALS: PULSE 87; PULSE 94
[2023-07-02] MEDS ORDERED: [UNRECOGNIZED DRUG - OTHER] IV NR ×13 (20:00)
[2023-07-02] MEDS ORDERED: FAT EMULSION IV NR ×13 (20:00)
[2023-07-02] MEDS ORDERED: SODIUM ACETATE IV NR ×13 (20:00)
[2023-07-02] MEDS ORDERED: SODIUM CHLORIDE IV NR ×13 (20:00)
[2023-07-02] MEDS: ZOLPIDEM TARTRATE 5 MG TAB PO PRN (21:09)
[2023-07-02] MEDS: QUEtiapine FUMARATE 100 MG TAB PO SCH (21:10)
[2023-07-03] VITALS (8 sets, daily range): BP systolic 101–188; BP diastolic 57–92; PULSE 81–114; RESP 18–20; TEMP 97.7–99.4; O2SAT 95–98
[2023-07-03] MEDS: ACCU-CHEK COMFORT CURVE STRIP VI SCH ×4 (00:36→18:00)
[2023-07-03] MEDS: InsuLIN REG 1unit/0.01ml Soln (100units/ml) SC SCH ×4 (00:38→18:07)
[2023-07-03] MEDS: NITROGLYCERIN 0.4 MG SL TAB SL PRN ×3 (02:58→03:08)
[2023-07-03] MEDS: METOCLOPRAMIDE HCL 5MG/ml INJ 2ml VIAL IV SCH ×3 (05:46→21:15)
[2023-07-03] MEDS: SUCRALFATE 1 GM/10 ML ORAL SUSP PO SCH ×4 (06:00→21:14)
[2023-07-03] MEDS ORDERED: IOHEXOL 300 MG/ML 100ML BOTTLE IJ ONE (08:17)
[2023-07-03] MEDS: DULoxetine HCL 30 MG CAP PO SCH (09:38)
[2023-07-03] MEDS: LEVOTHYROXINE SODIUM 100 MCG/5 ML INJ IV SCH (09:38)
[2023-07-03] MEDS: PANTOPRAZOLE 40 MG/10 ML VIAL INJ IV SCH ×2 (09:38→21:15)
[2023-07-03] MEDS: FUROSEMIDE 20 MG/2 ML VIAL IV SCH (09:43)
[2023-07-03] MEDS ORDERED: hydrALAZINE HCL 20 MG/ML VL IV PRN (10:15)
[2023-07-03 11:25] LABS: Alanine Aminotransferase 46 U/L (7-40); Albumin 3.9 g/dL (3.2-4.8); Alkaline Phosphatase 139 U/L (46-116); Anion Gap 8 (5-15); Aspartate Aminotransferase 33 U/L (13-40); BUN/Creatinine Ratio 18.6 (10.0-20.0); Blood Urea Nitrogen 11 mg/dL (9-23); Calcium 8.4 mg/dL (8.7-10.4); Carbon Dioxide 21 mmol/L (20-30); Chloride 99 mmol/L (98-107); Glucose 224 mg/dL (74-106); Magnesium 1.8 mg/dL (1.6-2.6); Phosphorus 2.2 mg/dL (2.4-5.1); Potassium 3.6 mmol/L (3.5-5.1); Sodium 128 mmol/L (136-145)
[2023-07-03 11:26] LABS: Bilirubin, Total 0.7 mg/dL (0.2-1.0); Total Protein 7.7 g/dL (5.7-8.2)
[2023-07-03] MEDS ORDERED: POTASSIUM PHOSP 22MEQ(15MMOLE) in NS 100 ML IV ONE (11:45)
[2023-07-03] MEDS: METOCLOPRAMIDE HCL 5MG/ml INJ 2ml VIAL IV PRN (15:39)
[2023-07-03] MEDS: ACETAMINOPHEN 500 MG TAB PO PRN (18:55)
[2023-07-03] MEDS ORDERED: TPN PER PHARMACY IV NR ×12 (20:00)
[2023-07-03] MEDS: ZOLPIDEM TARTRATE 5 MG TAB PO PRN (21:15)
[2023-07-03] MEDS: QUEtiapine FUMARATE 100 MG TAB PO SCH (21:15)
[2023-07-04] MEDS: ACCU-CHEK COMFORT CURVE STRIP VI SCH ×4 (00:15→18:44)
[2023-07-04] MEDS: InsuLIN REG 1unit/0.01ml Soln (100units/ml) SC SCH ×4 (00:22→18:47)
[2023-07-04] MEDS: ACETAMINOPHEN 500 MG TAB PO PRN ×2 (05:41→16:57)
[2023-07-04 05:49] LABS: Basophils # (auto) 0 10 ^3/uL (0-0.2); Basophils % (auto) 0.4 % (0.0-2.0); Eosinophils # (auto) 0.1 10 ^3/uL (0-0.8); Eosinophils % (auto) 1.9 % (0.0-7.0); Hematocrit 31.4 % (36.0-46.0); Hemoglobin 10.7 g/dL (12.2-16.2); Lymphocytes # (auto) 1.1 10 ^3/uL (0.4-5.4); Lymphocytes % (auto) 18.5 % (10.0-50.0); Mean Corpuscular Hemoglobin 29.6 pg (28.0-32.0); Mean Corpuscular Hgb Conc. 34.1 g/dL (32.0-36.0); Mean Corpuscular Volume 86.7 fL (80.0-100.0); Monocytes # (auto) 0.5 10 ^3/uL (0-1.3); Monocytes % (auto) 8.9 % (0.0-12.0); Neutrophils # (auto) 4.2 10 ^3/uL (1.6-8.6); Neutrophils % (auto) 70.3 % (37.0-80.0); Red Blood Cells 3.62 10^6/uL (4.0-5.20); Red Cell Distribution Width 14.6 % (11.8-14.3)
[2023-07-04 06:18] LABS: Alanine Aminotransferase 43 U/L (7-40); Albumin 3.5 g/dL (3.2-4.8); Alkaline Phosphatase 116 U/L (46-116); Anion Gap 8 (5-15); Aspartate Aminotransferase 29 U/L (13-40); BUN/Creatinine Ratio 21.7 (10.0-20.0); Blood Urea Nitrogen 13 mg/dL (9-23); Calcium 8.3 mg/dL (8.7-10.4); Carbon Dioxide 22 mmol/L (20-30); Chloride 98 mmol/L (98-107); Glucose 184 mg/dL (74-106); Magnesium 1.9 mg/dL (1.6-2.6); Potassium 3.6 mmol/L (3.5-5.1); Sodium 128 mmol/L (136-145)
[2023-07-04 06:19] LABS: Bilirubin, Total 0.7 mg/dL (0.2-1.0); Phosphorus 3.3 mg/dL (2.4-5.1); Total Protein 6.8 g/dL (5.7-8.2)
[2023-07-04] MEDS: SUCRALFATE 1 GM/10 ML ORAL SUSP PO SCH ×4 (06:36→21:09)
[2023-07-04] MEDS: METOCLOPRAMIDE HCL 5MG/ml INJ 2ml VIAL IV SCH ×4 (07:30→21:09)
[2023-07-04 08:00] VITALS: PULSE 78; PULSE 84; RESP 18; O2SAT 98
[2023-07-04 09:12] VITALS: BP 108/58; PULSE 78; RESP 18; TEMP 98.3; TEMP 98.5; O2SAT 98
[2023-07-04] MEDS: LEVOTHYROXINE SODIUM 100 MCG/5 ML INJ IV SCH (10:16)
[2023-07-04] MEDS: PANTOPRAZOLE 40 MG/10 ML VIAL INJ IV SCH ×2 (10:16→21:09)
[2023-07-04] MEDS: DULoxetine HCL 30 MG CAP PO SCH (10:16)
[2023-07-04] MEDS: FUROSEMIDE 20 MG/2 ML VIAL IV SCH (10:17)
[2023-07-04] MEDS: METOCLOPRAMIDE HCL 5MG/ml INJ 2ml VIAL IV PRN ×2 (10:25→17:02)
[2023-07-04 12:00] VITALS: BP 134/74; PULSE 86; RESP 19; TEMP 98.5; O2SAT 97
[2023-07-04 17:00] VITALS: BP 123/47; PULSE 85; RESP 18; TEMP 98.1; O2SAT 98
[2023-07-04 20:00] VITALS: BP 140/77; PULSE 70; PULSE 89; RESP 16; RESP 18; TEMP 98.5
[2023-07-04] MEDS ORDERED: TPN PER PHARMACY IV NR ×12 (20:00)
[2023-07-04] MEDS: QUEtiapine FUMARATE 100 MG TAB PO SCH (21:10)
[2023-07-04] MEDS: ZOLPIDEM TARTRATE 5 MG TAB PO PRN (21:23)
[2023-07-04 22:00] VITALS: BP 140/77; PULSE 89; RESP 16; TEMP 98.5; O2SAT 99
[2023-07-05] VITALS (8 sets, daily range): BP systolic 108–125; BP diastolic 54–91; PULSE 78–107; RESP 16–20; TEMP 97.3–100.3; O2SAT 94–97
[2023-07-05] MEDS: METOCLOPRAMIDE HCL 5MG/ml INJ 2ml VIAL IV PRN ×3 (03:07→17:42)
[2023-07-05] MEDS: ACETAMINOPHEN 500 MG TAB PO PRN ×2 (04:47→17:10)
[2023-07-05] MEDS: SUCRALFATE 1 GM/10 ML ORAL SUSP PO SCH ×4 (06:07→21:25)
[2023-07-05] MEDS: InsuLIN REG 1unit/0.01ml Soln (100units/ml) SC SCH ×5 (06:14→23:43)
[2023-07-05] MEDS: ACCU-CHEK COMFORT CURVE STRIP VI SCH ×5 (06:16→23:43)
[2023-07-05] MEDS ORDERED: IBUPROFEN 600 MG TAB PO ONE (06:30)
[2023-07-05 07:16] LABS: Potassium 4.2 mmol/L (3.5-5.1)
[2023-07-05 07:17] LABS: Calcium 8.8 mg/dL (8.5-10.1)
[2023-07-05 07:22] LABS: BUN/Creatinine Ratio 21.3 (10.0-20.0)
[2023-07-05 07:23] LABS: Albumin 3.5 g/dL (3.2-4.8)
[2023-07-05 07:24] LABS: Phosphorus 2.9 mg/dL (2.4-5.1)
[2023-07-05 07:56] LABS: Magnesium 1.7 mg/dL (1.6-2.6)
[2023-07-05] MEDS: DULoxetine HCL 30 MG CAP PO SCH (09:57)
[2023-07-05] MEDS: LEVOTHYROXINE SODIUM 100 MCG/5 ML INJ IV SCH (09:57)
[2023-07-05] MEDS: PANTOPRAZOLE 40 MG/10 ML VIAL INJ IV SCH ×2 (09:57→21:18)
[2023-07-05] MEDS: FUROSEMIDE 20 MG/2 ML VIAL IV SCH (09:57)
[2023-07-05] MEDS ORDERED: FUROSEMIDE 40 MG/4 ML VIAL IV ONE (10:45)
[2023-07-05] MEDS: LORazepam 2MG/ML-1ML VIAL IV PRN ×2 (11:39→21:33)
[2023-07-05] MEDS: METOCLOPRAMIDE HCL 5MG/ml INJ 2ml VIAL IV SCH ×2 (13:57→21:18)
[2023-07-05] MEDS ORDERED: TPN PER PHARMACY IV NR ×11 (20:00)
[2023-07-05] MEDS: QUEtiapine FUMARATE 100 MG TAB PO SCH (21:25)
[2023-07-05] MEDS: ZOLPIDEM TARTRATE 5 MG TAB PO PRN (21:25)
[2023-07-06] MEDS: ACETAMINOPHEN 500 MG TAB PO PRN ×2 (00:37→16:33)
[2023-07-06] MEDS ORDERED: VANCOMYCIN PER PHARMACY 0 MG IV SCH (03:15)
[2023-07-06] MEDS ORDERED: VANCOMYCIN 1GM/200ML 250 ML IV ONE (04:00)
[2023-07-06] MEDS: ACCU-CHEK COMFORT CURVE STRIP VI SCH ×3 (06:08→18:26)
[2023-07-06] MEDS: InsuLIN REG 1unit/0.01ml Soln (100units/ml) SC SCH ×3 (06:09→18:31)
[2023-07-06] MEDS: METOCLOPRAMIDE HCL 5MG/ml INJ 2ml VIAL IV SCH ×3 (06:41→21:08)
[2023-07-06] MEDS: LORazepam 2MG/ML-1ML VIAL IV PRN (06:42)
[2023-07-06] MEDS: SUCRALFATE 1 GM/10 ML ORAL SUSP PO SCH ×4 (07:04→21:07)
[2023-07-06 07:20] LABS: Alanine Aminotransferase 35 U/L (7-40); Albumin 3.4 g/dL (3.2-4.8); Alkaline Phosphatase 123 U/L (46-116); Anion Gap 7 (5-15); Aspartate Aminotransferase 25 U/L (13-40); BUN/Creatinine Ratio 26.9 (10.0-20.0); Blood Urea Nitrogen 14 mg/dL (9-23); Carbon Dioxide 24 mmol/L (20-30); Chloride 95 mmol/L (98-107); Glucose 233 mg/dL (74-106); Potassium 3.5 mmol/L (3.5-5.1); Sodium 126 mmol/L (136-145)
[2023-07-06 07:22] LABS: Bilirubin, Total 0.8 mg/dL (0.2-1.0); Phosphorus 3.3 mg/dL (2.4-5.1); Total Protein 6.7 g/dL (5.7-8.2)
[2023-07-06 08:00] VITALS: PULSE 87; PULSE 99; RESP 18; O2SAT 96
[2023-07-06 09:00] VITALS: BP 114/72; PULSE 99; RESP 18; TEMP 99; O2SAT 96
[2023-07-06] MEDS: DULoxetine HCL 30 MG CAP PO SCH (10:31)
[2023-07-06] MEDS: LEVOTHYROXINE SODIUM 100 MCG/5 ML INJ IV SCH (10:31)
[2023-07-06] MEDS: PANTOPRAZOLE 40 MG/10 ML VIAL INJ IV SCH ×2 (10:31→21:08)
[2023-07-06] MEDS: FUROSEMIDE 40 MG/4 ML VIAL IV SCH (10:32)
[2023-07-06] MEDS ORDERED: POTASSIUM CHL 20MEQ/100ML 100 ML IV SCH (11:30)
[2023-07-06 12:01] LABS: Hematocrit 31.8 % (36.0-46.0); Hemoglobin 10.8 g/dL (12.2-16.2); Mean Corpuscular Hemoglobin 29.6 pg (28.0-32.0); Mean Corpuscular Hgb Conc. 33.9 g/dL (32.0-36.0); Mean Corpuscular Volume 87.2 fL (80.0-100.0); Red Blood Cells 3.65 10^6/uL (4.0-5.20); Red Cell Distribution Width 14.9 % (11.8-14.3); White Blood Cell 8.9 10^3/uL (4.4-10.8)
[2023-07-06 12:16] LABS: Band Neutrophils % (manual) 0; Basophils % (manual) 0 (0.0-2.0); Blast Cells 0; Metamyelocytes % 0; Myelocytes % 0; Promyelocytes % 0; Reactive Lymphocytes 0
[2023-07-06 12:55] LABS: Eosinophils % (manual) 1 (0-7); Lymphocytes % (manual) 17 (10.0-50.0); Monocytes % (manual) 5 (0-12); Platelet Estimate Adequate
[2023-07-06 13:00] VITALS: BP 122/63; PULSE 102; RESP 20; TEMP 97.7; O2SAT 95
[2023-07-06] MEDS ORDERED: POTASSIUM CHLORIDE 40 MEQ, LIDOCAINE 1% (LOCAL ANESTH.) 4 ML in SODIUM CHL 0.9% 250 ML IV ONE (14:45)
[2023-07-06] MEDS: VANCOMYCIN 1GM/200ML 250 ML IV SCH (16:09)
[2023-07-06] MEDS: levoFLOXacin 500MG 100 ML IV SCH (16:12)
[2023-07-06 17:00] VITALS: BP 108/46; PULSE 100; RESP 16; TEMP 99.8; O2SAT 94
[2023-07-06 20:00] VITALS: BP 97/60; PULSE 92; PULSE 97; RESP 20; TEMP 97.9; O2SAT 96
[2023-07-06] MEDS ORDERED: TPN PER PHARMACY IV NR ×12 (20:00)
[2023-07-06] MEDS: QUEtiapine FUMARATE 100 MG TAB PO SCH (21:07)
[2023-07-06] MEDS: ZOLPIDEM TARTRATE 5 MG TAB PO PRN (21:07)
[2023-07-06 22:00] VITALS: BP 97/60; PULSE 97; RESP 20; TEMP 97.9; O2SAT 99
[2023-07-07] VITALS (7 sets, daily range): BP systolic 93–123; BP diastolic 54–84; PULSE 84–97; RESP 14–17; TEMP 98–99.4; O2SAT 94–98
[2023-07-07] MEDS: LORazepam 2MG/ML-1ML VIAL IV PRN ×3 (01:08→20:22)
[2023-07-07] MEDS: ACCU-CHEK COMFORT CURVE STRIP VI SCH ×5 (01:27→22:15)
[2023-07-07] MEDS: InsuLIN REG 1unit/0.01ml Soln (100units/ml) SC SCH ×5 (01:29→22:26)
[2023-07-07] MEDS: VANCOMYCIN 1GM/200ML 250 ML IV SCH ×2 (05:56→20:22)
[2023-07-07] MEDS: SUCRALFATE 1 GM/10 ML ORAL SUSP PO SCH ×4 (05:56→22:03)
[2023-07-07] MEDS: METOCLOPRAMIDE HCL 5MG/ml INJ 2ml VIAL IV SCH ×3 (05:58→22:03)
[2023-07-07 07:01] LABS: Basophils # (auto) 0 10 ^3/uL (0-0.2); Basophils % (auto) 0.2 % (0.0-2.0); Eosinophils # (auto) 0.1 10 ^3/uL (0-0.8); Eosinophils % (auto) 0.8 % (0.0-7.0); Hematocrit 28.7 % (36.0-46.0); Hemoglobin 9.9 g/dL (12.2-16.2); Lymphocytes # (auto) 0.7 10 ^3/uL (0.4-5.4); Mean Corpuscular Hemoglobin 29.8 pg (28.0-32.0); Mean Corpuscular Hgb Conc. 34.5 g/dL (32.0-36.0); Mean Corpuscular Volume 86.4 fL (80.0-100.0); Monocytes # (auto) 0.7 10 ^3/uL (0-1.3); Monocytes % (auto) 8.7 % (0.0-12.0); Neutrophils # (auto) 6.8 10 ^3/uL (1.6-8.6); Neutrophils % (auto) 81.3 % (37.0-80.0); Red Blood Cells 3.33 10^6/uL (4.0-5.20); Red Cell Distribution Width 14.9 % (11.8-14.3); White Blood Cell 8.3 10^3/uL (4.4-10.8)
[2023-07-07 07:02] LABS: Alanine Aminotransferase 30 U/L (7-40); Albumin 3.1 g/dL (3.2-4.8); Alkaline Phosphatase 115 U/L (46-116); Anion Gap 5 (5-15); Aspartate Aminotransferase 23 U/L (13-40); Carbon Dioxide 25 mmol/L (20-30); Chloride 98 mmol/L (98-107); Glucose 172 mg/dL (74-106); Sodium 128 mmol/L (136-145)
[2023-07-07 07:03] LABS: Blood Urea Nitrogen 11 mg/dL (9-23)
[2023-07-07 07:05] LABS: Bilirubin, Total 0.5 mg/dL (0.2-1.0); Phosphorus 2.6 mg/dL (2.4-5.1); Total Protein 6.2 g/dL (5.7-8.2)
[2023-07-07] MEDS: LEVOTHYROXINE SODIUM 100 MCG/5 ML INJ IV SCH (10:26)
[2023-07-07] MEDS: PANTOPRAZOLE 40 MG/10 ML VIAL INJ IV SCH ×2 (10:26→22:03)
[2023-07-07] MEDS: DULoxetine HCL 30 MG CAP PO SCH (10:27)
[2023-07-07] MEDS: FUROSEMIDE 40 MG/4 ML VIAL IV SCH (10:27)
[2023-07-07] MEDS: levoFLOXacin 500MG 100 ML IV SCH (10:28)
[2023-07-07] MEDS ORDERED: ENSURE CLEAR Mixed Berry 8oz Carton PO SCH (12:00)
[2023-07-07] MEDS ORDERED: DEXTROSE (50%) 50ML SYRG IV PRN (16:30)
[2023-07-07] MEDS: Glucerna Carbsteady SHAKE Stawberry 8oz PO SCH (18:24)
[2023-07-07] MEDS: QUEtiapine FUMARATE 100 MG TAB PO SCH (22:03)
[2023-07-08] VITALS (7 sets, daily range): BP systolic 97–122; BP diastolic 50–84; PULSE 57–104; RESP 17–20; TEMP 97.6–100.6; O2SAT 93–98
[2023-07-08] MEDS ORDERED: ZOLPIDEM TARTRATE 5 MG TAB PO ONE (00:30)
[2023-07-08] MEDS: LORazepam 2MG/ML-1ML VIAL IV PRN ×2 (06:19→21:32)
[2023-07-08] MEDS: ACCU-CHEK COMFORT CURVE STRIP VI SCH ×4 (06:29→21:20)
[2023-07-08] MEDS: SUCRALFATE 1 GM/10 ML ORAL SUSP PO SCH ×4 (06:38→21:31)
[2023-07-08] MEDS: InsuLIN REG 1unit/0.01ml Soln (100units/ml) SC SCH ×5 (06:42→21:49)
[2023-07-08] MEDS: METOCLOPRAMIDE HCL 5MG/ml INJ 2ml VIAL IV SCH ×3 (06:43→21:31)
[2023-07-08 07:19] LABS: Basophils # (auto) 0 10 ^3/uL (0-0.2); Basophils % (auto) 0.4 % (0.0-2.0); Eosinophils # (auto) 0.1 10 ^3/uL (0-0.8); Eosinophils % (auto) 1.5 % (0.0-7.0); Hemoglobin 10.2 g/dL (12.2-16.2); Lymphocytes # (auto) 0.9 10 ^3/uL (0.4-5.4); Lymphocytes % (auto) 11.2 % (10.0-50.0); Mean Corpuscular Hemoglobin 28.8 pg (28.0-32.0); Mean Corpuscular Volume 87.3 fL (80.0-100.0); Monocytes # (auto) 0.8 10 ^3/uL (0-1.3); Monocytes % (auto) 10.1 % (0.0-12.0); Neutrophils # (auto) 6.2 10 ^3/uL (1.6-8.6); Neutrophils % (auto) 76.8 % (37.0-80.0); Nucleated Red Blood Cells % 0.1 %; Red Blood Cells 3.55 10^6/uL (4.0-5.20); Red Cell Distribution Width 15.2 % (11.8-14.3); White Blood Cell 8.1 10^3/uL (4.4-10.8)
[2023-07-08 07:48] LABS: Chloride 93 mmol/L (98-107); Potassium 3.8 mmol/L (3.5-5.1); Sodium 125 mmol/L (136-145)
[2023-07-08 07:50] LABS: Anion Gap 9 (5-15); Calcium 8.8 mg/dL (8.5-10.1); Carbon Dioxide 23 mmol/L (20-30)
[2023-07-08 07:55] LABS: BUN/Creatinine Ratio 17.2 (10.0-20.0); Blood Urea Nitrogen 10 mg/dL (9-23); Glucose 115 mg/dL (74-106)
[2023-07-08] MEDS: Glucerna Carbsteady SHAKE Stawberry 8oz PO SCH ×3 (08:00→18:00)
[2023-07-08] MEDS: FUROSEMIDE 40 MG/4 ML VIAL IV SCH (10:00)
[2023-07-08] MEDS: VANCOMYCIN 1GM/200ML 250 ML IV SCH (11:12)
[2023-07-08] MEDS: LEVOTHYROXINE SODIUM 100 MCG/5 ML INJ IV SCH (11:14)
[2023-07-08] MEDS: PANTOPRAZOLE 40 MG/10 ML VIAL INJ IV SCH ×2 (11:16→21:31)
[2023-07-08] MEDS: DULoxetine HCL 30 MG CAP PO SCH (11:31)
[2023-07-08] MEDS: levoFLOXacin 500MG 100 ML IV SCH (11:41)
[2023-07-08] MEDS: ACETAMINOPHEN 500 MG TAB PO PRN (14:19)
[2023-07-08] MEDS: QUEtiapine FUMARATE 100 MG TAB PO SCH (21:32)
[2023-07-09] VITALS (7 sets, daily range): BP systolic 93–122; BP diastolic 49–66; PULSE 80–91; RESP 17–20; TEMP 96.4–98.8; O2SAT 92–98
[2023-07-09] MEDS: VANCOMYCIN 1GM/200ML 250 ML IV SCH ×2 (00:21→15:38)
[2023-07-09] MEDS: ACETAMINOPHEN 500 MG TAB PO PRN ×3 (04:14→21:30)
[2023-07-09] MEDS: SUCRALFATE 1 GM/10 ML ORAL SUSP PO SCH ×4 (05:57→21:30)
[2023-07-09] MEDS: METOCLOPRAMIDE HCL 5MG/ml INJ 2ml VIAL IV SCH ×3 (05:57→21:30)
[2023-07-09] MEDS: ACCU-CHEK COMFORT CURVE STRIP VI SCH ×4 (05:57→21:37)
[2023-07-09] MEDS: InsuLIN REG 1unit/0.01ml Soln (100units/ml) SC SCH ×4 (06:08→21:37)
[2023-07-09] MEDS: Glucerna Carbsteady SHAKE Stawberry 8oz PO SCH ×3 (08:00→18:00)
[2023-07-09] MEDS: PANTOPRAZOLE 40 MG/10 ML VIAL INJ IV SCH ×2 (09:25→21:30)
[2023-07-09] MEDS: FUROSEMIDE 40 MG/4 ML VIAL IV SCH (09:26)
[2023-07-09] MEDS: DULoxetine HCL 30 MG CAP PO SCH (09:26)
[2023-07-09] MEDS: LEVOTHYROXINE SODIUM 100 MCG/5 ML INJ IV SCH (09:26)
[2023-07-09] MEDS: levoFLOXacin 500MG 100 ML IV SCH (09:27)
[2023-07-09] MEDS: LORazepam 2MG/ML-1ML VIAL IV PRN ×2 (09:32→18:33)
[2023-07-09 10:42] LABS: COVID19 ANTIGEN SOFIA FIA NEGATIVE (NEGATIVE)
[2023-07-09] MEDS: QUEtiapine FUMARATE 100 MG TAB PO SCH (21:30)
[2023-07-10] VITALS (8 sets, daily range): BP systolic 99–135; BP diastolic 53–69; PULSE 85–109; RESP 18–20; TEMP 97.4–98.7; O2SAT 93–100
[2023-07-10] MEDS: VANCOMYCIN 1GM/200ML 250 ML IV SCH ×2 (02:17→14:35)
[2023-07-10] MEDS: ACCU-CHEK COMFORT CURVE STRIP VI SCH ×4 (05:13→22:01)
[2023-07-10] MEDS: InsuLIN REG 1unit/0.01ml Soln (100units/ml) SC SCH ×4 (05:13→22:00)
[2023-07-10] MEDS: SUCRALFATE 1 GM/10 ML ORAL SUSP PO SCH ×4 (05:31→22:01)
[2023-07-10] MEDS: METOCLOPRAMIDE HCL 5MG/ml INJ 2ml VIAL IV SCH ×3 (05:31→22:11)
[2023-07-10] MEDS: LORazepam 2MG/ML-1ML VIAL IV PRN ×3 (05:43→22:11)
[2023-07-10] MEDS: Glucerna Carbsteady SHAKE Stawberry 8oz PO SCH ×3 (07:54→17:40)
[2023-07-10 09:18] LABS: Chloride 95 mmol/L (98-107); Potassium 3.4 mmol/L (3.5-5.1); Sodium 129 mmol/L (136-145)
[2023-07-10 09:19] LABS: Anion Gap 10 (5-15); Calcium 9.1 mg/dL (8.5-10.1); Carbon Dioxide 24 mmol/L (20-30)
[2023-07-10 09:20] LABS: Basophils # (auto) 0 10 ^3/uL (0-0.2); Basophils % (auto) 0.5 % (0.0-2.0); Eosinophils # (auto) 0.1 10 ^3/uL (0-0.8); Eosinophils % (auto) 1.9 % (0.0-7.0); Hematocrit 32.8 % (36.0-46.0); Hemoglobin 10.8 g/dL (12.2-16.2); Lymphocytes # (auto) 1.1 10 ^3/uL (0.4-5.4); Lymphocytes % (auto) 15.9 % (10.0-50.0); Mean Corpuscular Hemoglobin 28.8 pg (28.0-32.0); Mean Corpuscular Volume 87.3 fL (80.0-100.0); Monocytes # (auto) 0.6 10 ^3/uL (0-1.3); Neutrophils % (auto) 72.7 % (37.0-80.0); Nucleated Red Blood Cells % 0.1 %; Red Blood Cells 3.76 10^6/uL (4.0-5.20); Red Cell Distribution Width 14.9 % (11.8-14.3); White Blood Cell 6.8 10^3/uL (4.4-10.8)
[2023-07-10 09:24] LABS: BUN/Creatinine Ratio 11.8 (10.0-20.0); Blood Urea Nitrogen 8 mg/dL (9-23); Glucose 118 mg/dL (74-106)
[2023-07-10] MEDS: DULoxetine HCL 30 MG CAP PO SCH (09:51)
[2023-07-10] MEDS: PANTOPRAZOLE 40 MG/10 ML VIAL INJ IV SCH ×2 (09:51→22:01)
[2023-07-10] MEDS: LEVOTHYROXINE SODIUM 100 MCG/5 ML INJ IV SCH (09:51)
[2023-07-10] MEDS: FUROSEMIDE 40 MG/4 ML VIAL IV SCH (09:51)
[2023-07-10] MEDS: QUEtiapine FUMARATE 100 MG TAB PO SCH (22:01)
[2023-07-11] MEDS: VANCOMYCIN 1GM/200ML 250 ML IV SCH ×2 (01:39→13:08)
[2023-07-11 05:00] VITALS: BP 133/78; PULSE 102; RESP 18; TEMP 97.4; O2SAT 92
[2023-07-11] MEDS: InsuLIN REG 1unit/0.01ml Soln (100units/ml) SC SCH ×2 (05:33→11:30)
[2023-07-11] MEDS: ACCU-CHEK COMFORT CURVE STRIP VI SCH ×2 (05:33→11:30)
[2023-07-11] MEDS: METOCLOPRAMIDE HCL 5MG/ml INJ 2ml VIAL IV SCH ×2 (05:33→13:08)
[2023-07-11] MEDS: SUCRALFATE 1 GM/10 ML ORAL SUSP PO SCH ×2 (05:33→11:30)
[2023-07-11 08:00] VITALS: PULSE 100; PULSE 96; RESP 18; O2SAT 95
[2023-07-11] MEDS: Glucerna Carbsteady SHAKE Stawberry 8oz PO SCH ×2 (08:18→12:25)
[2023-07-11 09:11] VITALS: BP 119/68; PULSE 99; RESP 16; TEMP 98.3; O2SAT 94
[2023-07-11] MEDS: DULoxetine HCL 30 MG CAP PO SCH (09:30)
[2023-07-11] MEDS: FUROSEMIDE 40 MG/4 ML VIAL IV SCH (09:30)
[2023-07-11] MEDS: LEVOTHYROXINE SODIUM 100 MCG/5 ML INJ IV SCH (09:30)
[2023-07-11] MEDS: LORazepam 2MG/ML-1ML VIAL IV PRN (09:30)
[2023-07-11] MEDS: PANTOPRAZOLE 40 MG/10 ML VIAL INJ IV SCH (09:30)
[2023-07-11] MEDS ORDERED: POTASSIUM EFFERVESENT TAB 25 MEQ PO ONE (11:30)
[2023-07-11 12:48] VITALS: BP 116/63; PULSE 99; RESP 16; TEMP 99; O2SAT 92
== END 2023-07-11 14:40 | DRG 853 ==
LOC: SUR 06:42 → TELE 09:50 → ICU WEST 14:30 → TELE-EAST 06-18 15:33 → TELE-E-ADS 07-06 08:58 → TELE-EAST 07-06 17:37
PROVIDERS: ADMIT Nurse Practitioner Acute Care; ATTEND Nurse Practitioner Acute Care
PROC: B54BZZA Ultrasonography of Right Lower Extremity Veins, Guidance (ICD-10-PCS; 2023-06-14)
PROC: 06HY33Z Insertion of Infusion Device into Lower Vein, Percutaneous Approach (ICD-10-PCS; 2023-06-14)
PROC: 0D9670Z Drainage of Stomach with Drainage Device, Via Natural or Artificial Opening (ICD-10-PCS; 2023-06-14)
PROC: 0WUF0JZ Supplement Abdominal Wall with Synthetic Substitute, Open Approach (ICD-10-PCS; principal; 2023-06-14 07:23)
PROC: 30233N1 Transfusion of Nonautologous Red Blood Cells into Peripheral Vein, Percutaneous Approach (ICD-10-PCS; 2023-06-15)
DX: A41.9 Sepsis, unspecified organism (principal); R57.1 Hypovolemic shock; R65.21 Severe sepsis with septic shock; I24.9 Acute ischemic heart disease, unspecified; I47.19 Other supraventricular tachycardia; I48.20 Chronic atrial fibrillation, unspecified; E87.1 Hypo-osmolality and hyponatremia; D64.9 Anemia, unspecified; E11.9 Type 2 diabetes mellitus without complications; E78.5 Hyperlipidemia, unspecified; E86.1 Hypovolemia; E66.9 Obesity, unspecified; F20.9 Schizophrenia, unspecified; I11.0 Hypertensive heart disease with heart failure; K43.9 Ventral hernia without obstruction or gangrene; E78.00 Pure hypercholesterolemia, unspecified; E86.0 Dehydration; K57.90 Diverticulosis of intestine, part unspecified, without perforation or abscess without bleeding; Z80.0 Family history of malignant neoplasm of digestive organs; Z81.8 Family history of other mental and behavioral disorders; Z82.49 Family history of ischemic heart disease and other diseases of the circulatory system; Z83.3 Family history of diabetes mellitus; Z85.3 Personal history of malignant neoplasm of breast; Z88.1 Allergy status to other antibiotic agents; Z90.12 Acquired absence of left breast and nipple; Z88.8 Allergy status to other drugs, medicaments and biological substances; Z68.33 Body mass index [BMI] 33.0-33.9, adult
CPT/HCPCS: 36415; 36600; 71045; 74176; 74177; 74250; 80048; 80053; 80061; 80069; 80202; 81001; 82010; 82270; 82565; 82805; 82962; 83036; 83735; 83880; 83930; 84100; 84132; 84443; 84478; 84484; 85007; 85014; 85018; 85025; 85027; 85610; 85730; 86850; 86900; 86901; 86920; 87040; 87077; 87081; 87086; 87186; 87426; 88302; 93005; 93306; 97110; 97116; 97163; 97530; C1781; C9113; G0378; J0330; J0690; J1100; J1815; J1885; J1956; J2001; J2250; J2405; J2543; J2704; J3480; J3490; J7060; J7131

== ENCOUNTER 2023-07-19 08:46 | Inpatient (IN) | payer OTHER, MEDICAID ==
[~2023-07-19] VITALS: Ht 157.5 cm; Wt 80.3 kg
[~2023-07-19 08:46] MED LIST changes: -ceFAZolin 2 GM/D5W100ml 100 ML IV ONE
[2023-07-19] MEDS: SODIUM CHLORIDE 0.9% 1,000 ML IV ONE ×2 (10:22→11:30)
[2023-07-19 10:28] LABS: Hematocrit 33.9 % (36.0-46.0); Hemoglobin 11.7 g/dL (12.2-16.2); Mean Corpuscular Hemoglobin 29.5 pg (28.0-32.0); Mean Corpuscular Hgb Conc. 34.5 g/dL (32.0-36.0); Mean Corpuscular Volume 85.7 fL (80.0-100.0); Red Blood Cells 3.96 10^6/uL (4.0-5.20); Red Cell Distribution Width 15.3 % (11.8-14.3); White Blood Cell 2.9 10^3/uL (4.4-10.8)
[2023-07-19 10:40] LABS: Band Neutrophils % (manual) 0; Basophils % (manual) 0 (0.0-2.0); Blast Cells 0; Eosinophils % (manual) 0 (0-7); Metamyelocytes % 0; Myelocytes % 0; Promyelocytes % 0; Reactive Lymphocytes 0
[2023-07-19 10:46] LABS: Anion Gap 15 (5-15); Carbon Dioxide 17 mmol/L (20-30); Chloride 85 mmol/L (98-107); Potassium 3.3 mmol/L (3.5-5.1)
[2023-07-19 10:48] LABS: Calcium 8.5 mg/dL (8.5-10.1)
[2023-07-19 10:53] LABS: Blood Urea Nitrogen 26 mg/dL (9-23); Glucose 200 mg/dL (74-106)
[2023-07-19 11:01] LABS: Magnesium 1.9 mg/dL (1.6-2.6)
[2023-07-19 11:07] LABS: INR 1.14 (0.9-1.15); Prothrombin Time 11.9 sec (9.3-11.8)
[2023-07-19 11:23] LABS: Sodium 117 mmol/L (136-145)
[2023-07-19 11:25] LABS: Lactic Acid w/Reflex 3.7 mmol/L (0.4-2.0)
[2023-07-19] MEDS: PIPERACILLIN-TAZO 4.5GM 100 ML IV ONE (11:30)
[2023-07-19] MEDS: NOREPINEPHRINE 8 MG/250ML KIT 250 ML IV SCH (11:30)
[2023-07-19] MEDS: SODIUM CHLORIDE 0.9% 3,000 ML IV ONE (11:32)
[2023-07-19 12:08] LABS: Lymphocytes % (manual) 14 (10.0-50.0); Monocytes % (manual) 22 (0-12); Platelet Estimate Adequate
[2023-07-19] MEDS ORDERED: DEXTROSE (50%) 50ML SYRG IV PRN (12:15)
[2023-07-19] MEDS ORDERED: NITROGLYCERIN 0.4 MG SL TAB SL PRN (12:15)
[2023-07-19] MEDS: SODIUM CHLORIDE 0.9% 1,000 ML IV SCH (12:15)
[2023-07-19] MEDS: metroNIDAZOLE 500MG/100ML 100 ML IV SCH (14:00)
[2023-07-19 17:33] LABS: Hematocrit 33.4 % (36.0-46.0); Hemoglobin 11.3 g/dL (12.2-16.2); Mean Corpuscular Hgb Conc. 33.8 g/dL (32.0-36.0); Mean Corpuscular Volume 85.7 fL (80.0-100.0); Red Cell Distribution Width 15.6 % (11.8-14.3); White Blood Cell 2.7 10^3/uL (4.4-10.8)
[2023-07-19 17:38] LABS: Basophils % (manual) 0 (0.0-2.0); Blast Cells 0; Metamyelocytes % 0; Myelocytes % 0; Promyelocytes % 0; Reactive Lymphocytes 0
[2023-07-19 17:41] LABS: Alanine Aminotransferase 17 U/L (7-40); Albumin 3.3 g/dL (3.2-4.8); Alkaline Phosphatase 89 U/L (46-116); Anion Gap 12 (5-15); Aspartate Aminotransferase 19 U/L (13-40); BUN/Creatinine Ratio 10.1 (10.0-20.0); Bilirubin, Total 0.5 mg/dL (0.2-1.0); Blood Urea Nitrogen 28 mg/dL (9-23); Calcium 8.1 mg/dL (8.7-10.4); Carbon Dioxide 19 mmol/L (20-30); Chloride 86 mmol/L (98-107); Glucose 178 mg/dL (74-106); Total Protein 6.7 g/dL (5.7-8.2)
[2023-07-19] MEDS: InsuLIN REG 1unit/0.01ml Soln (100units/ml) SC SCH (18:00)
[2023-07-19 18:25] LABS: Lactic Acid w/Reflex 2.5 mmol/L (0.4-2.0)
[2023-07-19 18:26] LABS: Sodium 117 mmol/L (136-145)
[2023-07-19] MEDS: ACCU-CHEK COMFORT CURVE STRIP VI SCH (18:27)
[2023-07-19 18:51] LABS: Band Neutrophils % (manual) 14; Eosinophils % (manual) 1 (0-7); Lymphocytes % (manual) 23 (10.0-50.0); Monocytes % (manual) 17 (0-12); Platelet Estimate Adequate
[2023-07-19] MEDS: SODIUM CHL 3% 500 ML IV ONE (19:15)
[2023-07-19 20:00] VITALS: PULSE 116; RESP 21; O2SAT 98
[2023-07-19] MEDS: VANCOMYCIN 1GM/200ML 200 ML IV ONE (20:50)
[2023-07-19] MEDS: POTASSIUM CHL 20MEQ/100ML 100 ML IV SCH (21:15)
[2023-07-19] MEDS ORDERED: PIPERACILLIN-TAZOB 3.375GM 100 ML IV SCH (22:00)
[2023-07-19] MEDS: MORPHINE SULFATE INJ 2 MG/ml SYRG IV PRN (23:05)
[2023-07-19] MEDS: CALCIUM GLUC 1,000mg/50ml-NS 50 ML IV ONE (23:05)
[2023-07-19] MEDS: ONDANSETRON HCL 4 MG/2 ML VIAL IV PRN (23:18)
[2023-07-20] MEDS: MAGNESIUM SULFATE 1GM/100ML 100 ML IV SCH (00:19)
[2023-07-20] MEDS: MAGNESIUM SULFATE 1GM/100ML 200 ML IV ONE (00:23)
[2023-07-20 04:32] LABS: Hematocrit 33.9 % (36.0-46.0); Hemoglobin 11.6 g/dL (12.2-16.2); Mean Corpuscular Hemoglobin 28.3 pg (28.0-32.0); Mean Corpuscular Hgb Conc. 34.1 g/dL (32.0-36.0); Mean Corpuscular Volume 83.2 fL (80.0-100.0); Red Blood Cells 4.08 10^6/uL (4.0-5.20); Red Cell Distribution Width 15.5 % (11.8-14.3); White Blood Cell 2.7 10^3/uL (4.4-10.8)
[2023-07-20 04:52] LABS: Alanine Aminotransferase 15 U/L (7-40); Albumin 3.2 g/dL (3.2-4.8); Alkaline Phosphatase 93 U/L (46-116); Anion Gap 14 (5-15); Aspartate Aminotransferase 19 U/L (13-40); BUN/Creatinine Ratio 14.3 (10.0-20.0); Blood Urea Nitrogen 33 mg/dL (9-23); Calcium 8.3 mg/dL (8.7-10.4); Carbon Dioxide 18 mmol/L (20-30); Chloride 86 mmol/L (98-107); Glucose 206 mg/dL (74-106); Magnesium 2.7 mg/dL (1.6-2.6); Phosphorus 4.9 mg/dL (2.4-5.1); Potassium 2.7 mmol/L (3.5-5.1)
[2023-07-20 04:53] LABS: Bilirubin, Total 0.5 mg/dL (0.2-1.0); Total Protein 6.6 g/dL (5.7-8.2)
[2023-07-20 05:06] LABS: Basophils % (manual) 0 (0.0-2.0); Blast Cells 0; Eosinophils % (manual) 0 (0-7); Metamyelocytes % 0; Promyelocytes % 0; Reactive Lymphocytes 0
[2023-07-20 05:10] LABS: Lactic Acid w/Reflex 2.3 mmol/L (0.4-2.0)
[2023-07-20 05:11] LABS: Sodium 118 mmol/L (136-145)
[2023-07-20 06:29] LABS: Urine Epithelial Cast None Seen /hpf (<5)
[2023-07-20 06:46] LABS: Urine Bacteria FEW /hpf (None Seen); Urine Blood Negative /uL (Negative); Urine Clarity HAZY (Clear); Urine Color Yellow (Yellow); Urine Hyaline Cast FEW /lpf (0 - 2); Urine Protein, UAD TRACE (Negative); Urine Specific Gravity 1.014 (1.001-1.035); Urine Urobilinogen Normal (Negative); Urine WBC 6 /hpf (0 - 5)
[2023-07-20 07:49] VITALS: PULSE 101; RESP 18; O2SAT 98
[2023-07-20 08:49] LABS: Band Neutrophils % (manual) 5; Lymphocytes % (manual) 23 (10.0-50.0); Monocytes % (manual) 24 (0-12); Myelocytes % 3
[2023-07-20 08:50] LABS: Platelet Estimate Adequate
[2023-07-20] MEDS: cefTRIAXone 1GM/50ML D5W 50 ML IV SCH (09:52)
[2023-07-20] MEDS: SODIUM CHLORIDE 0.9% 1,000 ML IV SCH (16:29)
[2023-07-20 18:48] LABS: Chloride 95 mmol/L (98-107); Potassium 3.6 mmol/L (3.5-5.1)
[2023-07-20 18:49] LABS: Anion Gap 12 (5-15); Calcium 7.4 mg/dL (8.5-10.1); Carbon Dioxide 16 mmol/L (20-30)
[2023-07-20 18:54] LABS: BUN/Creatinine Ratio 9.7 (10.0-20.0); Blood Urea Nitrogen 15 mg/dL (9-23); Glucose 131 mg/dL (74-106)
[2023-07-20 18:59] LABS: Sodium 123 mmol/L (136-145)
[2023-07-20 19:30] VITALS: PULSE 102; RESP 12; O2SAT 96
[2023-07-21 06:09] LABS: Chloride 96 mmol/L (98-107); Hematocrit 32.3 % (36.0-46.0); Hemoglobin 10.9 g/dL (12.2-16.2); Mean Corpuscular Hemoglobin 28.3 pg (28.0-32.0); Mean Corpuscular Hgb Conc. 33.8 g/dL (32.0-36.0); Mean Corpuscular Volume 83.8 fL (80.0-100.0); Potassium 3.4 mmol/L (3.5-5.1); Red Blood Cells 3.86 10^6/uL (4.0-5.20); Red Cell Distribution Width 15.5 % (11.8-14.3); Sodium 126 mmol/L (136-145); White Blood Cell 4.9 10^3/uL (4.4-10.8)
[2023-07-21 06:10] LABS: Anion Gap 12 (5-15); Calcium 8.3 mg/dL (8.5-10.1); Carbon Dioxide 18 mmol/L (20-30)
[2023-07-21 06:15] LABS: BUN/Creatinine Ratio 16.3 (10.0-20.0); Blood Urea Nitrogen 20 mg/dL (9-23); Glucose 149 mg/dL (74-106)
[2023-07-21 06:29] LABS: Basophils % (manual) 0 (0.0-2.0); Promyelocytes % 0; Reactive Lymphocytes 0
[2023-07-21 07:25] VITALS: PULSE 94; RESP 16; O2SAT 100
[2023-07-21 09:28] LABS: Band Neutrophils % (manual) 9; Blast Cells 1; Eosinophils % (manual) 1 (0-7); Lymphocytes % (manual) 20 (10.0-50.0); Metamyelocytes % 17; Monocytes % (manual) 16 (0-12); Myelocytes % 2; Platelet Estimate Adequate; Smudge Cells 2 /100 WBC
[2023-07-21] MEDS: ENOXAPARIN SOD 40 MG/0.4 ML SYRINGE SC SCH (10:11)
[2023-07-21] MEDS: PANTOPRAZOLE 40 MG/10 ML VIAL INJ IV SCH (10:11)
[2023-07-21] MEDS: GASTROGRAFIN 30 ML SOL ONE (13:02)
[2023-07-21] MEDS: GASTROGRAFIN 120 ML SOL ONE (13:02)
[2023-07-21 19:00] VITALS: BP 110/66; PULSE 99; RESP 20; TEMP 98; O2SAT 97
[2023-07-21 20:00] VITALS: BP 110/66; PULSE 98; PULSE 99; RESP 20; TEMP 98; O2SAT 97
[2023-07-21 22:00] VITALS: BP 110/66; PULSE 99; RESP 20; TEMP 98; O2SAT 97
[2023-07-22] VITALS (7 sets, daily range): BP systolic 110–163; BP diastolic 66–88; PULSE 94–102; RESP 17–22; TEMP 97–98; O2SAT 92–98
[2023-07-22 07:12] LABS: Hemoglobin 11.6 g/dL (12.2-16.2); Mean Corpuscular Hemoglobin 28.5 pg (28.0-32.0); Mean Corpuscular Volume 86.3 fL (80.0-100.0); Red Blood Cells 4.06 10^6/uL (4.0-5.20); Red Cell Distribution Width 15.9 % (11.8-14.3); White Blood Cell 7.3 10^3/uL (4.4-10.8)
[2023-07-22 07:32] LABS: Basophils % (manual) 0 (0.0-2.0); Blast Cells 0; Eosinophils % (manual) 0 (0-7); Promyelocytes % 0; Reactive Lymphocytes 0
[2023-07-22 07:36] LABS: Alkaline Phosphatase 98 U/L (46-116); Anion Gap 14 (5-15); Aspartate Aminotransferase 33 U/L (13-40); BUN/Creatinine Ratio 17.1 (10.0-20.0); Bilirubin, Total 0.3 mg/dL (0.2-1.0); Blood Urea Nitrogen 14 mg/dL (9-23); Calcium 8.7 mg/dL (8.5-10.1); Carbon Dioxide 18 mmol/L (20-30); Chloride 101 mmol/L (98-107); Glucose 152 mg/dL (74-106); Potassium 3.4 mmol/L (3.5-5.1); Total Protein 6.3 g/dL (5.7-8.2)
[2023-07-22 07:46] LABS: Alanine Aminotransferase < 9 U/L (7-40); Sodium 133 mmol/L (136-145)
[2023-07-22 11:57] LABS: Band Neutrophils % (manual) 40; Lymphocytes % (manual) 23 (10.0-50.0); Metamyelocytes % 4; Monocytes % (manual) 6 (0-12); Myelocytes % 3; Platelet Estimate Adequate
[2023-07-22] MEDS: PROMETHAZINE HCL 25 MG/ML 1ML IV PRN (20:33)
[2023-07-23 05:00] VITALS: BP 165/87; PULSE 99; RESP 17; TEMP 97.6; O2SAT 92
[2023-07-23 08:00] VITALS: PULSE 165; PULSE 96; RESP 17; O2SAT 95
[2023-07-23 09:00] VITALS: BP 170/90; PULSE 99; RESP 18; TEMP 98.6; O2SAT 90
[2023-07-23] MEDS: AMIODARONE BOLUS KIT 100 ML IV ONE ×2 (11:59→12:13)
[2023-07-23] MEDS: AMIODARONE 450mg/250ml AE 250 ML IV ONE (11:59)
[2023-07-23] MEDS: MAGNESIUM SULFATE 1GM/100ML 100 ML IV SCH ×2 (12:00→19:00)
[2023-07-23] MEDS: POTASSIUM CHL 20MEQ/100ML 100 ML IV SCH ×2 (12:00→19:39)
[2023-07-23] MEDS: AMIODARONE 450mg/250ml AE 250 ML IV SCH ×2 (12:25→18:15)
[2023-07-23 13:00] VITALS: BP 129/72; PULSE 96; RESP 18; TEMP 98.4; O2SAT 99
[2023-07-23 15:01] LABS: Albumin 2.8 g/dL (3.2-4.8); Alkaline Phosphatase 93 U/L (46-116); Anion Gap 11 (5-15); Aspartate Aminotransferase 35 U/L (13-40); BUN/Creatinine Ratio 15.7 (10.0-20.0); Bilirubin, Total 0.2 mg/dL (0.2-1.0); Blood Urea Nitrogen 11 mg/dL (9-23); Calcium 7.8 mg/dL (8.7-10.4); Carbon Dioxide 18 mmol/L (20-30); Chloride 108 mmol/L (98-107); Glucose 169 mg/dL (74-106); Magnesium 1.8 mg/dL (1.6-2.6); Potassium 2.8 mmol/L (3.5-5.1); Sodium 137 mmol/L (136-145); Total Protein 5.9 g/dL (5.7-8.2)
[2023-07-23 15:26] LABS: Basophils # (auto) 0.1 10 ^3/uL (0-0.2); Basophils % (auto) 0.4 % (0.0-2.0); Eosinophils # (auto) 0 10 ^3/uL (0-0.8); Eosinophils % (auto) 0.2 % (0.0-7.0); Hematocrit 38.4 % (36.0-46.0); Hemoglobin 12.2 g/dL (12.2-16.2); Lymphocytes # (auto) 1.3 10 ^3/uL (0.4-5.4); Lymphocytes % (auto) 7.6 % (10.0-50.0); Mean Corpuscular Hemoglobin 27.6 pg (28.0-32.0); Mean Corpuscular Hgb Conc. 31.9 g/dL (32.0-36.0); Mean Corpuscular Volume 86.5 fL (80.0-100.0); Monocytes # (auto) 1.4 10 ^3/uL (0-1.3); Monocytes % (auto) 8.3 % (0.0-12.0); Neutrophils # (auto) 13.7 10 ^3/uL (1.6-8.6); Neutrophils % (auto) 83.5 % (37.0-80.0); Nucleated Red Blood Cells % 0.5 %; Red Blood Cells 4.44 10^6/uL (4.0-5.20); Red Cell Distribution Width 16.6 % (11.8-14.3); White Blood Cell 16.4 10^3/uL (4.4-10.8)
[2023-07-23 15:50] LABS: Alanine Aminotransferase < 9 U/L (7-40)
[2023-07-23 20:00] VITALS: PULSE 90; PULSE 91; RESP 18; O2SAT 95
[2023-07-23] MEDS: ENOXAPARIN SOD 100 MG/1 ML SYRINGE SC SCH (21:12)
[2023-07-23 23:03] VITALS: BP 124/101; PULSE 99; RESP 19; TEMP 98.2; O2SAT 96
[2023-07-24] VITALS (7 sets, daily range): BP systolic 160–178; BP diastolic 64–85; PULSE 78–95; RESP 16–19; TEMP 98.2–98.6; O2SAT 94–99
[2023-07-24] MEDS: MAGNESIUM SULFATE 1GM/100ML 100 ML IV SCH (01:14)
[2023-07-24] MEDS: POTASSIUM CHL 20MEQ/100ML 100 ML IV SCH (04:38)
[2023-07-24 13:43] LABS: Hematocrit 38.4 % (36.0-46.0); Hemoglobin 12.7 g/dL (12.2-16.2); Mean Corpuscular Hgb Conc. 32.9 g/dL (32.0-36.0); Mean Corpuscular Volume 85.1 fL (80.0-100.0); Red Blood Cells 4.51 10^6/uL (4.0-5.20); Red Cell Distribution Width 16.4 % (11.8-14.3); White Blood Cell 15.8 10^3/uL (4.4-10.8)
[2023-07-24 13:46] LABS: Band Neutrophils % (manual) 0; Basophils % (manual) 0 (0.0-2.0); Blast Cells 0; Eosinophils % (manual) 0 (0-7); Promyelocytes % 0; Reactive Lymphocytes 0
[2023-07-24 14:11] LABS: Chloride 107 mmol/L (98-107); Potassium 3.5 mmol/L (3.5-5.1); Sodium 134 mmol/L (136-145)
[2023-07-24 14:12] LABS: Anion Gap 9 (5-15); Calcium 7.6 mg/dL (8.7-10.4); Carbon Dioxide 18 mmol/L (20-30)
[2023-07-24 14:16] LABS: Lymphocytes % (manual) 13 (10.0-50.0); Metamyelocytes % 1; Monocytes % (manual) 11 (0-12); Myelocytes % 2; Platelet Estimate Adequate
[2023-07-24 14:17] LABS: BUN/Creatinine Ratio 14.1 (10.0-20.0); Blood Urea Nitrogen 9 mg/dL (9-23); Glucose 175 mg/dL (74-106)
[2023-07-24 14:18] LABS: Magnesium 2.1 mg/dL (1.6-2.6)
[2023-07-25] MEDS: AMPICILLIN INJ 1 GM in SODIUM CHL 0.9% 100 ML IV SCH
[2023-07-25 05:24] VITALS: BP 160/82; PULSE 98; RESP 17; TEMP 98.6; O2SAT 96
[2023-07-25 08:00] VITALS: PULSE 91
[2023-07-25 08:40] VITALS: BP 142/72; PULSE 90; RESP 20; TEMP 98; O2SAT 96
[2023-07-25] MEDS: FLUCONAZOLE 200MG/100ML 100 ML IV SCH (11:02)
[2023-07-25] MEDS: OMNIPAQUE 12mg/ml 500ml ORAL SOLUTION PO ONE (12:48)
[2023-07-25 12:57] VITALS: BP 156/77; PULSE 97; RESP 18; TEMP 97.5; O2SAT 98
[2023-07-25] MEDS: IOHEXOL 300 MG/ML 100ML BOTTLE IJ ONE (14:57)
[2023-07-25 20:00] VITALS: PULSE 103; PULSE 105; RESP 18; O2SAT 96
[2023-07-25] MEDS: LINEZOLID 600MG/300ML 300 ML IV SCH (21:43)
[2023-07-25 22:00] VITALS: BP 128/79; PULSE 105; RESP 18; TEMP 97.5; O2SAT 96
[2023-07-25 22:07] LABS: INR 1.17 (0.9-1.15); Partial Thromboplastin Time 35.4 SEC (24.5-34.5); Prothrombin Time 12.2 sec (9.3-11.8)
[2023-07-26 05:00] VITALS: BP 133/74; PULSE 104; RESP 16; TEMP 97.6; O2SAT 96
[2023-07-26 08:00] VITALS: BP 157/91; PULSE 100; PULSE 104; PULSE 99; RESP 18; TEMP 97.6; O2SAT 96; O2SAT 97
[2023-07-26 08:00] LABS: Hematocrit 38.5 % (36.0-46.0); Hemoglobin 12.3 g/dL (12.2-16.2); Mean Corpuscular Hemoglobin 27.7 pg (28.0-32.0); Mean Corpuscular Volume 86.6 fL (80.0-100.0); Red Blood Cells 4.45 10^6/uL (4.0-5.20); Red Cell Distribution Width 16.7 % (11.8-14.3); White Blood Cell 8.5 10^3/uL (4.4-10.8)
[2023-07-26 08:08] LABS: Chloride 106 mmol/L (98-107); Potassium 3.2 mmol/L (3.5-5.1); Sodium 136 mmol/L (136-145)
[2023-07-26 08:09] LABS: Anion Gap 10 (5-15); Carbon Dioxide 20 mmol/L (20-30)
[2023-07-26 08:10] LABS: Calcium 7.7 mg/dL (8.5-10.1)
[2023-07-26 08:14] LABS: BUN/Creatinine Ratio 15.2 (10.0-20.0); Blood Urea Nitrogen 10 mg/dL (9-23); Glucose 130 mg/dL (74-106)
[2023-07-26 08:41] LABS: Basophils % (manual) 0 (0.0-2.0); Blast Cells 0; Eosinophils % (manual) 0 (0-7); Metamyelocytes % 0; Myelocytes % 0; Promyelocytes % 0; Reactive Lymphocytes 0
[2023-07-26 09:24] LABS: Band Neutrophils % (manual) 18; Lymphocytes % (manual) 15 (10.0-50.0); Monocytes % (manual) 10 (0-12); Platelet Estimate Adequate; RBC Morphology Normal
[2023-07-26 12:00] VITALS: BP 121/73; PULSE 101; RESP 20; TEMP 98.7; O2SAT 98
[2023-07-26 13:54] LABS: Albumin 2.7 g/dL (3.2-4.8); Alkaline Phosphatase 143 U/L (46-116); Anion Gap 8 (5-15); Aspartate Aminotransferase 42 U/L (13-40); BUN/Creatinine Ratio 16.9 (10.0-20.0); Blood Urea Nitrogen 11 mg/dL (9-23); Calcium 7.3 mg/dL (8.7-10.4); Carbon Dioxide 20 mmol/L (20-30); Chloride 106 mmol/L (98-107); Glucose 126 mg/dL (74-106); Magnesium 1.8 mg/dL (1.6-2.6); Potassium 3.1 mmol/L (3.5-5.1); Sodium 134 mmol/L (136-145)
[2023-07-26 13:55] LABS: Bilirubin, Total 0.2 mg/dL (0.2-1.0); Total Protein 5.7 g/dL (5.7-8.2)
[2023-07-26] MEDS: POTASSIUM CHLORIDE 40 MEQ, LIDOCAINE 1% (LOCAL ANESTH.) 4 ML in SODIUM CHL 0.9% 250 ML IV ONE (14:00)
[2023-07-26 14:06] LABS: Alanine Aminotransferase < 9 U/L (7-40)
[2023-07-26] MEDS ORDERED: TPN PER PHARMACY 0 ML IV SCH (14:30)
[2023-07-26 16:00] VITALS: BP 129/67; PULSE 101; RESP 18; TEMP 98.7; O2SAT 94
[2023-07-26] MEDS: POTASSIUM CHL 20MEQ/100ML 100 ML IV ONE (16:00)
[2023-07-26 20:00] VITALS: PULSE 106
[2023-07-26] MEDS: AMINO ACID INFUSION IN D10W 1,000 ML IV NR (20:05)
[2023-07-26 22:00] VITALS: BP 120/87; PULSE 88; RESP 18; TEMP 97.4; O2SAT 95
[2023-07-26] MEDS: KETOROLAC TROMETH 30 MG/ML 1ML VIAL IV PRN (22:44)
[2023-07-26] MEDS: LORazepam 2MG/ML-1ML VIAL IV PRN (23:19)
[2023-07-26] MEDS: InsuLIN REG 1unit/0.01ml Soln (100units/ml) SC SCH (23:43)
[2023-07-26] MEDS: ACCU-CHEK COMFORT CURVE STRIP VI SCH (23:44)
[2023-07-27] VITALS (13 sets, daily range): BP systolic 105–136; BP diastolic 58–66; PULSE 88–117; RESP 16–22; TEMP 97.4–101.5; O2SAT 91–99
[2023-07-27] MEDS ORDERED: DEXTROSE (50%) 50ML SYRG IV SCH
[2023-07-27 06:40] LABS: Alkaline Phosphatase 125 U/L (46-116); Anion Gap 10 (5-15); BUN/Creatinine Ratio 18.3 (10.0-20.0); Blood Urea Nitrogen 13 mg/dL (9-23); Calcium 7.4 mg/dL (8.7-10.4); Carbon Dioxide 19 mmol/L (20-30); Chloride 106 mmol/L (98-107); Glucose 150 mg/dL (74-106); Magnesium 1.7 mg/dL (1.6-2.6); Potassium 3.2 mmol/L (3.5-5.1); Sodium 135 mmol/L (136-145)
[2023-07-27 06:41] LABS: Albumin 2.5 g/dL (3.2-4.8); Aspartate Aminotransferase 38 U/L (13-40); Bilirubin, Total < 0.2 mg/dL (0.2-1.0); Phosphorus 2.8 mg/dL (2.4-5.1); Total Protein 5.4 g/dL (5.7-8.2)
[2023-07-27 06:44] LABS: Alanine Aminotransferase < 9 U/L (7-40)
[2023-07-27] MEDS: POTASSIUM PHOSPHATE 44 MEQ in D5W 5% 250 ML IV ONE (09:59)
[2023-07-27] MEDS: ALBUTEROL SULF 2.5 MG/0.5ML(0.5%) NEB SOLN NEB SCH (14:38)
[2023-07-27] MEDS ORDERED: SODIUM CHLORIDE 0.9% 1,000 ML IV SCH (20:00)
[2023-07-27] MEDS: TPN PER PHARMACY IV NR (20:51)
[2023-07-27] MEDS: ACETAMINOPHEN 650 MG RECT SUPP PR ONE (21:48)
[2023-07-28] VITALS (29 sets, daily range): BP systolic 84–131; BP diastolic 49–74; PULSE 85–112; RESP 14–26; TEMP 96.5–98.8; O2SAT 85–100
[2023-07-28 07:21] LABS: Albumin 2.6 g/dL (3.2-4.8); Alkaline Phosphatase 154 U/L (46-116); Anion Gap 11 (5-15); Aspartate Aminotransferase 46 U/L (13-40); BUN/Creatinine Ratio 12.6 (10.0-20.0); Blood Urea Nitrogen 11 mg/dL (9-23); Calcium 7.5 mg/dL (8.5-10.1); Carbon Dioxide 17 mmol/L (20-30); Chloride 105 mmol/L (98-107); GFR African American 84 mL/min; GFR Non-African American 69 mL/min; Glucose 206 mg/dL (74-106); Potassium 3.4 mmol/L (3.5-5.1); Sodium 133 mmol/L (136-145); Triglycerides 159 mg/dL (< 150)
[2023-07-28 07:22] LABS: Alanine Aminotransferase < 9 U/L (7-40); Bilirubin, Total < 0.2 mg/dL (0.2-1.0); Phosphorus 3.4 mg/dL (2.4-5.1); Total Protein 5.6 g/dL (5.7-8.2)
[2023-07-28 07:24] LABS: Basophils # (auto) 0 10 ^3/uL (0-0.2); Basophils % (auto) 0.5 % (0.0-2.0); Eosinophils # (auto) 0 10 ^3/uL (0-0.8); Eosinophils % (auto) 0.5 % (0.0-7.0); Hematocrit 31.1 % (36.0-46.0); Hemoglobin 10.2 g/dL (12.2-16.2); Lymphocytes # (auto) 0.5 10 ^3/uL (0.4-5.4); Lymphocytes % (auto) 16.6 % (10.0-50.0); Mean Corpuscular Hemoglobin 28.2 pg (28.0-32.0); Mean Corpuscular Hgb Conc. 32.9 g/dL (32.0-36.0); Mean Corpuscular Volume 85.9 fL (80.0-100.0); Monocytes # (auto) 0.4 10 ^3/uL (0-1.3); Monocytes % (auto) 10.9 % (0.0-12.0); Neutrophils # (auto) 2.3 10 ^3/uL (1.6-8.6); Neutrophils % (auto) 71.5 % (37.0-80.0); Nucleated Red Blood Cells % 2.3 %; Red Blood Cells 3.62 10^6/uL (4.0-5.20); Red Cell Distribution Width 16.9 % (11.8-14.3); White Blood Cell 3.2 10^3/uL (4.4-10.8)
[2023-07-28 07:38] LABS: Magnesium 1.7 mg/dL (1.6-2.6)
[2023-07-28] MEDS: SODIUM CHLORIDE 0.9% 1,000 ML IV SCH (11:15)
[2023-07-28] MEDS: POTASSIUM CHL 20MEQ/100ML 100 ML IV ONE (13:08)
[2023-07-28] MEDS: TPN PER PHARMACY IV NR (21:44)
[2023-07-29] VITALS (33 sets, daily range): BP systolic 91–118; BP diastolic 45–62; PULSE 63–100; RESP 12–27; TEMP 97.5–98.8; O2SAT 90–99
[2023-07-29 05:19] LABS: Basophils # (auto) 0 10 ^3/uL (0-0.2); Basophils % (auto) 0.4 % (0.0-2.0); Eosinophils # (auto) 0 10 ^3/uL (0-0.8); Eosinophils % (auto) 0.9 % (0.0-7.0); Hematocrit 28.5 % (36.0-46.0); Hemoglobin 9.4 g/dL (12.2-16.2); Lymphocytes # (auto) 0.5 10 ^3/uL (0.4-5.4); Lymphocytes % (auto) 18.4 % (10.0-50.0); Mean Corpuscular Hemoglobin 28.1 pg (28.0-32.0); Mean Corpuscular Volume 85.3 fL (80.0-100.0); Monocytes # (auto) 0.2 10 ^3/uL (0-1.3); Monocytes % (auto) 9.4 % (0.0-12.0); Neutrophils # (auto) 1.8 10 ^3/uL (1.6-8.6); Neutrophils % (auto) 70.9 % (37.0-80.0); Nucleated Red Blood Cells % 1.3 %; Red Blood Cells 3.34 10^6/uL (4.0-5.20); Red Cell Distribution Width 17.1 % (11.8-14.3); White Blood Cell 2.5 10^3/uL (4.4-10.8)
[2023-07-29 05:44] LABS: Albumin 2.4 g/dL (3.2-4.8); Alkaline Phosphatase 135 U/L (46-116); Anion Gap 7 (5-15); Aspartate Aminotransferase 39 U/L (13-40); BUN/Creatinine Ratio 20.3 (10.0-20.0); Blood Urea Nitrogen 15 mg/dL (9-23); Calcium 7.3 mg/dL (8.7-10.4); Carbon Dioxide 21 mmol/L (20-30); Chloride 108 mmol/L (98-107); Glucose 169 mg/dL (74-106); Magnesium 1.8 mg/dL (1.6-2.6); Phosphorus 3.1 mg/dL (2.4-5.1); Potassium 3.9 mmol/L (3.5-5.1); Sodium 136 mmol/L (136-145)
[2023-07-29 05:45] LABS: Bilirubin, Total < 0.2 mg/dL (0.2-1.0); Total Protein 5.1 g/dL (5.7-8.2)
[2023-07-29 07:13] LABS: Alanine Aminotransferase < 9 U/L (7-40)
[2023-07-29] MEDS: MORPHINE SULFATE INJ 2 MG/ml SYRG IV PRN (09:06)
[2023-07-29] MEDS: GASTROGRAFIN 120 ML SOL ONE (14:10)
[2023-07-29 14:58] LABS: Hematocrit 28.7 % (36.0-46.0); Hemoglobin 9.3 g/dL (12.2-16.2)
[2023-07-29] MEDS: TPN PER PHARMACY IV NR (21:08)
[2023-07-29] MEDS: ALBUTEROL SULF 2.5 MG/0.5ML(0.5%) NEB SOLN NEB SCH (22:18)
[2023-07-30] VITALS (29 sets, daily range): BP systolic 97–125; BP diastolic 56–98; PULSE 73–115; RESP 12–21; TEMP 97.8–99.1; O2SAT 90–99
[2023-07-30 06:06] LABS: Basophils # (auto) 0 10 ^3/uL (0-0.2); Eosinophils # (auto) 0 10 ^3/uL (0-0.8); Eosinophils % (auto) 0.9 % (0.0-7.0); Hematocrit 28.4 % (36.0-46.0); Hemoglobin 9.2 g/dL (12.2-16.2); Lymphocytes # (auto) 0.6 10 ^3/uL (0.4-5.4); Lymphocytes % (auto) 25.4 % (10.0-50.0); Mean Corpuscular Hemoglobin 28.5 pg (28.0-32.0); Mean Corpuscular Hgb Conc. 32.5 g/dL (32.0-36.0); Mean Corpuscular Volume 87.8 fL (80.0-100.0); Monocytes # (auto) 0.2 10 ^3/uL (0-1.3); Monocytes % (auto) 11.3 % (0.0-12.0); Neutrophils # (auto) 1.3 10 ^3/uL (1.6-8.6); Neutrophils % (auto) 61.4 % (37.0-80.0); Nucleated Red Blood Cells % 0.8 %; Red Blood Cells 3.24 10^6/uL (4.0-5.20); Red Cell Distribution Width 17.5 % (11.8-14.3); White Blood Cell 2.2 10^3/uL (4.4-10.8)
[2023-07-30 06:11] LABS: INR 0.95 (0.9-1.15)
[2023-07-30 06:19] LABS: Albumin 2.5 g/dL (3.2-4.8); Alkaline Phosphatase 138 U/L (46-116); Anion Gap 8 (5-15); Aspartate Aminotransferase 39 U/L (13-40); BUN/Creatinine Ratio 23.1 (10.0-20.0); Blood Urea Nitrogen 18 mg/dL (9-23); Carbon Dioxide 19 mmol/L (20-30); Chloride 113 mmol/L (98-107); Glucose 206 mg/dL (74-106); Magnesium 2.1 mg/dL (1.6-2.6); Phosphorus 3.7 mg/dL (2.4-5.1); Potassium 4.7 mmol/L (3.5-5.1); Sodium 140 mmol/L (136-145)
[2023-07-30 06:20] LABS: Bilirubin, Total < 0.2 mg/dL (0.2-1.0); Total Protein 5.4 g/dL (5.7-8.2)
[2023-07-30 06:36] LABS: Calcium 7.4 mg/dL (8.7-10.4)
[2023-07-30 07:04] LABS: Alanine Aminotransferase < 9 U/L (7-40)
[2023-07-30] MEDS: FUROSEMIDE 20 MG/2 ML VIAL IV ONE (09:15)
[2023-07-30] MEDS: TPN PER PHARMACY IV NR (21:15)
[2023-07-31] VITALS (27 sets, daily range): BP systolic 92–126; BP diastolic 34–71; PULSE 70–102; RESP 12–41; TEMP 97.9–99.2; O2SAT 93–100
[2023-07-31 06:30] LABS: Albumin 2.6 g/dL (3.2-4.8); Alkaline Phosphatase 153 U/L (46-116); Anion Gap 7 (5-15); Aspartate Aminotransferase 47 U/L (13-40); BUN/Creatinine Ratio 22.7 (10.0-20.0); Bilirubin, Total < 0.2 mg/dL (0.2-1.0); Blood Urea Nitrogen 15 mg/dL (9-23); Calcium 7.5 mg/dL (8.7-10.4); Carbon Dioxide 19 mmol/L (20-30); Chloride 115 mmol/L (98-107); Glucose 161 mg/dL (74-106); Magnesium 1.9 mg/dL (1.6-2.6); Phosphorus 3.7 mg/dL (2.4-5.1); Potassium 4.4 mmol/L (3.5-5.1); Sodium 141 mmol/L (136-145)
[2023-07-31 06:31] LABS: Total Protein 5.7 g/dL (5.7-8.2)
[2023-07-31 07:08] LABS: Alanine Aminotransferase < 9 U/L (7-40)
[2023-07-31 12:18] LABS: Urine Epithelial Cast None Seen /hpf (<5)
[2023-07-31 12:31] LABS: Urine Bacteria NONE SEEN /hpf (None Seen); Urine Blood 2+ /uL (Negative); Urine Budding Yeast MODERATE /hpf (None Seen); Urine Clarity HAZY (Clear); Urine Color Yellow (Yellow); Urine Protein, UAD 1+ (Negative); Urine Specific Gravity 1.014 (1.001-1.035); Urine Urobilinogen Normal (Negative); Urine WBC 10 /hpf (0 - 5); Urine pH 5.5 (5.0-8.0)
[2023-07-31] MEDS: TPN PER PHARMACY IV NR (22:21)
[2023-08-01] VITALS (48 sets, daily range): BP systolic 80–146; BP diastolic 33–96; PULSE 75–118; RESP 13–24; TEMP 98–99.2; O2SAT 92–100
[2023-08-01 05:21] LABS: Albumin 2.1 g/dL (3.2-4.8); Alkaline Phosphatase 146 U/L (46-116); Anion Gap 9 (5-15); Aspartate Aminotransferase 41 U/L (13-40); BUN/Creatinine Ratio 28.6 (10.0-20.0); Blood Urea Nitrogen 16 mg/dL (9-23); Calcium 6.9 mg/dL (8.7-10.4); Carbon Dioxide 20 mmol/L (20-30); Chloride 113 mmol/L (98-107); Glucose 151 mg/dL (74-106); Magnesium 1.5 mg/dL (1.6-2.6); Potassium 3.8 mmol/L (3.5-5.1); Sodium 142 mmol/L (136-145)
[2023-08-01 05:22] LABS: Bilirubin, Total < 0.2 mg/dL (0.2-1.0); Phosphorus 3.3 mg/dL (2.4-5.1); Total Protein 4.6 g/dL (5.7-8.2)
[2023-08-01 06:06] LABS: Alanine Aminotransferase < 9 U/L (7-40)
[2023-08-01 08:12] LABS: Hemoglobin 8.1 g/dL (12.2-16.2)
[2023-08-01] MEDS ORDERED: HYDROmorphone HCL 2 MG/ML VL/or syr ONE ×2 (08:14→09:16)
[2023-08-01] MEDS ORDERED: fentaNYL CITRATE 100 MCG/2 ML VL ONE (08:14)
[2023-08-01] MEDS ORDERED: MIDAZOLAM HCL 2MG/2ML 2ml VIAL (1mg/ml) ONE ×2 (08:14→10:44)
[2023-08-01] MEDS ORDERED: fentaNYL CITRATE 5 ML ONE (08:15)
[2023-08-01 08:16] LABS: Hematocrit 26.2 % (36.0-46.0); Mean Corpuscular Hgb Conc. 30.8 g/dL (32.0-36.0); Mean Corpuscular Volume 91.1 fL (80.0-100.0); Red Blood Cells 2.88 10^6/uL (4.0-5.20); Red Cell Distribution Width 17.9 % (11.8-14.3)
[2023-08-01] MEDS ORDERED: ETOMIDATE (2MG/ML) 20ML VIAL IV ONE (08:16)
[2023-08-01] MEDS: SUCCINYLCHOLINE CHLORIDE 20 MG/ML 10ML VIAL IV ONE (08:19)
[2023-08-01] MEDS: cefTRIAXone 1GM/50ML D5W 50 ML IV ONE (08:27)
[2023-08-01 08:58] LABS: White Blood Cell 1.8 10^3/uL (4.4-10.8)
[2023-08-01 09:00] LABS: Band Neutrophils % (manual) 0; Basophils % (manual) 0 (0.0-2.0); Blast Cells 0; Metamyelocytes % 0; Monocytes % (manual) 0 (0-12); Myelocytes % 0; Promyelocytes % 0; Reactive Lymphocytes 0
[2023-08-01] MEDS ORDERED: MORPHINE SULFATE 4 MG/ML SYR/VIAL IV PRN (09:15)
[2023-08-01] MEDS ORDERED: HYDROmorphone HCL 2 MG/ML VL/or syr IV PRN (09:15)
[2023-08-01] MEDS ORDERED: MIDAZOLAM HCL 2MG/2ML 2ml VIAL (1mg/ml) IV PRN (09:15)
[2023-08-01] MEDS ORDERED: LABETALOL HCL 5 MG/ML 4ML SYRINGE IV PRN (09:15)
[2023-08-01] MEDS ORDERED: ePHEDrine SULFATE 50 MG/ML AMP IV PRN (09:15)
[2023-08-01] MEDS ORDERED: ONDANSETRON HCL 4 MG/2 ML VIAL IV PRN (09:15)
[2023-08-01] MEDS: CEFEPIME 2GM/50ML NS 50 ML IV ONE (09:45)
[2023-08-01] MEDS ORDERED: ROCURONIUM 10MG/ML 10ML VIAL IV ONE (09:49)
[2023-08-01] MEDS: MICAFUNGIN SODIUM 100 MG in SODIUM CHL 0.9% 100 ML IV SCH (10:00)
[2023-08-01] MEDS: ACCU-CHEK COMFORT CURVE STRIP VI ONE (11:50)
[2023-08-01] MEDS: MIDAZOLAM DRIP 50 mg/50mL 50 ML IV SCH (12:01)
[2023-08-01] MEDS: fentaNYL Drip 2500mCg/250mlNS 250 ML IV SCH (12:02)
[2023-08-01 13:42] LABS: Eosinophils % (manual) 2 (0-7); Lymphocytes % (manual) 50 (10.0-50.0); Platelet Estimate Decreased
[2023-08-01] MEDS: NOREPINEPHRINE 8 MG/250ML KIT 250 ML IV SCH (14:00)
[2023-08-01] MEDS: metroNIDAZOLE 500MG/100ML 100 ML IV SCH (14:00)
[2023-08-01 14:21] LABS: Base Excess -5.3 mmol/L (-2.0-2.0)
[2023-08-01] MEDS ORDERED: PHENYLEPHRINE HCL 10 MG/ML VL IV ONE (14:31)
[2023-08-01] MEDS ORDERED: DexAMETHasone SOD PHOS 10MG/1ML VIAL INJ IV ONE (14:31)
[2023-08-01] MEDS: MAGNESIUM SULFATE 1GM/100ML 200 ML IV ONE (18:30)
[2023-08-01] MEDS: MAGNESIUM SULFATE 1GM/100ML 100 ML IV SCH (18:57)
[2023-08-01] MEDS: SOD CHL 0.45% WITH 20MEQ KCL 1,000 ML IV SCH (18:57)
[2023-08-01] MEDS: CEFEPIME 2GM/50ML NS 50 ML IV SCH (19:09)
[2023-08-01] MEDS: TPN PER PHARMACY IV NR (21:29)
[2023-08-02] VITALS (112 sets, daily range): BP systolic 82–155; BP diastolic 44–103; PULSE 79–137; RESP 11–28; TEMP 98–99.7; O2SAT 91–100
[2023-08-02 04:29] LABS: Basophils # (auto) 0 10 ^3/uL (0-0.2); Basophils % (auto) 0.3 % (0.0-2.0); Eosinophils # (auto) 0 10 ^3/uL (0-0.8); Hemoglobin 7.3 g/dL (12.2-16.2); Lymphocytes # (auto) 1.1 10 ^3/uL (0.4-5.4); Mean Corpuscular Hemoglobin 28.7 pg (28.0-32.0); Monocytes # (auto) 0.3 10 ^3/uL (0-1.3); Nucleated Red Blood Cells % 0.4 %; Red Blood Cells 2.56 10^6/uL (4.0-5.20)
[2023-08-02 04:32] LABS: Albumin 2.3 g/dL (3.2-4.8); Alkaline Phosphatase 124 U/L (46-116); Anion Gap 8 (5-15); Aspartate Aminotransferase 33 U/L (13-40); BUN/Creatinine Ratio 31.7 (10.0-20.0); Bilirubin, Total < 0.2 mg/dL (0.2-1.0); Blood Urea Nitrogen 20 mg/dL (9-23); Carbon Dioxide 20 mmol/L (20-30); Chloride 108 mmol/L (98-107); Glucose 297 mg/dL (74-106); Phosphorus 3.1 mg/dL (2.4-5.1); Potassium 4.8 mmol/L (3.5-5.1)
[2023-08-02 04:33] LABS: Hematocrit 22.4 % (36.0-46.0); Lymphocytes % (auto) 30.7 % (10.0-50.0); Mean Corpuscular Hgb Conc. 32.8 g/dL (32.0-36.0); Mean Corpuscular Volume 87.5 fL (80.0-100.0); Monocytes % (auto) 8.7 % (0.0-12.0); Neutrophils # (auto) 2.1 10 ^3/uL (1.6-8.6); Neutrophils % (auto) 60.3 % (37.0-80.0); Red Cell Distribution Width 17.8 % (11.8-14.3); White Blood Cell 3.5 10^3/uL (4.4-10.8)
[2023-08-02 04:45] LABS: Alanine Aminotransferase < 9 U/L (7-40); Sodium 136 mmol/L (136-145)
[2023-08-02 04:49] LABS: INR 0.94 (0.9-1.15); Partial Thromboplastin Time 30.2 SEC (24.5-34.5); Prothrombin Time 10.1 sec (9.3-11.8)
[2023-08-02 09:28] LABS: Base Excess -4.9 mmol/L (-2.0-2.0)
[2023-08-02] MEDS: CALCIUM GLUC 1,000mg/50ml-NS 50 ML IV ONE (11:53)
[2023-08-02] MEDS: SODIUM CHLORIDE 0.9% 500 ML IV ONE (13:20)
[2023-08-02] MEDS: TPN PER PHARMACY IV NR (20:24)
[2023-08-03] VITALS (116 sets, daily range): BP systolic 79–278; BP diastolic 43–270; PULSE 71–117; RESP 18–23; TEMP 98.3–100.3; O2SAT 85–100
[2023-08-03 05:19] LABS: Basophils # (auto) 0 10 ^3/uL (0-0.2); Basophils % (auto) 0.5 % (0.0-2.0); Eosinophils # (auto) 0 10 ^3/uL (0-0.8); Monocytes # (auto) 0.5 10 ^3/uL (0-1.3); Nucleated Red Blood Cells % 0.3 %
[2023-08-03 05:23] LABS: Eosinophils % (auto) 0.6 % (0.0-7.0); Hematocrit 20.1 % (36.0-46.0); Lymphocytes # (auto) 1.3 10 ^3/uL (0.4-5.4); Lymphocytes % (auto) 35.6 % (10.0-50.0); Mean Corpuscular Hemoglobin 28.5 pg (28.0-32.0); Mean Corpuscular Hgb Conc. 32.8 g/dL (32.0-36.0); Monocytes % (auto) 12.9 % (0.0-12.0); Neutrophils # (auto) 1.8 10 ^3/uL (1.6-8.6); Neutrophils % (auto) 50.4 % (37.0-80.0); Red Blood Cells 2.31 10^6/uL (4.0-5.20); Red Cell Distribution Width 17.1 % (11.8-14.3); White Blood Cell 3.6 10^3/uL (4.4-10.8)
[2023-08-03 05:38] LABS: Alkaline Phosphatase 104 U/L (46-116); Anion Gap 6 (5-15); BUN/Creatinine Ratio 31.1 (10.0-20.0); Blood Urea Nitrogen 19 mg/dL (9-23); Carbon Dioxide 21 mmol/L (20-30); Chloride 110 mmol/L (98-107); Glucose 170 mg/dL (74-106); Magnesium 1.8 mg/dL (1.6-2.6); Potassium 3.9 mmol/L (3.5-5.1); Sodium 137 mmol/L (136-145)
[2023-08-03 05:39] LABS: Albumin 2.2 g/dL (3.2-4.8); Aspartate Aminotransferase 28 U/L (13-40); Bilirubin, Total < 0.2 mg/dL (0.2-1.0); Phosphorus 2.8 mg/dL (2.4-5.1)
[2023-08-03 05:40] LABS: Total Protein 4.8 g/dL (5.7-8.2)
[2023-08-03 05:55] LABS: Hemoglobin 6.6 g/dL (12.2-16.2)
[2023-08-03 06:30] LABS: Alanine Aminotransferase < 9 U/L (7-40)
[2023-08-03 07:30] LABS: Triglycerides 182 mg/dL (< 150)
[2023-08-03 08:14] LABS: Base Excess -3.2 mmol/L (-2.0-2.0)
[2023-08-03] MEDS: CEFEPIME 2GM/50ML NS 50 ML IV SCH (11:48)
[2023-08-03] MEDS: FUROSEMIDE 20 MG/2 ML VIAL IV ONE ×2 (12:27→21:59)
[2023-08-03] MEDS: CALCIUM GLUC 1,000mg/50ml-NS 50 ML IV ONE (16:37)
[2023-08-03] MEDS: metroNIDAZOLE 500MG/100ML 100 ML IV SCH (17:20)
[2023-08-03] MEDS: TPN PER PHARMACY IV NR (20:40)
[2023-08-04] VITALS (107 sets, daily range): BP systolic 78–179; BP diastolic 44–80; PULSE 69–128; RESP 16–32; TEMP 97.7–98.7; O2SAT 91–100
[2023-08-04 04:11] LABS: Hemoglobin 7.9 g/dL (12.2-16.2); Red Cell Distribution Width 17.4 % (11.8-14.3); White Blood Cell 2.9 10^3/uL (4.4-10.8)
[2023-08-04 04:14] LABS: Hematocrit 24.1 % (36.0-46.0); Mean Corpuscular Hemoglobin 28.2 pg (28.0-32.0); Mean Corpuscular Hgb Conc. 32.9 g/dL (32.0-36.0); Mean Corpuscular Volume 85.7 fL (80.0-100.0); Red Blood Cells 2.81 10^6/uL (4.0-5.20)
[2023-08-04 04:29] LABS: Alkaline Phosphatase 87 U/L (46-116); Anion Gap 6 (5-15); Aspartate Aminotransferase 24 U/L (13-40); BUN/Creatinine Ratio 28.6 (10.0-20.0); Blood Urea Nitrogen 14 mg/dL (9-23); Calcium 6.8 mg/dL (8.5-10.1); Carbon Dioxide 22 mmol/L (20-30); Chloride 109 mmol/L (98-107); Glucose 191 mg/dL (74-106); Potassium 2.9 mmol/L (3.5-5.1); Sodium 137 mmol/L (136-145)
[2023-08-04 04:30] LABS: Bilirubin, Total < 0.2 mg/dL (0.2-1.0); Phosphorus 2.7 mg/dL (2.4-5.1); Total Protein 4.5 g/dL (5.7-8.2)
[2023-08-04 04:32] LABS: Band Neutrophils % (manual) 0; Basophils % (manual) 0 (0.0-2.0); Blast Cells 0; Myelocytes % 0; Promyelocytes % 0; Reactive Lymphocytes 0
[2023-08-04 04:43] LABS: Alanine Aminotransferase < 9 U/L (7-40)
[2023-08-04 05:19] LABS: Magnesium 1.5 mg/dL (1.6-2.6)
[2023-08-04] MEDS: POTASSIUM CHL 20MEQ/100ML 100 ML IV SCH (06:40)
[2023-08-04 06:50] LABS: Eosinophils % (manual) 3 (0-7); Lymphocytes % (manual) 39 (10.0-50.0); Metamyelocytes % 1; Monocytes % (manual) 10 (0-12); Platelet Estimate Decreased
[2023-08-04 06:52] LABS: Anisocytosis Slight; Large Platelets FEW
[2023-08-04] MEDS ORDERED: FUROSEMIDE 20 MG/2 ML VIAL IV ONE (09:00)
[2023-08-04 09:15] LABS: Base Excess -3.2 mmol/L (-2.0-2.0)
[2023-08-04] MEDS: METOPROLOL TARTRATE 1MG/1ML-5ML VIAL IV PRN (09:17)
[2023-08-04] MEDS: FUROSEMIDE 20 MG/2 ML VIAL IV ONE (09:37)
[2023-08-04] MEDS: SOD CHL 0.45% WITH 20MEQ KCL 1,000 ML IV SCH (09:38)
[2023-08-04] MEDS: MAGNESIUM SULFATE 1GM/100ML 100 ML IV SCH (10:10)
[2023-08-04] MEDS: CALCIUM GLUC 1,000mg/50ml-NS 50 ML IV ONE (13:30)
[2023-08-04 14:00] LABS: Potassium 3.1 mmol/L (3.5-5.1)
[2023-08-04 14:07] LABS: Magnesium 2.1 mg/dL (1.6-2.6)
[2023-08-04] MEDS: POTASSIUM PHOSPHATE 44 MEQ in D5W 5% 250 ML IV ONE (17:01)
[2023-08-04] MEDS ORDERED: LIDOCAINE 2% JELLY 11ml (GLYDO) ONE ×2 (19:00→19:02)
[2023-08-04] MEDS ORDERED: GLYCOPYRROLATE 0.2 MG/ML 1ML VIAL ONE (19:02)
[2023-08-04] MEDS ORDERED: MIDAZOLAM HCL 5 MG/ML-1ML VIAL ONE (19:03)
[2023-08-04] MEDS ORDERED: fentaNYL CITRATE 100 MCG/2 ML VL ONE (19:03)
[2023-08-04] MEDS: TPN PER PHARMACY IV NR (20:57)
[2023-08-05] VITALS (117 sets, daily range): BP systolic 82–177; BP diastolic 45–118; PULSE 64–113; RESP 16–34; TEMP 98.4–99.4; O2SAT 92–100
[2023-08-05 03:52] LABS: Mean Corpuscular Hgb Conc. 32.8 g/dL (32.0-36.0); Red Cell Distribution Width 17.4 % (11.8-14.3)
[2023-08-05 03:56] LABS: Hemoglobin 7.9 g/dL (12.2-16.2); Mean Corpuscular Hemoglobin 28.1 pg (28.0-32.0); Mean Corpuscular Volume 85.6 fL (80.0-100.0); Red Blood Cells 2.81 10^6/uL (4.0-5.20)
[2023-08-05 04:03] LABS: Band Neutrophils % (manual) 0; Basophils % (manual) 0 (0.0-2.0); Blast Cells 0; Eosinophils % (manual) 0 (0-7); Metamyelocytes % 0; Myelocytes % 0; Promyelocytes % 0
[2023-08-05 04:11] LABS: Alanine Aminotransferase < 9 U/L (7-40); Alkaline Phosphatase 82 U/L (46-116); Anion Gap 8 (5-15); Aspartate Aminotransferase 20 U/L (13-40); Bilirubin, Total < 0.2 mg/dL (0.2-1.0); Blood Urea Nitrogen 14 mg/dL (9-23); Calcium 6.3 mg/dL (8.7-10.4); Carbon Dioxide 21 mmol/L (20-30); Chloride 109 mmol/L (98-107); Glucose 147 mg/dL (74-106); Magnesium 1.6 mg/dL (1.6-2.6); Phosphorus 3.1 mg/dL (2.4-5.1); Potassium 2.8 mmol/L (3.5-5.1); Sodium 138 mmol/L (136-145); Total Protein 4.5 g/dL (5.7-8.2)
[2023-08-05 04:28] LABS: Lymphocytes % (manual) 38 (10.0-50.0); Monocytes % (manual) 3 (0-12); Platelet Estimate Decreased; Reactive Lymphocytes 2
[2023-08-05] MEDS: MAGNESIUM SULFATE 1GM/100ML 100 ML IV SCH (10:08)
[2023-08-05] MEDS: POTASSIUM CHL 20MEQ/100ML 100 ML IV SCH ×2 (10:08→17:58)
[2023-08-05] MEDS: FUROSEMIDE 40 MG/4 ML VIAL IV ONE (10:11)
[2023-08-05 10:57] LABS: Base Excess 1.4 mmol/L (-2.0-2.0)
[2023-08-05] MEDS: CALCIUM GLUC 1,000mg/50ml-NS 50 ML IV ONE (14:18)
[2023-08-05 16:06] LABS: Alkaline Phosphatase 88 U/L (46-116); Anion Gap 7 (5-15); Aspartate Aminotransferase 22 U/L (13-40); BUN/Creatinine Ratio 27.7 (10.0-20.0); Blood Urea Nitrogen 13 mg/dL (9-23); Carbon Dioxide 24 mmol/L (20-30); Chloride 103 mmol/L (98-107); Glucose 247 mg/dL (74-106); Sodium 134 mmol/L (136-145)
[2023-08-05 16:07] LABS: Alanine Aminotransferase < 9 U/L (7-40); Albumin 2.2 g/dL (3.2-4.8); Bilirubin, Total < 0.2 mg/dL (0.2-1.0)
[2023-08-05] MEDS: TPN PER PHARMACY IV NR (20:37)
[2023-08-06] VITALS (79 sets, daily range): BP systolic 74–181; BP diastolic 49–110; PULSE 53–114; RESP 12–27; TEMP 98.2–99.1; O2SAT 91–100
[2023-08-06 04:03] LABS: Albumin 2.4 g/dL (3.2-4.8); Alkaline Phosphatase 93 U/L (46-116); Anion Gap 7 (5-15); Aspartate Aminotransferase 36 U/L (13-40); BUN/Creatinine Ratio 29.2 (10.0-20.0); Blood Urea Nitrogen 14 mg/dL (9-23); Calcium 7.4 mg/dL (8.7-10.4); Carbon Dioxide 24 mmol/L (20-30); Chloride 102 mmol/L (98-107); Glucose 201 mg/dL (74-106); Magnesium 1.9 mg/dL (1.6-2.6); Sodium 133 mmol/L (136-145)
[2023-08-06 04:04] LABS: Bilirubin, Total < 0.2 mg/dL (0.2-1.0); Phosphorus 2.6 mg/dL (2.4-5.1); Total Protein 5.6 g/dL (5.7-8.2)
[2023-08-06 04:23] LABS: Alanine Aminotransferase < 9 U/L (7-40)
[2023-08-06 07:17] LABS: Base Excess 2.7 mmol/L (-2.0-2.0)
[2023-08-06] MEDS: FUROSEMIDE 20 MG/2 ML VIAL IV SCH (10:24)
[2023-08-06] MEDS: SODIUM PHOSPHATES 20 MEQ in SODIUM CHL 0.9% 100 ML IV ONE (18:44)
[2023-08-06] MEDS: TPN PER PHARMACY IV NR (20:54)
[2023-08-07] VITALS (55 sets, daily range): BP systolic 105–144; BP diastolic 50–95; PULSE 75–98; RESP 14–20; TEMP 98.2–98.9; O2SAT 91–100
[2023-08-07 04:30] LABS: Hematocrit 26.5 % (36.0-46.0); Hemoglobin 8.6 g/dL (12.2-16.2); Mean Corpuscular Hemoglobin 27.5 pg (28.0-32.0); Mean Corpuscular Hgb Conc. 32.6 g/dL (32.0-36.0); Mean Corpuscular Volume 84.4 fL (80.0-100.0); Red Blood Cells 3.14 10^6/uL (4.0-5.20); Red Cell Distribution Width 17.3 % (11.8-14.3); White Blood Cell 3.8 10^3/uL (4.4-10.8)
[2023-08-07 04:44] LABS: Basophils % (manual) 0 (0.0-2.0); Blast Cells 0; Metamyelocytes % 0; Reactive Lymphocytes 0
[2023-08-07 04:58] LABS: Albumin 2.4 g/dL (3.2-4.8); Alkaline Phosphatase 86 U/L (46-116); Anion Gap 8 (5-15); Aspartate Aminotransferase 23 U/L (13-40); BUN/Creatinine Ratio 36.6 (10.0-20.0); Bilirubin, Total < 0.2 mg/dL (0.2-1.0); Blood Urea Nitrogen 15 mg/dL (9-23); Calcium 7.3 mg/dL (8.7-10.4); Carbon Dioxide 26 mmol/L (20-30); Chloride 102 mmol/L (98-107); Glucose 164 mg/dL (74-106); Magnesium 1.7 mg/dL (1.6-2.6); Phosphorus 2.4 mg/dL (2.4-5.1); Sodium 136 mmol/L (136-145); Total Protein 5.5 g/dL (5.7-8.2)
[2023-08-07 05:01] LABS: Alanine Aminotransferase < 9 U/L (7-40)
[2023-08-07 08:46] LABS: Band Neutrophils % (manual) 8; Eosinophils % (manual) 4 (0-7); Giant Platelets Few; Lymphocytes % (manual) 38 (10.0-50.0); Monocytes % (manual) 10 (0-12); Myelocytes % 2; Platelet Estimate Adequate; Promyelocytes % 1; Smudge Cells 4 /100 WBC
[2023-08-07 08:47] LABS: Polychromasia Slight
[2023-08-07] MEDS: MORPHINE SULFATE INJ 2 MG/ml SYRG IV PRN (09:20)
[2023-08-07] MEDS ORDERED: POTASSIUM CHL 20MEQ/100ML 100 ML IV SCH (09:30)
[2023-08-07] MEDS: KETOROLAC TROMETH 30 MG/ML 1ML VIAL IV ONE (12:32)
[2023-08-07] MEDS: POTASSIUM CHL 20MEQ/100ML 100 ML IV ONE (12:32)
[2023-08-07] MEDS: METOCLOPRAMIDE HCL 5MG/ml INJ 2ml VIAL IV SCH (14:28)
[2023-08-07] MEDS: MAGNESIUM SULFATE 1GM/100ML 100 ML IV ONE (14:28)
[2023-08-07] MEDS: POTASSIUM PHOSPHATE 44 MEQ in D5W 5% 250 ML IV ONE (18:01)
[2023-08-07] MEDS: TPN PER PHARMACY IV NR (21:04)
[2023-08-08] VITALS (45 sets, daily range): BP systolic 110–149; BP diastolic 38–83; PULSE 79–106; RESP 11–25; TEMP 98.3–98.6; O2SAT 92–100
[2023-08-08] MEDS: MORPHINE SULFATE INJ 2 MG/ml SYRG IV PRN (03:35)
[2023-08-08 04:22] LABS: Albumin 2.6 g/dL (3.2-4.8); Alkaline Phosphatase 91 U/L (46-116); Anion Gap 8 (5-15); Aspartate Aminotransferase 26 U/L (13-40); Bilirubin, Total < 0.2 mg/dL (0.2-1.0); Blood Urea Nitrogen 13 mg/dL (9-23); Calcium 7.4 mg/dL (8.7-10.4); Carbon Dioxide 26 mmol/L (20-30); Chloride 101 mmol/L (98-107); Glucose 151 mg/dL (74-106); Phosphorus 3.1 mg/dL (2.4-5.1); Potassium 3.7 mmol/L (3.5-5.1); Sodium 135 mmol/L (136-145); Total Protein 5.8 g/dL (5.7-8.2)
[2023-08-08 04:31] LABS: Alanine Aminotransferase < 9 U/L (7-40)
[2023-08-08] MEDS ORDERED: KETOROLAC TROMETH 30 MG/ML 1ML VIAL IV PRN (11:00)
[2023-08-08] MEDS: TPN PER PHARMACY IV NR (20:21)
[2023-08-09] VITALS (15 sets, daily range): BP systolic 121–133; BP diastolic 53–74; PULSE 73–97; RESP 16–24; TEMP 98.4–99.5; O2SAT 90–100
[2023-08-09 05:48] LABS: Hematocrit 26.5 % (36.0-46.0); Hemoglobin 8.6 g/dL (12.2-16.2); Mean Corpuscular Hemoglobin 28.4 pg (28.0-32.0); Mean Corpuscular Hgb Conc. 32.6 g/dL (32.0-36.0); Red Blood Cells 3.05 10^6/uL (4.0-5.20); Red Cell Distribution Width 18.3 % (11.8-14.3); White Blood Cell 3.9 10^3/uL (4.4-10.8)
[2023-08-09 06:11] LABS: Albumin 2.4 g/dL (3.2-4.8); Alkaline Phosphatase 94 U/L (46-116); Anion Gap 7 (5-15); Aspartate Aminotransferase 30 U/L (13-40); BUN/Creatinine Ratio 23.4 (10.0-20.0); Blood Urea Nitrogen 11 mg/dL (9-23); Calcium 7.7 mg/dL (8.5-10.1); Carbon Dioxide 25 mmol/L (20-30); Chloride 100 mmol/L (98-107); Glucose 139 mg/dL (74-106); Potassium 3.8 mmol/L (3.5-5.1); Sodium 132 mmol/L (136-145)
[2023-08-09 06:12] LABS: Bilirubin, Total 0.2 mg/dL (0.2-1.0); Total Protein 5.7 g/dL (5.7-8.2)
[2023-08-09 06:17] LABS: Basophils % (manual) 0 (0.0-2.0); Blast Cells 0; Myelocytes % 0; Promyelocytes % 0; Reactive Lymphocytes 0
[2023-08-09 06:29] LABS: Alanine Aminotransferase < 9 U/L (7-40)
[2023-08-09 07:46] LABS: Band Neutrophils % (manual) 7; Eosinophils % (manual) 3 (0-7); Lymphocytes % (manual) 27 (10.0-50.0); Metamyelocytes % 3; Monocytes % (manual) 4 (0-12); Platelet Estimate Adequate
[2023-08-09] MEDS: POTASSIUM PHOSPHATE 22 MEQ in SODIUM CHL 0.9% 100 ML IV ONE (12:26)
[2023-08-09] MEDS: IRON SUCROSE COMPLEX 100 ML IV SCH (13:50)
[2023-08-09] MEDS: TPN PER PHARMACY IV NR (20:00)
[2023-08-10] VITALS (16 sets, daily range): BP systolic 104–127; BP diastolic 45–69; PULSE 80–106; RESP 16–20; TEMP 97.5–98.8; O2SAT 92–100
[2023-08-10 06:33] LABS: Potassium 3.4 mmol/L (3.5-5.1)
[2023-08-10 06:34] LABS: Calcium 7.7 mg/dL (8.5-10.1)
[2023-08-10 06:39] LABS: Albumin 2.5 g/dL (3.2-4.8); BUN/Creatinine Ratio 31.7 (10.0-20.0)
[2023-08-10 06:41] LABS: Phosphorus 2.8 mg/dL (2.4-5.1)
[2023-08-10 07:04] LABS: Basophils # (auto) 0.1 10 ^3/uL (0-0.2); Basophils % (auto) 1.3 % (0.0-2.0); Eosinophils # (auto) 0.1 10 ^3/uL (0-0.8); Eosinophils % (auto) 1.7 % (0.0-7.0); Hematocrit 27.9 % (36.0-46.0); Lymphocytes # (auto) 1.5 10 ^3/uL (0.4-5.4); Lymphocytes % (auto) 29.8 % (10.0-50.0); Mean Corpuscular Hemoglobin 28.1 pg (28.0-32.0); Mean Corpuscular Hgb Conc. 32.4 g/dL (32.0-36.0); Mean Corpuscular Volume 86.9 fL (80.0-100.0); Monocytes # (auto) 0.5 10 ^3/uL (0-1.3); Monocytes % (auto) 10.9 % (0.0-12.0); Neutrophils # (auto) 2.8 10 ^3/uL (1.6-8.6); Neutrophils % (auto) 56.3 % (37.0-80.0); Nucleated Red Blood Cells % 0.7 %; Red Blood Cells 3.21 10^6/uL (4.0-5.20); Red Cell Distribution Width 18.6 % (11.8-14.3)
[2023-08-10 07:13] LABS: Magnesium 1.7 mg/dL (1.6-2.6)
[2023-08-10] MEDS: levoFLOXacin 500MG 100 ML IV SCH (09:04)
[2023-08-10] MEDS: POTASSIUM PHOSPHATE 44 MEQ in D5W 5% 250 ML IV ONE (12:23)
[2023-08-10] MEDS: MAGNESIUM SULFATE 1GM/100ML 100 ML IV ONE (14:28)
[2023-08-10] MEDS: QUETIAPINE FUMERATE 300 MG PO SCH (18:00)
[2023-08-10] MEDS: TPN PER PHARMACY IV NR (20:00)
[2023-08-10] MEDS: METOPROLOL TARTRATE 25 MG TAB PO SCH (21:33)
[2023-08-11] VITALS (14 sets, daily range): BP systolic 105–135; BP diastolic 54–86; PULSE 79–102; RESP 16–20; TEMP 97.4–98.5; O2SAT 91–100
[2023-08-11 07:23] LABS: Potassium 3.7 mmol/L (3.5-5.1)
[2023-08-11 07:24] LABS: Calcium 7.4 mg/dL (8.7-10.4)
[2023-08-11 07:29] LABS: BUN/Creatinine Ratio 28.2 (10.0-20.0); Magnesium 1.8 mg/dL (1.6-2.6)
[2023-08-11 07:30] LABS: Albumin 2.5 g/dL (3.2-4.8)
[2023-08-11 07:31] LABS: Phosphorus 3.1 mg/dL (2.4-5.1)
[2023-08-11] MEDS: LEVOTHYROXINE SODIUM 100 MCG TAB PO SCH (09:57)
[2023-08-11] MEDS: DULoxetine HCL 30 MG CAP PO SCH (09:57)
[2023-08-11] MEDS: POTASSIUM PHOSP 22MEQ(15MMOLE) in NS 100 ML IV ONE (15:35)
[2023-08-11] MEDS: TPN PER PHARMACY IV NR (20:52)
[2023-08-12] VITALS (9 sets, daily range): BP systolic 112–134; BP diastolic 58–73; PULSE 81–94; RESP 16–18; TEMP 98.2–98.4; O2SAT 90–94
[2023-08-12 07:11] LABS: Albumin 2.4 g/dL (3.2-4.8); Alkaline Phosphatase 102 U/L (46-116); Anion Gap 3 (5-15); Aspartate Aminotransferase 29 U/L (13-40); BUN/Creatinine Ratio 27.5 (10.0-20.0); Blood Urea Nitrogen 11 mg/dL (9-23); Calcium 7.3 mg/dL (8.7-10.4); Carbon Dioxide 24 mmol/L (20-30); Chloride 102 mmol/L (98-107); Glucose 134 mg/dL (74-106); Magnesium 1.7 mg/dL (1.6-2.6); Phosphorus 2.7 mg/dL (2.4-5.1); Potassium 4.1 mmol/L (3.5-5.1); Sodium 129 mmol/L (136-145)
[2023-08-12 07:12] LABS: Bilirubin, Total 0.2 mg/dL (0.2-1.0); Total Protein 5.7 g/dL (5.7-8.2)
[2023-08-12 07:15] LABS: Alanine Aminotransferase < 9 U/L (7-40)
[2023-08-12] MEDS: SODIUM PHOSPHATES 40 MEQ in D5W 5% 250 ML IV ONE (13:37)
[2023-08-12] MEDS: ENOXAPARIN SOD 80 MG/0.8ML SYRINGE SC ONE (17:52)
[2023-08-12] MEDS: TPN PER PHARMACY IV NR (20:03)
[2023-08-13] VITALS (7 sets, daily range): BP systolic 102–130; BP diastolic 51–64; PULSE 75–93; RESP 16–21; TEMP 97.5–98.9; O2SAT 91–99
[2023-08-13] MEDS: ENOXAPARIN SOD 80 MG/0.8ML SYRINGE SC SCH (05:48)
[2023-08-13 06:15] LABS: Albumin 2.4 g/dL (3.2-4.8); Alkaline Phosphatase 103 U/L (46-116); Anion Gap 5 (5-15); Aspartate Aminotransferase 27 U/L (13-40); BUN/Creatinine Ratio 26.3 (10.0-20.0); Blood Urea Nitrogen 10 mg/dL (9-23); Calcium 7.3 mg/dL (8.7-10.4); Carbon Dioxide 24 mmol/L (20-30); Chloride 100 mmol/L (98-107); Glucose 120 mg/dL (74-106); Magnesium 1.6 mg/dL (1.6-2.6); Potassium 3.9 mmol/L (3.5-5.1); Sodium 129 mmol/L (136-145)
[2023-08-13 06:16] LABS: Bilirubin, Total < 0.2 mg/dL (0.2-1.0); Phosphorus 2.9 mg/dL (2.4-5.1); Total Protein 5.6 g/dL (5.7-8.2)
[2023-08-13 06:24] LABS: Alanine Aminotransferase < 9 U/L (7-40)
[2023-08-13] MEDS: SODIUM PHOSPHATES 40 MEQ in D5W 5% 250 ML IV ONE (14:53)
[2023-08-13] MEDS: MAGNESIUM SULFATE 1GM/100ML 100 ML IV SCH (14:53)
[2023-08-13] MEDS: TPN PER PHARMACY IV NR (20:05)
[2023-08-14] VITALS (11 sets, daily range): BP systolic 96–128; BP diastolic 49–83; PULSE 80–96; RESP 16–20; TEMP 97.6–98.6; O2SAT 91–97
[2023-08-14 07:00] LABS: Hemoglobin 9.3 g/dL (12.2-16.2); Mean Corpuscular Hemoglobin 28.9 pg (28.0-32.0); Mean Corpuscular Hgb Conc. 33.2 g/dL (32.0-36.0); Red Blood Cells 3.22 10^6/uL (4.0-5.20); Red Cell Distribution Width 19.2 % (11.8-14.3); White Blood Cell 4.2 10^3/uL (4.4-10.8)
[2023-08-14 07:06] LABS: Basophils % (manual) 0 (0.0-2.0); Blast Cells 0; Eosinophils % (manual) 0 (0-7); Metamyelocytes % 0; Myelocytes % 0; Promyelocytes % 0
[2023-08-14 07:18] LABS: Alkaline Phosphatase 94 U/L (46-116); Anion Gap 4 (5-15); Blood Urea Nitrogen 11 mg/dL (9-23); Calcium 7.1 mg/dL (8.7-10.4); Carbon Dioxide 25 mmol/L (20-30); Chloride 99 mmol/L (98-107); Glucose 124 mg/dL (74-106); Magnesium 1.7 mg/dL (1.6-2.6); Potassium 3.7 mmol/L (3.5-5.1); Sodium 128 mmol/L (136-145)
[2023-08-14 07:19] LABS: Albumin 2.3 g/dL (3.2-4.8); Aspartate Aminotransferase 26 U/L (13-40); BUN/Creatinine Ratio 28.2 (10.0-20.0); Bilirubin, Total 0.2 mg/dL (0.2-1.0); Phosphorus 2.9 mg/dL (2.4-5.1); Total Protein 5.4 g/dL (5.7-8.2)
[2023-08-14 07:23] LABS: Alanine Aminotransferase < 9 U/L (7-40)
[2023-08-14 08:02] LABS: Band Neutrophils % (manual) 6; Lymphocytes % (manual) 38 (10.0-50.0); Monocytes % (manual) 12 (0-12); Reactive Lymphocytes 2
[2023-08-14 08:03] LABS: Anisocytosis Slight; Platelet Estimate Adequate
[2023-08-14] MEDS: POTASSIUM PHOSPHATE 22 MEQ in SODIUM CHL 0.9% 100 ML IV ONE (20:30)
[2023-08-14] MEDS: TPN PER PHARMACY IV NR (20:45)
[2023-08-14] MEDS: APIXABAN 5 MG TAB PO SCH (21:23)
[2023-08-15] VITALS (7 sets, daily range): BP systolic 99–122; BP diastolic 50–95; PULSE 83–110; RESP 16–20; TEMP 97.9–99; O2SAT 91–93
[2023-08-15] MEDS: QUEtiapine FUMARATE 100 MG TAB PO SCH (05:56)
[2023-08-15 10:37] LABS: Potassium 4.6 mmol/L (3.5-5.1)
[2023-08-15 10:38] LABS: Calcium 7.4 mg/dL (8.7-10.4)
[2023-08-15 10:43] LABS: BUN/Creatinine Ratio 21.6 (10.0-20.0); Magnesium 1.7 mg/dL (1.6-2.6)
[2023-08-15 10:45] LABS: Albumin 2.3 g/dL (3.2-4.8); Phosphorus 2.6 mg/dL (2.4-5.1)
[2023-08-15] MEDS: MAGNESIUM SULFATE 1GM/100ML 100 ML IV SCH (13:53)
[2023-08-15] MEDS: SODIUM PHOSP 20MEQ(15MMOL) IN NS 100 ML IV ONE (13:54)
[2023-08-15] MEDS ORDERED: ALBUTEROL SULF 2.5 MG/0.5ML(0.5%) NEB SOLN NEB PRN (16:30)
[2023-08-15] MEDS: HYDROmorphone HCL 2 MG/ML VL/or syr IV PRN (22:19)
[2023-08-15] MEDS: TPN PER PHARMACY IV NR (22:36)
[2023-08-16] VITALS (8 sets, daily range): BP systolic 108–115; BP diastolic 52–60; PULSE 94–108; RESP 18–20; TEMP 97.9–98.9; O2SAT 92–99
[2023-08-16 08:55] LABS: Albumin 2.1 g/dL (3.2-4.8); Alkaline Phosphatase 88 U/L (46-116); Anion Gap 4 (5-15); Aspartate Aminotransferase 30 U/L (13-40); BUN/Creatinine Ratio 19.5 (10.0-20.0); Blood Urea Nitrogen 8 mg/dL (9-23); Calcium 7.3 mg/dL (8.5-10.1); Carbon Dioxide 24 mmol/L (20-30); Chloride 102 mmol/L (98-107); Glucose 135 mg/dL (74-106); Potassium 4.4 mmol/L (3.5-5.1); Sodium 130 mmol/L (136-145)
[2023-08-16 08:56] LABS: Bilirubin, Total 0.2 mg/dL (0.2-1.0); Phosphorus 3.1 mg/dL (2.4-5.1); Total Protein 5.1 g/dL (5.7-8.2)
[2023-08-16 09:08] LABS: Alanine Aminotransferase < 9 U/L (7-40)
[2023-08-16 09:36] LABS: Magnesium 1.8 mg/dL (1.6-2.6)
[2023-08-16] MEDS: MAGNESIUM SULFATE 1GM/100ML 100 ML IV SCH (12:30)
[2023-08-16] MEDS: SODIUM PHOSPHATES 20 MEQ in SODIUM CHL 0.9% 100 ML IV ONE (14:30)
[2023-08-16] MEDS: TPN PER PHARMACY IV NR (22:48)
[2023-08-17] VITALS (8 sets, daily range): BP systolic 94–143; BP diastolic 47–73; PULSE 79–107; RESP 18–20; TEMP 97.4–98.7; O2SAT 90–100
[2023-08-17 06:29] LABS: Albumin 2.1 g/dL (3.2-4.8); Alkaline Phosphatase 78 U/L (46-116); Anion Gap 5 (5-15); Aspartate Aminotransferase 23 U/L (13-40); BUN/Creatinine Ratio 21.6 (10.0-20.0); Blood Urea Nitrogen 8 mg/dL (9-23); Calcium 7.1 mg/dL (8.7-10.4); Carbon Dioxide 22 mmol/L (20-30); Chloride 102 mmol/L (98-107); Glucose 121 mg/dL (74-106); Magnesium 1.8 mg/dL (1.6-2.6); Potassium 3.9 mmol/L (3.5-5.1); Sodium 129 mmol/L (136-145)
[2023-08-17 06:30] LABS: Bilirubin, Total < 0.2 mg/dL (0.2-1.0)
[2023-08-17 06:32] LABS: Alanine Aminotransferase < 9 U/L (7-40)
[2023-08-17 06:48] LABS: Triglycerides 172 mg/dL (< 150)
[2023-08-17] MEDS ORDERED: METOPROLOL TARTRATE 1MG/1ML-5ML VIAL IV PRN (14:00)
[2023-08-17] MEDS: MAGNESIUM SULFATE 1GM/100ML 100 ML IV SCH (14:33)
[2023-08-17] MEDS: METOCLOPRAMIDE HCL 5MG/ml INJ 2ml VIAL IV SCH (14:33)
[2023-08-17] MEDS: LORazepam 2MG/ML-1ML VIAL IV PRN (14:33)
[2023-08-17] MEDS: SODIUM PHOSPHATES 20 MEQ in SODIUM CHL 0.9% 100 ML IV ONE (16:05)
[2023-08-17] MEDS: ENOXAPARIN SOD 100 MG/1 ML SYRINGE SC SCH (22:25)
[2023-08-17] MEDS: TPN PER PHARMACY IV NR (22:56)
[2023-08-18] VITALS (7 sets, daily range): BP systolic 113–137; BP diastolic 67–75; PULSE 94–110; RESP 16–20; TEMP 97.8–99.2; O2SAT 94–97
[2023-08-18 06:48] LABS: Albumin 2.2 g/dL (3.2-4.8); Alkaline Phosphatase 80 U/L (46-116); Anion Gap 6 (5-15); Aspartate Aminotransferase 23 U/L (13-40); BUN/Creatinine Ratio 30.8 (10.0-20.0); Blood Urea Nitrogen 12 mg/dL (9-23); Calcium 7.4 mg/dL (8.7-10.4); Carbon Dioxide 23 mmol/L (20-30); Chloride 106 mmol/L (98-107); Glucose 128 mg/dL (74-106); Magnesium 1.9 mg/dL (1.6-2.6); Phosphorus 2.9 mg/dL (2.4-5.1); Potassium 3.8 mmol/L (3.5-5.1)
[2023-08-18 06:49] LABS: Bilirubin, Total 0.2 mg/dL (0.2-1.0); Total Protein 5.4 g/dL (5.7-8.2)
[2023-08-18 06:54] LABS: Sodium 135 mmol/L (136-145)
[2023-08-18 06:55] LABS: Alanine Aminotransferase < 9 U/L (7-40)
[2023-08-18] MEDS: SODIUM CHLORIDE 0.9% 1,000 ML IV SCH (10:42)
[2023-08-18] MEDS: MORPHINE SULFATE INJ 2 MG/ml SYRG IV PRN (11:11)
[2023-08-18] MEDS: TPN PER PHARMACY IV NR (21:24)
[2023-08-19] VITALS (7 sets, daily range): BP systolic 115–137; BP diastolic 67–77; PULSE 78–98; RESP 17–21; TEMP 97.4–98.4; O2SAT 96–98
[2023-08-19 06:48] LABS: Basophils # (auto) 0 10 ^3/uL (0-0.2); Basophils % (auto) 0.5 % (0.0-2.0); Eosinophils # (auto) 0.1 10 ^3/uL (0-0.8); Eosinophils % (auto) 1.4 % (0.0-7.0); Hematocrit 30.7 % (36.0-46.0); Hemoglobin 9.8 g/dL (12.2-16.2); Lymphocytes # (auto) 1.9 10 ^3/uL (0.4-5.4); Lymphocytes % (auto) 42.9 % (10.0-50.0); Mean Corpuscular Hemoglobin 29.3 pg (28.0-32.0); Mean Corpuscular Hgb Conc. 31.8 g/dL (32.0-36.0); Mean Corpuscular Volume 92.1 fL (80.0-100.0); Monocytes # (auto) 0.6 10 ^3/uL (0-1.3); Monocytes % (auto) 12.8 % (0.0-12.0); Neutrophils # (auto) 1.9 10 ^3/uL (1.6-8.6); Neutrophils % (auto) 42.4 % (37.0-80.0); Nucleated Red Blood Cells % 0.2 %; Red Blood Cells 3.33 10^6/uL (4.0-5.20); Red Cell Distribution Width 22.8 % (11.8-14.3); White Blood Cell 4.4 10^3/uL (4.4-10.8)
[2023-08-19 07:00] LABS: Potassium 3.9 mmol/L (3.5-5.1)
[2023-08-19 07:07] LABS: Albumin 2.1 g/dL (3.2-4.8); BUN/Creatinine Ratio 28.1 (10.0-20.0); Magnesium 1.8 mg/dL (1.6-2.6)
[2023-08-19 07:09] LABS: Phosphorus 2.8 mg/dL (2.4-5.1)
[2023-08-19] MEDS: GASTROGRAFIN 120 ML SOL ONE (13:58)
[2023-08-19] MEDS: TPN PER PHARMACY IV NR (21:37)
[2023-08-20] VITALS (7 sets, daily range): BP systolic 102–168; BP diastolic 61–75; PULSE 79–100; RESP 16–20; TEMP 97.4–98.4; O2SAT 93–96
[2023-08-20 08:47] LABS: Alanine Aminotransferase 12 U/L (7-40); Albumin 2.4 g/dL (3.2-4.8); Alkaline Phosphatase 83 U/L (46-116); Anion Gap 4 (5-15); Aspartate Aminotransferase 47 U/L (13-40); BUN/Creatinine Ratio 23.5 (10.0-20.0); Blood Urea Nitrogen 8 mg/dL (9-23); Calcium 7.2 mg/dL (8.7-10.4); Carbon Dioxide 25 mmol/L (20-30); Chloride 105 mmol/L (98-107); Glucose 137 mg/dL (74-106); Magnesium 1.7 mg/dL (1.6-2.6); Phosphorus 3.6 mg/dL (2.4-5.1); Potassium 4.8 mmol/L (3.5-5.1); Sodium 134 mmol/L (136-145)
[2023-08-20 08:48] LABS: Bilirubin, Total < 0.2 mg/dL (0.2-1.0); Total Protein 5.8 g/dL (5.7-8.2)
[2023-08-20] MEDS: TPN PER PHARMACY IV NR (19:38)
[2023-08-21 05:00] VITALS: BP 122/75; PULSE 93; RESP 18; TEMP 98.4; O2SAT 94
[2023-08-21 08:30] VITALS: BP 124/72; PULSE 94; RESP 20; TEMP 98.6; O2SAT 94
[2023-08-21 08:42] LABS: Albumin 2.3 g/dL (3.2-4.8); Alkaline Phosphatase 83 U/L (46-116); Anion Gap 5 (5-15); Aspartate Aminotransferase 37 U/L (13-40); BUN/Creatinine Ratio 19.4 (10.0-20.0); Bilirubin, Total < 0.2 mg/dL (0.2-1.0); Blood Urea Nitrogen 7 mg/dL (9-23); Calcium 7.8 mg/dL (8.5-10.1); Carbon Dioxide 24 mmol/L (20-30); Chloride 104 mmol/L (98-107); Glucose 116 mg/dL (74-106); Phosphorus 3.5 mg/dL (2.4-5.1); Potassium 4.1 mmol/L (3.5-5.1); Sodium 133 mmol/L (136-145); Total Protein 5.7 g/dL (5.7-8.2)
[2023-08-21 08:43] LABS: Alanine Aminotransferase < 9 U/L (7-40)
[2023-08-21 09:18] LABS: Magnesium 1.7 mg/dL (1.6-2.6)
[2023-08-21 10:00] VITALS: O2SAT 74
[2023-08-21] MEDS: GASTROGRAFIN 120 ML SOL ONE (10:57)
[2023-08-21 16:15] VITALS: BP 115/71; PULSE 103; RESP 18; TEMP 98.2; O2SAT 97
[2023-08-21] MEDS: TPN PER PHARMACY IV NR (20:04)
[2023-08-21 22:00] VITALS: BP 122/80; PULSE 78; RESP 18; TEMP 98.2; O2SAT 95
[2023-08-21] MEDS ORDERED: APIXABAN 5 MG TAB PO SCH (22:00)
[2023-08-22 05:00] VITALS: BP 110/68; PULSE 95; RESP 18; TEMP 98.3; O2SAT 97
[2023-08-22 07:00] LABS: Alanine Aminotransferase 10 U/L (7-40); Albumin 2.3 g/dL (3.2-4.8); Alkaline Phosphatase 93 U/L (46-116); Anion Gap 5 (5-15); Aspartate Aminotransferase 24 U/L (13-40); BUN/Creatinine Ratio 45.7 (10.0-20.0); Blood Urea Nitrogen 16 mg/dL (9-23); Calcium 7.3 mg/dL (8.7-10.4); Carbon Dioxide 23 mmol/L (20-30); Chloride 107 mmol/L (98-107); Glucose 135 mg/dL (74-106); Magnesium 1.7 mg/dL (1.6-2.6); Phosphorus 3.4 mg/dL (2.4-5.1); Potassium 4.2 mmol/L (3.5-5.1); Sodium 135 mmol/L (136-145)
[2023-08-22 07:01] LABS: Bilirubin, Total 0.2 mg/dL (0.2-1.0); Total Protein 5.6 g/dL (5.7-8.2)
[2023-08-22 09:00] VITALS: BP 118/69; PULSE 102; RESP 20; TEMP 98.2; O2SAT 95
[2023-08-22 09:30] VITALS: O2SAT 95
[2023-08-22] MEDS: METOCLOPRAMIDE HCL 5MG/ml INJ 2ml VIAL IV SCH (13:18)
[2023-08-22] MEDS: MAGNESIUM SULFATE 1GM/100ML 100 ML IV SCH (13:18)
[2023-08-22 20:10] VITALS: O2SAT 97
[2023-08-22] MEDS: TPN PER PHARMACY IV NR (20:24)
[2023-08-22 22:00] VITALS: BP 100/65; PULSE 82; RESP 20; TEMP 98.2; O2SAT 97
[2023-08-23 05:00] VITALS: BP 97/60; PULSE 79; RESP 20; TEMP 98.4; O2SAT 99
[2023-08-23 05:33] LABS: Alanine Aminotransferase < 9 U/L (7-40); Albumin 2.3 g/dL (3.2-4.8); Alkaline Phosphatase 87 U/L (46-116); Anion Gap 5 (5-15); Aspartate Aminotransferase 20 U/L (13-40); BUN/Creatinine Ratio 30.8 (10.0-20.0); Blood Urea Nitrogen 12 mg/dL (9-23); Calcium 7.4 mg/dL (8.7-10.4); Carbon Dioxide 23 mmol/L (20-30); Chloride 103 mmol/L (98-107); Glucose 115 mg/dL (74-106); Magnesium 1.9 mg/dL (1.6-2.6); Potassium 4.2 mmol/L (3.5-5.1); Sodium 131 mmol/L (136-145)
[2023-08-23 05:34] LABS: Bilirubin, Total 0.2 mg/dL (0.2-1.0); Phosphorus 3.5 mg/dL (2.4-5.1); Total Protein 5.7 g/dL (5.7-8.2)
[2023-08-23] MEDS: GASTROGRAFIN 120 ML SOL ONE ×2 (07:52→07:53)
[2023-08-23 09:00] VITALS: BP 106/59; PULSE 78; RESP 20; TEMP 97.9; O2SAT 94
[2023-08-23] MEDS ORDERED: SODIUM PHOSPHATES 20 MEQ in SODIUM CHL 0.9% 100 ML IV ONE (12:00)
[2023-08-23 13:15] VITALS: BP 115/56; PULSE 78; RESP 20; TEMP 98; O2SAT 95
[2023-08-23] MEDS: MAGNESIUM SULFATE 1GM/100ML 100 ML IV SCH (13:40)
[2023-08-23 17:00] VITALS: BP 113/66; PULSE 92; RESP 20; TEMP 97.5; O2SAT 94
[2023-08-23] MEDS: TPN PER PHARMACY IV NR (19:57)
[2023-08-23 20:00] VITALS: PULSE 85; RESP 16; O2SAT 96
[2023-08-23 22:00] VITALS: BP 134/71; PULSE 85; RESP 16; TEMP 97.6; O2SAT 96
[2023-08-24 05:00] VITALS: BP 103/63; PULSE 83; RESP 19; TEMP 97.7; O2SAT 96
[2023-08-24 05:42] LABS: Basophils # (auto) 0 10 ^3/uL (0-0.2); Basophils % (auto) 0.3 % (0.0-2.0); Eosinophils # (auto) 0.1 10 ^3/uL (0-0.8); Eosinophils % (auto) 2.1 % (0.0-7.0); Hematocrit 32.5 % (36.0-46.0); Hemoglobin 10.3 g/dL (12.2-16.2); Lymphocytes % (auto) 48.5 % (10.0-50.0); Mean Corpuscular Hemoglobin 29.6 pg (28.0-32.0); Mean Corpuscular Hgb Conc. 31.7 g/dL (32.0-36.0); Mean Corpuscular Volume 93.6 fL (80.0-100.0); Monocytes # (auto) 0.5 10 ^3/uL (0-1.3); Monocytes % (auto) 11.2 % (0.0-12.0); Neutrophils # (auto) 1.5 10 ^3/uL (1.6-8.6); Neutrophils % (auto) 37.9 % (37.0-80.0); Nucleated Red Blood Cells % 0.1 %; Red Blood Cells 3.47 10^6/uL (4.0-5.20)
[2023-08-24 05:43] LABS: Albumin 2.4 g/dL (3.2-4.8); Alkaline Phosphatase 90 U/L (46-116); Anion Gap 4 (5-15); Aspartate Aminotransferase 23 U/L (13-40); BUN/Creatinine Ratio 21.4 (10.0-20.0); Bilirubin, Total 0.2 mg/dL (0.2-1.0); Blood Urea Nitrogen 9 mg/dL (9-23); Calcium 7.3 mg/dL (8.7-10.4); Carbon Dioxide 22 mmol/L (20-30); Chloride 103 mmol/L (98-107); Glucose 107 mg/dL (74-106); Magnesium 1.9 mg/dL (1.6-2.6); Phosphorus 3.6 mg/dL (2.4-5.1); Potassium 4.2 mmol/L (3.5-5.1); Sodium 129 mmol/L (136-145); Total Protein 5.9 g/dL (5.7-8.2)
[2023-08-24 05:44] LABS: Red Cell Distribution Width 23.2 % (11.8-14.3)
[2023-08-24 05:45] LABS: Alanine Aminotransferase < 9 U/L (7-40)
[2023-08-24 08:00] VITALS: PULSE 86; RESP 17; O2SAT 95
[2023-08-24 09:00] VITALS: BP 91/56; PULSE 86; RESP 17; TEMP 98.3; O2SAT 95
[2023-08-24] MEDS: busPIRone HCL 10 MG TAB PO SCH (09:41)
[2023-08-24] MEDS: METOPROLOL TARTRATE 25 MG TAB PO SCH (09:41)
[2023-08-24] MEDS: APIXABAN 5 MG TAB PO SCH (09:41)
[2023-08-24] MEDS: DULoxetine HCL 30 MG CAP PO SCH (09:41)
[2023-08-24] MEDS: MIDODRINE HCL 10 MG TAB PO SCH (12:06)
[2023-08-24 13:00] VITALS: BP 121/69; PULSE 74; RESP 15; TEMP 97.3; O2SAT 95
[2023-08-24 17:00] VITALS: BP 115/64; PULSE 75; RESP 17; TEMP 98; O2SAT 95
[2023-08-24] MEDS: TPN PER PHARMACY IV NR (20:26)
[2023-08-24 22:00] VITALS: BP 114/54; PULSE 80; RESP 17; TEMP 97.6; O2SAT 95
[2023-08-25 05:00] VITALS: BP 109/65; PULSE 78; RESP 18; TEMP 98; O2SAT 96
[2023-08-25 06:06] LABS: Albumin 2.6 g/dL (3.2-4.8); Alkaline Phosphatase 96 U/L (46-116); Anion Gap 5 (5-15); Aspartate Aminotransferase 21 U/L (13-40); BUN/Creatinine Ratio 26.8 (10.0-20.0); Blood Urea Nitrogen 11 mg/dL (9-23); Calcium 7.6 mg/dL (8.7-10.4); Carbon Dioxide 23 mmol/L (20-30); Chloride 103 mmol/L (98-107); Glucose 102 mg/dL (74-106); Potassium 4.2 mmol/L (3.5-5.1); Sodium 131 mmol/L (136-145)
[2023-08-25 06:08] LABS: Bilirubin, Total 0.2 mg/dL (0.2-1.0); Phosphorus 3.3 mg/dL (2.4-5.1); Total Protein 6.2 g/dL (5.7-8.2)
[2023-08-25 06:17] LABS: Alanine Aminotransferase < 9 U/L (7-40)
[2023-08-25 07:28] LABS: Triglycerides 209 mg/dL (< 150)
[2023-08-25 09:21] VITALS: BP 122/73; PULSE 74; RESP 18; TEMP 98; O2SAT 94
[2023-08-25 13:00] VITALS: BP 117/75; PULSE 56; RESP 19; TEMP 97.9; O2SAT 96
[2023-08-25] MEDS: ENSURE CLEAR Mixed Berry 8oz Carton PO SCH (15:34)
[2023-08-25 19:30] VITALS: PULSE 81; RESP 18; O2SAT 98
[2023-08-25 22:00] VITALS: BP 124/67; PULSE 76; RESP 17; TEMP 98.4; O2SAT 95
[2023-08-26 05:00] VITALS: BP 98/60; PULSE 75; RESP 18; TEMP 98.1; O2SAT 96
[2023-08-26 09:00] VITALS: BP 112/67; PULSE 60; RESP 14; TEMP 98; O2SAT 96
[2023-08-26] MEDS: HYDROcodone-ACET 5/325MG TAB PO PRN (12:14)
[2023-08-26 13:00] VITALS: BP 115/60; PULSE 86; RESP 12; TEMP 98.1; O2SAT 98
[2023-08-26 15:30] LABS: COVID19 ANTIGEN SOFIA FIA NEGATIVE (NEGATIVE)
[2023-08-26 17:00] VITALS: BP 133/77; PULSE 80; RESP 14; TEMP 97.8; O2SAT 96
[2023-08-26 19:30] VITALS: PULSE 78; RESP 17; O2SAT 98
[2023-08-26] MEDS: QUEtiapine FUMARATE 100 MG TAB PO SCH (21:16)
[2023-08-26 22:00] VITALS: BP 105/47; PULSE 85; RESP 18; TEMP 97.9; O2SAT 95
[2023-08-27 05:00] VITALS: BP 117/66; PULSE 91; RESP 16; TEMP 98.4; O2SAT 93
[2023-08-27 09:00] VITALS: BP 109/66; PULSE 95; RESP 14; TEMP 98.3; O2SAT 96
[2023-08-27 09:39] LABS: Basophils # (auto) 0 10 ^3/uL (0-0.2); Basophils % (auto) 0.3 % (0.0-2.0); Eosinophils # (auto) 0.1 10 ^3/uL (0-0.8); Eosinophils % (auto) 1.7 % (0.0-7.0); Hematocrit 33.4 % (36.0-46.0); Lymphocytes # (auto) 2.5 10 ^3/uL (0.4-5.4); Lymphocytes % (auto) 49.7 % (10.0-50.0); Mean Corpuscular Hemoglobin 29.3 pg (28.0-32.0); Mean Corpuscular Hgb Conc. 32.8 g/dL (32.0-36.0); Mean Corpuscular Volume 89.3 fL (80.0-100.0); Monocytes # (auto) 0.6 10 ^3/uL (0-1.3); Monocytes % (auto) 11.2 % (0.0-12.0); Neutrophils # (auto) 1.9 10 ^3/uL (1.6-8.6); Neutrophils % (auto) 37.1 % (37.0-80.0); Nucleated Red Blood Cells % 0.2 %; Red Blood Cells 3.74 10^6/uL (4.0-5.20); White Blood Cell 5.1 10^3/uL (4.4-10.8)
[2023-08-27 09:40] LABS: Red Cell Distribution Width 22.3 % (11.8-14.3)
[2023-08-27 10:04] LABS: Alanine Aminotransferase 17 U/L (7-40); Albumin 2.9 g/dL (3.2-4.8); Alkaline Phosphatase 115 U/L (46-116); Anion Gap 6 (5-15); Aspartate Aminotransferase 29 U/L (13-40); BUN/Creatinine Ratio 15.7 (10.0-20.0); Blood Urea Nitrogen 8 mg/dL (9-23); Calcium 8.1 mg/dL (8.5-10.1); Carbon Dioxide 23 mmol/L (20-30); Chloride 103 mmol/L (98-107); Glucose 92 mg/dL (74-106); Potassium 3.6 mmol/L (3.5-5.1); Sodium 132 mmol/L (136-145)
[2023-08-27 10:05] LABS: Bilirubin, Total 0.4 mg/dL (0.2-1.0); Total Protein 6.5 g/dL (5.7-8.2)
[2023-08-27 13:00] VITALS: BP 108/70; PULSE 88; RESP 16; TEMP 98.2; O2SAT 95
== END 2023-08-27 14:30 | DRG 853 ==
LOC: ER 08:46 → EDBD 08:46 → TELE 12:17 → TELE-WESTW 07-21 18:45 → DOU IN ICU 07-28 14:34 → ICU WEST 08-01 15:30 → TELE-WESTW 08-08 16:55 → WEST WING 08-09 14:28
PROVIDERS: ADMIT Nurse Practitioner Family; ATTEND Nurse Practitioner Acute Care
PROC: 06HY33Z Insertion of Infusion Device into Lower Vein, Percutaneous Approach (ICD-10-PCS; 2023-07-19)
PROC: B54BZZA Ultrasonography of Right Lower Extremity Veins, Guidance (ICD-10-PCS; 2023-07-19)
PROC: 0D9670Z Drainage of Stomach with Drainage Device, Via Natural or Artificial Opening (ICD-10-PCS; 2023-07-20)
PROC: 0WPF0JZ Removal of Synthetic Substitute from Abdominal Wall, Open Approach (ICD-10-PCS; 2023-08-01)
PROC: 5A1955Z Respiratory Ventilation, Greater than 96 Consecutive Hours (ICD-10-PCS; 2023-08-01)
PROC: 05HB33Z Insertion of Infusion Device into Right Basilic Vein, Percutaneous Approach (ICD-10-PCS; 2023-08-01)
PROC: B54MZZA Ultrasonography of Right Upper Extremity Veins, Guidance (ICD-10-PCS; 2023-08-01)
PROC: 0WQF0ZZ Repair Abdominal Wall, Open Approach (ICD-10-PCS; principal; 2023-08-01 08:39)
PROC: 02HV33Z Insertion of Infusion Device into Superior Vena Cava, Percutaneous Approach (ICD-10-PCS; 2023-08-02)
PROC: B548ZZA Ultrasonography of Superior Vena Cava, Guidance (ICD-10-PCS; 2023-08-02)
PROC: 30233N1 Transfusion of Nonautologous Red Blood Cells into Peripheral Vein, Percutaneous Approach (ICD-10-PCS; 2023-08-03)
PROC: 0B9D8ZX Drainage of Right Middle Lung Lobe, Via Natural or Artificial Opening Endoscopic, Diagnostic (ICD-10-PCS; 2023-08-04)
DX: A41.9 Sepsis, unspecified organism (principal); J69.0 Pneumonitis due to inhalation of food and vomit; R65.21 Severe sepsis with septic shock; J96.01 Acute respiratory failure with hypoxia; N17.9 Acute kidney failure, unspecified; J98.11 Atelectasis; K56.609 Unspecified intestinal obstruction, unspecified as to partial versus complete obstruction; E87.1 Hypo-osmolality and hyponatremia; E87.20 Acidosis, unspecified; K43.6 Other and unspecified ventral hernia with obstruction, without gangrene; I48.20 Chronic atrial fibrillation, unspecified; I82.401 Acute embolism and thrombosis of unspecified deep veins of right lower extremity; J44.0 Chronic obstructive pulmonary disease with (acute) lower respiratory infection; Z20.822 Contact with and (suspected) exposure to COVID-19; I50.9 Heart failure, unspecified; E78.5 Hyperlipidemia, unspecified; E83.51 Hypocalcemia; E86.0 Dehydration; E87.6 Hypokalemia; F20.9 Schizophrenia, unspecified; F31.9 Bipolar disorder, unspecified; I11.0 Hypertensive heart disease with heart failure; Z68.35 Body mass index [BMI] 35.0-35.9, adult; B95.2 Enterococcus as the cause of diseases classified elsewhere; E66.01 Morbid (severe) obesity due to excess calories; K66.0 Peritoneal adhesions (postprocedural) (postinfection); E83.42 Hypomagnesemia; E11.9 Type 2 diabetes mellitus without complications; N30.90 Cystitis, unspecified without hematuria; D50.0 Iron deficiency anemia secondary to blood loss (chronic); Z79.899 Other long term (current) drug therapy; Z79.84 Long term (current) use of oral hypoglycemic drugs; Z88.1 Allergy status to other antibiotic agents; Z91.018 Allergy to other foods; Z90.710 Acquired absence of both cervix and uterus; Z83.3 Family history of diabetes mellitus; Z81.8 Family history of other mental and behavioral disorders; Z80.0 Family history of malignant neoplasm of digestive organs; Z82.49 Family history of ischemic heart disease and other diseases of the circulatory system
CPT/HCPCS: 36415; 36600; 71045; 74018; 74176; 74250; 80048; 80053; 80069; 81001; 82805; 82962; 83036; 83605; 83690; 83735; 84100; 84132; 84478; 84484; 85007; 85014; 85018; 85025; 85027; 85610; 85730; 86850; 86900; 86901; 86920; 87040; 87070; 87077; 87081; 87086; 87088; 87186; 87205; 87426; 93005; 93306; 93971; 94002; 94003; 94640; 96361; 96365; 97110; 97116; 97163; 97530; 99291; C9113; G0378; J0330; J0692; J1100; J1450; J1642; J1756; J1815; J1885; J1956; J2001; J2248; J2250; J2405; J2543; J3480; J3490; J7060; J7131

== ENCOUNTER 2024-12-28 20:18 | Inpatient (IN) | payer OTHER, MEDICAID ==
[~2024-12-28] VITALS: Ht 165.1 cm; Wt 81.2 kg
[~2024-12-28 20:18] MED LIST changes: +ARIP5TAB22 PO; -ARIP5TAB36 PO; +BENZ0.5T PO; -BENZ0.5T19 PO; -MET500T PO; -ROPI1TAB4 PO; +ROPI1TAB78 PO
--- NOTE | 2024-12-28 20:53 | ED.PDOC ---
Musculoskeletal HPI Comments 69 year old female came to ER via EMS for left arm swelling. Patient has history of DVT of the right leg and has been on Eliquis for it. At about 1630 hours she developed sudden onset left arm pain, swelling and redness, associated with shortness of breath. Denies any recent trauma to the left arm. Noted to be febrile also at 102.8 F Chief Complaint: Upper Extremity Time Seen by MD: 20:52 Primary Care Provider: LAURO Reviewed Notes: Nurses Notes Allergies: Coded Allergies: Tetracycline (Verified Allergy, Severe, CONVULSIONS, 02/16/14) [place] (Verified Adverse Reaction, Unknown, anaphylatic, 05/22/22) Per patient, strawberries cause anaphylatic reaction Home Meds Active Scripts Hydrocodone-Acetaminophen (Hydrocodone Bitartrate/AC 5-325 mg) 1 Tab Tab, 1 TAB PO TID PRN, #30 TAB Prov:RAMSES TORRES MD 02/09/23 Ibuprofen (Ibuprofen) 800 Mg Tab, 1 TAB PO TID, #30 TAB Prov:ARIA BETANCUR 12/09/22 Reported Medications Aripiprazole (Aripiprazole) 5 Mg Tab, 1 TAB PO DAILY 02/04/23 Benztropine Mesylate (Benztropine Mesylate) 0.5 Mg Tab, 1 TAB PO BID 02/04/23 Zolpidem Tartrate (Zolpidem Tartrate) 10 Mg Tab, 1 TAB PO QHSP PRN for FOR INSOMNIA 02/04/23 Buspirone HCl (Buspirone HCl) 10 Mg Tab, 1 TAB PO BID 02/04/23 Beclomethasone Dipropionate (Qvar Redihaler) 80 Mcg/Act Aer, INH 02/04/23 Levothyroxine Sodium (Levothyroxine Sodium) 100 Mcg Tab, 1 TAB PO DAILY 09/10/22 Hydrocodone-Acetaminophen (Hydrocodone/Acetaminophen 10-325 mg) 1 Tab Tab, 10- 325 TAB PO Q6HPRN PRN for PAIN SCALE 7 THRU 10 05/09/22 Exemestane (EXEMESTANE) 25 Mg Tab, 25 MG PO DAILY, TAB 11/07/21 Quetiapine Fumerate (Seroquel) 300 Mg Tab, 2 TAB PO QPM, #30 TAB 1 Refill 11/02/21 Ropinirole Hydrochloride (Ropinirole Hcl) 1 Mg Tab, 1 MG PO TID, TAB 09/29/21 Magnesium Oxide (Magnesium) 250 Mg Tab, 250 MG PO DAILY, TAB 09/29/21 Famotidine (Famotidine) 40 Mg Tab, 40 MG PO DAILY, TAB 09/29/21 Duloxetine Hcl (Cymbalta) 60 Mg Cap, 1 CAP PO DAILY, #90 CAP 3 Refills 09/29/21 Potassium Chloride (Potassium Chloride ER) 20 Meq Tab, 20 MEQ PO DAILY, TAB 09/29/21 Furosemide (Lasix) 20 Mg Tb, 1 TAB PO BID, #90 TAB 1 Refill 09/29/21 Information Source: Patient, Emergency Med Personnel Mode of Arrival: EMS Location: Left Extremity Location: Arm Timing: Hours Prehospital treatment: None Severity: Moderate Able to Move Extremity: Yes Bear Weight: Limited Pain: Moderate Hand Dominance: Right Mechanism: Spontaneous Circumstances: Spontaneous Onset of Symptoms: Spontaneous Symptoms: Swelling, Pain Associated signs and symptoms: Arm pain (left) Past Medical History PAST MEDICAL HISTORY: AFIB, Anxiety, Cancer, CHF, COPD, Depression, High Lipids, Hypotension, Schizophrenia, Thyroid Past Medical History (Other): DVT right leg Surgical History: Hernia Repair, Hysterectomy FLOOR CARE SPECIALIST History: Denies all FLOOR CARE SPECIALIST Hx Family History Family History: Reviewed,noncontributory to illness Social History Smoker: Non-Smoker Alcohol: Denies ETOH Use Drugs: Denies Drug Use Lives In: Home Constitutional: denies: chills, diaphoresis, fatigue, fever, malaise, sweats, weakness, others EENTM: denies: blurred vision, double vision, ear bleeding, ear discharge, ear drainage, ear pain, ear ringing, eye pain, eye redness, hearing loss, mouth pain, mouth swelling, nasal discharge, nose bleeding, nose congestion, nose pain, photophobia, tearing, throat pain, throat swelling, voice changes, others Respiratory: denies: cough, hemoptysis, orthopnea, SOB at rest, shortness of breath, SOB with excertion, stridor, wheezing, others Cardiovascular: denies: chest pain, dizzy spells, diaphoresis, Dyspnea on exertion, edema, irregular heart beat, left arm pain, lightheadedness, palpitations, PND, syncope, others Gastrointestinal: denies: abdomen distended, abdominal pain, blood streaked bowels, constipated, diarrhea, dysphagia, difficulty swallowing, hematemesis, melena, nausea, poor appetite, poor fluid intake, rectal bleeding, rectal pain, vomiting, others Genitourinary: denies: abnormal vagina bleeding, burning, dyspareunia, dysuria, flank pain, frequency, hematuria, incontinence, pain, , vagina discharge, urgency, others Neurological: denies: dizziness, fainting, headache, left sided numbness, left sided weakness, numbness, paresthesia, pre-existing deficit, right sided numbness, right sided weakness, seizure, speech problems, tingling, tremors, weakness, others Musculoskeletal: reports: others (left upper extremity pain, swelling and redness); denies: back pain, gout, joint pain, joint swelling, muscle pain, muscle stiffness, neck pain Integumetry: denies: bruises, change in color, change in hair/nails, dryness, laceration, lesions, lumps, rash, wounds, others Allergic/Immunocompromised: denies: Difficulty Healing, Frequent Infections, Hives, Itching, others Hematologic/Lymphatic: denies: anemia, blood clots, easy bleeding, easy bruising, swollen glands, others Endocrine: denies: excessive hunger, excessive sweating, excessive thirst, excessive urination, flushing, intolerance to cold, intolerance to heat, unexplained weight gain, unexplained weight loss, others Psychiatric: denies: anxiety, bipolar disorder, depression, hopeless, panic disorder, schizophrenia, sleepless, suicidal, others Physical Exam General Appearance: No Apparent Distress, Normal HEENT: Normal ENT Inspection, Pharynx Normal, TMs Normal Neck: Full Range of Motion, Non-Tender, Normal, Normal Inspection Respiratory: Chest Non-Tender, Lungs Clear, No Accessory Muscle Use, No Respiratory Distress, Normal Breath Sounds Cardiovascular: No Edema, No JVD, No Murmur, No Gallop, Normal Peripheral Pulses, Regular Rate/Rhythm Breast Exam: Deferred Gastrointestinal: No Organomegaly, Non Tender, No Pulsatile Mass, Normal Bowel Sounds, Soft Genitalia: Deferred Pelvic: Deferred Rectal: Deferred Extremities: No calf tenderness, Normal capillary refill, Normal range of motion, No pedal edema, Swelling (left arm), Tender (left arm) Musculoskeletal : Apperance: Normal Neurologic: Alert, supervisor cap and hat production II-XII nml as Tested, No Motor Deficits, Normal Affect, Normal Mood, No Sensory Deficits Cerebellar Function: Normal Reflexes: Normal Skin: Dry, Normal Color, Warm Lymphatic: No Adenopathy Was a procedure done? Was a procedure done?: No Differential Diagnosis EXT Differential Diagnosis: Cellulitis, Deep Vein Thrombosis X-Ray, Labs, Meds, VS Vital Signs Date Time Temp Pulse Resp B/P (MAP) Pulse Ox O2 Delivery O2 Flow Rate FiO2 12/28/24 21:33 97 11 103/62 12/28/24 21:31 102.7 12/28/24 21:00 102.7 97 11 103/62 (76) 95 102.7 12/28/24 21:00 97 11 95 Room Air* 0 21 12/28/24 20:18 102.8 101 20 112/56 (74) 92 102.8 Lab Test 12/28/24 22:45 12/28/24 20:56 Range/Units Lactic Acid Level Pending 2.6 *H 0.4-2.0 mmol/L White Blood Count 8.3 4.4-10.8 10^3/uL Red Blood Count 3.68 L 4.0-5.20 10^6/uL Hemoglobin 10.7 L 12.2-16.2 g/dL Hematocrit 32.7 L 36.0-46.0 % Mean Corpuscular Volume 88.9 80.0-100.0 fL Mean Corpuscular Hemoglobin 29.2 28.0-32.0 pg Mean Corpuscular Hemoglobin Concent 32.9 32.0-36.0 g/dL Red Cell Distribution Width 16.4 H 11.8-14.3 % Platelet Count 131 L 140-450 10^3/uL Mean Platelet Volume 8.1 6.9-10.8 fL Neutrophils (%) (Auto) 87.4 H 37.0-80.0 % Lymphocytes (%) (Auto) 7.4 L 10.0-50.0 % Monocytes (%) (Auto) 4.6 0.0-12.0 % Eosinophils (%) (Auto) 0.4 0.0-7.0 % Basophils (%) (Auto) 0.2 0.0-2.0 % Neutrophils # (Auto) 7.2 1.6-8.6 10 ^3/uL Lymphocytes # (Auto) 0.6 0.4-5.4 10 ^3/uL Monocytes # (Auto) 0.4 0-1.3 10 ^3/uL Eosinophils # (Auto) 0 0-0.8 10 ^3/uL Basophils # (Auto) 0 0-0.2 10 ^3/uL Nucleated Red Blood Cells 0.0 % Prothrombin Time 10.7 9.3-11.8 sec Prothrombin Time INR 1.01 0.9-1.15 Activated Partial Thromboplast Time 27.6 24.5-34.5 SEC Sodium Level 133 L 136-145 mmol/L Potassium Level 3.7 3.5-5.1 mmol/L Chloride Level 101 98-107 mmol/L Carbon Dioxide Level 21 20-31 mmol/L Anion Gap 11 5-15 Blood Urea Nitrogen 14 9-23 mg/dL Creatinine 0.98 0.550-1.02 mg/dL Glomerular Filtration Rate Calc 62 >90 mL/min BUN/Creatinine Ratio 14.3 10.0-20.0 Serum Glucose 184 H 74-106 mg/dL Calcium Level 8.5 L 8.7-10.4 mg/dL Total Bilirubin 0.4 0.2-1.0 mg/dL Aspartate Amino Transferase (AST) 20 13-40 U/L Alanine Aminotransferase (ALT) 13 7-40 U/L Alkaline Phosphatase 86 46-116 U/L Total Protein 7.0 5.7-8.2 g/dL Albumin 4.4 3.2-4.8 g/dL Current Medications Medications (Trade) Dose Ordered Sig/Aster Route Start Time Stop Time Status Last Admin Vancomycin HCl 200 ml @ 200 mls/hr ONCE ONCE IV 12/28/24 20:45 12/28/24 21:44 DC 12/28/24 21:32 Sodium Chloride 2,000 ml @ 1,000 mls/hr Q2H ONCE IV 12/28/24 20:45 12/28/24 22:44 DC 12/28/24 21:33 Acetaminophen (Tylenol Tablet) 650 mg ONCE ONCE PO 12/28/24 20:45 12/28/24 20:46 DC 12/28/24 21:31 Morphine Sulfate 4 mg ONCE ONCE IV 12/28/24 20:45 12/28/24 20:46 DC 12/28/24 21:33 Ondansetron HCl (Zofran) 4 mg ONCE ONCE IV 12/28/24 20:45 12/28/24 20:46 DC 12/28/24 21:32 Time of 1ST Reevaluation: 20:48 Reevaluation 1ST: Unchanged Patient Education/Counseling: Diagnosis, Treatment Family Education/Counseling: No Family Present Sepsis Sepsis Reasesment Focused Exam Orders: Laboratory Tests 12/28/24 20:56: Lactic Acid Level 2.6 12/28/24 22:45: Departure 1 Departure Time of Disposition: 22:50 (Patient presents with concern for sepsis secondary to cellulitis of left lower extremity. We will empirically cover patient with antibiotics.) Impression: Primary Impression: Sepsis Qualified Codes: A41.9 - Sepsis, unspecified organism Additional Impression: Left arm cellulitis Disposition: ADMITTED INPATIENT Admit to: Med Surg Condition: Guarded Critical Care Note Critical Care Time?: Yes (35 min-critical care time only) Critical care comment: Concern for your sepsis Authorized and Performed by: Keith Chapman MD Total critical care time: Approximately 42 minutes Due to a high probability of clinically significant, life threatening deterioration, the patient required my highest level of preparedness to intervene emergently and I personally spent this critical care time directly and personally managing the patient. This critical care time included obtaining a history; examining the patient; pulse oximetry; ordering and review of studies; arranging urgent treatment with development of a management plan; evaluation of patient's response to treatment; frequent reassessment; and, discussions with other providers. This critical care time was performed to assess and manage the high probability of imminent, life-threatening deterioration that could result in multi-organ failure. It was exclusive of separately billable procedures and treating other patients and teaching time. Please see my other sections and the rest of the note for further information on patient assessment and treatment. Stability Stability form required: No Heart Score Heart Score: Heart Score Response (Comments) Value History N/A 0 EKG N/A 0 Age N/A 0 Risk Factors N/A 0 Troponin N/A 0 Total 0 I personally scribed for KEITH CHAPMAN MD ([email or web address]) on 12/28/24 at 20:53. Electronically submitted by Rishabh Block ([email or web address]). KEITH CHAPMAN MD December 28, 2024 20:53
[2024-12-28 21:00] VITALS: PULSE 97; RESP 11; O2SAT 95
[2024-12-28 21:12] LABS: Basophils # (auto) 0 10 ^3/uL (0-0.2); Basophils % (auto) 0.2 % (0.0-2.0); Eosinophils # (auto) 0 10 ^3/uL (0-0.8); Eosinophils % (auto) 0.4 % (0.0-7.0); Hematocrit 32.7 % (36.0-46.0); Hemoglobin 10.7 g/dL (12.2-16.2); Lymphocytes # (auto) 0.6 10 ^3/uL (0.4-5.4); Lymphocytes % (auto) 7.4 % (10.0-50.0); Mean Corpuscular Hemoglobin 29.2 pg (28.0-32.0); Mean Corpuscular Hgb Conc. 32.9 g/dL (32.0-36.0); Mean Corpuscular Volume 88.9 fL (80.0-100.0); Monocytes # (auto) 0.4 10 ^3/uL (0-1.3); Monocytes % (auto) 4.6 % (0.0-12.0); Neutrophils # (auto) 7.2 10 ^3/uL (1.6-8.6); Neutrophils % (auto) 87.4 % (37.0-80.0); Platelet Count (auto) 131 10^3/uL (140-450); Red Blood Cells 3.68 10^6/uL (4.0-5.20); Red Cell Distribution Width 16.4 % (11.8-14.3); White Blood Cell 8.3 10^3/uL (4.4-10.8)
[2024-12-28 21:27] LABS: INR 1.01 (0.9-1.15); Partial Thromboplastin Time 27.6 SEC (24.5-34.5); Prothrombin Time 10.7 sec (9.3-11.8)
[2024-12-28 21:30] LABS: Alanine Aminotransferase 13 U/L (7-40); Alkaline Phosphatase 86 U/L (46-116); Anion Gap 11 (5-15); Blood Urea Nitrogen 14 mg/dL (9-23); Carbon Dioxide 21 mmol/L (20-31); Chloride 101 mmol/L (98-107); Potassium 3.7 mmol/L (3.5-5.1)
[2024-12-28 21:31] LABS: Albumin 4.4 g/dL (3.2-4.8); Aspartate Aminotransferase 20 U/L (13-40); BUN/Creatinine Ratio 14.3 (10.0-20.0); Bilirubin, Total 0.4 mg/dL (0.2-1.0)
[2024-12-28] MEDS: ACETAMINOPHEN 325 MG TAB PO ONE (21:31)
[2024-12-28] MEDS: ONDANSETRON HCL 4 MG/2 ML VIAL IV ONE (21:32)
[2024-12-28] MEDS: VANCOMYCIN 1GM/200ML PM 200 ML IV ONE (21:32)
[2024-12-28] MEDS: SODIUM CHLORIDE 0.9% 2,000 ML IV ONE (21:33)
[2024-12-28] MEDS: MORPHINE SULFATE 4 MG/ML SYR/VIAL IV ONE ×2 (21:33→22:54)
--- NOTE | 2024-12-28 21:34 | DVH ---
CHEST RADIOGRAPH Indication: fever Technique: Single frontal view of the chest was obtained Comparison: XY CHEST XRAY 1 VIEW on DOS: 08/20/23, XY CHEST PORTABLE on DOS: 08/17/23, XY CHEST PORTABL E on DOS: 08/07/23 FINDINGS: Lines and Tubes: None Lungs: No focal consolidation. Pleura: No effusion. No pneumothorax. Cardiomediastinal contours: Unremarkable Bones: No acute osseous abnormality. IMPRESSION: 1. Removal of the internal jugular catheters bilaterally. 2. Otherwise no significant change from 08/20/2023.
[2024-12-28 21:35] LABS: Calcium 8.5 mg/dL (8.7-10.4); Glucose 184 mg/dL (74-106); Sodium 133 mmol/L (136-145)
[2024-12-28 21:45] LABS: Lactic Acid w/Reflex 2.6 mmol/L (0.4-2.0)
[2024-12-29] MEDS ORDERED: MORPHINE SULFATE INJ 2 MG/ml SYRG IV ONE (00:15)
[2024-12-29] MEDS ORDERED: VANCOMYCIN PER PHARMACY 0 MG IV SCH (00:30)
[2024-12-29] MEDS: CEFEPIME 1GM/ 50ML 50 ML IV SCH ×2 (00:34→08:59)
[2024-12-29] MEDS ORDERED: DOCUSATE SOD 100 MG CAP PO PRN (01:00)
[2024-12-29] MEDS ORDERED: ACETAMINOPHEN 325 MG TAB PO PRN (01:00)
[2024-12-29] MEDS: MORPHINE SULFATE 4 MG/ML SYR/VIAL IV ONE ×2 (01:11→05:06)
[2024-12-29] MEDS: ALBUTEROL SULF 2.5 MG/0.5ML(0.5%) NEB SOLN NEB ONE (01:39)
[2024-12-29] MEDS: ZOLPIDEM TARTRATE 5 MG TAB PO PRN (02:05)
[2024-12-29] MEDS: ONDANSETRON HCL 4 MG/2 ML VIAL IV PRN (02:05)
[2024-12-29] MEDS ORDERED: MORPHINE SULFATE INJ 2 MG/ml SYRG IV PRN ×2 (04:00→06:30)
[2024-12-29 04:19] LABS: Basophils # (auto) 0 10 ^3/uL (0-0.2); Basophils % (auto) 0.1 % (0.0-2.0); Eosinophils # (auto) 0 10 ^3/uL (0-0.8); Eosinophils % (auto) 0.2 % (0.0-7.0); Hematocrit 30.3 % (36.0-46.0); Lymphocytes # (auto) 0.6 10 ^3/uL (0.4-5.4); Lymphocytes % (auto) 7.8 % (10.0-50.0); Mean Corpuscular Hemoglobin 29.1 pg (28.0-32.0); Mean Corpuscular Hgb Conc. 33.1 g/dL (32.0-36.0); Mean Corpuscular Volume 87.9 fL (80.0-100.0); Monocytes # (auto) 0.5 10 ^3/uL (0-1.3); Monocytes % (auto) 6.2 % (0.0-12.0); Neutrophils # (auto) 6.4 10 ^3/uL (1.6-8.6); Neutrophils % (auto) 85.7 % (37.0-80.0); Platelet Count (auto) 119 10^3/uL (140-450); Red Blood Cells 3.44 10^6/uL (4.0-5.20); Red Cell Distribution Width 15.9 % (11.8-14.3); White Blood Cell 7.5 10^3/uL (4.4-10.8)
[2024-12-29 04:33] LABS: Alanine Aminotransferase 11 U/L (7-40); Alkaline Phosphatase 77 U/L (46-116); Anion Gap 10 (5-15); Aspartate Aminotransferase 15 U/L (13-40); BUN/Creatinine Ratio 18.8 (10.0-20.0); Bilirubin, Total 0.4 mg/dL (0.2-1.0); Blood Urea Nitrogen 15 mg/dL (9-23); Carbon Dioxide 21 mmol/L (20-31); Chloride 104 mmol/L (98-107); Total Protein 6.4 g/dL (5.7-8.2)
[2024-12-29 04:40] LABS: Calcium 7.7 mg/dL (8.7-10.4); Glucose 143 mg/dL (74-106); Potassium 3.4 mmol/L (3.5-5.1); Sodium 135 mmol/L (136-145)
[2024-12-29] MEDS: ONDANSETRON HCL 4 MG/2 ML VIAL IV ONE (05:05)
[2024-12-29] MEDS: LEVOTHYROXINE SODIUM 100 MCG TAB PO SCH (06:10)
--- NOTE | 2024-12-29 06:24 | DVHHP2 ---
History of Present Illness Reason for Visit: Sepsis, unspecified organism History of Present Illness The patient is a 69-year-old female with multiple past medical history including CHF, COPD, AFib, schizophrenia, and hypertension who presented to [facility] ED with complaint of left arm swelling. Patient reports she noticed sudden onset of left pain, swelling, redness, and associated shortness of breaths getting worse that prompted this visit. Patient was seen and evaluated in the ED, laboratory data shows WBC 8.3, hemoglobin 10.7, hematocrit 32.7, platelets 131, sodium 133, potassium 3.7, BUN 14, creatinine 0.98, glucose 184, calcium 8.5, lactic acid 2.6 trending down to 2.0, blood pressure 124/57, heart rate 99, temperature 102.7 F trending down to 100.6 F, O2 saturation 95% on oxygen. Patient was started on IV antibiotic regimen vancomycin, please see medication orders section in the computer. On my assessment, patient denied chest pain, no headache, no dizziness, no shortness a breath, no diaphoresis, no nausea, no vomiting, no chills. Patient was admitted for further evaluation and medical management. Past Medical History AFIB, Anxiety, Cancer, CHF, COPD, Depression, High Lipids, Hypotension, Schizophrenia, Thyroid, DVT right leg Past Surgical History Hernia Repair, Hysterectomy Family History Reviewed, noncontributory to the management of this case. Past Social History The patient lives at home, denies smoking, alcohol or illicit drugs abuse. Review of Systems Constitutional: Yes: Weakness; No: Fever, Chills, Sweats, Malaise, Other Eyes: No: Pain, Vision change, Conjunctivae inflammation, Eyelid inflammation, Other, Redness ENT: No: Ear pain, Ear discharge, Nose pain, Nose discharge, Nose congestion, Mouth pain, Mouth swelling, Throat pain, Throat swelling, Other Respiratory: No: Cough, Dry, Shortness of breath, SOB with excertion, Wheezing, Hemoptysis, Pleuritic Pain, Sputum, Wheezing, Other Cardiovascular: No: Chest Pain, Palpitations, Orthopnea, Paroxysmal Noc. Dyspnea, Edema, Lt Headedness, Other Gastrointestinal: No: Nausea, Vomiting, Abdominal Pain, Diarrhea, Constipation, Melena, Hematochezia, Other Genitourinary: No Dysuria, No Frequency, No Incontinence, No Hematuria, No Retention, No Other Musculoskeletal: other (left upper extremity pain, swelling and redness); No: neck pain, shoulder pain, arm pain, back pain, hand pain, leg pain, foot pain Skin: No: Rash, Lesions, Jaundice, Bruising, Other Neurological: No: Weakness, Numbness, Incoordination, Change in speech, Confusion, Seizures, Other Allergies: Coded Allergies: Tetracycline (Verified Allergy, Severe, CONVULSIONS, 02/16/14) [place] (Verified Adverse Reaction, Unknown, anaphylatic, 05/22/22) Per patient, strawberries cause anaphylatic reaction Medications Current Medications Medications Dose Ordered Sig/Aster Route Start Time Stop Time Status Last Admin Dose Admin Vancomycin HCl 0 ml @ 0 mls/hr UD IV 12/29/24 00:30 UNV Duloxetine HCl 60 mg DAILY PO 12/29/24 10:00 Levothyroxine Sodium 100 mcg QAM@0600 PO 12/29/24 06:00 12/29/24 06:10 100 MCG Acetaminophen/ Hydrocodone Bitart 1 tab Q4HP PRN PO 12/29/24 01:00 Ondansetron HCl 4 mg Q4HP PRN IV 12/29/24 01:00 12/29/24 02:05 4 MG Docusate Sodium 100 mg BIDPRN PRN PO 12/29/24 01:00 Acetaminophen 650 mg Q6HP PRN PO 12/29/24 01:00 Famotidine 20 mg Q12HR IV 12/29/24 10:00 Aspirin 81 mg DAILY PO 12/29/24 10:00 Atorvastatin Calcium 20 mg HS PO 12/29/24 22:00 Zolpidem Tartrate 10 mg HSPRN PRN PO 12/29/24 01:00 12/29/24 02:05 10 MG Cefepime HCl 50 ml @ 12.5 mls/hr Q8HR IV 12/29/24 08:30 Morphine Sulfate 2 mg Q6HPRN PRN IV 12/29/24 04:00 Exam Vital Signs Vital Signs Date Time Temp Pulse Resp B/P (MAP) Pulse Ox O2 Delivery O2 Flow Rate FiO2 12/29/24 06:05 67 12 123/60 12/29/24 06:00 100 12/29/24 01:39 Nasal Cannula* 2 28 12/29/24 00:35 100.6 General Appearance: Alert, Oriented X3, Cooperative, No acute distress HEENT: Atraumatic, PERRLA, EOMI, Mucous membr. moist/pink Respiratory: Clear to auscultation, Normal air movement Cardiovascular: Regular rate, Normal S1, Normal S2, No murmurs Abdominal: Normal bowel sounds, Soft, No tenderness, No hepatospenomegaly, No masses Extremities: No clubbing, No cyanosis, No edema, Normal pulses, Other (Left upper extremity tenderness/swelling) Skin: No rashes, No breakdown, No significant lesion Neuro: Normal speech, Normal tone, Sensation intact, Cranial nerves 3-12 NL, Reflexes 2+, Other (Generalized weakness) Psych/Mental Status: Mental status NL, Mood NL Labs/Xrays Labs Test 12/29/24 03:45 12/28/24 22:45 12/28/24 20:56 Range/Units White Blood Count 7.5 4.4-10.8 10^3/uL Red Blood Count 3.44 L 4.0-5.20 10^6/uL Hemoglobin 10.0 L 12.2-16.2 g/dL Hematocrit 30.3 L 36.0-46.0 % Mean Corpuscular Volume 87.9 80.0-100.0 fL Mean Corpuscular Hemoglobin 29.1 28.0-32.0 pg Mean Corpuscular Hemoglobin Concent 33.1 32.0-36.0 g/dL Red Cell Distribution Width 15.9 H 11.8-14.3 % Platelet Count 119 L 140-450 10^3/uL Mean Platelet Volume 8.0 6.9-10.8 fL Neutrophils (%) (Auto) 85.7 H 37.0-80.0 % Lymphocytes (%) (Auto) 7.8 L 10.0-50.0 % Monocytes (%) (Auto) 6.2 0.0-12.0 % Eosinophils (%) (Auto) 0.2 0.0-7.0 % Basophils (%) (Auto) 0.1 0.0-2.0 % Neutrophils # (Auto) 6.4 1.6-8.6 10 ^3/uL Lymphocytes # (Auto) 0.6 0.4-5.4 10 ^3/uL Monocytes # (Auto) 0.5 0-1.3 10 ^3/uL Eosinophils # (Auto) 0 0-0.8 10 ^3/uL Basophils # (Auto) 0 0-0.2 10 ^3/uL Nucleated Red Blood Cells 0.0 % Sodium Level 135 L 136-145 mmol/L Potassium Level 3.4 L 3.5-5.1 mmol/L Chloride Level 104 98-107 mmol/L Carbon Dioxide Level 21 20-31 mmol/L Anion Gap 10 5-15 Blood Urea Nitrogen 15 9-23 mg/dL Creatinine 0.80 0.550-1.02 mg/dL Glomerular Filtration Rate Calc 80 >90 mL/min BUN/Creatinine Ratio 18.8 10.0-20.0 Serum Glucose 143 H 74-106 mg/dL Calcium Level 7.7 L 8.7-10.4 mg/dL Total Bilirubin 0.4 0.2-1.0 mg/dL Aspartate Amino Transferase (AST) 15 13-40 U/L Alanine Aminotransferase (ALT) 11 7-40 U/L Alkaline Phosphatase 77 46-116 U/L B-Type Natriuretic Peptide 146.67 0-100 pg/mL Total Protein 6.4 5.7-8.2 g/dL Albumin 4.0 3.2-4.8 g/dL Thyroid Stimulating Hormone (TSH) 1.51 0.55-4.78 uIU/mL Lactic Acid Level 2.0 0.4-2.0 mmol/L Prothrombin Time 10.7 9.3-11.8 sec Prothrombin Time INR 1.01 0.9-1.15 Activated Partial Thromboplast Time 27.6 24.5-34.5 SEC PATIENT: HAIR MEEKACCT: [id number] UNIT: [id number] : 1955 LOC: ER ROOM / BED: / AGE / SEX: 69 / F ADM STATUS: REG ER SERVICE 33 ORDERING PHYSICIAN: KEITH CHAPMAN MD PROCEDURE(s): CXRP - CHEST PORTABLE REASON: fever ORDER NUMBER(s): [id number], ACCESSION NUMBER(s): [id number] CHEST RADIOGRAPH Indication: fever Technique: Single frontal view of the chest was obtained Comparison: XY CHEST XRAY 1 VIEW on DOS: 08/20/23, XY CHEST PORTABLE on DOS: 08/17/23, XY CHEST PORTABLE on DOS: 08/07/23 FINDINGS: Lines and Tubes: None Lungs: No focal consolidation. Pleura: No effusion. No pneumothorax. Cardiomediastinal contours: Unremarkable Bones: No acute osseous abnormality. IMPRESSION: 1. Removal of the internal jugular catheters bilaterally. 2. Otherwise no significant change from 08/20/2023. Assessment/Plan Assessment/Plan Sepsis, unspecified organism Hyperglycemia Left arm cellulitis Generalized weakness Plan 1. Admit to telemetry unit 2. Breathing treatment 3. Pain control management 4. IV antibiotic management 5. Management of fluids and electrolytes 6. Consultation for hospitalist 7. Diagnostic test chest x-ray 8. DVT prophylaxis-on SCDs 9. Repeat labs CBC, CMP in a.m. 10. Home medication reviewed and reconciled 11. Continue with current medical management 12. Treatment plan discussed with patient and RN. Patient verbalized understanding. Plan discussed with: Patient, Other (RN) My Orders Orders - RIK KIRKLAND DNP Procedure Category Date Status Time Vancomycin Per PHA 12/29/24 Pending Pharmacy 00:30 Duloxetine Hcl PHA 12/29/24 In Process Capsule (Cymbalta 10:00 Levothyroxine Tablet PHA 12/29/24 In Process (Synthroid Tablet) 06:00 Allergies VANDANA 12/29/24 In Process 00:48 Code Status CODE 12/29/24 Transmitted 00:48 Oxygen Per Hour RT 12/29/24 Transmitted 00:48 Hydrocodone-Acet PHA 12/29/24 In Process 5/325mg Tab ([place] 01:00 Ondansetron Hcl PHA 12/29/24 In Process (Zofran) 01:00 Docusate Sodium PHA 12/29/24 In Process Capsule (Colace 01:00 Complete Blood Count LAB 12/30/24 Verified 04:00 Comprehensive LAB 12/30/24 Verified Metabolic Panel 04:00 Cardiac DIET 12/29/24 Transmitted Diet-2gna,Lofat,Lochol Breakfast Condition: Serious VANDANA 12/29/24 In Process 00:48 Acetaminophen Tablet PHA 12/29/24 In Process (Tylenol Tablet) 01:00 Bedrest With Bathroom VANDANA 12/29/24 In Process Privileg 00:48 Sequential VANDANA 12/29/24 In Process Compression Device Famotidine Injection PHA 12/29/24 In Process (Pepcid Injection) 10:00 Aspirin Tablet PHA 12/29/24 In Process 10:00 Atorvastatin (Lipitor) PHA 12/29/24 In Process 22:00 Zolpidem Tartrate PHA 12/29/24 In Process (Ambien) 01:00 Morphine Sulfate PHA 12/29/24 In Process Injection 04:00 Problem List: (1) Sepsis, unspecified organism (2) Left arm cellulitis (3) Hyperglycemia (4) Generalized weakness Date of Service: Dec 29, 2024 Billing Provider: RIK KIRKLAND DNP Common Visit Codes: 73328-[id number] INP/OBS CARE (HIGH) RIK KIRKLAND DNP Dec 29, 2024 06:24
[2024-12-29] MEDS ORDERED: NITROGLYCERIN 0.4 MG SL TAB SL PRN (06:30)
[2024-12-29 06:52] LABS: Urine Bacteria FEW /hpf (None Seen); Urine Blood Negative /uL (Negative); Urine Clarity Clear (Clear); Urine Color Light-Yellow (Yellow); Urine Protein, UAD TRACE (Negative); Urine Specific Gravity 1.015 (1.001-1.035); Urine Squamous Epithelial Cell FEW /hpf (<5); Urine Urobilinogen Normal (Negative); Urine WBC 1 /HPF (0-5); Urine pH 5.5 (5.0-9.0)
[2024-12-29] MEDS: DULoxetine HCL 30 MG CAP PO SCH (10:00)
[2024-12-29] MEDS: ASPirin 81 mg TAB PO SCH (11:27)
[2024-12-29] MEDS: HYDROcodone-ACET 5/325MG TAB PO PRN (11:27)
[2024-12-29] MEDS: FAMOTIDINE (10MG/ML) 2ML VL IV SCH (11:27)
[2024-12-29] MEDS: VANCOMYCIN 1GM/200ML PM 200 ML IV SCH (14:22)
[2024-12-29 18:36] VITALS: BP 139/74; PULSE 67; RESP 18; TEMP 97.3; O2SAT 97
[2024-12-29 20:00] VITALS: PULSE 81; RESP 18
[2024-12-29 21:00] VITALS: BP 133/55; PULSE 80; RESP 17; TEMP 97.4; O2SAT 97
[2024-12-29] MEDS: ATORVASTATIN 20 MG TAB PO SCH (21:35)
[2024-12-30] VITALS (12 sets, daily range): BP systolic 97–151; BP diastolic 67–89; PULSE 76–94; RESP 16–20; TEMP 96.3–98.1; O2SAT 94–99
[2024-12-30 07:07] LABS: Basophils # (auto) 0 10 ^3/uL (0-0.2); Basophils % (auto) 0.1 % (0.0-2.0); Eosinophils # (auto) 0 10 ^3/uL (0-0.8); Hematocrit 30.8 % (36.0-46.0); Hemoglobin 9.9 g/dL (12.2-16.2); Lymphocytes # (auto) 1.1 10 ^3/uL (0.4-5.4); Lymphocytes % (auto) 21.4 % (10.0-50.0); Mean Corpuscular Hemoglobin 29.2 pg (28.0-32.0); Mean Corpuscular Hgb Conc. 32.2 g/dL (32.0-36.0); Mean Corpuscular Volume 90.7 fL (80.0-100.0); Monocytes # (auto) 0.4 10 ^3/uL (0-1.3); Monocytes % (auto) 8.6 % (0.0-12.0); Neutrophils # (auto) 3.4 10 ^3/uL (1.6-8.6); Neutrophils % (auto) 68.9 % (37.0-80.0); Nucleated Red Blood Cells % 0.1 %; Platelet Count (auto) 137 10^3/uL (140-450); Red Cell Distribution Width 16.2 % (11.8-14.3)
[2024-12-30 07:20] LABS: Alanine Aminotransferase 10 U/L (7-40); Albumin 4.1 g/dL (3.2-4.8); Alkaline Phosphatase 78 U/L (46-116); Anion Gap 9 (5-15); Aspartate Aminotransferase 16 U/L (13-40); BUN/Creatinine Ratio 16.4 (10.0-20.0); Bilirubin, Total 0.3 mg/dL (0.2-1.0); Blood Urea Nitrogen 11 mg/dL (9-23); Calcium 8.9 mg/dL (8.7-10.4); Carbon Dioxide 24 mmol/L (20-31); Chloride 103 mmol/L (98-107); Glucose 85 mg/dL (74-106); Sodium 136 mmol/L (136-145); Total Protein 6.7 g/dL (5.7-8.2)
[2024-12-30 07:21] LABS: Potassium 3.5 mmol/L (3.5-5.1)
[2024-12-30] MEDS: MORPHINE SULFATE 4 MG/ML SYR/VIAL IV PRN (09:43)
--- NOTE | 2024-12-30 13:31 | DVHPN2 ---
Subjective Left arm cellulitis Changes from previous H/P or p: Changes Eyes: No Pain, No Vision change, No Conjunctivae inflammation, No Eyelid inflammation, No Other, No Redness ENT: No Ear pain, No Ear discharge, No Nose pain, No Nose discharge, No Nose congestion, No Mouth pain, No Mouth swelling, No Throat pain, No Throat swelling, No Other Cardiovascular: No Chest Pain, No Palpitations, No Orthopnea, No Paroxysmal Noc. Dyspnea, No Edema, No Lt Headedness, No Other Respiratory: No Cough, No Dry, No Shortness of breath, No SOB with excertion, No Wheezing, No Hemoptysis, No Pleuritic Pain, No Sputum, No Other Gastrointestinal: No Nausea, No Vomiting, No Abdominal Pain, No Diarrhea, No Constipation, No Melena, No Hematochezia, No Other Genitourinary: No Dysuria, No Frequency, No Incontinence, No Hematuria, No Retention, No Other Musculoskeletal: other (left upper extremity pain, swelling and redness); No neck pain, No shoulder pain, No arm pain, No back pain, No hand pain, No leg pain, No foot pain Skin: No Rash, No Lesions, No Jaundice, No Bruising, No Other Objective Vitals Vital Signs Date Time Temp Pulse Resp B/P (MAP) Pulse Ox O2 Delivery O2 Flow Rate FiO2 12/30/24 09:43 91 18 142/78 12/30/24 09:00 97.5 98 97.5 12/30/24 08:00 Room Air* 0 21 Intake/Output Intake and Output 12/30/24 07:00 Intake Total 1320 ml Balance 1320 ml Intake Oral 700 ml IV Total 620 ml # Voids 1 # Bowel Movements 1 General Appearance: Alert, Oriented X3, Cooperative, No acute distress Lungs: Clear to auscultation, Normal air movement Cardiovascular: Regular rate, Normal S1 Abdomen: Normal bowel sounds, Soft, No tenderness Extremities: No edema Medications Current Medications Medications Dose Ordered Sig/Aster Route Start Time Stop Time Status Last Admin Dose Admin Vancomycin HCl 0 ml @ 0 mls/hr UD IV 12/29/24 00:30 Duloxetine HCl 60 mg DAILY PO 12/29/24 10:00 12/30/24 09:42 60 MG Levothyroxine Sodium 100 mcg QAM@0600 PO 12/29/24 06:00 12/30/24 05:34 100 MCG Acetaminophen/ Hydrocodone Bitart 1 tab Q4HP PRN PO 12/29/24 01:00 12/30/24 02:48 1 TAB Ondansetron HCl 4 mg Q4HP PRN IV 12/29/24 01:00 12/30/24 05:35 4 MG Docusate Sodium 100 mg BIDPRN PRN PO 12/29/24 01:00 Acetaminophen 650 mg Q6HP PRN PO 12/29/24 01:00 Famotidine 20 mg Q12HR IV 12/29/24 10:00 12/29/24 21:35 20 MG Aspirin 81 mg DAILY PO 12/29/24 10:00 12/30/24 09:40 81 MG Atorvastatin Calcium 20 mg HS PO 12/29/24 22:00 12/29/24 21:35 20 MG Zolpidem Tartrate 10 mg HSPRN PRN PO 12/29/24 01:00 12/29/24 21:54 10 MG Cefepime HCl 50 ml @ 12.5 mls/hr Q8HR IV 12/29/24 08:30 12/30/24 09:39 12.5 MLS/HR Nitroglycerin 0.4 mg Q5MINP PRN SL 12/29/24 06:30 Morphine Sulfate 2 mg Q30M PRN IV 12/29/24 06:30 Vancomycin HCl 200 ml @ 160 mls/hr Q16H IV 12/29/24 14:00 12/30/24 05:35 160 MLS/HR Morphine Sulfate 2 mg Q6HPRN PRN IV 12/30/24 07:30 12/30/24 09:43 2 MG Laboratory Results Laboratory Tests 12/30/24 06:00 Chemistry Test 12/30/24 06:00 Albumin 4.1 g/dL (3.2-4.8) Calcium Level 8.9 mg/dL (8.7-10.4) Total Protein 6.7 g/dL (5.7-8.2) LFT Test 12/30/24 06:00 Alanine Aminotransferase (ALT) 10 U/L (7-40) Alkaline Phosphatase 78 U/L (46-116) Aspartate Amino Transferase (AST) 16 U/L (13-40) Total Bilirubin 0.3 mg/dL (0.2-1.0) Urinalysis Test 12/29/24 06:43 Urine Color Light-yellow (Yellow) Urine Clarity Clear (Clear) Urine pH 5.5 (5.0-9.0) Urine Specific [place] 1.015 (1.001-1.035) Urine Protein Trace (Negative) H Urine Ketones Negative (Negative) Urine Blood Negative /uL (Negative) Urine Nitrite Negative (Negative) Urine Bilirubin Negative (Negative) Urine Urobilinogen Normal mg/dL (Negative) Urine Leukocyte Esterase Negative /uL (Negative) Urine RBC 1 /hpf (0 - 4) Urine Microscopic WBC 1 /HPF (0-5) Urine Squamous Epithelial Cells Few /hpf (<5) Urine Bacteria Few /hpf (None Seen) H Urine Glucose Normal mg/dL (Normal) Microbiology Microbiology Date/Time Source Procedure Growth Status 12/28/24 20:56 Blood Blood Culture - Preliminary NO GROWTH AFTER 24 HOURS OF INCUBATION. Resulted Assessment/Plan Assessment/Plan Left arm cellulitis COPD Chronic respiratory failure Hypertension Schizophrenia History of hypertension History of heart failure History of AFib History of DVT Hypothyroidism Plan Continue IV antibiotics Resume Eliquis home dose Oxygen as needed Med neb treatments as needed Aspirin Lipitor Pain control PRN Levothyroxine Full code Advance directives discussed for 17 minutes Plan discussed with: Patient Date of Service: Dec 30, 2024 Billing Provider: CARISA CARLSON MD Common Visit Codes: [id number] INP/OBS CARE(HIGH) Secondary Visit Codes: [id number] CARE PLAN 30 MINUTES CARISA CARLSON MD Dec 30, 2024 13:31
[2024-12-30] MEDS: IPRATROPIUM BROM 0.5 MG/2.5ML INH SOL NEB PRN (20:14)
[2024-12-30] MEDS: ALBUTEROL SULF 2.5 MG/0.5ML(0.5%) NEB SOLN NEB PRN (20:15)
[2024-12-30] MEDS: APIXABAN 5 MG TAB PO SCH (21:15)
[2024-12-31] VITALS (8 sets, daily range): BP systolic 140–158; BP diastolic 64–85; PULSE 70–86; RESP 18–20; TEMP 97.7–98.6; O2SAT 93–99
[2024-12-31 06:06] LABS: Basophils # (auto) 0 10 ^3/uL (0-0.2); Basophils % (auto) 0.3 % (0.0-2.0); Eosinophils # (auto) 0.1 10 ^3/uL (0-0.8); Eosinophils % (auto) 1.6 % (0.0-7.0); Hematocrit 29.3 % (36.0-46.0); Hemoglobin 9.9 g/dL (12.2-16.2); Lymphocytes # (auto) 1.3 10 ^3/uL (0.4-5.4); Lymphocytes % (auto) 26.4 % (10.0-50.0); Mean Corpuscular Hgb Conc. 33.6 g/dL (32.0-36.0); Mean Corpuscular Volume 86.3 fL (80.0-100.0); Monocytes # (auto) 0.4 10 ^3/uL (0-1.3); Monocytes % (auto) 9.1 % (0.0-12.0); Neutrophils % (auto) 62.6 % (37.0-80.0); Nucleated Red Blood Cells % 0.1 %; Platelet Count (auto) 143 10^3/uL (140-450); Red Blood Cells 3.39 10^6/uL (4.0-5.20); White Blood Cell 4.8 10^3/uL (4.4-10.8)
[2024-12-31] MEDS: VANCOMYCIN 1GM/200ML PM 200 ML IV SCH (10:00)
[2024-12-31] MEDS ORDERED: ALBUAER3 IN (10:22)
[2024-12-31] MEDS ORDERED: HYDR-4902 PO (10:22)
[2024-12-31] MEDS ORDERED: AUG875T PO (10:22)
--- NOTE | 2024-12-31 10:26 | DVHDS2 ---
Discharge Summary Date of Admission Dec 29, 2024 at 06:23 Date of Discharge: Dec 31, 2024 Labs/Diagnostic Data: Laboratory Results Test 12/31/24 05:15 12/30/24 21:00 12/30/24 06:00 12/29/24 06:43 White Blood Count 4.8 10^3/uL (4.4-10.8) Red Blood Count 3.39 10^6/uL (4.0-5.20) Hemoglobin 9.9 g/dL (12.2-16.2) Hematocrit 29.3 % (36.0-46.0) Mean Corpuscular Volume 86.3 fL (80.0-100.0) Mean Corpuscular Hemoglobin 29.0 pg (28.0-32.0) Mean Corpuscular Hemoglobin Concent 33.6 g/dL (32.0-36.0) Red Cell Distribution Width 15.0 % (11.8-14.3) Platelet Count 143 10^3/uL (140-450) Mean Platelet Volume 8.0 fL (6.9-10.8) Neutrophils (%) (Auto) 62.6 % (37.0-80.0) Lymphocytes (%) (Auto) 26.4 % (10.0-50.0) Monocytes (%) (Auto) 9.1 % (0.0-12.0) Eosinophils (%) (Auto) 1.6 % (0.0-7.0) Basophils (%) (Auto) 0.3 % (0.0-2.0) Neutrophils # (Auto) 3.0 10 ^3/uL (1.6-8.6) Lymphocytes # (Auto) 1.3 10 ^3/uL (0.4-5.4) Monocytes # (Auto) 0.4 10 ^3/uL (0-1.3) Eosinophils # (Auto) 0.1 10 ^3/uL (0-0.8) Basophils # (Auto) 0 10 ^3/uL (0-0.2) Nucleated Red Blood Cells 0.1 % Creatinine 0.70 mg/dL (0.550-1.02) Glomerular Filtration Rate Calc 94 mL/min (>90) Vancomycin Level Trough 9.0 ug/mL (5-10) Sodium Level 136 mmol/L (136-145) Potassium Level 3.5 mmol/L (3.5-5.1) Chloride Level 103 mmol/L (98-107) Carbon Dioxide Level 24 mmol/L (20-31) Anion Gap 9 (5-15) Blood Urea Nitrogen 11 mg/dL (9-23) BUN/Creatinine Ratio 16.4 (10.0-20.0) Serum Glucose 85 mg/dL (74-106) Calcium Level 8.9 mg/dL (8.7-10.4) Total Bilirubin 0.3 mg/dL (0.2-1.0) Aspartate Amino Transferase (AST) 16 U/L (13-40) Alanine Aminotransferase (ALT) 10 U/L (7-40) Alkaline Phosphatase 78 U/L (46-116) Total Protein 6.7 g/dL (5.7-8.2) Albumin 4.1 g/dL (3.2-4.8) Urine Color Light-yellow (Yellow) Urine Clarity Clear (Clear) Urine pH 5.5 (5.0-9.0) Urine Specific [place] 1.015 (1.001-1.035) Urine Protein Trace (Negative) Urine Ketones Negative (Negative) Urine Blood Negative /uL (Negative) Urine Nitrite Negative (Negative) Urine Bilirubin Negative (Negative) Urine Urobilinogen Normal mg/dL (Negative) Urine Leukocyte Esterase Negative /uL (Negative) Urine RBC 1 /hpf (0 - 4) Urine Microscopic WBC 1 /HPF (0-5) Urine Squamous Epithelial Cells Few /hpf (<5) Urine Bacteria Few /hpf (None Seen) Urine Glucose Normal mg/dL (Normal) Test 12/29/24 03:45 12/28/24 22:45 12/28/24 20:56 Hemoglobin A1c 5.8 % A1C (<5.7) B-Type Natriuretic Peptide 146.67 pg/mL (0-100) Thyroid Stimulating Hormone (TSH) 1.51 uIU/mL (0.55-4.78) Lactic Acid Level 2.0 mmol/L (0.4-2.0) Prothrombin Time 10.7 sec (9.3-11.8) Prothrombin Time INR 1.01 (0.9-1.15) Activated Partial Thromboplast Time 27.6 SEC (24.5-34.5) Other Laboratory Tests 12/31/24 05:15 12/30/24 06:00 Brief Hx & Hospital Course: Final diagnoses: Left arm cellulitis COPD Chronic respiratory failure Hypertension Schizophrenia History of hypertension History of heart failure History of AFib History of DVT Hypothyroidism 69-year-old female who was admitted for left arm cellulitis She was given IV antibiotics She is doing better now The erythema is fading away She is still has some residual erythema at the lateral aspect of the left arm Her vital signs are stable now No more fever White count is normal Chemistries are normal The patient is stable for discharge She will be discharged on Augmentin for 7 days Ventolin refill [facility] p.r.n. for the pain Resume other home medications Follow up with the primary care physician as soon as possible Condition at Discharge: Stable Final Diagnosis/Problems List Left arm cellulitis COPD Chronic respiratory failure Hypertension Schizophrenia History of hypertension History of heart failure History of AFib History of DVT Hypothyroidism Discharge Disposition: Home SNF Discharge Will this Physician continue t: No Discharge Instruct/Medications Diet: Cardiac 2g Na,low cholest Activity: No Restrictions, As Tolerated Follow Up/Referral: PCP as soon as possible Medications: Augmentin for 7 days Bentley p.r.n. Ventolin refill Resume other home medications Discharge Statement: "Patient was advised to return to the ER or call 911 if any headaches, dizziness, shortness of breath, chest pain, abdominal pain, bleeding, fevers, or worsening of medical condition. Patient was counseled about treatment plan, medications, possible side effects, patientverbalized understanding. All questions were answered to the best of my ability. This discharge took greater then 30 minutes in planning, reviewing documentation, counseling the patient, and discussing with other team members." ASSESSMENT ASSESSMENT Assessment Left arm cellulitis COPD Chronic respiratory failure Hypertension Schizophrenia History of hypertension History of heart failure History of AFib History of DVT Hypothyroidism Date of Service: Dec 31, 2024 Billing Provider: CARISA CARLSON MD Common Visit Codes: 39891-OOL/OBS DISCH DAY >30min CARISA CARLSON MD Dec 31, 2024 10:26
== END 2024-12-31 12:40 | disposition home or self-care (01) | DRG 872 ==
LOC: EDBD 20:18 → ER 20:18 → OVERFLOW 12-29 06:23 → TELE-EAST 12-29 18:36
PROVIDERS: ADMIT Internal Medicine Geriatric Medicine; ATTEND Internal Medicine Geriatric Medicine
PROC: 05HB33Z Insertion of Infusion Device into Right Basilic Vein, Percutaneous Approach (ICD-10-PCS; principal; 2024-12-29)
PROC: B54MZZA Ultrasonography of Right Upper Extremity Veins, Guidance (ICD-10-PCS; 2024-12-29)
DX: A41.9 Sepsis, unspecified organism (principal); L03.114 Cellulitis of left upper limb; J96.10 Chronic respiratory failure, unspecified whether with hypoxia or hypercapnia; E87.20 Acidosis, unspecified; J44.9 Chronic obstructive pulmonary disease, unspecified; F20.9 Schizophrenia, unspecified; I50.9 Heart failure, unspecified; I48.91 Unspecified atrial fibrillation; I11.0 Hypertensive heart disease with heart failure; F32.A Depression, unspecified; R73.9 Hyperglycemia, unspecified; F41.9 Anxiety disorder, unspecified; E03.9 Hypothyroidism, unspecified; Z86.718 Personal history of other venous thrombosis and embolism; Z88.1 Allergy status to other antibiotic agents; Z88.8 Allergy status to other drugs, medicaments and biological substances; Z79.891 Long term (current) use of opiate analgesic; Z79.1 Long term (current) use of non-steroidal anti-inflammatories (NSAID); Z79.899 Other long term (current) drug therapy; Z90.710 Acquired absence of both cervix and uterus
CPT/HCPCS: 36415; 71045; 80053; 80202; 81001; 82565; 83036; 83605; 83880; 84443; 85025; 85610; 85730; 87040; 94640; 96365; 96375; 99291; G0378; J2405; J3490